=== PATIENT | male | born 1970 | race African-American/Black ===

== ENCOUNTER 2017-07-10 08:30 | Emergency (ER) | payer SELFPAY ==
[2017-07-10] MEDS ORDERED: HYDROCODONE/APAP 7.5/325 MG TAB ONE (10:24)
--- NOTE | 2017-07-10 11:47 | RAD REPORT ---
EXAM DESCRIPTION: CT - Soft Tissue Neck W/Contr - 07/10/2017 10:47 am CLINICAL HISTORY: Neck pain/sore throat. TECHNIQUE: Computed axial tomography of the neck was obtained. 50 mL of Isovue 300 was administered intravenously. Coronal and sagital reconstruction was performed. COMPARISON: None. FINDINGS: The tonsils bilaterally appear mildly enlarged. A peritonsillar abscess is not seen. The p arapharyngeal fat is clear. The remainder of the pharynx, larynx, tongue base and subglottic trachea appear unremarkable. The parotid, submandibular and thyroid glands are unremarkable. No significant lymphadenopathy is seen. Moderate to marked mucoperiosteal thickening of the sphenoid sinus is present. IMPRESSION: The tonsils appear mildly enlarged bilaterally which may indicate a tonsillitis. A perit onsillar abscess is not noted.
--- NOTE | 2017-07-10 11:47 | EDPHYS ---
Physician Documentation [facility] Name: Keith Oliver Age: 47 yrs Sex: Male : 1970 Arrival Date: 07/10/2017 Time: 08:31 Bed 18 Private MD: ED Physician Dante Baker HPI: 07/10 10:12 This 47 yrs old Black Male presents to ER via Ambulatory with complaints of Jaw Pain, kb Headache, Drainage From Eye. 10:12 The patient presents with sore throat. The patient describes throat pain as constant, kb unable to open mouth wide to yawn. Associated signs and symptoms: Pertinent positives: Sore throat jaw pain. The patient has not experienced similar symptoms in the past. The patient has not recently seen a physician. 10:13 Onset: The symptoms/episode began/occurred 5 day(s) ago. Severity of symptoms: At their kb worst the symptoms were moderate, in the emergency department the symptoms are unchanged. Modifying factors: The symptoms are alleviated by nothing, the symptoms are aggravated by swallowing, opening mouth wide, chewing, Patient's oral intake status: good Denies contact with similarly ill indivduals. Pt reports eye matting and drainage for 5 days. Sore throat, worse with swallowing for 5 days. Right sided jaw pain, worse with chewing and opening mouth wide for 5 days. Denies fever. States "It has nothing to do with my teeth.". Historical: - Allergies: 08:42 NKA; ss - PMHx: 08:42 Asthma; Hypertension; Sickle Cell; esophageal CA; "bleeding ulcer"; ss - PSHx: 08:42 "infected keloid on chest"; ss - Immunization history:: Adult Immunizations up to date. - Social history:: Smoking status: Patient uses tobacco products, denies chronic smoking, but will smoke occasionally. ROS: 10:10 Constitutional: Negative for fever, chills, and weight loss, Cardiovascular: Negative kb for chest pain, palpitations, and edema, Respiratory: Negative for shortness of breath, cough, wheezing, and pleuritic chest pain, Abdomen/GI: Negative for abdominal pain, nausea, vomiting, diarrhea, and constipation, MS/Extremity: Negative for injury and deformity, Skin: Negative for injury, rash, and discoloration, Neuro: Negative for headache, weakness, numbness, tingling, and seizure. 10:10 ENT: Positive for sore throat, jaw pain. Exam: 10:10 Constitutional: This is a well developed, well nourished patient who is awake, alert, kb and in no acute distress. Head/Face: Normocephalic, atraumatic. Neck: Trachea midline, no thyromegaly or masses palpated, and no cervical lymphadenopathy. Supple, full range of motion without nuchal rigidity, or vertebral point tenderness. No Meningismus. Chest/axilla: Normal chest wall appearance and motion. Nontender with no deformity. No lesions are appreciated. Cardiovascular: Regular rate and rhythm with a normal S1 and S2. No gallops, murmurs, or rubs. Normal PMI, no JVD. No pulse deficits. Respiratory: Lungs have equal breath sounds bilaterally, clear to auscultation and percussion. No rales, rhonchi or wheezes noted. No increased work of breathing, no retractions or nasal flaring. Abdomen/GI: Soft, non-tender, with normal bowel sounds. No distension or tympany. No guarding or rebound. No evidence of tenderness throughout. Skin: Warm, dry with normal turgor. Normal color with no rashes, no lesions, and no evidence of cellulitis. MS/ Extremity: Pulses equal, no cyanosis. Neurovascular intact. Full, normal range of motion. Neuro: Awake and alert, GCS 15, oriented to person, place, time, and situation. Cranial nerves II-XII grossly intact. Motor strength 5/5 in all extremities. Sensory grossly intact. Cerebellar exam normal. Normal gait. 10:10 ENT: Pt reports pain when he tries to open his mouth wide, with swallowing and when sticking his tongue out. Unable to fully examine posterior pharynx. Vital Signs: 08:42 BP 133 / 99; Pulse 78; Resp 16; Temp 97.4(TE); Pulse Ox 96% on R/A; Weight 99.79 kg; ss Height 6 ft. 1 in. (185.42 cm); Pain 9/10; 10:00 BP 124 / 93; Pulse 52; Resp 18; Pulse Ox 100% on R/A; em 11:46 BP 114 / 91; Pulse 87; Resp 18; Pulse Ox 100% on R/A; Pain 8/10; em 08:42 Body Mass Index 29.03 (99.79 kg, 185.42 cm) ss MDM: 09:28 Patient medically screened. kb 10:10 Data reviewed: vital signs, nurses notes. Data interpreted: Pulse oximetry: on room air kb is 96 %. Interpretation: normal. 11:34 Counseling: I had a detailed discussion with the patient and/or guardian regarding: the kb historical points, exam findings, and any diagnostic results supporting the discharge/admit diagnosis, lab results, radiology results, the need for outpatient follow up, a family practitioner, to return to the emergency department if symptoms worsen or persist or if there are any questions or concerns that arise at home. 07/10 09:36 Order name: Strep; Complete Time: 10:17 kb 07/10 09:39 Order name: Creatinine for Radiology; Complete Time: 10:18 kb 07/10 09:39 Order name: CT Soft Tissue Neck W/contr kb 07/10 10:17 Order name: Throat Culture EDMS Administered Medications: 10:09 Drug: [place] (7.5 mg-325 mg) 1 tabs Route: PO; em 11:49 Follow up: Response: No adverse reaction; Pain is unchanged, physician notified em Disposition: 15:47 Co-signature as Attending Physician, Dante Baker MD I agree with the assessment and vladimir plan of care. Disposition: 07/10/17 11:46 Discharged to Home. Impression: Conjunctivitis, Jaw pain, Acute tonsillitis. - Condition is Stable. - Discharge Instructions: Conjunctivitis (Viral and Bacterial), Tonsillitis, [id number]. - Prescriptions for Vigamox 0.5 % Ophthalmic Drops - instill 1 drop by OPHTHALMIC route every 8 hours for 7 days; 5 milliliter. Tramadol 50 mg Oral Tablet - take 1 tablet by ORAL route every 8 hours as needed; 12 tablet. Augmentin 875- 125 mg Oral Tablet - take 1 tablet by ORAL route every 12 hours for 7 days; 14 tablet. - Medication Reconciliation Form, Thank You Letter, Antibiotic Education, Prescription Opioid Use form. - Follow up: Emergency Department; When: As needed; Reason: Worsening of condition. Follow up: Private Physician; When: 2 - 3 days; Reason: Recheck today's complaints, Continuance of care, Re-evaluation by your physician. Signatures: Dispatcher [employer] EDMS Hyacinth Bell FNP-C FNP-Ckb Anderson Dante, MD MD vladimir Kramer, Travis, CHALK EXTRUDING MACHINE OPERATOR CHALK EXTRUDING MACHINE OPERATOR Laura Shrestha, LIZZIE RN ss
--- NOTE | 2017-07-10 11:47 | ER ---
Nurse's Notes [facility] Name: Keith Oliver Age: 47 yrs Sex: Male : 1970 Arrival Date: 07/10/2017 Time: 08:31 Bed 18 Private MD: Diagnosis: Conjunctivitis;Jaw pain;Acute tonsillitis Presentation: 07/10 08:40 Presenting complaint: Patient states: R sided jaw pain, eye drainage, headache and ss intermittent nose bleeds x 5 days. Transition of care: patient was not received from another setting of care. Onset of symptoms was July 06, 2017. Care prior to arrival: None. 08:40 Method Of Arrival: Ambulatory ss 08:40 Acuity: CARYL 3 ss Historical: - Allergies: 08:42 NKA; ss - PMHx: 08:42 Asthma; Hypertension; Sickle Cell; esophageal CA; "bleeding ulcer"; ss - PSHx: 08:42 "infected keloid on chest"; ss - Immunization history:: Adult Immunizations up to date. - Social history:: Smoking status: Patient uses tobacco products, denies chronic smoking, but will smoke occasionally. Screenin:50 Abuse screen: Denies threats or abuse. Nutritional screening: No deficits noted. em Tuberculosis screening: No symptoms or risk factors identified. Fall Risk None identified. Assessment: 08:46 General: Appears in no apparent distress. uncomfortable, Behavior is calm, cooperative. em General: Reports fever, unknown temp right sided jaw pain that started Thursday, also c/o intermittent nose bleeds. Pain: Complains of pain in right jaw Pain currently is 9 out of 10 on a pain scale. Pain began 4 days ago. Neuro: Level of Consciousness is awake, alert, obeys commands, Oriented to person, place, time, situation, Gait is steady, Speech is normal, Facial symmetry appears normal. Cardiovascular: Capillary refill < 3 seconds Patient's skin is warm and dry. Respiratory: Airway is patent Respiratory effort is even, unlabored, Respiratory pattern is regular, symmetrical. GI: Abdomen is flat. : No signs and/or symptoms were reported regarding the genitourinary system. EENT: Oral mucosa is moist. Throat is clear is pink. Derm: Skin is intact, Skin is pink, warm \\T\\ dry. Musculoskeletal: Range of motion: intact in all extremities. 09:00 General: The previous assessment is accurate, call light remains within reach. . ss 10:00 Reassessment: Patient appears in no apparent distress at this time. Patient and/or em family updated on plan of care and expected duration. Pain level reassessed. Patient is alert, oriented x 3, equal unlabored respirations, skin warm/dry/pink. Patient states symptoms have not improved. 11:00 Reassessment: Patient appears in no apparent distress at this time. Patient and/or em family updated on plan of care and expected duration. Pain level reassessed. Patient is alert, oriented x 3, equal unlabored respirations, skin warm/dry/pink. 11:40 Reassessment: Patient appears in no apparent distress at this time. Patient and/or em family updated on plan of care and expected duration. Pain level reassessed. Patient is alert, oriented x 3, equal unlabored respirations, skin warm/dry/pink. Patient states feeling better. Vital Signs: 08:42 BP 133 / 99; Pulse 78; Resp 16; Temp 97.4(TE); Pulse Ox 96% on R/A; Weight 99.79 kg; ss Height 6 ft. 1 in. (185.42 cm); Pain 9/10; 10:00 BP 124 / 93; Pulse 52; Resp 18; Pulse Ox 100% on R/A; em 11:46 BP 114 / 91; Pulse 87; Resp 18; Pulse Ox 100% on R/A; Pain 8/10; em 08:42 Body Mass Index 29.03 (99.79 kg, 185.42 cm) ED Course: 08:31 Patient arrived in ED. as 08:41 Triage completed. ss 08:42 Arm band placed on right wrist. ss 08:43 Travis Kramer LVN is Primary Nurse. em 08:50 Patient has correct armband on for positive identification. Bed in low position. Call em light in reach. Side rails up X2. 08:50 No provider procedures requiring assistance completed. em 09:28 Hyacinth Bell FNP-C is PHCP. kb 09:28 Dante Baker MD is Attending Physician. kb 10:30 Initial lab(s) drawn, by me, sent to lab. Inserted saline lock: 20 gauge in right em antecubital area, using aseptic technique. Blood collected. 10:40 CT completed. Patient tolerated procedure well. Patient moved to DC via wheelchair. sj Patient moved back from CT. 10:47 CT Soft Tissue Neck W/contr In Process Unspecified. EDMS 11:58 IV discontinued, intact, bleeding controlled, No redness/swelling at site. Pressure em dressing applied. Administered Medications: 10:09 Drug: [place] (7.5 mg-325 mg) 1 tabs Route: PO; em 11:49 Follow up: Response: No adverse reaction; Pain is unchanged, physician notified em Outcome: 11:46 Discharge ordered by . kasia 11:58 Discharged to home ambulatory. em 11:58 Condition: good 11:58 Discharge instructions given to patient, Instructed on discharge instructions, follow up and referral plans. medication usage, Demonstrated understanding of instructions, follow-up care, medications, Prescriptions given X 3. 11:59 Patient left the ED. em Signatures: Dispatcher [employer] EDMS Hyacinth Bell, STOCK BUYER-C STOCK BUYER-Deja Brown Edgar, RESIDENT INTERN RESIDENT INTERN Lety Hall Shelby, LIZZIE RN ss
== END 2017-07-10 11:59 | disposition home or self-care (01) ==
LOC: ER 08:30
DX: J03.90 Acute tonsillitis, unspecified (principal); H10.9 Unspecified conjunctivitis; I10 Essential (primary) hypertension; Z72.0 Tobacco use; Z85.01 Personal history of malignant neoplasm of esophagus
CPT/HCPCS: 36415; 70491; 87070; 87081; 99284; Q9967

== ENCOUNTER 2017-08-22 10:38 | Emergency (ER) | payer SELFPAY ==
[2017-08-22] MEDS ORDERED: KETOROLAC 30 MG/ML INJ ONE (11:07)
--- NOTE | 2017-08-22 11:28 | RAD REPORT ---
EXAM DESCRIPTION: RAD - Knee Left 3 View - 08/22/2017 11:11 am CLINICAL HISTORY: Trip and fall, knee pain COMPARISON: None. FINDINGS: No fracture, dislocation or periosteal reaction.No joint effusion seen. No joint space estela rowing. No soft tissue abnormality. IMPRESSION: Negative left knee. Clinical concerns for internal derangement or occult bony injury could be further assessed with MR im aging.
--- NOTE | 2017-08-22 12:03 | ER ---
Nurse's Notes [facility] Name: Keith Oliver Age: 47 yrs Sex: Male : 1970 Arrival Date: 08/22/2017 Time: 10:41 Bed 16 Private MD: Diagnosis: Sprain of unspecified site of left knee Presentation: 08/22 10:42 Presenting complaint: Patient states: I fell over a chair and my left knee has been la1 hurting since then, pt reports decreased in weight bearing. Transition of care: patient was not received from another setting of care. Onset of symptoms was August 22, 2017. Initial Sepsis Screen: Does the patient meet any 2 criteria? No. Patient's initial sepsis screen is negative. Does the patient have a suspected source of infection? No. Patient's initial sepsis screen is negative. Care prior to arrival: None. 10:42 Method Of Arrival: Ambulatory la1 10:42 Acuity: CARYL 4 la1 Historical: - Allergies: 10:43 NKA; la1 - Home Meds: 10:47 None [Active]; rb1 - PMHx: 10:43 "bleeding ulcer"; Asthma; Esophageal CA; GI Bleed; Hypertension; Sickle Cell; throat la1 and lung cancer; - PSHx: 10:47 keyloid on chest; rb1 - Immunization history:: Adult Immunizations up to date. - Social history:: Smoking status: Patient/guardian denies using tobacco. Screenin:47 Abuse screen: Denies threats or abuse. Nutritional screening: No deficits noted. rb1 Tuberculosis screening: No symptoms or risk factors identified. Fall Risk Fall in past 12 months (25 points). Secondary diagnosis (15 points) impaired mobility, No IV (0 pts). Ambulatory Aid- Crutches/Cane/Walker (15 pts). Gait- Impaired (20 pts.). Mental Status- Oriented to own ability (0 pts). Total Briggs Fall Scale indicates High Risk Score (45 or more points). Fall prevention measures have been instituted. Side Rails Up X 2 Placed Close to Nursing Station 1:1 Attendant Assigned Frequent Obs/Assessments Occuring As available patient and family educated on Fall Prevention Program and Strategies. Assessment: 10:47 General: Appears uncomfortable, Behavior is calm, cooperative. Pain: Complains of pain rb1 in left knee Pain currently is 10 out of 10 on a pain scale. Pain began 1 hour ago. Neuro: Level of Consciousness is awake, alert, obeys commands, Oriented to person, place, time, situation. Cardiovascular: Capillary refill < 3 seconds is brisk in bilateral fingers. Respiratory: Airway is patent Respiratory effort is even, unlabored, Respiratory pattern is regular, symmetrical. GI: No signs and/or symptoms were reported involving the gastrointestinal system. : No signs and/or symptoms were reported regarding the genitourinary system. Derm: Skin is dry, Skin is normal, Skin temperature is warm. Musculoskeletal: Range of motion: intact in all extremities. 11:46 Reassessment: Patient appears in no apparent distress at this time. No changes from rb1 previously documented assessment. 12:23 Reassessment: Patient appears in no apparent distress at this time. Patient and/or rb1 family updated on plan of care and expected duration. Pain level reassessed. Patient is alert, oriented x 3, equal unlabored respirations, skin warm/dry/pink. Vital Signs: 10:43 BP 136 / 97; Pulse 78; Resp 19; Temp 98.2(TE); Pulse Ox 100% on R/A; Weight 96.16 kg; la1 Height 6 ft. 1 in. (185.42 cm); 11:43 BP 131 / 91; Pulse 59; Resp 17; Pulse Ox 99% on R/A; rb1 10:43 Body Mass Index 27.97 (96.16 kg, 185.42 cm) la1 ED Course: 10:41 Patient arrived in ED. sb2 10:43 Triage completed. la1 10:43 Arm band placed on left wrist. la1 10:44 Hyacinth Bell FNP-C is PHCP. kb 10:44 Dariel Londono MD is Attending Physician. kb 10:47 Patient has correct armband on for positive identification. Bed in low position. Call rb1 light in reach. Side rails up X 1. Pulse ox on. NIBP on. 10:48 Tona Wren, LIZZIE is Primary Nurse. rb1 11:08 X-ray completed. Portable x-ray completed in exam room. Patient tolerated procedure la2 well. 11:08 Knee Left 3 View XRAY In Process Unspecified. EDMS 12:24 No provider procedures requiring assistance completed. Patient did not have IV access rb1 during this emergency room visit. Administered Medications: 11:09 Drug: TORadol 60 mg Route: IM; Site: left gluteus; rb1 11:33 Follow up: Response: No adverse reaction; Pain is decreased rb1 Outcome: 12:03 Discharge ordered by . kasia 12:24 Discharged to home via wheelchair. rb1 12:24 Condition: stable 12:24 Discharge instructions given to patient, Instructed on discharge instructions, follow up and referral plans. medication usage, Demonstrated understanding of instructions, follow-up care, medications, Prescriptions given X 1. 12:24 Patient left the ED. rb1 Signatures: Dispatcher [employer] EDMS Hyacinth Bell, LEIDA-C LEIDA-Chuck Pedraza RN RN la1 Tona Wren RN RN rb1 Dorothy Oh la2 Rebeca Puentes2
--- NOTE | 2017-08-22 12:03 | EDPHYS ---
Physician Documentation [facility] Name: Keith Oliver Age: 47 yrs Sex: Male : 1970 Arrival Date: 08/22/2017 Time: 10:41 Bed 16 Private MD: ED Physician Dariel Londono HPI: 08/22 12:01 This 47 yrs old Black Male presents to ER via Ambulatory with complaints of Knee Pain. kb 12:01 The patient presents with an injury, pain, tenderness. The complaints affect the left kb knee. Context: The problem was sustained at home, resulted from the patient falling, the patient can partially bear weight, can ambulate using a cane. Onset: The symptoms/episode began/occurred just prior to arrival. Modifying factors: The symptoms are alleviated by nothing. the symptoms are aggravated by weight bearing. Associated signs and symptoms: The patient has no apparent associated signs or symptoms. Treatment prior to arrival includes: no previous treatment. Severity of symptoms: At their worst the symptoms were mild, moderate, in the emergency department the symptoms are unchanged. The patient has not experienced similar symptoms in the past. The patient has not recently seen a physician. Pt reports he was standing on a chair and fell off. States he twisted his knee when he went down. . Historical: - Allergies: 10:43 NKA; la1 - Home Meds: 10:47 None [Active]; rb1 - PMHx: 10:43 "bleeding ulcer"; Asthma; Esophageal CA; GI Bleed; Hypertension; Sickle Cell; throat la1 and lung cancer; - PSHx: 10:47 keyloid on chest; rb1 - Immunization history:: Adult Immunizations up to date. - Social history:: Smoking status: Patient/guardian denies using tobacco. ROS: 11:59 Constitutional: Negative for fever, chills, and weight loss, Cardiovascular: Negative kb for chest pain, palpitations, and edema, Respiratory: Negative for shortness of breath, cough, wheezing, and pleuritic chest pain, Abdomen/GI: Negative for abdominal pain, nausea, vomiting, diarrhea, and constipation, Skin: Negative for injury, rash, and discoloration, Neuro: Negative for headache, weakness, numbness, tingling, and seizure. 11:59 MS/extremity: Positive for pain, tenderness. Exam: 11:59 Constitutional: This is a well developed, well nourished patient who is awake, alert, kb and in no acute distress. Head/Face: Normocephalic, atraumatic. Chest/axilla: Normal chest wall appearance and motion. Nontender with no deformity. No lesions are appreciated. Cardiovascular: Regular rate and rhythm with a normal S1 and S2. No gallops, murmurs, or rubs. Normal PMI, no JVD. No pulse deficits. Respiratory: Lungs have equal breath sounds bilaterally, clear to auscultation and percussion. No rales, rhonchi or wheezes noted. No increased work of breathing, no retractions or nasal flaring. Abdomen/GI: Soft, non-tender, with normal bowel sounds. No distension or tympany. No guarding or rebound. No evidence of tenderness throughout. Skin: Warm, dry with normal turgor. Normal color with no rashes, no lesions, and no evidence of cellulitis. Neuro: Awake and alert, GCS 15, oriented to person, place, time, and situation. Cranial nerves II-XII grossly intact. Motor strength 5/5 in all extremities. Sensory grossly intact. Cerebellar exam normal. Normal gait. 11:59 Musculoskeletal/extremity: Extremities: grossly normal except: noted in the left knee: pain, tenderness, ROM: intact in all extremities, Circulation is intact in all extremities. Sensation intact. Weight bearing: can bear weight with assistance only, uses cane. Vital Signs: 10:43 BP 136 / 97; Pulse 78; Resp 19; Temp 98.2(TE); Pulse Ox 100% on R/A; Weight 96.16 kg; la1 Height 6 ft. 1 in. (185.42 cm); 11:43 BP 131 / 91; Pulse 59; Resp 17; Pulse Ox 99% on R/A; rb1 10:43 Body Mass Index 27.97 (96.16 kg, 185.42 cm) la1 MDM: 10:44 Patient medically screened. kb 11:59 Data reviewed: vital signs, nurses notes. Data interpreted: Pulse oximetry: on room air kb is 100 %. Interpretation: normal. Counseling: I had a detailed discussion with the patient and/or guardian regarding: the historical points, exam findings, and any diagnostic results supporting the discharge/admit diagnosis, radiology results, the need for outpatient follow up, a family practitioner, to return to the emergency department if symptoms worsen or persist or if there are any questions or concerns that arise at home. 08/22 10:46 Order name: Knee Left 3 View XRAY; Complete Time: 11:31 kb 08/22 11:56 Order name: Knee Immobilizer; Complete Time: 12:07 kb 08/22 11:56 Order name: Crutches; Complete Time: 12:07 kb Administered Medications: 11:09 Drug: TORadol 60 mg Route: IM; Site: left gluteus; rb1 11:33 Follow up: Response: No adverse reaction; Pain is decreased rb1 Disposition: 18:50 Co-signature as Attending Physician, Dariel Londono MD. Disposition: 08/22/17 12:03 Discharged to Home. Impression: Sprain of unspecified site of left knee. - Condition is Stable. - Discharge Instructions: Knee Sprain. - Prescriptions for Tramadol 50 mg Oral Tablet - take 1 tablet by ORAL route every 8 hours as needed; 12 tablet. - Medication Reconciliation Form, Thank You Letter, Antibiotic Education, Prescription Opioid Use, Work release form form. - Follow up: Emergency Department; When: As needed; Reason: Worsening of condition. Follow up: Private Physician; When: 2 - 3 days; Reason: Recheck today's complaints, Continuance of care, Re-evaluation by your physician. Signatures: Dispatcher [employer] EDKS Hyacinth Bell, LEIDA-C PHYSICIAN CODER-Chuck Pedraza RN RN la1 Tona Wren RN RN rb1 Dariel Londono MD MD gs Corrections: (The following items were deleted from the chart) 12:24 12:03 08/22/2017 12:03 Discharged to Home. Impression: Sprain of unspecified site of rb1 left knee. Condition is Stable. Forms are Medication Reconciliation Form, Thank You Letter, Antibiotic Education, Prescription Opioid Use. Follow up: Emergency Department; When: As needed; Reason: Worsening of condition. Follow up: Private Physician; When: 2 - 3 days; Reason: Recheck today's complaints, Continuance of care, Re-evaluation by your physician. kb
== END 2017-08-22 12:24 | disposition home or self-care (01) ==
LOC: ER 10:38
DX: S83.92XA Sprain of unspecified site of left knee, initial encounter (principal); W07.XXXA Fall from chair, initial encounter; Y93.89 Activity, other specified; Y92.009 Unspecified place in unspecified non-institutional (private) residence as the place of occurrence of the external cause; I10 Essential (primary) hypertension
CPT/HCPCS: 96372; 99284

== ENCOUNTER 2017-08-23 14:51 | Emergency (ER) | payer SELFPAY ==
[2017-08-23] MEDS ORDERED: HYDROCODONE/APAP 7.5/325 MG TAB ONE (15:46)
[2017-08-23] MEDS ORDERED: IBUPROFEN 400 MG TAB ONE (15:47)
--- NOTE | 2017-08-23 16:37 | RAD REPORT ---
EXAM DESCRIPTION: CT - Knee Left Wo Con - 08/23/2017 4:17 pm COMPARISON: August 22, 2017 x-ray TECHNIQUE: Computed axial tomography of the left knee was obtained with coronal and sagittal reconst ruction. All CT scans are performed using dose optimization technique as appropriate and may include automated exposure control or mA/KV adjustment according to patient size. FINDINGS: Minimal compression of the lateral tibial plateau is seen. A discrete fracture line is not visualized. No dislocation is noted. A small joint effusion is present. IMPRESSION: Minimal compression of the lateral tibial plateau without visualization of a discrete fr acture line. A subtle acute fracture is suspected but not certain. Confirmation with MRI is recommend ed
--- NOTE | 2017-08-23 16:56 | ER ---
Nurse's Notes [facility] Name: Keith Oliver Age: 47 yrs Sex: Male : 1970 Arrival Date: 08/23/2017 Time: 14:55 Bed 13 Private MD: None, None Diagnosis: Nondisplaced Fracture Left Tibial Plateau Presentation: 08/23 14:57 Presenting complaint: Patient states: I fell yesterday and had left knee pain, came la1 here, negative xrays, pain is worse and cannot bear weight. Transition of care: patient was not received from another setting of care. Onset of symptoms was August 23, 2017. Initial Sepsis Screen: Does the patient meet any 2 criteria? No. Patient's initial sepsis screen is negative. Does the patient have a suspected source of infection? No. Patient's initial sepsis screen is negative. Care prior to arrival: None. 14:57 Method Of Arrival: Wheelchair la1 14:57 Acuity: CARYL 4 la1 Historical: - Allergies: 14:58 NKA; la1 - Home Meds: 15:00 tramadol 50 mg Oral tab 1 tab every 6 hours [Active]; rb1 - PMHx: 14:58 "bleeding ulcer"; Asthma; Esophageal CA; GI Bleed; Hypertension; Sickle Cell; throat la1 and lung cancer; - PSHx: 15:00 keyloid on chest; rb1 - Immunization history:: Adult Immunizations up to date. - Social history:: Smoking status: Patient/guardian denies using tobacco. Screenin:00 Abuse screen: Denies threats or abuse. Nutritional screening: No deficits noted. rb1 Tuberculosis screening: No symptoms or risk factors identified. Fall Risk Fall in past 12 months (25 points). Secondary diagnosis (15 points) impaired mobility, No IV (0 pts). Ambulatory Aid- Crutches/Cane/Walker (15 pts). Gait- Impaired (20 pts.). Mental Status- Oriented to own ability (0 pts). Total Briggs Fall Scale indicates High Risk Score (45 or more points). Fall prevention measures have been instituted. Side Rails Up X 2 Placed Close to Nursing Station 1:1 Attendant Assigned Frequent Obs/Assessments Occuring As available patient and family educated on Fall Prevention Program and Strategies. Assessment: 15:00 General: Appears uncomfortable, Behavior is calm, cooperative, Denies fever. General: rb1 Pt. was in the ED for same complaint yesterday, all tests came back negative.. Pain: Complains of pain in left leg Pain currently is 10 out of 10 on a pain scale. Pain began 1 day ago. Aggravated by weight bearing. Neuro: Level of Consciousness is awake, alert, obeys commands, Oriented to person, place, time, situation. Cardiovascular: Capillary refill < 3 seconds is brisk in bilateral fingers. Respiratory: Airway is patent Respiratory effort is even, unlabored, Respiratory pattern is regular, symmetrical. GI: No signs and/or symptoms were reported involving the gastrointestinal system. GI: No signs and/or symptoms were reported involving the gastrointestinal system. : No signs and/or symptoms were reported regarding the genitourinary system. Derm: Skin is dry, Skin is normal, Skin temperature is warm. Musculoskeletal: Range of motion: limited in left knee pt. has a knee immobilizer on the left leg. 15:48 Reassessment: Patient appears in no apparent distress at this time. No changes from rb1 previously documented assessment. 16:46 Reassessment: Patient appears in no apparent distress at this time. Patient and/or rb1 family updated on plan of care and expected duration. Pain level reassessed. Patient is alert, oriented x 3, equal unlabored respirations, skin warm/dry/pink. Vital Signs: 14:58 BP 123 / 80; Pulse 71; Resp 19; Temp 98.3; Pulse Ox 100% on R/A; Weight 96.16 kg; la1 Height 6 ft. 1 in. (185.42 cm); 15:48 BP 129 / 80; Pulse 68; Resp 17; Pulse Ox 96% on R/A; Pain 10/10; rb1 16:46 BP 128 / 99; Pulse 78; Resp 17; Pulse Ox 98% ; Pain 5/10; rb1 14:58 Body Mass Index 27.97 (96.16 kg, 185.42 cm) la1 ED Course: 14:55 Patient arrived in ED. sb2 14:55 None, None is Private Physician. sb2 14:57 Triage completed. la1 14:58 Arm band placed on left wrist. la1 15:00 Patient has correct armband on for positive identification. Bed in low position. Call rb1 light in reach. Side rails up X 1. Pulse ox on. NIBP on. 15:12 Wren, Tona, RN is Primary Nurse. rb1 15:18 Dante Calles PA is PHCP. cp 15:18 Dante Baker MD is Attending Physician. cp 16:17 Knee Left Wo Con In Process Unspecified. EDMS 16:52 Ashu Ward MD is Referral Physician. cp 17:12 No provider procedures requiring assistance completed. Patient did not have IV access rb1 during this emergency room visit. Administered Medications: 15:48 Drug: Ibuprofen 800 mg Route: PO; rb1 16:20 Follow up: Response: No adverse reaction; Pain is decreased rb1 15:48 Drug: Hydrocodone-Acetaminophen (7.5 mg-325 mg) 1 tabs Route: PO; rb1 16:20 Follow up: Response: No adverse reaction; Pain is decreased rb1 Outcome: 16:55 Discharge ordered by MD. cp 17:12 Discharged to home with crutches. rb1 17:12 Condition: stable 17:12 Instructed on discharge instructions, follow up and referral plans. medication usage, Demonstrated understanding of instructions, follow-up care, medications, Prescriptions given X 1. 17:13 Patient left the ED. rb1 Signatures: Dispatcher [employer] EDMS Chuck Vogt RN RN la1 Dante Calles PA PA cp Tona rWen, RN RN rb1 Rebeca Puentes sb2
--- NOTE | 2017-08-23 16:56 | EDPHYS ---
Physician Documentation [facility] Name: Keith Oliver Age: 47 yrs Sex: Male : 1970 Arrival Date: 08/23/2017 Time: 14:55 Bed 13 Private MD: None, None ED Physician Dante Baker HPI: 08/23 15:23 This 47 yrs old Black Male presents to ER via Wheelchair with complaints of Leg Pain. cp 15:23 The patient presents with pain, that is acute. The complaints affect the left knee. cp 15:23 Context: The problem was sustained at home, resulted from fall off chair, the patient cp can partially bear weight, uses crutches. Onset: The symptoms/episode began/occurred yesterday. Associated signs and symptoms: Pertinent negatives numbness, tingling. The patient has been recently seen at the [facility] Emergency Department, yesterday, for similar complaints X-rays were performed, reports pain worse today. 15:23 Patient reports he fell while standing on chair and believes he twisted knee as he cp fell. Does not remember landing directly on knee. Historical: - Allergies: 14:58 NKA; la1 - Home Meds: 15:00 tramadol 50 mg Oral tab 1 tab every 6 hours [Active]; rb1 - PMHx: 14:58 "bleeding ulcer"; Asthma; Esophageal CA; GI Bleed; Hypertension; Sickle Cell; throat la1 and lung cancer; - PSHx: 15:00 keyloid on chest; rb1 - Immunization history:: Adult Immunizations up to date. - Social history:: Smoking status: Patient/guardian denies using tobacco. ROS: 15:40 Constitutional: Negative for body aches, chills, fever, poor PO intake. cp 15:40 Eyes: Negative for injury, pain, redness, and discharge. cp 15:40 ENT: Negative for drainage from ear(s), ear pain, sore throat, difficulty swallowing, cp difficulty handling secretions. 15:40 Neck: Negative for pain with movement, pain at rest, stiffness, tenderness, bony tenderness. 15:40 Cardiovascular: Negative for chest pain, edema, palpitations. 15:40 Respiratory: Negative for cough, shortness of breath, wheezing. cp 15:40 Abdomen/GI: Negative for abdominal pain, nausea, vomiting, and diarrhea. 15:40 Back: Negative for pain at rest, pain with movement, radiated pain. 15:40 MS/extremity: Positive for decreased range of motion, pain, tenderness, of the left knee, Negative for deformity, paresthesias. 15:40 Skin: Negative for cellulitis, rash. 15:40 All other systems are negative. Exam: 15:45 Constitutional: The patient appears in no acute distress, alert, awake, cp non-diaphoretic, non-toxic, well developed, well nourished. 15:45 Head/Face: Normocephalic, atraumatic. cp 15:45 Eyes: Periorbital structures: appear normal, Conjunctiva: normal, no exudate, no cp injection, Lids and lashes: appear normal, bilaterally. 15:45 ENT: External ear(s): are unremarkable, Nose: is normal, Mouth: is normal. 15:45 Neck: ROM/movement: is normal, is supple, without pain, no range of motions limitations, no nuchal rigidity. 15:45 Chest/axilla: Inspection: normal, Palpation: is normal, no crepitus, no tenderness. 15:45 Cardiovascular: Rate: normal, Rhythm: regular. 15:45 Respiratory: the patient does not display signs of respiratory distress, Respirations: normal, no use of accessory muscles, no retractions, no splinting, no tachypnea. 15:45 Abdomen/GI: Exam negative for discomfort, distension, guarding, Inspection: abdomen appears normal. 15:45 Back: pain, is absent, ROM is normal. 15:45 Musculoskeletal/extremity: Joints: All joints are normal except the left knee displays painful range of motion, swelling, tenderness. 15:45 Skin: cellulitis, is not appreciated, no rash present. cp Vital Signs: 14:58 BP 123 / 80; Pulse 71; Resp 19; Temp 98.3; Pulse Ox 100% on R/A; Weight 96.16 kg; la1 Height 6 ft. 1 in. (185.42 cm); 15:48 BP 129 / 80; Pulse 68; Resp 17; Pulse Ox 96% on R/A; Pain 10/10; rb1 16:46 BP 128 / 99; Pulse 78; Resp 17; Pulse Ox 98% ; Pain 5/10; rb1 14:58 Body Mass Index 27.97 (96.16 kg, 185.42 cm) la1 MDM: 15:18 Patient medically screened. cp 15:45 Differential diagnosis: dislocation, closed fracture, contusion, tendon injury, cp effusion. 16:55 Data reviewed: vital signs, nurses notes, old medical records, radiologic studies, CT cp scan, and as a result, I will discharge patient. 16:55 Counseling: I had a detailed discussion with the patient and/or guardian regarding: the cp historical points, exam findings, and any diagnostic results supporting the discharge/admit diagnosis, radiology results, the need for outpatient follow up, a orthopedic surgeon, to return to the emergency department if symptoms worsen or persist or if there are any questions or concerns that arise at home. Response to treatment: the patient's symptoms have markedly improved after treatment. 16:55 ED course: VSS. Pain improved with oral meds. Knee michael wrapped and immobilizer cp replaced. Will discharge to home for continued monitoring. 08/23 15:55 Order name: Knee Left Wo Con; Complete Time: 16:40 EDMS 08/23 16:40 Interpretation: Report reviewed. cp 08/23 16:51 Order name: Michael wrap-joint: left knee; Complete Time: 17:09 cp 08/23 16:51 Order name: Misc. Order: replace knee immobilizer; Complete Time: 17:09 cp Administered Medications: 15:48 Drug: Ibuprofen 800 mg Route: PO; rb1 16:20 Follow up: Response: No adverse reaction; Pain is decreased rb1 15:48 Drug: Hydrocodone-Acetaminophen (7.5 mg-325 mg) 1 tabs Route: PO; rb1 16:20 Follow up: Response: No adverse reaction; Pain is decreased rb1 Disposition: 08/24 09:21 Co-signature as Attending Physician, Dante Baker MD I agree with the assessment and vladimir plan of care. Disposition: 08/23/17 16:55 Discharged to Home. Impression: Nondisplaced Fracture Left Tibial Plateau. - Condition is Stable. - Discharge Instructions: Knee Immobilizer, Nondisplaced Tibial Plateau Fracture. - Prescriptions for Tylenol- Codeine #3 300-30 mg Oral Tablet - take 2 tablets by ORAL route every 6 hours As needed; 20 tablet. - Work release form, Medication Reconciliation Form, Thank You Letter, Antibiotic Education, Prescription Opioid Use form. - Follow up: Ashu Ward MD; When: Tomorrow; Reason: knee fracture. - Problem is new. - Symptoms have improved. Signatures: Dispatcher [employer] EDMS Dante Baker MD MD cha Attema, Lee, RN RN la1 Dante Calles PA PA cp Tona Wren, RN RN rb1 Corrections: (The following items were deleted from the chart) 08/23 16:56 16:55 08/23/2017 16:55 Discharged to Home. Impression: Nondisplaced Fracture Left Tibia cp Plateau. Condition is Stable. Forms are Medication Reconciliation Form, Thank You Letter, Antibiotic Education, Prescription Opioid Use. Follow up: Ashu Ward; When: Tomorrow; Reason: knee fracture. Problem is new. Symptoms have improved. cp 17:13 16:56 08/23/2017 16:55 Discharged to Home. Impression: Nondisplaced Fracture Left rb1 Tibial Plateau. Condition is Stable. Forms are Medication Reconciliation Form, Thank You Letter, Antibiotic Education, Prescription Opioid Use. Follow up: Ashu Ward; When: Tomorrow; Reason: knee fracture. Problem is new. Symptoms have improved. cp
== END 2017-08-23 17:13 | disposition home or self-care (01) ==
LOC: ER 14:51
DX: S82.145A Nondisplaced bicondylar fracture of left tibia, initial encounter for closed fracture (principal); W07.XXXA Fall from chair, initial encounter; Y93.89 Activity, other specified; Y92.009 Unspecified place in unspecified non-institutional (private) residence as the place of occurrence of the external cause; Z85.118 Personal history of other malignant neoplasm of bronchus and lung; Z85.01 Personal history of malignant neoplasm of esophagus; I10 Essential (primary) hypertension
CPT/HCPCS: 73700; 99284

== ENCOUNTER 2019-04-28 06:42 | Emergency (ER) | payer BC, SELFPAY ==
--- OUTSIDE RECORDS SUMMARY | 2019-04-28 06:43 | XMS REPORT ---
:1970 [facility] Address [address] [place] [address] [place] [id number] Care Team Providers Name Role Phone Unavailable Unavailable Unavailable Problems This patient has no known problems. Allergies, Adverse Reactions, Alerts This patient has no known allergies or adverse reactions. Medications This patient has no known medications.
--- OUTSIDE RECORDS SUMMARY | 2019-04-28 06:44 | XMS REPORT | Continuity of Care Document ---
:1970 Author Organization [facility] Address [address] [place] [address] Allergies, Adverse Reactions, Alerts No known allergies. Medications Medication Status Dose Units Route Sig Qty Days Start End Instructions Date Date Acetamin/Codei Discontinu 1 ORAL Every 6 15 5 Februarybe Do not combine with other products that contain Tylenol ne 300/30 Mg * ed Hours , r 16, As 2018 2018 (acetaminophen). Needed 5:34pm as needed for Pain Methocarbamol Discontinu 1 ORAL Twice A 60 30 February [facility] ed Day for , r 11, Muscle 2019 2018 Spasm 5:34pm Naproxen Discontinu 1 ORAL Twice A 40 20 February [facility] ed Day for , r , Pain 2018 2019 5:34pm Problems Active Problems Medical Problem Onset Date Status Atypical chest pain Active Bronchitis Active Chest wall pain Active Cough Active Dehydration Active Depressed affect Active GERD (gastroesophageal reflux disease) Active Hypertension Active Vertigo Active Inactive/Resolved Problems Medical Problem Onset Date Status Costochondral chest pain Resolved Post-operative pain Resolved Procedures Procedure Date Performed Status X-ray of chest, single view February 14, 2019 completed Relevant Diagnostic Tests and/or Laboratory Data Laboratory Results Test Date/Time Result Interpretation Reference Result Comment Performing Range Site White Blood Count February 6.6 4.0-12.3 [facility], 2018 2:49pm [facility] [address] Red Blood Count February 3.84 3.80-5.80 [facility], 2018 2:49pm [facility] [address] Hemoglobin February 11.7 11.7-17.2 [facility], 2018 2:49pm [facility] [address] Hematocrit February 34.4 35.0-51.0 [facility], 2018 2:49pm [facility] [address] Mean Corpuscular February 89.6 83-100 [facility], [address] Volume 2018 2:49pm [place] [address] Mean Corpuscular November 30.5 26.8-33.4 [facility], [address] Hemoglobin 2018 2:49pm [place] [address] Mean Corpuscular November 34.0 30-35 [facility], [address] Hemoglobin 2018 Concent 2:49pm [facility] [address] Red Cell November 14.2 12.0-14.0 [facility], [address] [facility] Distribution 2018 Width 2:49pm [place] [address] Platelet Count February 201 175-450 [facility], [address] 2018 2:49pm [place] [address] Mean Platelet November 9.9 9.4-12.6 [facility], [address] [facility] Volume 2018 2:49pm [place] [address] Neutrophils (%) February 55.6 44.7-82.4 [facility], [address] (Auto) 2018 2:49pm [place] [address] Immature November 0.6 0.0-0.4 [facility], [address] Granulocyte % 2018 (Auto) 2:49pm [place] [address] Lymphocytes (%) February 34.9 10.0-50.0 [facility], [address] (Auto) 2018 2:49pm [place] [address] Monocytes (%) February 7.3 3.9-13.4 [facility], [address] (Auto) 2018 2:49pm [place] [address] Eosinophils (%) February 1.1 0.0-6.4 [facility], [address] (Auto) 2018 2:49pm [place] [address] Basophils (%) February 0.5 0.2-1.2 [facility], [address] (Auto) 2018 2:49pm [place] [address] Neutrophils # February 3.65 1.78-5.38 [facility], [address] (Auto) 2018 2:49pm [place] [address] Absolute Immature February 0.0 0.0-0.03 [facility], [address] Granulocyte (auto 2018 2:49pm [place] [address] Lymphocytes # November 2.3 1.32-3.57 [facility], [address] [place] [address] (Auto) 2018 2:49pm [facility] [address] Monocytes # February 0.48 0.30-0.82 [facility], [address] [place] [address] (Auto) 2018 2:49pm [place] [address] Eosinophils # February 0.07 0.04-0.54 [facility], [address] [place] [address] (Auto) 2018 2:49pm [facility] [address] Basophils # November 0.03 0.01-0.08 [facility], [address] [place] [address] (Auto) 2018 2:49pm [place] [id number] Nucleated Red November 0 0-0.2 [facility], [address] [place] [address] Blood Cells % 2018 2:49pm [place] [id number] Nucleated Red November 0 0 [facility], [address] [place] [address] Blood Cells # 2018 2:49pm [place] [id number] Prothrombin Time February 9.8 10.3-12.[address] 2018 LEVEL: 1.5 to 2:49pm 1.9 times [place] [address] normal range of PT Prothromb Time February 0.[address] [employer] 2018 therapeutic Ratio 2:49pm range for [place] [address] patients receiving warfarin (coumadin) therapy: INR is 2.0 to 3.0Recommended range for patients with mechanical prosthetic heart valves: INR is 2.5 to 3.5 Activated Partial November 25.8 22.5-37.[address] Thromboplast Time 2018 2:49pm [place] [id number] Random Glucose February 125 74-106 [facility], [address] [place] [address] 2018 2:49pm [place] [id number] Blood Urea February 14 6-20 [facility], [address] [place] [address] Nitrogen 2018 2:49pm [place] [id number] Serum Osmolality February 283 280-[address] 2018 2:49pm [place] [id number] Creatinine February 1.2 0.70-1.20 [facility], [address] [place] [address] 2018 2:49pm [place] [id number] Glomerular November > 60.00 GFR RESULTS ARE [address] Filtration Rate 2018 REPORTED IN Calc 2:49pm mL/min/1.73m2[place] [address] ormal GFR: >60mL/minModera tely decreased GFR: 30-59 mL/minSeverely decreased GFR: 15-29 mL/minKidney Failure (or Dialysis): <15 mL/minThe calculated eGFR is not valid for patients younger than 18 years or older than 75 years. BUN/Creatinine February 11.7 12-20 [facility], [facility] Ratio 2018 2:49pm [facility] [address] Sodium Level February 141 135-145 [facility], 2018 2:49pm [facility] [address] Potassium Level February 3.7 3.5-5.2 [facility], 2018 2:49pm [facility] [address] Chloride Level February 107 98-108 [facility], 2018 2:49pm [facility] [address] Carbon Dioxide February 27 21-32 [facility], Level 2018 2:49pm [facility] [address] Anion Gap February 10.7 20 [facility], 2018 2:49pm [facility] [address] Calcium Level February 8.6 8.6-10.0 [facility], 2018 2:49pm [facility] [address] Total Protein February 7.2 6.6-8.7 [facility], 2018 2:49pm [facility] [address] Albumin February 4.0 3.5-5.2 [facility], 2018 2:49pm [facility] [address] Globulin February 3.2 [facility], 2018 2:49pm [facility] [address] Albumin/Globulin February 1.3 >1.0 [facility], Ratio 2018 2:49pm [facility] [address] Total Bilirubin February < 0.3 0.0-1.2 [facility], 2018 2:49pm [facility] [address] Aspartate Amino February 16 15-40 [facility], 104 Transf (AST/SGOT) 2018 2:49pm [facility] [address] Alanine February 17 0-41 [facility], Aminotransferase 2018 (ALT/SGPT) 2:49pm [place] [id number] FQ-Ahu-[id number]-Type February 18 0-125 [facility], [address] Natriuretic 2018 Peptide 2:49pm [place] [id number] Total Alkaline February 67 40-130 [facility], [address] Phosphatase 2018 2:49pm [place] [id number] Creatine Kinase February 102 20-200 [facility], [address] 2018 2:49pm [place] [id number] Troponin I February < 0.30 0.0-0.5 Published [facility], [address] [facility] 2018 clinical 2:49pm studies have [place] [address] shown elevations of cTnI in patients with myocardial injury, as seen in unstable angina pectoris, cardiac contusions, and heart transplants. Elevations have also been seen in patients with rhabdomyolysis and polymyositis.El evated troponin levels point to myocardial injury, but are not necessarily indicative of an ischemic mechanism. The term DC should be used when there is evidence of cardiac damage, as detected by marker proteins in a clinical setting consistent with myocardial ischemia. If the clinical circumstance suggests that an ischemic mechanism is unlikely, other causes of cardiac injury should be considered.For diagnostic purposes, the results should always be assessed in conjunction with the patient's medical history, clinical examination and other findings. Creatine Kinase February 1.7 0.0-3.6 DIAGNOSTIC [facility], [address] [facility] 2018 CITERIA: 2:49pm [facility] [place] [address] [facility] RELATIVE INDEX -----SUGGESTIVE OF NON-AMI < or=5 N/AGRAY ZONE (INCONCLUSIVE) > 5 < or=4SUGGESTIVE OF AMI >5 > 4 Health Concerns No known health concerns documented Advance Directives Advance Directive Response Recorded Date/Time Advance Directives No March 11, 2015 4:40pm Directive to Physicians/Living Will No March 11, 2015 4:40pm Health Care Proxy No March 11, 2015 4:40pm Organ Donor No March 11, 2015 4:40pm Medical Power of Tie Presser No March 11, 2015 4:40pm Chief Complaint and Reason for Visit Chief Complaint Chest Pain Reason for Visit [id number] Encounters Encounter Location(s) Arrival/Admit Date Discharge/Depart Date Provider(s) Departed Kael February 14, February 14, 2019 [facility] Emergency Room [place] [address] 2:17pm 5:57pm MD Ctr Assessments No Assessments Information Available Functional Status No Functional Status information available Goals No Goals Information Available Immunizations No Immunization Information Available Mental Status No Mental Status Information Available Medical Equipment No Medical Equipment Information available Insurance Providers Guarantor Nakia Reese Address [address] [facility] [id number] Contact Info. Home Phone: Payer Policy Id Coverage Id Subscriber's Subscriber Id Effective Expiration Name Date Date Self Pay Nakia Reese Insurance Plan of Treatment Recommend not to take the Tylenol No.3 as needed for pain, also Naprosyn 375 mg twice daily, and also take some Robaxin 750 mg twice daily for muscle spasm. Recommend she follow up with your primary doctor in 2 days for recheck of her condition, are otherwise return here to the ER for further evaluation if your condition worsens. Future Tests Future scheduled test information is unavailable Pending Tests Pending diagnostic test information is unavailable Future Visits Future appointment information is unavailable Referrals to Other Providers Reason for Referral Start Provider Provider Contact Provider Address Referral Date Information PHYSICIAN, NO Future Procedures Future procedure information is unavailable Future Medications Future medication information is unavailable Patient Instructions Costochondritis, [id number] Social History Smoking Status Status Date of Observation Never smoked tobacco (finding) February 14, 2019 2:21pm Observation Status Observation Response Date of Response Hx Physical Abuse No February 14, 2019 2:21pm Assigned Sex Male Vital Signs Vital Reading Result Collection Date/Time
--- OUTSIDE RECORDS SUMMARY | 2019-04-28 06:44 | XMS REPORT | Summary of Care ---
:1970 Author Organization [facility] Address [address] [place] [address] Care Team Providers Name Role Phone Pcp, Patient Does Not Have A Primary Care Provider Chela Berkowitz photographer's model Inocencia Singleton Community Health Worker Reason for Visit Reason Comments Follow-up Assessment Encounter Details Date Type Department Care Team Description 11/12/2018 Patient Outreach [facility] Chela Berkowitz, RN Follow-up; [address] [id number] Allergies No Known Allergiesdocumented as of this encounter (statuses as of 11/12/2018) Medications Medication Sig Dispensed Refills Start Date End Date Status pantoprazole (PROTONIX) Take 1 tablet by 30 tablet 0 03/02/2016 Active 40 mg EC tablet mouth daily. metoprolol tartrate Take 1 tablet by 60 tablet 0 03/02/2016 Active (LOPRESSOR) 25 mg tablet mouth 2 (two) times daily. ibuprofen (MOTRIN IB) Take 2 tablets 30 tablet 0 09/12/2016 Active 200 mg tablet by mouth every 6 (six) hours as needed for Pain (scale 1-3) for up to 30 doses. cyclobenzaprine 5 mg Take 1 tablet by 20 tablet 0 09/12/2016 Active tablet mouth 2 (two) times daily as needed for Muscle Spasms for up to 10 doses. azithromycin 250 mg Take 1 tablet by 1 Package 0 04/07/2017 Active tablet mouth SEE-INSTRUCTIONS . Take 500 mg day 1, then 250 mg days 2 to 5. metoprolol tartrate 25 Take 1 tablet by 60 tablet 0 04/21/2017 Active mg tablet mouth 2 (two) times daily. ondansetron 4 mg Take 1 tablet by 20 tablet 0 05/13/2017 Active disintegrating tablet mouth every 4 (four) hours as needed for Nausea and Vomiting (N/V). famotidine 20 mg tablet Take 1 tablet by 20 tablet 0 05/13/2017 Active mouth 2 (two) times daily. traMADOL 50 mg tablet Take 1 tablet by 30 tablet 0 05/13/2017 Active mouth every 6 (six) hours as needed for Pain (scale 4-6). nitroglycerin 0.[address] 1 tablet 1 Bottle 0 07/31/2018 Active sublingual under the tongue tabletIndications: Chest every 5 (five) pain, unspecified type minutes as needed for Chest pain. methylPREDNISolone Take by mouth 21 Each 0 09/03/2018 Active (MEDROL, JAY,) 4 mg SEE-INSTRUCTIONS tabletsIndications: . follow package Cough directions benzonatate 100 mg Take 1 capsule 20 capsule 0 09/03/2018 Active capsuleIndications: by mouth 3 Cough (three) times daily as needed for Cough. documented as of this encounter (statuses as of 11/12/2018) Active Problems Problem Noted Date Hemoptysis 01/07/2013 documented as of this encounter (statuses as of 11/12/2018) Social History Tobacco Use Types Packs/Day Years Used Date Former Smoker Cigarettes 0.3 2 Quit: 04/29/2002 Alcohol Use Drinks/Week oz/Week Comments Not Asked Sex Assigned at Date Recorded Not on file Job Start Date Occupation Industry Not on file Not on file Not on file Travel History Travel Start Travel End No recent travel history available. documented as of this encounter Last Filed Vital Signs Not on filedocumented in this encounter Progress Notes Chela Berkowitz RN - 11/12/2018 4:40 PM CDTCHP ALLA called to f/u with the patient to assess and to discuss further interventions from [place]. The patient has not made attempts to establish care with an MD and he denies having the funds to pay co-payments. Pt was previously given resources for [facility]. The patient does not have his ID dueto financial constraints. Naima Jain LMSW was previously working with the patient. [facility] will send a referral to [facility] to continue working with the patient. JACKSON Menendez, RN, [facility] Outpatient Printing SpecialistCritical Access Hospital O: [phone] M: [phone] hela Quinteros RN - 11/12/2018 4:40 PM CDTCHP CM called to f/u with the patient to assess and to discuss further interventions from [place]. The patient has not made attempts to establish care with an MD and he denies having the funds to pay co- payments. Pt was previously given resources for [facility]. The patient does not have his ID dueto financial constraints. Naima Jain LMSW was previously working with the patient. CM will send a referral to [facility] to continue working with the patient. JACKSON Menendez, RN, [facility] Outpatient Printing SpecialistCritical Access Hospital O: [phone] M: [phone] documented in this encounter Plan of Treatment Health Maintenance Due Date Last Done Comments PNEUMOCOCCAL 0-64 YEARS COMBINED SERIES (1 of 1 - 01/24/1974 PPSV23) DTaP,Tdap,and Td Vaccines (1 - Tdap) 01/24/1987 COLONOSCOPY 01/24/2018 Zoster Recombinant Vaccine (SHINGRIX) (1 of 2) 01/24/2018 INFLUENZA VACCINE 12/05/2018 documented as of this encounter Results Not on filedocumented in this encounter Insurance Payer Benefit Plan / Subscriber ID Effective Dates Phone Address Type Group [facility] Effective for all [place], [place] dates documented as of this encounter
--- OUTSIDE RECORDS SUMMARY | 2019-04-28 06:44 | XMS REPORT | Summary of Care ---
:1970 Author Organization [address] [address] Care Team Providers Name Role Phone Pcp, Patient Does Not Have A Primary Care Provider Reason for Visit Reason Comments Forms [facility] dis-enrollment Encounter Details Date Type Department Care Team Description 12/08/2018 Patient Outreach [facility] Chela Berkowitz RN Forms ([address] dis-enrollment) [place], [place] [id number] Allergies No Known Allergiesdocumented as of this encounter (statuses as of 12/08/2018) Medications Medication Sig Dispensed Refills Start Date [...] as of this encounter (statuses as of 12/08/2018) Active Problems Problem Noted Date Hemoptysis 01/07/2013 documented as of this encounter (statuses as of 12/08/2018) Social History Tobacco Use Types Packs/Day Years [...] encounter Progress Notes Chela Berkowitz RN - 12/08/2018 12:13 PM CDTUnable to get in contact with the patient. Pt has been working with re: employment/housing/food pantries, resources, etc. CHP CM will re-enroll the patient once he is in a position to also focus on his health maintenance and getting established with a PCP. CM will notify SW. JACKSON Menendez, RN, [facility] Outpatient Model TechnicianHealthcare TranslatorNovant Health [facility] O: [phone] M: [phone] documented in this encounter Plan of Treatment Health Maintenance Due Date Last Done Comments PNEUMOCOCCAL 0-64 YEARS COMBINED SERIES (1 of - 01/24/1974 PPSV23) DTaP,Tdap,and Td Vaccines (1 - Tdap) 01/24/1987 COLONOSCOPY 01/24/2018 Zoster Recombinant Vaccine (SHINGRIX) (1 of 2) 01/24/2018 INFLUENZA VACCINE (#1) 2018 documented as of this encounter Results Not on filedocumented in this encounter Insurance Payer Benefit Plan / Subscriber ID Effective Dates Phone Address Type Group [facility] [place] [facility] Effective for all [place], [place] dates documented as of this encounter
--- OUTSIDE RECORDS SUMMARY | 2019-04-28 06:44 | XMS REPORT | Summary of Care ---
:1970 Author Organization [address] [address] Care Team Providers Name Role Phone Pcp, Patient Does Not Have A Primary Care Provider Reason for Visit Reason Comments Social Work Encounter Details Date Type Department Care Team Description 12/22/2018 Patient Outreach [facility] Coral Justin LCSW Social Work [address] [phone] Allergies No Known Allergiesdocumented as of this encounter (statuses as of 12/23/2018) Medications Medication Sig Dispensed Refills Start Date [...] as of this encounter (statuses as of 12/23/2018) Active Problems Problem Noted Date Hemoptysis 01/07/2013 documented as of this encounter (statuses as of 12/23/2018) Social History Tobacco Use Types Packs/Day Years [...] on filedocumented in this encounter Progress Notes Coral Justin LCSW - 12/22/2018 11:59 PM CDTSocial Work Note: SW Manager Respiratory left for Pt in regards to [place] previously assisting him and seeing if he has any updates. SW Manager Respiratory provided reason for call and contact information and will f/u upon return call. Haley Oquendo MSW Student Manager Respiratory [facility] Attestation: I discussed interventions with SW Manager Respiratory, and participated in the decision making. SeeIntern's note for details. Coral Justin LCSW [facility] [phone] documented in this encounter Plan of Treatment [...] ID Effective Dates Phone Address Type Group [facility] [place] [facility] [place] Effective for all [place], [place] dates documented as of this encounter
--- OUTSIDE RECORDS SUMMARY | 2019-04-28 06:44 | XMS REPORT | Summary of Care ---
:1970 Author Organization [address] [address] Care Team Providers Name Role Phone Pcp, Patient Does Not Have A Primary Care Provider Reason for Visit Reason Comments Forms [facility] dis-enrollment Encounter Details Date Type Department Care Team Description 12/08/2018 Patient Outreach [facility] Chela Berkowitz RN Forms ([address] dis-enrollment) [place], [place] [phone] Allergies No Known Allergiesdocumented as of this [...] CM will notify SW. JACKSON Menendez, RN, [facility] Outpatient Phototypesetter OperatorForming Department End FinderFirsthealth O: [phone] M: [phone] documented in this encounter Plan of Treatment [...] ID Effective Dates Phone Address Type Group [facility] [facility] Effective for all [place], [place] dates documented as of this encounter
--- OUTSIDE RECORDS SUMMARY | 2019-04-28 06:44 | XMS REPORT | Summary of Care ---
:1970 Author Organization [address] [address] Care Team Providers Name Role Phone Pcp, Patient Does Not Have A Primary Care Provider Chela Berkowitz RN Case Manager Inocencia Singleton Community Health Health Worker Reason for Visit Reason Comments Assessment Encounter Details Date Type Department Care Team Description 11/18/2018 Patient Outreach [facility] Coral Justin LCSW [facility] [address] Allergies No Known Allergiesdocumented as of this encounter (statuses as of 11/18/2018) Medications Medication Sig Dispensed Refills Start Date [...] as of this encounter (statuses as of 11/18/2018) Active Problems Problem Noted Date Hemoptysis 01/07/2013 documented as of this encounter (statuses as of 11/18/2018) Social History Tobacco Use Types Packs/Day Years [...] encounter Progress Notes Coral Justin LCSW - 11/18/2018 10:57 AM CDTSocial Work Note: FORM SETTER HELPER spoke with Pt per referral from CM, Chela Berkowitz, for assistance with obtaining ID in order to apply for resources Pt may be eligible for. Pt reports that he has a valid [place] but that he is unable to afford to go to f/u [facility] because he has no money. Additionally, Pt reports he hasn't eating in days and has been living off water and he is in the process of being evicted despite him securing assistance from [employer] to assist with rent. 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 Pt is in the process of applying for jobs and is registered with the [employer]. 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 FORM SETTER HELPER looked up food pantries near Pt's residence and in [place] where he goes to the library everyday for job searches. Pt will contact local pantry and go to the [employer] near his home in the morning to have access to food. Pt reports that he had SNAP Benefits, but didn't return a form in a timely manner and was suspended until 12/05/18 at which time he will reapply. Pt is interested in low-income housing and is on the waitlist with the [facility] authority. FORM SETTER HELPER reported that she would send Pt low-income housing information for [facility] once she researches it and Pt asked SW to also send [place] and [place]. Pt inquired about the eviction process and SW reviewed the process and determined that Pt probably still has at least a month beforethe Correctional Officer Captain comes and evicts him as he has received nothing in writing regarding vacating the premises or an official eviction notice. FORM SETTER HELPER provided Pt with contact information and asked that he contact SW if he gains employment so that we can move forward with health care f/u and either negotiating with current apartment complex or finding another place to live prior to being forced out. Pt acknowledged understanding and agreed. FORM SETTER HELPER will f/u in a couple of weeks if Pt has not contact prior. Coral Justin LCSW [facility] Community Health Program [phone] documented in this encounter Plan of Treatment [...] ID Effective Dates Phone Address Type Group [facility] PLAN Effective for all [place], [place] dates documented as of this encounter
--- OUTSIDE RECORDS SUMMARY | 2019-04-28 06:44 | XMS REPORT | Summary of Care ---
:1970 Author Organization [facility] Address [address] [place] [address] Care Team Providers Name Role Phone Pcp, Patient Does Not Have A Primary Care Provider Chela Berkowitz RN Case Manager Inocencia Singleton Community Health Worker Reason for Visit Reason Comments Housing Assistance Encounter Details Date Type Department Care Team Description 11/23/2018 Patient Outreach [facility] Coral Justin LCSW [facility] [address] [place] [phone] Allergies No Known Allergiesdocumented as of this encounter (statuses as of 11/23/2018) Medications Medication Sig Dispensed Refills Start Date [...] as of this encounter (statuses as of 11/23/2018) Active Problems Problem Noted Date Hemoptysis 01/07/2013 documented as of this encounter (statuses as of 11/23/2018) Social History Tobacco Use Types Packs/Day Years [...] encounter Progress Notes Coral Justin LCSW - 11/23/2018 10:38 AM CDTSocial Work Note: RANJANA created [facility]-Income Housing list and sent it, [facility]-income Housing list and the website information for [facility] and [facility] to Pt. RANJANA provided further information regarding lists and how to use them as well as criteria for searching in [place] and [facility]. RANJANA provided contact information and will f/u prn. Coral Justin LCSW [facility] [phone] documented in this encounter Plan of Treatment [...] ID Effective Dates Phone Address Type Group [facility] [place] [facility] PL[facility] Effective for all [place], [place] dates documented as of this encounter
--- OUTSIDE RECORDS SUMMARY | 2019-04-28 06:45 | XMS REPORT | Continuity of Care Document ---
:1970 Author Organization [facility] Address [address] [place] [address] Allergies, Adverse Reactions, Alerts No known allergies. Medications Medication Status Dose Units Route Sig Qty Days Start End Instructions Date Date Aspirin Discontinu 1 ORAL Daily Aprilr TAKE DAILY ed for - , , WITH 2019 2019 BREAKFAST 7:12pm Lisinopril Discontinu 1 ORAL Daily 30 Apriluar ed for , , Hyperte 2019 2019 nsion 7:12pm Acetamin/Codei Discontinu 1 ORAL Every 6 15 February Do not combine with other products that contain Tylenol ne 300/30 Mg * ed Hours , , As 2018 2019 (acetaminophen). Needed 5:34pm as needed for Pain Methocarbamol Discontinu 1 ORAL Twice A 60 February ed Day for , , Muscle 2018 2019 Spasm 5:34pm Naproxen Discontinu 1 ORAL Twice A 40 February ed Day for , , Pain 2018 2019 5:34pm Problems Active Problems Medical Problem Onset Date Status Atypical chest pain Active Bronchitis Active Chest wall pain Active Cough Active Dehydration Active Depressed affect Active GERD (gastroesophageal reflux disease) Active Hypertension Active Vertigo Active Inactive/Resolved Problems Medical Problem Onset Date Status Chest pain Resolved Costochondral chest pain Resolved HTN (hypertension) Resolved Poor compliance with medication Resolved Post-operative pain Resolved Procedures Procedure Date Performed Status X-ray of chest, single view April 18, 2019 completed Relevant Diagnostic Tests and/or Laboratory Data Laboratory Results Test Date/Time Result Interpretation Reference Result Comment Performing Range Site White Blood April 5.7 4.0-12.3 [facility], [address] Count 2019 3:59pm [facility] [address] Red Blood April 4.47 3.80-5.80 [facility], [address] Count 2019 3:59pm [place] [address] Hemoglobin Mickie 13.3 11.7-17.2 [facility], [address] [facility] 2019 3:59pm [place] [address] Hematocrit Mickie 39.4 35.0-51.0 [facility], [address] [facility] 2019 3:59pm [place] [address] Mean Mickie 88.1 83-100 [facility], [address] [facility] Corpuscular 2019 Volume 3:59pm [place] [address] Mean Mickie 29.8 26.8-33.4 [facility], [address] [facility] Corpuscular 2019 Hemoglobin 3:59pm [place] [address] Mean Mickie 33.8 30-35 [facility], [address] [facility] Corpuscular 2019 Hemoglobin 3:59pm [place] [address] Concent Red Cell April 13.4 12.0-14.0 [facility], [address] [facility] Distribution 2019 Width 3:59pm [place] [address] Platelet Count April 184 175-450 [facility], [address] [facility] 2019 3:59pm [place] [address] Mean Platelet April 9.9 9.4-12.6 [facility], [address] [facility] Volume 2019 3:59pm [place] [address] Neutrophils Mickie 51.4 44.7-82.4 [facility], [address] (%) (Auto) 2019 3:59pm [place] [address] Immature Mickie 0.7 0.0-0.4 [facility], [address] Granulocyte % 2019 (Auto) 3:59pm [place] [address] Lymphocytes Mickie 37.7 10.0-50.0 [facility], [address] [facility] [address] (%) (Auto) 2019 3:59pm [place] [address] Monocytes (%) Mickie 7.6 3.9-13.4 [facility], [address] (Auto) 2019 3:59pm [place] [address] Eosinophils Mickie 1.9 0.0-6.4 [facility], [address] [facility] [address] (%) (Auto) 2019 3:59pm [place] [address] Basophils (%) Mickie 0.7 0.2-1.2 [facility], [address] [facility] [address] (Auto) 2019 3:59pm [place] [address] Neutrophils # Mickie 2.92 1.78-5.38 [facility], [address] [place] [address] (Auto) 2019 3:59pm [facility] [address] Absolute Mickie 0.0 0.0-0.03 [facility], [address] [facility] Immature 2019 Granulocyte 3:59pm [facility] [address] (auto Lymphocytes # Mickie 2.1 1.32-3.57 [facility], [address] [facility] (Auto) 2019 3:59pm [place] [address] Monocytes # Mickie 0.43 0.30-0.82 [facility], [address] [facility] (Auto) 2019 3:59pm [place] [address] Eosinophils # Mickie 0.11 0.04-0.54 [facility], [address] [facility] (Auto) 2019 3:59pm [place] [address] Basophils # Mickie 0.04 0.01-0.08 [facility], [address] [place] [address] (Auto) 2019 3:59pm [facility] [address] Nucleated Red Mickie 0 0-0.2 [facility], [address] [place] [address] Blood Cells % 2019 3:59pm [facility] [address] Nucleated Red Mickie 0 0 [facility], [address] [place] [address] Blood Cells # 2019 3:59pm [facility] [address] D-Dimer April 386 <500 [facility], [address] [place] [address] 2019 4:21pm [place] [address] Prothrombin April 10.3 10.3-12.3 THERAPEUTIC [facility], [address] [place] [address] Time 2019 LEVEL: 1.5 to 4:21pm 1.9 times normal [place] [address] range of PT Prothromb Time April 0.95 Recommended [facility], [address] [place] [address] International 2019 therapeutic Ratio 4:21pm range for [place] [address] patients receiving warfarin (coumadin) therapy: INR is 2.0 to 3.0Recommended range for patients with mechanical prosthetic heart valves: INR is 2.5 to 3.5 Activated April 28.0 22.5-37.0 [facility], [address] [place] [address] Partial 2019 Thromboplast 4:21pm [place] [address] Time Urine Color April LT. [facility], [address] [place] [address] 2019 YELLOW 5:50pm [place] [address] Urine April CLEAR CLEAR [facility], [address] [place] [address] Appearance 2019 5:50pm [place] [address] Urine Glucose Mickie NEGATIVE NEGATIVE [facility], [address] (UA) 2019 5:50pm [place] [address] Urine Mickie NEGATIVE NEGATIVE [facility], [address] Bilirubin 2019 5:50pm [place] [address] Urine Ketones April TRACE NEGATIVE [facility], [address] 2019 5:50pm [place] [address] Urine Specific Mickie 1.010 1.003-1.03 [facility], [address] [place] 2019 0 5:50pm [place] [address] Urine Blood Mickie NEGATIVE NEGATIVE [facility], [address] 2019 5:50pm [place] [address] Urine pH April 6.000 5-9 [facility], [address] 2019 5:50pm [place] [address] Urine Protein April NEGATIVE NEGATIVE [facility], [address] 2019 5:50pm [place] [address] Urine Mickie 0.2 0.2-1.0 [facility], [address] Urobilinogen 2019 5:50pm [place] [address] Urine Nitrate Mickie NEGATIVE NEGATIVE [facility], [address] 2019 5:50pm [place] [address] Urine Mickie NEGATIVE NEGATIVE [facility], [address] Leukocyte 2019 Esterase 5:50pm [place] [address] Urine RBC April NONE SEEN 0-5 [facility], [address] 2019 5:50pm [place] [address] Urine WBC April NONE SEEN 0-5 [facility], [address] 2019 5:50pm [place] [address] Urine Mickie NONE SEEN 0-5 [facility], [address] Epithelial 2019 Cells 5:50pm [place] [address] Urine Bacteria Mickie None None [facility], [address] 2019 Detected Detect 5:50pm [facility] [address] Urine Culture April NO [facility], [address] Reflexed 2019 5:50pm [place] [address] Random Glucose April 84 74-106 [facility], [address] 2019 4:21pm [place] [address] Blood Urea April 14 6-20 [facility], [address] Nitrogen 2019 4:21pm [place] [address] Serum April 279 280-300 [facility], [address] Osmolality 2019 4:21pm [facility] [address] Creatinine Mickie 1.1 0.70-1.20 [facility], [address] 2019 4:21pm [place] [address] Glomerular Mickie > 60.00 GFR RESULTS ARE [facility], [address] Filtration 2019 REPORTED IN Rate Calc 4:21pm mL/min/1.73[place] [address] rmal GFR: >60mL/minModerat zev decreased GFR: 30-59 mL/minSeverely decreased GFR: 15-29 mL/minKidney Failure (or Dialysis): <15 mL/minThe calculated eGFR is not valid for patients younger than 18 years or older than 75 years. BUN/Creatinine April 12.7 - [facility], [address] Ratio 2019 4:21pm [facility] [address] Sodium Level April 140 135-145 [facility], [address] 2019 4:21pm [facility] [address] Potassium April 3.5 3.5-5.2 [facility], [address] Level 2019 4:21pm [facility] [address] Chloride Level April 104 98-108 [facility], [address] 2019 4:21pm [facility] [address] Carbon Dioxide April 21 -32 [facility], [address] Level 2019 4:21pm [facility] [address] Anion Gap April 18.5 -20 [facility], [address] 2019 4:21pm [facility] [address] Calcium Level April 9.4 8.6-10.0 [facility], [address] 2019 4:21pm [facility] [address] Total Protein Mickie 7.9 6.6-8.7 [facility], [address] 2019 4:21pm [facility] [address] Albumin Mickie 4.4 3.5-5.2 [facility], [address] 2019 4:21pm [place] [address] Globulin Mickie 3.5 [facility], [address] 2019 4:21pm [facility] [address] Albumin/Globul Mickie 1.3 >1.0 [facility], [address] in Ratio 2019 4:21pm [place] [address] Total Mickie 0.5 0.0-1.2 [facility], [address] Bilirubin 2019 4:21pm [facility] [address] Aspartate Mickie 15 15-40 [facility], [address] Amino Transf 2019 (AST/SGOT) 4:21pm [place] [address] Alanine Mickie 16 0-41 [facility], [address] Aminotransfera 2019 se (ALT/SGPT) 4:21pm [facility] [address] VS-Oca-W-Type Mickie 9 0-125 [facility], [address] Natriuretic 2019 Peptide 4:21pm [facility] [address] Total Alkaline Mickie 53 40-130 [facility], [address] Phosphatase 2019 4:21pm [facility] [address] Urine Mickie NEGATIVE NEGATIVE [facility], [address] Amphetamines 2019 Screen 5:50pm [facility] [address] Urine Mickie NEGATIVE NEGATIVE [facility], [address] Barbiturates, 2019 Quantitative 5:50pm [facility] [address] Urine Mickie NEGATIVE NEGATIVE [facility], [address] Benzodiazepine 2019 s Screen 5:50pm [facility] [address] Urine Mickie NEGATIVE NEGATIVE [facility], [address] Cannabinoids 2019 5:50pm [facility] [address] Urine Cocaine Mickie NEGATIVE NEGATIVE [facility], [address] Metabolite 2019 5:50pm [facility] [address] Urine Opiates Mickie POSITIVE NEGATIVE [facility], [address] Screen 2019 5:50pm [place] [address] Urine Mickie NEGATIVE NEGATIVE [facility], [address] Phencyclidine 2019 (PCP) Level 5:50pm [facility] [address] Methadone Mickie NEGATIVE NEGATIVE [facility], [address] Level 2019 5:50pm [facility] [address] Propoxyphene Mickie NEGATIVE NEGATIVE [facility], [address] Level 2019 5:50pm [facility] [address] Oxycodone Mickie NEGATIVE NEGATIVE [facility], [address] Level 2019 5:50pm [facility] [address] Urine Drug Mickie . DRUGS OF ABUSE [facility], [address] Screen Note 2019 CUT-OFF 5:50pm VALUESAMPHETAMIN [facility] [address] ES (AMPH) NEGATIVE (CUT OFF CONC: 1000 NG/ML)BARBITUATE S (ANDRÉS) NEGATIVE (CUT OFF CONC: 200 NG/ML)[place] (SERGIO) NEGATIVE (CUT OFF CONC: 300 NG/ML)CANNABINOI DS (THC) NEGATIVE (CUT OFF CONC: 50 NG/ML)COCAINE (STEVIE) NEGATIVE (CUT OFF CONC: 300 NG/ML)OPIATES (OPI) NEGATIVE (CUT OFF CONC: 300 NG/ML)PHENCYCLID INE (PCP) NEGATIVE (CUT OFF CONC: 25 NG/ML)METHADONE (MTD) NEGATIVE (CUT OFF CONC: 300 NG/ML)PROPOXYPHE NE (PPX) NEGATIVE (CUT OFF CONC: 300 NG/ML)OXYCODONE (OXY) NEGATIVE (CUT OFF CONC: 100 NG/ML)ANY POSITIVE RESULT IS UNCONFIRMED. CONFIRMATION AND QUANTITATION AVAILABLE UPON MD REQUEST. Creatine April 172 20-200 [facility], [address] Kinase 2019 4:21pm [facility] [address] Troponin I April < 0.30 0.0-0.[address] 2019 clinical studies 6:10pm have shown [facility] [address] elevations of cTnI in patients with myocardial injury, as seen in unstable angina pectoris, cardiac contusions, and heart transplants. Elevations have also been seen in patients with rhabdomyolysis and polymyositis.Nori vated troponin levels point to myocardial injury, but are not necessarily indicative of an ischemic mechanism. The term DE should be used when there is evidence of cardiac damage, as detected by marker proteins in a clinical setting consistent with myocardial ischemia. If the clinical circumstance suggests that an ischemic mechanism is unlikely, other causes of cardiac injury should be considered.For diagnostic purposes, the results should always be assessed in conjunction with the patient's medical history, clinical examination and other findings. Creatine April 2.9 0.0-3.6 [facility] ST Kinase MB 2019 CITERIA: 4:21pm CKMB [facility] [address] CKMB RELATIVE INDEX -SUGGESTIVE OF NON-AMI < or=5 N/AGRAY ZONE (INCONCLUSIVE) [...] March 11, 2015 4:40pm Medical Power of Director Toxicology No March 11, 2015 4:40pm Chief Complaint and Reason for Visit Chief Complaint Chest Pain Reason for Visit [id number] Encounters Encounter Location(s) Arrival/Admit Date Discharge/Depart Date Provider(s) Departed Kael April 18, 2019 April 18, 2019 MERVAT TIM MD Emergency Room [facility] 3:02pm 7:21pm Ctr Assessments No Assessments Information Available Functional Status No Functional Status information available Goals No Goals Information Available Immunizations No Immunization Information Available Mental Status No Mental Status Information Available Medical Equipment No Medical Equipment Information available Insurance Providers Guarantor Nakia Reese Address [address] [facility] [address] Contact Info. Home Phone: Payer Policy Id Coverage Id Subscriber's Subscriber Id Effective Expiration Name Date Date [facility] [id number] Nakia Reese [id number] [address] Plan of Treatment BABY ASPIRIN DAILY. TAKE LISINOPRIL 10mg DAILY FOR HTN. SEE YOUR PCP or see VIDEO MANAGER (DR BRUNER) WITHIN 2 DAYS FRO FURTHER CARDIOLOGY EVALUATION & CARE. WORK EXCUSE FOR ONE DAY Future Tests Future scheduled test information is unavailable Pending Tests Pending diagnostic test information is unavailable Future Visits Future appointment information is unavailable Referrals to Other Providers Reason for Referral Start Provider Provider Contact Provider Address Referral Date Information SANYA RATLIFF Work Phone: [address] [facility] [address] Future Procedures Future procedure information is unavailable Future Medications Future medication information is unavailable Patient Instructions Nonspecific Chest Pain, Adult, [id number] Basics of Medicine Management Hypertension, [id number] Social History Smoking Status Status Date of Observation Never smoked tobacco (finding) April 18, 2019 3:03pm Observation Status Observation Response Date of Response Hx Physical Abuse No April 18, 2019 3:03pm Assigned Sex Male Vital Signs Vital Reading Result Collection Date/Time
[2019-04-28 07:13] LABS: Absolute Lymphocytes (CBC) 1.8 K/uL (0.7-4.9); Basophils % 0.8 % (0-1.3); Hematocrit 40.3 % (39.6-49.0); Lymphocytes % 26.9 % (15.3-44.8); MPV 8.6 fL (7.6-11.3); RBC Red Blood Cell Count 4.52 M/uL (4.33-5.43)
[2019-04-28 07:17] LABS: Protime INR 1.05
[2019-04-28 07:32] LABS: ALT/SGPT 27 U/L (12-78); AST/SGOT 11 U/L (15-37); Alkaline Phosphatase 59 U/L (45-117); BUN Blood Urea Nitrogen 10 mg/dL (7-18); Bicarbonate 31 mmol/L (21-32); Bilirubin Direct 0.1 mg/dL (0-0.2); Bilirubin Total 0.5 mg/dL (0.2-1.0); Glucose Level 95 mg/dL (74-106); Magnesium 2.5 mg/dL (1.8-2.4); NT PRO-BNP 13 pg/mL (<125); Potassium 4.2 mmol/L (3.5-5.1); Protein, Total 8.3 g/dL (6.4-8.2); Sodium Level 143 mmol/L (136-145); Troponin (Emerg Dept Use Only) < 0.02 ng/mL (0.0-0.045)
[2019-04-28] MEDS ORDERED: MEPERIDINE HCL 25 MG/0.5 ML ONE (07:39)
[2019-04-28] MEDS ORDERED: ONDANSETRON 4 MG/2 ML VIAL ONE (07:39)
[2019-04-28 07:59] LABS: RBC Red Blood Cell Count 4.55 M/uL (4.33-5.43)
--- NOTE | 2019-04-28 08:23 | RAD REPORT ---
EXAM DESCRIPTION: RAD - Chest Single View - 04/28/2019 7:13 am CLINICAL HISTORY: CHEST PAIN COMPARISON: Chest Single View dated 04/25/2017; Chest Single View dated 12/01/2016None. TECHNIQUE: AP portable chest image was obtained 04/28/2019 7:13 am . FINDINGS: Lungs are clear. Heart and vasculature are normal. No measurable pleural effusion and no p neumothorax. No acute bony abnormality seen. No acute aortic findings suspected. IMPRESSION: No acute cardiopulmonary process. No significant change comparison.
--- NOTE | 2019-04-28 08:53 | RAD REPORT ---
EXAM DESCRIPTION: CT - Chest For Pe Angio - 04/28/2019 8:40 am CLINICAL HISTORY: CHEST PAIN, pain radiates to the back from Send caps he had seen as new chest is caps a 1 or at or she was for the son in L2 looks like a round Insert and the a.m. time was ordering doctor or on a daily is hilum still borderline come at school no AVN her as there a lung biopsy on to day are in the axonal lower lung mass full CT of the T8 scalp soft or figure out awaited position danny ght a skeletally needed the breast tissue out otherwise thank COMPARISON: Chest Single View dated 04/28/2019; Soft Tissue Neck W/Contr dated 07/10/2017 TECHNIQUE: Dynamically enhanced 3 mm thick images of the chest were obtained during administration o f approximately 150mL Isovue 370 IV contrast. Coronal and oblique MIP reconstruction images were gene rated and reviewed. Exam utilizes a protocol to evaluate the pulmonary arterial tree. All CT scans are performed using dose optimization technique as appropriate and may include automated exposure control or mA/KV adjustment according to patient size. FINDINGS: No pulmonary emboli are identified. The aorta as imaged shows no acute or suspicious finding. No pericardial thickening or effusion. No infiltrate or mass in the lung parenchyma. No pleural effusion or pleural thickening. No mediastinal or hilar suspicious masses. No chest wall masses or abnormal axillary lymphadenopathy. Focal skin thickening or dense soft tissues are present in the midline and right side of the chest b etween the nipples. This is presumed to be some form of scar tissue but needs correlation with physic al exam. IMPRESSION: No pulmonary emboli identified. No other acute chest finding suspected. Focal scarring or skin thickening changes are present in the midline and right side chest between the nipple regions. This needs correlation with physical exam.
--- NOTE | 2019-04-28 08:58 | ER ---
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 Transition of care: patient was not received from another setting of care. Onset of symptoms was April 28, 2019. Risk Assessment: Do you want to hurt yourself or someone else? Patient reports no desire to harm self or others. Initial Sepsis Screen: Does the patient meet any 2 criteria? No. Patient's initial sepsis screen is negative. Does the patient have a suspected source of infection? No. Patient's initial sepsis screen is negative. Care prior to arrival: None. 06:55 Method Of Arrival: Wheelchair lp1 06:55 Acuity: CARYL 3 lp1 Historical: - Allergies: 06:58 NKA; lp1 - Home Meds: 06:58 Unable to obtain [Active]; lp1 - PMHx: 06:58 "bleeding ulcer"; Asthma; Esophageal CA; GI Bleed; Hypertension; Sickle Cell; throat lp1 and lung cancer; - PSHx: 06:58 None; lp1 - Immunization history:: Adult Immunizations up to date. - Social history:: Smoking status: Patient denies any tobacco usage or history of. - Ebola Screening: : No symptoms or risks identified at this time. - Family history:: not pertinent. - Hospitalizations: : No recent hospitalization is reported. Screenin:59 Abuse screen: Denies threats or abuse. Denies injuries from another. Nutritional lp1 screening: No deficits noted. Tuberculosis screening: No symptoms or risk factors identified. 07:10 Fall Risk None identified. em Assessment: 07:05 General: Appears in no apparent distress. uncomfortable, Behavior is calm, cooperative, em Denies fever. Pain: Complains of pain in chest Pain radiates to back Pain currently is 10 out of 10 on a pain scale. Pain began 1 hour ago. Neuro: Level of Consciousness is awake, alert, obeys commands, Oriented to person, place, time, situation, Appropriate for age. Cardiovascular: Reports shortness of breath, Denies nausea, vomiting, Capillary refill < 3 seconds Patient's skin is warm and dry. Rhythm is sinus rhythm. Respiratory: Airway is patent Respiratory effort is even, unlabored, Respiratory pattern is regular, symmetrical. GI: Patient currently denies nausea, vomiting. Derm: Skin is intact, is healthy with good turgor, Skin is pink, warm \\T\\ dry. Musculoskeletal: Capillary refill < 3 seconds, Range of motion: intact in all extremities. 07:20 Reassessment: Patient appears in no apparent distress at this time. Patient and/or em family updated on plan of care and expected duration. Pain level reassessed. pt requesting pain medication, awaiting evaluation by at this time. 08:00 Reassessment: Patient appears in no apparent distress at this time. No changes from hb previously documented assessment. Patient and/or family updated on plan of care and expected duration. Pain level reassessed. 09:00 Reassessment: Patient appears in no apparent distress at this time. Patient and/or hb family updated on plan of care and expected duration. Pain level reassessed. Patient is alert, oriented x 3, equal unlabored respirations, skin warm/dry/pink. Patient denies pain at this time. Vital Signs: 06:57 BP 133 / 98; Pulse 59; Resp 18; Pulse Ox 99% on R/A; Weight 102.06 kg (R); Height 6 ft. lp1 1 in. (185.42 cm); Pain 10/10; 07:10 BP 143 / 93; Pulse 61; Resp 19; Pulse Ox 99% on R/A; em 08:27 BP 125 / 89; Pulse 54; Resp 18; Pulse Ox 97% on R/A; Pain 10/10; em 06:57 Body Mass Index 29.68 (102.06 kg, 185.42 cm) lp1 ED Course: 06:42 Patient arrived in ED. ag3 06:57 Triage completed. lp1 06:57 Arm band placed on. lp1 06:59 Nelson Abdullahi MD is Attending Physician. rn 06:59 Patient has correct armband on for positive identification. Placed in gown. Cardiac lp1 monitor on. Pulse ox on. NIBP on. 07:03 Travis Kramer, RN is Primary Nurse. em 07:05 Inserted saline lock: 20 gauge in right antecubital area, using aseptic technique. oe Blood collected. 07:05 Initial lab(s) drawn, by ED staff, sent to lab. sg 07:10 Patient maintains SpO2 saturation greater than 95% on room air. em 07:12 XRAY Chest (1 view) In Process Unspecified. EDMS 08:40 CT Chest For PE Angio In Process Unspecified. EDMS 09:21 No provider procedures requiring assistance completed. IV discontinued, intact, hb bleeding controlled, No redness/swelling at site. Pressure dressing applied. Administered Medications: 07:38 Drug: Zofran 4 mg Route: IVP; Site: right antecubital; em 08:23 Follow up: Response: No adverse reaction em 07:40 Drug: Demerol 25 mg Route: IVP; Site: right antecubital; em 08:23 Follow up: Response: No adverse reaction; Pain is unchanged, physician notified; RASS: em Alert and Calm (0) Outcome: 08:58 Discharge ordered by . rn 09:21 Discharged to home ambulatory. hb 09:21 Condition: stable 09:21 Discharge instructions given to patient, Instructed on discharge instructions, follow up and referral plans. medication usage, Demonstrated understanding of instructions, follow-up care, medications. 09:21 Patient left the ED. hb Signatures: Dispatcher [employer] Ashu Gomez, RN LIZZIE Travis Kramer, RN RN Nelson Hall MD MD rn Pena, Laura, RN RN lp1 Jillian Cooper RN RN Jose Todd Alice ag3
--- NOTE | 2019-04-28 08:58 | EDPHYS ---
Physician Documentation [facility] Name: Keith Oliver Age: 49 yrs Sex: Male : 1970 Arrival Date: 04/28/2019 Time: 06:42 Bed 4 Private MD: ED Physician Nelson Abdullahi HPI: 04/28 07:24 This 49 yrs old Black Male presents to ER via Wheelchair with complaints of Chest Pain. rn 07:24 The patient or guardian reports chest pain that is located primarily in the substernal rn area. Onset: at an unknown time. The pain does not radiate. Associated signs and symptoms: Pertinent positives: cough, shortness of breath. The chest pain is described as sharp, stabbing. Duration: The patient or guardian reports multiple episodes, that are intermittent. Modifying factors: The symptoms are alleviated by nothing. the symptoms are aggravated by cough, deep breath. Severity of pain: At its worst the pain was mild in the emergency department the pain is unchanged. The patient has experienced similar episodes in the past. Reports chest pain for "months", happens daily, has been admitted and to ERs for this multiple times, told that heart is ok, and no diagnosis made. Reports doesn't have pcp so comes to ER when gets bad. Now has pcp but appt not till next week. No fever, no abd pain/vomiting. No hemoptysis. . Historical: - Allergies: 06:58 NKA; lp1 - Home Meds: 06:58 Unable to obtain [Active]; lp1 - PMHx: 06:58 "bleeding ulcer"; Asthma; Esophageal CA; GI Bleed; Hypertension; Sickle Cell; throat lp1 and lung cancer; - PSHx: 06:58 None; lp1 - Immunization history:: Adult Immunizations up to date. - Social history:: Smoking status: Patient denies any tobacco usage or history of. - Ebola Screening: : No symptoms or risks identified at this time. - Family history:: not pertinent. - Hospitalizations: : No recent hospitalization is reported. ROS: 07:24 Constitutional: Negative for fever, chills, and weight loss, Eyes: Negative for injury, rn pain, redness, and discharge, Cardiovascular: Negative for palpitations, and edema, Respiratory: Negative for wheezing Abdomen/GI: Negative for abdominal pain, nausea, vomiting, diarrhea, and constipation, MS/Extremity: Negative for injury and deformity, Skin: Negative for injury, rash, and discoloration, Neuro: Negative for headache, weakness, numbness, tingling, and seizure. Exam: 07:29 Constitutional: This is a well developed, well nourished patient who is awake, alert, rn and in no acute distress. Head/Face: Normocephalic, atraumatic. ENT: MMM Cardiovascular: Regular rate and rhythm. No pulse deficits. Respiratory: Lungs have equal breath sounds bilaterally, clear to auscultation. No increased work of breathing, no retractions or nasal flaring. Speaking full sentences Abdomen/GI: soft, non-tender MS/ Extremity: Pulses equal, no cyanosis. Neurovascular intact. Full, normal range of motion. Equal circumference. Neuro: Awake and alert, GCS 15, oriented to person, place, time, and situation. Cranial nerves II-XII grossly intact. Motor strength 5/5 in all extremities. Sensory grossly intact. Cerebellar exam normal. 08:04 ECG was reviewed by the Attending Physician. rn Vital Signs: 06:57 BP 133 / 98; Pulse 59; Resp 18; Pulse Ox 99% on R/A; Weight 102.06 kg (R); Height 6 ft. lp1 1 in. (185.42 cm); Pain 10/10; 07:10 BP 143 / 93; Pulse 61; Resp 19; Pulse Ox 99% on R/A; em 08:27 BP 125 / 89; Pulse 54; Resp 18; Pulse Ox 97% on R/A; Pain 10/10; em 06:57 Body Mass Index 29.68 (102.06 kg, 185.42 cm) lp1 MDM: 06:59 Patient medically screened. rn 08:57 Differential diagnosis: acute pericarditis, anxiety, coronary artery disease chest wall rn pain, costochondritis, esophagitis, gastritis, gastroesophageal reflux disease (GERD), pericarditis, pleurisy, pneumothorax, pulmonary embolus, stable angina. Data reviewed: vital signs, nurses notes, lab test result(s), EKG, radiologic studies, CT scan, plain films, and as a result, I will discharge patient. Counseling: I had a detailed discussion with the patient and/or guardian regarding: the historical points, exam findings, and any diagnostic results supporting the discharge/admit diagnosis, lab results, radiology results, the need for outpatient follow up, to return to the emergency department if symptoms worsen or persist or if there are any questions or concerns that arise at home. Response to treatment: the patient's symptoms have mildly improved after treatment, and as a result, I will discharge patient. Special discussion: I discussed with the patient/guardian in detail that at this point there is no indication for admission to the hospital. It is understood, however, that if the symptoms persist or worsen the patient needs to return immediately for re-evaluation. Based on the history and exam findings, there is no indication for further emergent testing or inpatient evaluation. I discussed with the patient/guardian the need to see the logistics solution manager for further evaluation of the symptoms. ED course: Pt improved with pain meds, no acute findings in blood/ecg/ct chest. Will dc home with pcp and cardiology f/u. . 04/28 06:54 Order name: Basic Metabolic Panel; Complete Time: 07:34 04/28 06:54 Order name: CBC with Diff; Complete Time: 07:29 04/28 06:54 Order name: LFT's; Complete Time: 07:34 04/28 06:54 Order name: Magnesium; Complete Time: 07:34 04/28 06:54 Order name: NT PRO-BNP; Complete Time: 07:34 04/28 06:54 Order name: PT-INR; Complete Time: 07:29 04/28 06:54 Order name: Troponin (emerg Dept Use Only); Complete Time: 07:34 04/28 06:54 Order name: XRAY Chest (1 view); Complete Time: 08:56 04/28 06:54 Order name: EKG; Complete Time: 06:55 04/28 06:54 Order name: Cardiac monitoring; Complete Time: 06:58 04/28 07:03 Order name: Retic Count; Complete Time: 08:03 rn 04/28 08:24 Order name: CT Chest For PE Angio; Complete Time: 08:56 rn 04/28 06:54 Order name: EKG - Nurse/Tech; Complete Time: 06:58 04/28 06:54 Order name: IV Saline Lock; Complete Time: 07:10 04/28 06:54 Order name: Labs collected and sent; Complete Time: 07:10 tw4 04/28 06:54 Order name: O2 Per Protocol; Complete Time: 06:58 tw4 04/28 06:54 Order name: O2 Sat Monitoring; Complete Time: :58 tw4 EC:04 Rate is 55 beats/min. Rhythm is regular. QRS [place] is Normal. [place] interval is normal. QRS rn interval is normal. QT interval is normal. No Q waves. T waves are Normal. No ST changes noted. Clinical impression: Sinus bradycardia. Interpreted by me. Reviewed by me. Administered Medications: 07:38 Drug: Zofran 4 mg Route: IVP; Site: right antecubital; em 08:23 Follow up: Response: No adverse reaction em 07:40 Drug: Demerol 25 mg Route: IVP; Site: right antecubital; em 08:23 Follow up: Response: No adverse reaction; Pain is unchanged, physician notified; RASS: em Alert and Calm (0) Disposition: 04/28/19 08:58 Discharged to Home. Impression: Chest pain, unspecified. - Condition is Stable. - Discharge Instructions: Nonspecific Chest Pain. - Medication Reconciliation Form, Thank You Letter, Antibiotic Education, Prescription Opioid Use form. - Follow up: Private Physician; When: As needed; Reason: Recheck today's complaints, Re-evaluation by your physician. - Problem is an ongoing problem. - Symptoms have improved. Signatures: Dispatcher [employer] EDMS Travis Kramer RN RN em Nieto, Roman, MD MD rn Pena, Laura, RN RN lp1 Jillian Cooper RN RN hb Wadley, Terrence, MD MD tw4 Corrections: (The following items were deleted from the chart) 07:30 07:24 Reports chest pain for "months", happens daily, has been admitted and to ERs for rn this multiple times, told that heart is ok, and no diagnosis made. Reports doesn't have pcp so comes to ER when gets bad. Now has pcp but appt not till next week. No fever, no abd pain/vomiting. No hemoptysis. . rn 07:31 07:24 Constitutional: Negative for fever, chills, and weight loss, Eyes: Negative for rn injury, pain, redness, and discharge, Cardiovascular: Negative for chest pain, palpitations, and edema, Respiratory: Negative for shortness of breath, cough, wheezing, and pleuritic chest pain, Abdomen/GI: Negative for abdominal pain, nausea, vomiting, diarrhea, and constipation, MS/Extremity: Negative for injury and deformity, Skin: Negative for injury, rash, and discoloration, Neuro: Negative for headache, weakness, numbness, tingling, and seizure, rn 09:21 08:58 04/28/2019 08:58 Discharged to Home. Impression: Chest pain, unspecified. hb Condition is Stable. Forms are Medication Reconciliation Form, Thank You Letter, Antibiotic Education, Prescription Opioid Use. Follow up: Private Physician; When: As needed; Reason: Recheck today's complaints, Re-evaluation by your physician. Problem is an ongoing problem. Symptoms have improved. rn
[2019-04-28 09:28] VITALS: BP 125/89; O2SAT 97
--- NOTE | 2019-04-28 13:38 | EKG ---
Test Date: 2019-04-28 Test Time: 06:50:04 Plant Buyer: JACOB MEASUREMENT RESULTS: Intervals: Rate: 55 IN: 112 QRSD: 80 QT: 406 QTc: 388 Revloc: P: 51 IN: 112 QRS: 49 T: 8 INTERPRETIVE STATEMENTS: Sinus bradycardia Otherwise normal ECG Compared to ECG 04/25/2017 13:24:05 Sinus rhythm no longer present Sinus arrhythmia no longer present Short IN interval no longer present Electronically Signed On 04-28-19 13:36:57 VETERINARY PHYSIOLOGIST by Clayton Titus
== END 2019-04-28 09:21 | disposition home or self-care (01) ==
LOC: ER 06:42
DX: R07.9 Chest pain, unspecified (principal); I10 Essential (primary) hypertension; Z85.118 Personal history of other malignant neoplasm of bronchus and lung; Z85.21 Personal history of malignant neoplasm of larynx
CPT/HCPCS: 93005; 85025; 80048; 36415; 83735; 85610; 85044; 80076; 84484; 83880; 71275; 71045; 96375; 96374; 99285; Q9967; J2175; J2405

== ENCOUNTER 2019-05-01 16:41 | Emergency (ER) | payer BC ==
--- OUTSIDE RECORDS SUMMARY | 2019-05-01 16:44 | XMS REPORT ---
:1970 [facility] [address] [place] [id number] Care Team Providers Name Role Phone Unavailable Unavailable Unavailable Problems This patient has no known problems. Allergies, Adverse Reactions, Alerts This patient has no known allergies or adverse reactions. Medications This patient has no known medications.
[2019-05-01 17:20] LABS: Absolute Lymphocytes (CBC) 2.6 K/uL (0.7-4.9); Basophils % 1.5 % (0-1.3); MPV 8.7 fL (7.6-11.3); RBC Red Blood Cell Count 4.39 M/uL (4.33-5.43)
[2019-05-01] MEDS ORDERED: ASPIRIN 81 MG CHEWABLE TABLET ONE (17:24)
[2019-05-01] MEDS ORDERED: MORPHINE 4 MG/ML SYR ONE (17:25)
[2019-05-01] MEDS ORDERED: ONDANSETRON 4 MG/2 ML VIAL ONE (17:25)
[2019-05-01] MEDS ORDERED: METOPROLOL TARTRATE 5 MG/5 ML INJ IV ONE (17:25)
--- NOTE | 2019-05-01 17:35 | RAD REPORT ---
EXAM DESCRIPTION: [facility] Single View05/01/2019 5:30 pm CLINICAL HISTORY: Chest pain COMPARISON: April 28, 2019 FINDINGS: The lungs appear clear of acute infiltrate. The heart is mildly enlarged IMPRESSION: No acute abnormalities displayed
[2019-05-01 17:39] LABS: ALT/SGPT 29 U/L (12-78); AST/SGOT 16 U/L (15-37); Albumin 3.7 g/dL (3.4-5.0); Alkaline Phosphatase 62 U/L (45-117); BUN Blood Urea Nitrogen 13 mg/dL (7-18); Bicarbonate 26 mmol/L (21-32); Bilirubin Direct < 0.1 mg/dL (0-0.2); Bilirubin Total 0.3 mg/dL (0.2-1.0); Glucose Level 108 mg/dL (74-106); Magnesium 2.4 mg/dL (1.8-2.4); NT PRO-BNP 7 pg/mL (<125); Potassium 4.1 mmol/L (3.5-5.1); Protein, Total 7.7 g/dL (6.4-8.2); Sodium Level 143 mmol/L (136-145); Troponin (Emerg Dept Use Only) < 0.02 ng/mL (0.0-0.045)
--- NOTE | 2019-05-01 19:20 | ER ---
Nurse's Notes [facility] Name: Keith Oliver Age: 49 yrs Sex: Male : 1970 Arrival Date: 05/01/2019 Time: 16:43 Bed 2 Private MD: Diagnosis: Chest pain, unspecified Presentation: 05/01 17:14 Presenting complaint: Patient states: Patient reports chest pain that started suddenly ae4 accompanied by shortness of breath and nausea. Transition of care: patient was not received from another setting of care. Onset of symptoms was May 01, 2019. Risk Assessment: Do you want to hurt yourself or someone else? Patient reports no desire to harm self or others. Initial Sepsis Screen: Does the patient meet any 2 criteria? No. Patient's initial sepsis screen is negative. Does the patient have a suspected source of infection? No. Patient's initial sepsis screen is negative. Care prior to arrival: None. 17:14 Acuity: CARYL 3 ae4 17:14 Method Of Arrival: Ambulatory ae4 Historical: - Allergies: 17:14 NKA; ae4 - Home Meds: 17:14 tramadol 50 mg Oral tab 1 tab every 6 hours [Active]; ae4 - PMHx: 17:14 "bleeding ulcer"; Asthma; Esophageal CA; Hypertension; GI Bleed; Sickle Cell; throat ae4 and lung cancer; - Immunization history:: Adult Immunizations Last tetanus immunization: > 10 years ago Flu vaccine is not up to date. It has been more than one year since last vaccine. - Coronavirus screen:: The patient has NOT traveled to [place], [place], or [place] in the past 14 days. - Social history:: Smoking status: Patient/guardian denies using. - Ebola Screening: : No symptoms or risks identified at this time. Screenin:03 Abuse screen: Denies threats or abuse. Nutritional screening: No deficits noted. ea Assessment: 17:15 General: Appears uncomfortable, Behavior is cooperative, anxious. Pain: Complains of ae4 pain in anterior aspect of left upper chest and left breast Pain radiates to left arm Pain currently is 10 out of 10 on a pain scale. Pain began suddenly. Neuro: Level of Consciousness is awake, alert, obeys commands, Oriented to person, place, time, situation, Appropriate for age. Cardiovascular: Heart tones S1 S2 present Patient's skin is warm and dry. Rhythm is regular. Respiratory: Airway is patent Breath sounds are clear bilaterally. GI: Reports nausea. GI: No signs and/or symptoms were reported involving the gastrointestinal system. : No signs and/or symptoms were reported regarding the genitourinary system. Denies burning with urination. EENT: No signs and/or symptoms were reported regarding the EENT system. Derm: Skin is normal. Musculoskeletal: No signs and/or symptoms reported regarding the musculoskeletal system. 17:59 Pain: Complains of pain in left clavicle, anterior aspect of left upper chest and left ae4 breast Pain currently is 8 out of 10 on a pain scale. Neuro: Level of Consciousness is awake, alert, obeys commands, Patient appears more relaxed, reports decreased pain.. 20:01 Reassessment: Patient and/or family updated on plan of care and expected duration. Pain ea level reassessed. Patient is alert, oriented x 3, equal unlabored respirations, skin warm/dry/pink. Discharge instruction given to patient, verbalized the understanding of instruction. Pt left ED ambulatory accompanied by family. Vital Signs: 17:13 BP 134 / 99; Pulse 73; Resp 14; Temp 98.7(O); Pulse Ox 98% on R/A; ae4 17:36 BP 132 / 88; Pulse 85; Resp 16; Pulse Ox 96% on R/A; ae4 17:36 Pulse Ox 93% on R/A; ae4 17:59 BP 140 / 101; Pulse 67; Resp 15; Pulse Ox 96% on 2 lpm NC; ae4 18:02 Weight 102.06 kg (R); ae4 20:00 BP 131 / 97; Pulse 53; Resp 18; Temp 98(TE); Pulse Ox 99% ; ea 17:36 Applied 2L O2 via nasal cannula ae4 ED Course: 16:43 Patient arrived in ED. as 17:00 Vlad Babb MD is Attending Physician. kdr 17:12 Don Archuleta, LIZZIE is Primary Nurse. ae4 17:15 Triage completed. ae4 17:16 Arm band placed on right wrist. EKG completed in triage. Results shown to MD. ae4 17:16 Bed in low position. Call light in reach. Side rails up X 1. library monitor on. Pulse ae4 ox on. NIBP on. Warm blanket given. 17:16 Inserted saline lock: 20 gauge in right antecubital area, using aseptic technique. ae4 Blood collected. Patient maintains SpO2 saturation greater than 95% on room air. 17:30 XRAY Chest (1 view) In Process Unspecified. EDMS 18:47 Repeat lab(s) drawn. by me, sent to lab. jl7 20:00 No provider procedures requiring assistance completed. IV discontinued, intact, ea bleeding controlled, No redness/swelling at site. Pressure dressing applied. Administered Medications: 07:29 Drug: morphine 4 mg Route: IVP; Site: right antecubital; ae4 18:02 Follow up: Response: Pain is decreased ae4 17:26 Drug: Aspirin Chewable Tablet 324 mg Route: PO; ae4 18:02 Follow up: Response: No adverse reaction ae4 17:26 Drug: Zofran 4 mg Route: IVP; Site: right antecubital; ae4 18:02 Follow up: Response: Nausea is decreased ae4 17:32 Drug: Lopressor 5 mg Route: IVP; Site: right antecubital; ae4 18:02 Follow up: Response: Blood sugar is elevated ae4 19:48 Drug: Gary (7.5 mg-325 mg) 1 tabs Route: PO; ls4 20:00 Follow up: Response: No adverse reaction; Pain is decreased; RASS: Alert and Calm (0) ea Outcome: 19:20 Discharge ordered by . snw 20:03 Discharged to home ambulatory. ea 20:03 Condition: stable 20:03 Discharge instructions given to patient, Instructed on discharge instructions, follow up and referral plans. medication usage, Demonstrated understanding of instructions, follow-up care, medications, Prescriptions given X 1. 20:04 Patient left the ED. ea Signatures: Dispatcher [employer] EDMS Vlad Babb MD MD kdr Therrien, Shelly, BUNKER WORKER-C BUNKER WORKER-Csnw Lety Silva Jahala, RN RN jl7 Kendal Hickey RN RN ea Stewart, Lisa, RN RN ls4 Don Archuleta, LIZZIE RN ae4 Corrections: (The following items were deleted from the chart) 20:03 20:02 BP 131 / 97; Pulse 53bpm; Resp 18bpm; Pulse Ox 99%; Temp 98F Temporal; ea ea
--- NOTE | 2019-05-01 19:20 | EDPHYS ---
Physician Documentation [facility] Name: Keith Oliver Age: 49 yrs Sex: Male : 1970 Arrival Date: 05/01/2019 Time: 16:43 Bed 2 Private MD: ED Physician Vlad Babb HPI: 05/02 12:57 This 49 yrs old Black Male presents to ER via Ambulatory with complaints of Chest Pain. kdr 12:57 The patient or guardian reports chest pain that is located primarily in the substernal kdr area, anterior chest wall, left, chest diffusely. Onset: suddenly, just prior to arrival. The pain does not radiate. Associated signs and symptoms: Pertinent positives: nausea, shortness of breath, Pertinent negatives: abdominal pain, cough, diaphoresis, headache, lower extremity pain, lower extremity swelling, lightheadedness, near syncope, palpitations, recent travel, syncope. The chest pain is described as aching, stabbing, similar to prior CP for which he has been evaluated. Duration: The patient or guardian reports a single episode, that is now resolved, that is still ongoing, but improving. Modifying factors: The symptoms are alleviated by nothing. the symptoms are aggravated by nothing. Severity of pain: At its worst the pain was moderate severe just prior to arrival, in the emergency department the pain has improved moderately. The patient has experienced similar episodes in the past, multiple times, today's symptoms are similar. Historical: - Allergies: 05/01 17:14 NKA; ae4 - Home Meds: 17:14 tramadol 50 mg Oral tab 1 tab every 6 hours [Active]; ae4 - PMHx: 17:14 "bleeding ulcer"; Asthma; Esophageal CA; Hypertension; GI Bleed; Sickle Cell; throat ae4 and lung cancer; - Immunization history:: Adult Immunizations Last tetanus immunization: > 10 years ago Flu vaccine is not up to date. It has been more than one year since last vaccine. - Coronavirus screen:: The patient has NOT traveled to [place], [place], or [place] in the past 14 days. - Social history:: Smoking status: Patient/guardian denies using. - Ebola Screening: : No symptoms or risks identified at this time. ROS: 05/02 12:57 Constitutional: Negative for fever, chills, and weight loss, Eyes: Negative for injury, kdr pain, redness, and discharge, ENT: Negative for injury, pain, and discharge, Neck: Negative for injury, pain, and swelling, Respiratory: Negative for shortness of breath, cough, wheezing, and pleuritic chest pain, Abdomen/GI: Negative for abdominal pain, nausea, vomiting, diarrhea, and constipation, Back: Negative for injury and pain, : Negative for injury, bleeding, discharge, and swelling, MS/Extremity: Negative for injury and deformity, Skin: Negative for injury, rash, and discoloration, Neuro: Negative for headache, weakness, numbness, tingling, and seizure activity. Psych: Negative for depression, anxiety, suicide ideation, homicidal ideation, and hallucinations, Allergy/Immunology: Negative for hives, rash, and allergies, Endocrine: Negative for neck swelling, polydipsia, polyuria, polyphagia, and marked weight changes, Hematologic/Lymphatic: Negative for swollen nodes, abnormal bleeding, and unusual bruising. Cardiovascular: Positive for chest pain, Negative for edema, orthopnea, palpitations, paroxysmal nocturnal dyspnea. Exam: 12:57 Constitutional: This is a well developed, well nourished patient who is awake, alert, kdr and in no acute distress. Head/Face: Normocephalic, atraumatic. Eyes: Pupils equal round and reactive to light, extra-ocular motions intact. Lids and lashes normal. Conjunctiva and sclera are non-icteric and not injected. Cornea within normal limits. Periorbital areas with no swelling, redness, or edema. Neck: Trachea midline, no thyromegaly or masses palpated, and no cervical lymphadenopathy. Supple, full range of motion without nuchal rigidity, or vertebral point tenderness. No Meningismus. Chest/axilla: Normal chest wall appearance and motion. Nontender with no deformity. No lesions are appreciated. Cardiovascular: Regular rate and rhythm with a normal S1 and S2. No gallops, murmurs, or rubs. Normal PMI, no JVD. No pulse deficits. Respiratory: Lungs have equal breath sounds bilaterally, clear to auscultation and percussion. No rales, rhonchi or wheezes noted. No increased work of breathing, no retractions or nasal flaring. Abdomen/GI: Soft, non-tender, with normal bowel sounds. No distension or tympany. No guarding or rebound. No evidence of tenderness throughout. Back: No spinal tenderness. No costovertebral tenderness. Full range of motion. Skin: Warm, dry with normal turgor. Normal color with no rashes, no lesions, and no evidence of cellulitis. MS/ Extremity: Pulses equal, no cyanosis. Neurovascular intact. Full, normal range of motion. Neuro: Awake and alert, GCS 15, oriented to person, place, time, and situation. Cranial nerves II-XII grossly intact. Motor strength 5/5 in all extremities. Sensory grossly intact. Cerebellar exam normal. Normal gait. Psych: Awake, alert, with orientation to person, place and time. Behavior, mood, and affect are within normal limits. Vital Signs: 05/01 17:13 BP 134 / 99; Pulse 73; Resp 14; Temp 98.7(O); Pulse Ox 98% on R/A; ae4 17:36 BP 132 / 88; Pulse 85; Resp 16; Pulse Ox 96% on R/A; ae4 17:36 Pulse Ox 93% on R/A; ae4 17:59 BP 140 / 101; Pulse 67; Resp 15; Pulse Ox 96% on 2 lpm NC; ae4 18:02 Weight 102.06 kg (R); ae4 20:00 BP 131 / 97; Pulse 53; Resp 18; Temp 98(TE); Pulse Ox 99% ; ea 17:36 Applied 2L O2 via nasal cannula ae4 MDM: 19:20 Patient medically screened. snw 05/02 12:57 HEART Score: History: Moderately Suspicious (1), ECG: Normal (0), Age: > 45 and < 65 kdr years (1), Risk Factors: 1 or 2 risk factors (1), Troponin: < or = 1 x Normal Limit (0), Total Score = 3. Data reviewed: vital signs, nurses notes. 05/01 17: Order name: Basic Metabolic Panel; Complete Time: 18:34 [facility] 05/01 17:01 Order name: CBC with Diff; Complete Time: 18:34 [facility] 05/01 17:01 Order name: LFT's; Complete Time: 18:34 [facility] 05/01 17:01 Order name: Magnesium; Complete Time: 18:34 [facility] 05/01 17:01 Order name: NT PRO-BNP; Complete Time: 18:34 [facility] 05/01 17:01 Order name: PT-INR; Complete Time: 18:34 [facility] 05/01 17:01 Order name: Troponin (emerg Dept Use Only); Complete Time: 18:34 [facility] 05/01 17:01 Order name: XRAY Chest (1 view); Complete Time: 18:34 [facility] 05/01 18:34 Order name: Troponin (emerg Dept Use Only); Complete Time: 19:19 [facility] 05/01 17:01 Order name: EKG; Complete Time: 17:02 [facility] 05/01 17:01 Order name: Cardiac monitoring; Complete Time: 17:12 [facility] 05/01 17:01 Order name: EKG - Nurse/Tech; Complete Time: 17:13 [facility] 05/01 17:01 Order name: IV Saline Lock; Complete Time: 17:13 [facility] 05/01 17:01 Order name: Labs collected and sent; Complete Time: 17:13 [facility] 05/01 17:01 Order name: O2 Per Protocol; Complete Time: 17:13 [facility] 05/01 17:01 Order name: O2 Sat Monitoring; Complete Time: 17:13 [facility] EC/26 19:22 Rate is 72 beats/min. Rhythm is regular, Normal Sinus Rhythm with No ectopy. QRS [place] kdr is Normal. IA interval is normal. QRS interval is normal. Clinical impression: Normal ECG. Administered Medications: 07:29 Drug: morphine 4 mg Route: IVP; Site: right antecubital; ae4 18:02 Follow up: Response: Pain is decreased ae4 17:26 Drug: Aspirin Chewable Tablet 324 mg Route: PO; ae4 18:02 Follow up: Response: No adverse reaction ae4 17:26 Drug: Zofran 4 mg Route: IVP; Site: right antecubital; ae4 18:02 Follow up: Response: Nausea is decreased ae4 17:32 Drug: Lopressor 5 mg Route: IVP; Site: right antecubital; ae4 18:02 Follow up: Response: Blood sugar is elevated ae4 19:48 Drug: [place] (7.5 mg-325 mg) 1 tabs Route: PO; ls4 20:00 Follow up: Response: No adverse reaction; Pain is decreased; RASS: Alert and Calm (0) ea Disposition: 05/01/19 19:20 Discharged to Home. Impression: Chest pain, unspecified. - Condition is Stable. - Discharge Instructions: Nonspecific Chest Pain, Gastroesophageal Reflux Disease, Adult, Hypertension. - Prescriptions for Tylenol- Codeine #3 300-30 mg Oral Tablet - take 2 tablets by ORAL route every 6 hours As needed; 12 tablet. - Medication Reconciliation Form, Thank You Letter, Prescription Opioid Use form. - Follow up: Emergency Department; When: As needed; Reason: Worsening of condition. Follow up: Private Physician; When: Tomorrow; Reason: Recheck today's complaints, Continuance of care, Re-evaluation by your physician. Signatures: Dispatcher [employer] EDMS Vlad Babb MD MD kdr Therrien, Shelly, MECHANICAL DESIGN ENGINEER-C MECHANICAL DESIGN ENGINEER-Csnw Kendal Hickey RN RN Liza Frank RN RN ls4 Don Archuleta RN RN ae4 Corrections: (The following items were deleted from the chart) 20:04 19:20 05/01/2019 19:20 Discharged to Home. Impression: Chest pain, unspecified. ea Condition is Stable. Forms are Medication Reconciliation Form, Thank You Letter, Antibiotic Education, Prescription Opioid Use. Follow up: Emergency Department; When: As needed; Reason: Worsening of condition. Follow up: Private Physician; When: Tomorrow; Reason: Recheck today's complaints, Continuance of care, Re-evaluation by your physician. snw
[2019-05-01] MEDS ORDERED: HYDROCODONE/APAP 7.5/325 MG TAB ONE (19:48)
[2019-05-01 20:15] VITALS: BP 131/97; TEMP 98; O2SAT 99
--- NOTE | 2019-05-02 06:57 | EKG ---
Test Date: 2019-05-01 Test Time: 17:00:52 Extrusion Engineer: JOHAN MEASUREMENT RESULTS: Intervals: Rate: 73 IA: 104 QRSD: 84 QT: 370 QTc: 407 [place]: P: 64 IA: 104 QRS: 63 T: 61 INTERPRETIVE STATEMENTS: Sinus rhythm with short IA Otherwise normal ECG Compared to ECG 04/28/2019 06:50:04 Short IA interval now present Sinus bradycardia no longer present Electronically Signed On 05-02-19 06:56:42 [employer] by Michael Bee
== END 2019-05-01 20:04 | disposition home or self-care (01) ==
LOC: ER 16:41
DX: R07.9 Chest pain, unspecified (principal); D00.1 Carcinoma in situ of esophagus
CPT/HCPCS: 93005; 85025; 80048; 36415; 83735; 85610; 80076; 84484 ×2; 83880; 71045; 96375; 96374; 99285; J2405

== ENCOUNTER 2019-05-08 10:01 | Observation (INO) | payer BC ==
--- OUTSIDE RECORDS SUMMARY | 2019-05-08 10:03 | XMS REPORT ---
:1970 [facility] [address] [place] [id number] Care Team Providers Name Role Phone Unavailable Unavailable Unavailable Problems This patient has no known problems. Allergies, Adverse Reactions, Alerts This patient has no known allergies or adverse reactions. Medications This patient has no known medications.
[2019-05-08] MEDS ORDERED: ASPIRIN 81 MG CHEWABLE TABLET ONE (10:22)
[2019-05-08] MEDS ORDERED: ONDANSETRON 4 MG/2 ML VIAL ONE (10:23)
[2019-05-08] MEDS ORDERED: MORPHINE 4 MG/ML SYR ONE (10:23)
[2019-05-08 10:35] LABS: Protime INR 1.02
[2019-05-08 10:36] LABS: Absolute Lymphocytes (CBC) 2.3 K/uL (0.7-4.9); Basophils % 1.2 % (0-1.3); Hematocrit 41.2 % (39.6-49.0); Lymphocytes % 31.9 % (15.3-44.8); MPV 8.5 fL (7.6-11.3); RBC Red Blood Cell Count 4.61 M/uL (4.33-5.43)
[2019-05-08 10:49] LABS: ALT/SGPT 28 U/L (12-78); AST/SGOT 15 U/L (15-37); Albumin 3.6 g/dL (3.4-5.0); Alkaline Phosphatase 62 U/L (45-117); BUN Blood Urea Nitrogen 10 mg/dL (7-18); Bicarbonate 28 mmol/L (21-32); Bilirubin Direct 0.1 mg/dL (0-0.2); Bilirubin Total 0.4 mg/dL (0.2-1.0); Glucose Level 91 mg/dL (74-106); Magnesium 2.2 mg/dL (1.8-2.4); NT PRO-BNP 9 pg/mL (<125); Potassium 4.1 mmol/L (3.5-5.1); Protein, Total 7.9 g/dL (6.4-8.2); Sodium Level 141 mmol/L (136-145); Troponin (Emerg Dept Use Only) < 0.02 ng/mL (0.0-0.045)
--- NOTE | 2019-05-08 11:07 | ER ---
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 Hx of TN, not on ASA/plavix. Transition of care: patient was not received from another setting of care. Onset of symptoms was May 08, 2019. Risk Assessment: Do you want to hurt yourself or someone else? Patient reports no desire to harm self or others. Initial Sepsis Screen: Does the patient meet any 2 criteria? No. Patient's initial sepsis screen is negative. Does the patient have a suspected source of infection? No. Patient's initial sepsis screen is negative. Care prior to arrival: None. 10:12 Method Of Arrival: Ambulatory hb 10:12 Acuity: CARYL 3 hb Historical: - Allergies: 10:14 NKA; hb - PMHx: 10:14 "bleeding ulcer"; Asthma; Esophageal CA; GI Bleed; Hypertension; Sickle Cell; throat hb and lung cancer; Myocardial infarction; - Immunization history:: Adult Immunizations up to date. - Coronavirus screen:: The patient has NOT traveled to [place], [place], or [place] in the past 14 days. The patient has NOT had contact with known/suspected case of Coronavirus? Proceed with normal triage procedures. - Social history:: Smoking status: Patient denies any tobacco usage or history of. - Ebola Screening: : No symptoms or risks identified at this time. Screenin:15 Abuse screen: Denies threats or abuse. Denies injuries from another. Nutritional hb screening: No deficits noted. Tuberculosis screening: No symptoms or risk factors identified. Fall Risk None identified. Assessment: 10:15 General: Appears in no apparent distress. Behavior is calm, cooperative. Pain: hb Complains of pain in chest left shoulder, left upper back, left neck Pain currently is 10 out of 10 on a pain scale. Quality of pain is described as sharp, stabbing, Pain began 30 min ago. Neuro: Level of Consciousness is awake, alert, obeys commands, Oriented to person, place, time, situation. Cardiovascular: Heart tones S1 S2 present Capillary refill < 3 seconds Patient's skin is warm and dry. Respiratory: Airway is patent Respiratory effort is even, unlabored, Respiratory pattern is regular, symmetrical, Breath sounds are clear bilaterally. GI: No signs and/or symptoms were reported involving the gastrointestinal system. : No signs and/or symptoms were reported regarding the genitourinary system. EENT: No signs and/or symptoms were reported regarding the EENT system. Derm: Skin is intact, is healthy with good turgor, Skin is pink, warm \\T\\ dry. Musculoskeletal: No signs and/or symptoms reported regarding the musculoskeletal system. 11:20 Reassessment: Patient appears in no apparent distress at this time. Patient and/or em family updated on plan of care and expected duration. Pain level reassessed. Patient is alert, oriented x 3, equal unlabored respirations, skin warm/dry/pink. rates pain 10/10 Patient states symptoms have not improved. 11:55 Reassessment: Admission ordered, awaiting room assignment at this time. hb 12:30 Reassessment: Patient appears in no apparent distress at this time. Patient and/or hb family updated on plan of care and expected duration. Pain level reassessed. Patient is alert, oriented x 3, equal unlabored respirations, skin warm/dry/pink. 13:30 Reassessment: Patient appears in no apparent distress at this time. Patient and/or hb family updated on plan of care and expected duration. Pain level reassessed. Patient is alert, oriented x 3, equal unlabored respirations, skin warm/dry/pink. 14:30 Reassessment: Patient appears in no apparent distress at this time. Patient and/or hb family updated on plan of care and expected duration. Pain level reassessed. Patient is alert, oriented x 3, equal unlabored respirations, skin warm/dry/pink. Vital Signs: 10:14 BP 143 / 96; Pulse 76; Resp 18; Temp 97.9; Pulse Ox 97% on R/A; Weight 102.06 kg; hb Height 6 ft. 1 in. (185.42 cm); Pain 10/10; 11:00 BP 140 / 94; Pulse 91; Resp 20; Pulse Ox 100% on 2 lpm NC; Pain 10/10; em 11:56 BP 133 / 89; Pulse 61; Resp 14; Pulse Ox 100% on R/A; Pain 4/10; hb 12:30 BP 137 / 96; Pulse 59; Resp 15; Pulse Ox 98% on R/A; Pain 5/10; hb 13:30 BP 134 / 87; Pulse 59; Resp 20; Pulse Ox 97% on R/A; Pain 6/10; hb 14:30 BP 135 / 89; Pulse 60; Resp 17; Pulse Ox 99% on R/A; hb 10:14 Body Mass Index 29.68 (102.06 kg, 185.42 cm) hb ED Course: 10:03 Patient arrived in ED. mr 10:03 None, None is Private Physician. mr 10:09 Harman Gomez PA is PHCP. jmm 10:10 Dante Baker MD is Attending Physician. jmm 10:12 Jillian Cooper, LIZZIE is Primary Nurse. hb 10:13 Triage completed. hb 10:14 Arm band placed on. hb 10:15 Patient has correct armband on for positive identification. Placed in gown. Bed in low hb position. Call light in reach. Side rails up X 1. property assessment monitor on. Pulse ox on. NIBP on. 10:15 Patient maintains SpO2 saturation greater than 95% on room air. hb 10:20 Initial lab(s) drawn, by me, sent to lab. Inserted saline lock: 22 gauge in right em antecubital area, using aseptic technique. Blood collected. 11:06 Teetee Bolaños MD is Hospitalizing Provider. jmm 11:19 XRAY Chest (1 view) In Process Unspecified. EDMS Administered Medications: 10:22 Drug: Aspirin Chewable Tablet 324 mg Route: PO; hb 11:24 Follow up: Response: No adverse reaction em 10:22 Drug: morphine 4 mg Route: IVP; Site: right antecubital; hb 10:45 Follow up: Response: No adverse reaction hb 10:22 Drug: Zofran 4 mg Route: IVP; Site: right antecubital; hb 10:45 Follow up: Response: No adverse reaction hb 11:23 Drug: Nitroglycerin 0.4 mg Route: Sublingual; em 12:24 Follow up: Response: No adverse reaction; No change in condition em Outcome: 11:07 Decision to Hospitalize by Provider. jmm 14:54 Patient left the ED. hb Signatures: Dispatcher [employer] EDHarman Newell PA PA jmm Rivera, Mary mr Munoz, Edgar, RN RN Jillian Red RN RN hb
--- NOTE | 2019-05-08 11:08 | EDPHYS ---
Physician Documentation [facility] Name: Keith Oliver Age: 49 yrs Sex: Male : 1970 Arrival Date: 05/08/2019 Time: 10:03 Bed 7 Private MD: None, None ED Physician Dante Baker HPI: 05/08 10:24 This 49 yrs old Black Male presents to ER via Ambulatory with complaints of Chest Pain, jmm Shortness Of Breath. 10:24 The patient or guardian reports chest pain that is located primarily in the substernal jmm area. Onset: gradually, 0.5 hour(s) ago. The pain does not radiate. Associated signs and symptoms: Pertinent positives: shortness of breath. The chest pain is described as sharp. Duration: The patient or guardian reports a single episode, that is still ongoing. Modifying factors: The symptoms are alleviated by nothing. the symptoms are aggravated by nothing. This is a 49 year old male with ahistory of htn, CAD that presents to the ED with complaints of substernal chest pain beginning approx 30 minutes ago. Patient states the pain radiates to his left shoulder. Similar in character to previous [place] in 2007.. Historical: - Allergies: 10:14 NKA; hb - PMHx: 10:14 "bleeding ulcer"; Asthma; Esophageal CA; GI Bleed; Hypertension; Sickle Cell; throat hb and lung cancer; Myocardial infarction; - Immunization history:: Adult Immunizations up to date. - Coronavirus screen:: The patient has NOT traveled to [place], [place], or [place] in the past 14 days. The patient has NOT had contact with known/suspected case of Coronavirus? Proceed with normal triage procedures. - Social history:: Smoking status: Patient denies any tobacco usage or history of. - Ebola Screening: : No symptoms or risks identified at this time. ROS: 10:24 Constitutional: Negative for fever, chills, and weight loss. jmm 10:24 Cardiovascular: Positive for chest pain. 10:24 Respiratory: Positive for shortness of breath. 10:24 All other systems are negative. Exam: 10:24 Constitutional: This is a well developed, well nourished patient who is awake, alert, jmm and in no acute distress. Head/Face: atraumatic. Eyes: EOMI, no conjunctival erythema appreciated ENT: Moist Mucus Membranes Neck: Trachea midline, Supple Chest/axilla: Normal chest wall appearance and motion. 10:24 Abdomen/GI: Non distended, soft Back: Normal ROM Skin: General appearance color normal MS/ Extremity: Moves all extremities, no obvious deformities appreciated, no edema noted to the lower extremities Neuro: Awake and alert, normal gait Psych: Behavior is normal, Mood is normal, Patient is cooperative and pleasant 10:24 Cardiovascular: Rate: normal, Rhythm: regular. Vital Signs: 10:14 BP 143 / 96; Pulse 76; Resp 18; Temp 97.9; Pulse Ox 97% on R/A; Weight 102.06 kg; hb Height 6 ft. 1 in. (185.42 cm); Pain 10/10; 11:00 BP 140 / 94; Pulse 91; Resp 20; Pulse Ox 100% on 2 lpm NC; Pain 10/10; em 11:56 BP 133 / 89; Pulse 61; Resp 14; Pulse Ox 100% on R/A; Pain 4/10; hb 12:30 BP 137 / 96; Pulse 59; Resp 15; Pulse Ox 98% on R/A; Pain 5/10; hb 13:30 BP 134 / 87; Pulse 59; Resp 20; Pulse Ox 97% on R/A; Pain 6/10; hb 14:30 BP 135 / 89; Pulse 60; Resp 17; Pulse Ox 99% on R/A; hb 10:14 Body Mass Index 29.68 (102.06 kg, 185.42 cm) hb MDM: 10:16 Patient medically screened. vladimir 11:06 The patient was given aspirin in the Emergency Department. Data reviewed: vital signs, [facility] nurses notes, lab test result(s), EKG, radiologic studies, plain films. Counseling: I had a detailed discussion with the patient and/or guardian regarding: the historical points, exam findings, and any diagnostic results supporting the discharge/admit diagnosis, lab results, radiology results, the need for further work-up and treatment in the hospital. ED course: I discussed the patient with Dr. Bolaños whom accepted admission. . 05/08 10:16 Order name: Basic Metabolic Panel; Complete Time: 10:52 [facility] 05/08 10:16 Order name: CBC with Diff; Complete Time: 11:00 [facility] 05/08 10:16 Order name: LFT's; Complete Time: 10:52 [facility] 05/08 10:16 Order name: Magnesium; Complete Time: 10:52 [facility] 05/08 10:16 Order name: NT PRO-BNP; Complete Time: 10:52 [facility] 05/08 10:16 Order name: PT-INR; Complete Time: 11:00 [facility] 05/08 10:16 Order name: Troponin (emerg Dept Use Only); Complete Time: 10:52 [facility] 05/08 10:16 Order name: XRAY Chest (1 view); Complete Time: 11:42 [facility] 05/08 13:56 Order name: Troponin I [facility] 05/08 13:56 Order name: Troponin I [facility] 05/08 13:56 Order name: Troponin I [facility] 05/08 10:16 Order name: EKG; Complete Time: 10:16 [facility] 05/08 10:16 Order name: Cardiac monitoring; Complete Time: 10:17 [facility] 05/08 10:16 Order name: EKG - Nurse/Tech; Complete Time: 10:17 [facility] 05/08 10:16 Order name: IV Saline Lock; Complete Time: 10:17 [facility] 05/08 10:16 Order name: Labs collected and sent; Complete Time: 10:17 [facility] 05/08 10:16 Order name: O2 Per Protocol; Complete Time: 10:17 [facility] 05/08 10:16 Order name: O2 Sat Monitoring; Complete Time: 10:17 [facility] 05/08 13:56 Order name: CONS Pharmacy Consult [facility] 05/08 13:56 Order name: Heart Healthy [facility] Administered Medications: 10:22 Drug: Aspirin Chewable Tablet 324 mg Route: PO; hb 11:24 Follow up: Response: No adverse reaction em 10:22 Drug: morphine 4 mg Route: IVP; Site: right antecubital; hb 10:45 Follow up: Response: No adverse reaction hb 10:22 Drug: Zofran 4 mg Route: IVP; Site: right antecubital; hb 10:45 Follow up: Response: No adverse reaction hb 11:23 Drug: Nitroglycerin 0.4 mg Route: Sublingual; em 12:24 Follow up: Response: No adverse reaction; No change in condition em Disposition: 05/09 07:38 Co-signature as Attending Physician, Dante Baker MD I agree with the assessment and vladimir plan of care. Disposition: 05/08/19 11:07 Hospitalization ordered by Teetee Bolaños for Observation. Preliminary diagnosis is Chest pain, unspecified. - Bed requested for Telemetry/MedSurg (observation). - Status is Observation. hb - Condition is Stable. - Problem is an acute exacerbation. - Symptoms are unchanged. UTI on Admission? No Signatures: Dispatcher [employer] Kristen Pierre RN RN dw Anderson, Corey, MD MD cha Mickail, Joel, PA PA jmm Munoz, Edgar, LIZZIE SAMUEL Jillian Cooper RN RN Corrections: (The following items were deleted from the chart) 05/08 14:21 11:07 Hospitalization Ordered by Teetee Bolaños MD for Observation. Preliminary dw diagnosis is Chest pain, unspecified. Bed requested for Telemetry/MedSurg (observation). Status is Observation. Condition is Stable. Problem is an acute exacerbation. Symptoms are unchanged. UTI on Admission? No. reese 14:54 14:21 05/08/2019 11:07 Hospitalization Ordered by Teetee Bolaños MD for Observation. hb Preliminary diagnosis is Chest pain, unspecified. Bed requested for Telemetry/MedSurg (observation). Status is Observation. Condition is Stable. Problem is an acute exacerbation. Symptoms are unchanged. UTI on Admission? No. caleb
[2019-05-08] MEDS ORDERED: NITROGLYCERIN 0.4 MG/TAB SL ONE ×2 (11:24→15:00)
--- NOTE | 2019-05-08 11:34 | RAD REPORT ---
EXAM DESCRIPTION: RAD - Chest Single View - 05/08/2019 11:18 am CLINICAL HISTORY: CHEST PAIN, pain is left-side COMPARISON: Chest Single View dated 05/01/2019; Chest Single View dated 04/28/2019 TECHNIQUE: AP portable chest image was obtained 05/08/2019 11:18 am . FINDINGS: Lungs are clear. Heart and vasculature are normal. No measurable pleural effusion and no p neumothorax. No acute bony abnormality seen. No acute aortic findings suspected. IMPRESSION: No acute cardiopulmonary process. No significant interval change.
[2019-05-08] MEDS ORDERED: ONDANSETRON 4 MG/2 ML VIAL IV PRN (13:52)
[2019-05-08] MEDS ORDERED: ACETAMINOPHEN 500 MG TAB PO PRN (13:52)
[2019-05-08] MEDS ORDERED: LORAZEPAM 0.5 MG TABLET PO PRN (13:55)
[2019-05-08] MEDS ORDERED: CYCLOBENZAPRINE 10 MG TAB PO PRN (13:56)
[2019-05-08] MEDS: ENOXAPARIN 40 MG/0.4 ML SQ SCH ×2 (15:00→15:08)
[2019-05-08] MEDS: NA CHLORIDE 0.9% 1,000 ML IV SCH (15:08)
[2019-05-08] MEDS: MORPHINE 2 MG/ML SYR IV PRN ×2 (15:08→20:03)
[2019-05-08 15:58] VITALS: BMI 29.7
[2019-05-08] MEDS: NITROGLYCERIN 0.2 MG/HR (5 MG) PATCH TD SCH (16:59)
[2019-05-08 18:21] LABS: Urine Appearance CLEAR; Urine Bilirubin NEGATIVE (NEG); Urine Blood NEGATIVE (NEG); Urine Color YELLOW; Urine Glucose NEGATIVE (NEG); Urine Protein NEGATIVE (NEG); Urine pH 6.5 (5.0-7.0)
[2019-05-08 18:37] LABS: Urine Microscopic Reflex NO UMIC
[2019-05-08] MEDS: FAMOTIDINE 20 MG TAB PO SCH (20:02)
[2019-05-08] MEDS ORDERED: METOPROLOL TAR 25 MG TAB PO SCH (21:00)
--- NOTE | 2019-05-09 00:44 | HP ---
Date of Admission: 05/08/2019 Presenting Complaint: Chest pain. History Of Present Illness: Mr. Keith Oliver is a 49-year-old male with a past m edical history of hypertension, recurrent chest pain, self-reported MA in 2007, but did not have any cardiac cath or stent placement. Patient is unsure what treatment he received in [place], [place] a t that time. He presented today because of chest pain located in the left chest wall, nonradiating. Pain is persistent and not relieved by sublingual nitroglycerin or aspirin. He continued to have pa in while in the ED despite morphine. Patient denies any cough. He denies any shortness of breath. He admits to extensive family history of coronary artery disease. Past Medical History: Significant for hypertension, presumed CAD. History of esophageal cancer, his tory of sickle cell trait, history of asthma. Home Medications: Include hydrochlorothiazide, flexor, aspirin. Social History: Patient is a nonsmoker. No history of alcohol or illicit drug use. Resides in the community. Fully functional at baseline. Family History: Patient admits to both parents with history of CAD, but both still alive. Allergies: NO KNOWN DRUG ALLERGIES. Review of Systems: All systems reviewed x10 were negative, except as mentioned above. Physical Examination: Vital Signs: Blood pressure currently 135/76, pulse of 82, respiratory rate of 18, temp 97.8, weight of 102. General: Middle-aged male, average built, in moderate pain distress. Head: Atraumatic, normocephalic. Eyes: Pupils equal and reactive to light. Neck: No JVD. No carotid bruit. Respiratory: Good air entry. No crepitations. Cardiovascular: S1 and S2. Rate and rhythm regular. Markedly tender anterior chest wall. GI: Abdomen full, soft, nontender. No epigastric tenderness. Bowel sounds positive. Extremities: No calf tenderness. No pedal edema. Neuro: Patient is alert and oriented. Cranial nerves 2 through 12 grossly intact. Laboratory Data: EKG reviewed, normal sinus rhythm, showed OH interval, but no ST-segment changes. WBC 7.1, hemoglobin 13, platelet 193. INR 1.02. Potassium 4.1, creatinine 1.25, magnesium 2.2. Sod ium 141, albumin 3.6. Rapid troponin less than 0.02, proBNP of 9. Impression: 1.Atypical chest pain. 2.Hypertension, controlled. Plan: We will admit patient. We will do serial set of cardiac enzymes. We will follow repeat EKG i n a.m. If positive cardiac enzymes, we will consult Cardiology. Patient actually has history of cor onary artery disease, however, he may benefit from stress test if negative cardiac enzymes in a.m. gi tonio history of recurrent chest pain and no previous stress tests in the past. We will do Lovenox for DVT prophylaxis. We will do gentle IV fluids. We will continue to follow. Total time spent in rev iew of record, discussion with patient, and evaluation was greater than 60 minutes. Advanced directives: Patient admits to full code. EO/MODL Voice ID: [id number]
[2019-05-09] MEDS: NA CHLORIDE 0.9% 1,000 ML IV SCH (04:01)
[2019-05-09] MEDS: MORPHINE 2 MG/ML SYR IV PRN (04:13)
--- NOTE | 2019-05-09 08:26 | EKG ---
Test Date: 2019-05-08 Test Time: 10:18:04 Wood Tile Installer: WILY MEASUREMENT RESULTS: Intervals: Rate: 69 VA: 108 QRSD: 78 QT: 384 QTc: 411 [place]: P: 57 VA: 108 QRS: 54 T: 38 INTERPRETIVE STATEMENTS: Sinus rhythm with short VA Otherwise normal ECG Compared to ECG 05/01/2019 17:00:52 No significant changes Electronically Signed On 05-09-19 08:25:06 RETIREMENT PLAN COUNSELOR by Michael Bee
[2019-05-09] MEDS: FAMOTIDINE 20 MG TAB PO SCH (08:35)
[2019-05-09] MEDS: ENOXAPARIN 40 MG/0.4 ML SQ SCH ×2 (08:35→08:42)
[2019-05-09] MEDS: hydroCHLOROthiazide 25 MG TAB PO SCH ×2 (08:37→10:02)
[2019-05-09] MEDS: FOLIC ACID 1 MG TABLET PO SCH ×2 (08:37→10:01)
[2019-05-09] MEDS: ASPIRIN EC 81 MG TAB PO SCH ×2 (08:37→10:02)
[2019-05-09] MEDS: NITROGLYCERIN 0.2 MG/HR (5 MG) PATCH TD SCH (08:39)
[2019-05-09] MEDS ORDERED: METOPROLOL TAR 25 MG TAB PO SCH (09:00)
--- NOTE | 2019-05-09 09:22 | TREADMILL ---
70% H.R.: 85% H.R.: 144 90% H.R.: 100% H.R.: DX: RECURRENT CHEST PAIN Date of Study: 05/09/2019 Ht: 6 1 Wt: 225 lb 0 oz Consulting Physician: AURE MEDICATIONS: TYLENOL, ASPIRIN, FLEXERIL, LOVENOX, ATIVAN, HYDRODIURIL, LOPRESSOR, NITROGLYCERIN HISTORY: 50 YEAR OLD MALE COMPLAINS OF CHEST PAIN TIMES TWO DAYS TO LEFT CHEST. HISTORY OF HYPERTENSION. PHYSICIAL EXAMINATION: RESTING B.P.: 134/92 RESTING H.R.: 75 RESTING EKG: SINUS BRADYCARDIA, OTHERWISE NORMAL PROTOCOL: YOLANDA ROUTINE EXERCISE TIME: 6:17 MAXIMUM HEART RATE: 150 % OF PREDICTED B.P. AT PEAK STRESS: 156/101 H.R. AT 1 MINUTE POST EXERCISE: 136 IMPRESSION: STOPPED FOR TARGET HEART RATE, FATIGUE AND SHORTNESS OF BREATH. PATIENT REPORTS NO CHANGE IN CHEST PAIN. NO SUPRAVENTRICULAR TACHYCARDIA, NO VENTRICULAR TACHYCARDIA, NO ARRHYTHMIA NOTED. PATIENT TOLERATE WELL. NO ST CHANGE WITH STRESS.
--- NOTE | 2019-05-09 09:56 | P.DS ---
Admission Date: 05/08/19 Discharge Date: 05/09/19 Primary Care Provider: Dr. Damon([place]) Disposition: ROUTINE DISCHARGE Discharge Condition: GOOD Reason for Admission: Chest pain Consultations: Cardiology-Dr. Bee Procedures: T-spine x-ray: CLINICAL HISTORY: Back pain FINDINGS: Mild scoliosis. No dislocation. Minimal spondylosis No fracture is seen L-spine x-ray: FINDINGS: The alignment of the lumbar spine is satisfactory. No fracture or dislocation is seen. Sacralization L5. Minimal spondylosis CXR: FINDINGS: Lungs are clear. Heart and vasculature are normal. No measurable pleural effusion and no pneumothorax. No acute bony abnormality seen. No acute aortic findings suspected. IMPRESSION: No acute cardiopulmonary process. No significant interval change. Cardiac Exercise Stress Test: H.R. AT 1 MINUTE POST EXERCISE: 136 IMPRESSION: STOPPED FOR TARGET HEART RATE, FATIGUE AND SHORTNESS OF BREATH. PATIENT REPORTS NO CHANGE IN CHEST PAIN. NO SUPRAVENTRICULAR TACHYCARDIA, NO VENTRICULAR TACHYCARDIA, NO ARRHYTHMIA NOTED. PATIENT TOLERATE WELL. NO ST CHANGE WITH STRESS. Medical Problem List: Chest pain with normal cardiac exercise stress test Hypertension uncontrolled Chronic back pain with noted mild scoliosis, spondylosis of the T and L-spine Suspect GERD Brief History of Present Illness: 49-year-old male presented to the emergency room with chest pain. Patient reports history of CAD with prior VA in 2007. Patient did not have heart catheterization or stent at that time. Patient was evaluated the emergency room. Due to his risk factors patient was admitted for further evaluation and treatment. Blood pressure uncontrolled as the patient did not have any of his prior blood pressure medication refilled recently. He is to establish care soon. Hospital Course: Patient presented with chest pain. Patient with history of hypertension and reported VA in the past. He had no heart catheterization done. Patient also had elevated blood pressure. He has been without medication. Patient was evaluated in the hospital. Cardiac enzymes unremarkable. Cardiology was consulted. Patient had cardiac exercise stress test which showed no stress- induced ischemia. No need for further intervention required. At discharge she will continue with aspirin 81 mg daily. Patient will continue with his blood pressure medications including metoprolol 25 mg 1 pill twice daily and hydrochlorothiazide 25 mg daily. He may hold his blood pressure medication if systolic less than 120 or heart rate less than 50. Recommend follow up with cardiology in 2-4 weeks to follow up this hospitalization. Recommend to keep track of his blood pressures daily. Further adjustment can be done by his PCP. Patient plans to establish care with a PCP to further monitor his condition. Patient likely with hyperlipidemia. LDL 95. At discharge he will continue with Lipitor 10 mg daily. Recommend to recheck fasting lipid panel in 4-6 weeks to further adjust. Patient likely with underlying GERD. At discharge he may continue with Pepcid 20 mg 1 pill twice daily. Patient may benefit with GI evaluation as an outpatient. Patient with chronic back pain. Patient may continue with muscle relaxer as needed. Patient may take Tylenol as needed for pain. Recommend no heavy lifting , pushing or pulling. X-ray showed mild scoliosis and spondylosis to the T and L-spine. Further adjustment in medication can be done by his PCP. Vital Signs/Physical Exam: Temp Pulse Resp BP Pulse Ox 97.5 F 59 20 118/75 99 05/09/19 08:00 05/09/19 08:37 05/09/19 08:00 05/09/19 08:37 05/09/19 08:00 General: Alert, In no apparent distress, Oriented x3, Cooperative HEENT: Atraumatic Neck: Supple Respiratory: Clear to auscultation bilaterally, Normal air movement Cardiovascular: Normal pulses, Regular rate/rhythm Gastrointestinal: Normal bowel sounds, Soft and benign, Non-distended Musculoskeletal: No erythema, No tenderness, No warmth Integumentary: No tenderness/swelling, No erythema, No warmth, No cyanosis Neurological: Normal speech, Normal strength at 5/5 x4 extr, Normal tone, Normal affect Laboratory Data at Discharge: WBC 7.1 K/uL (4.3-10.9) 05/08/19 10:20 Hgb 13.9 g/dL (13.6-17.9) 05/08/19 10:20 Hct 41.2 % (39.6-49.0) 05/08/19 10:20 Plt Count 193 K/uL (152-406) 05/08/19 10:20 PT 12.0 SECONDS (9.5-12.5) 05/08/19 10:20 INR 1.02 05/08/19 10:20 Sodium 141 mmol/L (136-145) 05/08/19 10:20 Potassium 4.1 mmol/L (3.5-5.1) 05/08/19 10:20 BUN 10 mg/dL (7-18) 05/08/19 10:20 Creatinine 1.25 mg/dL (0.55-1.3) 05/08/19 10:20 Glucose 91 mg/dL (74-106) 05/08/19 10:20 Magnesium 2.2 mg/dL (1.8-2.4) 05/08/19 10:20 Total Bilirubin 0.4 mg/dL (0.2-1.0) 05/08/19 10:20 AST 15 U/L (15-37) 05/08/19 10:20 ALT 28 U/L (12-78) 05/08/19 10:20 Alkaline Phosphatase 62 U/L (45-117) 05/08/19 10:20 Troponin I < 0.02 ng/mL (0.0-0.045) 05/08/19 19:36 Home Medications: Aspirin [Aspirin EC 81 MG] 81 mg PO DAILY 12/26/16 Cyclobenzaprine [Flexeril*] 5 mg PO BIDP PRN 12/26/16 Folic Acid 0.4 mg PO DAILY 12/26/16 Atorvastatin Calcium [Lipitor] 10 mg PO BEDTIME #30 tab 05/09/19 Famotidine [Pepcid*] 20 mg PO BID #60 tab 05/09/19 Metoprolol Tartrate [Lopressor*] 25 mg PO BID #60 tab 05/09/19 hydroCHLOROthiazide [Hydrodiuril*] 25 mg PO DAILY #30 tab 05/09/19 New Medications: Atorvastatin Calcium [Lipitor] 10 mg PO BEDTIME #30 tab Famotidine [Pepcid*] 20 mg PO BID #60 tab hydroCHLOROthiazide [Hydrodiuril*] 25 mg PO DAILY #30 tab Metoprolol Tartrate [Lopressor*] 25 mg PO BID #60 tab Patient Discharge Instructions: 1. Recommend follow up with his PCP in 1-2 weeks to follow up this hospitalization. 2. Patient presented with chest pain. Patient with history of hypertension and reported VA in the past. He had no heart catheterization done. Patient also had elevated blood pressure. He has been without medication. Patient was evaluated in the hospital. Cardiac enzymes unremarkable. Cardiology was consulted. Patient had cardiac exercise stress test which showed no stress-induced ischemia. No need for further intervention required. At discharge she will continue with aspirin 81 mg daily. Patient will continue with his blood pressure medications including metoprolol 25 mg 1 pill twice daily and hydrochlorothiazide 25 mg daily. He may hold his blood pressure medication if systolic less than 120 or heart rate less than 50. Recommend follow up with cardiology in 2-4 weeks to follow up this hospitalization. Recommend to keep track of his blood pressures daily. Further adjustment can be done by his PCP. Patient plans to establish care with a PCP to further monitor his condition. 3. Patient likely with hyperlipidemia. LDL 95. At discharge he will continue with Lipitor 10 mg daily. Recommend to recheck fasting lipid panel in 4-6 weeks to further adjust. 4. Patient likely with underlying GERD. At discharge he may continue with Pepcid 20 mg 1 pill twice daily. Patient may benefit with GI evaluation as an outpatient. 5. Patient with chronic back pain. Patient may continue with muscle relaxer as needed. Patient may take Tylenol as needed for pain. Recommend no heavy lifting, pushing or pulling. X-ray showed mild scoliosis and spondylosis to the T and L-spine. Further adjustment in medication can be done by his PCP. Diet: AHA Activity: Ad pavel Time spent managing pt's care (in minutes): 55
--- NOTE | 2019-05-09 10:56 | RAD REPORT ---
EXAM DESCRIPTION: RAD - Lumbar Spine 3 Views - 05/09/2019 10:41 am CLINICAL HISTORY: Back pain FINDINGS: The alignment of the lumbar spine is satisfactory. No fracture or dislocation is seen. Sacralization L5. Minimal spondylosis
--- NOTE | 2019-05-09 10:57 | RAD REPORT ---
EXAM DESCRIPTION: RAD - Spine Thoracic W/Swimmers - 05/09/2019 10:41 am CLINICAL HISTORY: Back pain FINDINGS: Mild scoliosis. No dislocation. Minimal spondylosis No fracture is seen
[2019-05-09 12:25] VITALS: O2SAT 96
[2019-05-09 12:47] VITALS: BP 129/82; TEMP 97.8
--- NOTE | 2019-05-09 13:23 | CON ---
Chief Complaint: Pain in the left shoulder. History Of Present Illness: He is admitted with a diagnosis of chest pain for 3 days or longer. He has been having pain in the left shoulder whenever he moves his arm back or up. The pain is in the s h[place] and radiates to the left side of his neck. There is no numbness or tingling. He is complain ing of a headache, but he has a nitroglycerin patch on. We will remove that and see if he still has the headache. The patient gives a history of having a heart attack in 2007, but at that time, he did not receive aspirin or Plavix or beta-blockers or heart catheterization or stent or bypass surgery. He was simply told he had a heart attack and soon after that he was released from the hospital. It sounds like a history that is suspicious. Since then, there has not been a cardiac workup that we kn ow of. He has had surgery to treat keloid. No other surgeries. He does not use tobacco. Does not have diabetes or dyslipidemia. In 2017, he was said to be taking aspirin, metoprolol, and hydrochlor othiazide, but I do not think he is taking any of those now. No allergies are known. Alcohol use mi nimal. No illegal drugs. Physical Examination: General: He appears to be his stated age, alert, oriented, pleasant, not in distress, 6 feet 1 inch, 225 pounds. Lungs: Clear. Carotids: No bruit. Heart: Normal. Abdomen: Soft. Extremities: Normal. Diagnostic Data: EKG normal. Cardiac enzymes are normal. Assessment And Plan: Patient will have a stress test. If that is normal, he should be discharged an d undergo a workup for what looks like musculoskeletal problems. I would suspect most likely he has cervical spine problems giving this pain. Thank you very much for your kind referral of Mr. Oliver. I will follow him with you. KARELY/ISABELA Voice ID: [id number] Report ID: [id number]
== END 2019-05-09 12:28 | disposition home or self-care (01) ==
LOC: ER 10:01 → ERHOLD 13:54 → 2ND 14:28
PROVIDERS: ADMIT Internal Medicine; ATTEND Internal Medicine
DX: R07.9 Chest pain, unspecified (principal); I10 Essential (primary) hypertension; M54.9 Dorsalgia, unspecified; M41.9 Scoliosis, unspecified; M47.815 Spondylosis without myelopathy or radiculopathy, thoracolumbar region; I25.2 Old myocardial infarction
CPT/HCPCS: 93017; 93005; 85025; 80048; 36415; 83735; 85610; 80061; 80076; 81003; 84484 ×3; 83880; 71045; 72072; 72100; 96375; 96374; 99285; J1650; J2270 ×3; J7030 ×2; J2405; G0378 ×3

== ENCOUNTER 2019-05-14 07:57 | Emergency (ER) | payer BC ==
--- OUTSIDE RECORDS SUMMARY | 2019-05-14 07:59 | XMS REPORT ---
:1970 [facility] Address [address] [place] [id number] Care Team Providers Name Role Phone Unavailable Unavailable Unavailable Problems This patient has no known problems. Allergies, Adverse Reactions, Alerts This patient has no known allergies or adverse reactions. Medications This patient has no known medications.
[2019-05-14 08:39] LABS: Absolute Lymphocytes (CBC) 2.3 K/uL (0.7-4.9); Basophils % 0.9 % (0-1.3); Hematocrit 42.5 % (39.6-49.0); Lymphocytes % 36.6 % (15.3-44.8); MPV 8.8 fL (7.6-11.3); RBC Red Blood Cell Count 4.77 M/uL (4.33-5.43)
[2019-05-14 08:51] LABS: BUN Blood Urea Nitrogen 11 mg/dL (7-18); Bicarbonate 27 mmol/L (21-32); Glucose Level 154 mg/dL (74-106); NT PRO-BNP 6 pg/mL (<125); Potassium 3.4 mmol/L (3.5-5.1); Sodium Level 140 mmol/L (136-145); Troponin (Emerg Dept Use Only) < 0.02 ng/mL (0.0-0.045)
--- NOTE | 2019-05-14 09:08 | RAD REPORT ---
EXAM DESCRIPTION: [place] Single View05/14/2019 8:49 am CLINICAL HISTORY: Chest pain COMPARISON: May 08, 2019 FINDINGS: The lungs appear clear of acute infiltrate. The heart is normal size IMPRESSION: No acute abnormalities displayed
--- NOTE | 2019-05-14 09:09 | ER ---
Nurse's Notes [facility] Name: Keith Oliver Age: 49 yrs Sex: Male : 1970 Arrival Date: 05/14/2019 Time: 07:58 Bed 8 Private MD: Diagnosis: Chest pain, unspecified Presentation: 05/14 08:14 Presenting complaint: Patient states: left sided chest pain X 20 minutes. Transition of iw care: patient was not received from another setting of care. Onset of symptoms was May 14, 2019. Risk Assessment: Do you want to hurt yourself or someone else? Patient reports no desire to harm self or others. Initial Sepsis Screen: Does the patient meet any 2 criteria? No. Patient's initial sepsis screen is negative. Does the patient have a suspected source of infection? No. Patient's initial sepsis screen is negative. Care prior to arrival: None. 08:14 Method Of Arrival: Wheelchair iw 08:14 Acuity: CARYL 3 iw Historical: - Allergies: 08:15 NKA; iw 08:15 NKA; hb - PMHx: 08:15 "bleeding ulcer"; Asthma; Esophageal CA; GI Bleed; Hypertension; Myocardial infarction; iw Sickle Cell; throat and lung cancer; 08:15 "bleeding ulcer"; Asthma; Esophageal CA; GI Bleed; Hypertension; Myocardial infarction; hb Sickle Cell; throat and lung cancer; - PSHx: 08:15 keloid removal; iw - Immunization history:: Adult Immunizations up to date. - Coronavirus screen:: The patient has NOT traveled to [place], [place], or [place] in the past 14 days. The patient has NOT had contact with known/suspected case of Coronavirus? Proceed with normal triage procedures. - Social history:: Smoking status: Patient denies any tobacco usage or history of. - Family history:: not pertinent. - Ebola Screening: : No symptoms or risks identified at this time. - Hospitalizations: : No recent hospitalization is reported. Screenin:16 Abuse screen: Denies threats or abuse. Denies injuries from another. Nutritional hb screening: No deficits noted. Tuberculosis screening: No symptoms or risk factors identified. Fall Risk None identified. Assessment: 08:16 General: Appears in no apparent distress. Behavior is calm, cooperative. Pain: Pain hb does not radiate. Pain currently is 10 out of 10 on a pain scale. Pain began 30 min ago. Neuro: Level of Consciousness is awake, alert, obeys commands, Oriented to person, place, time, situation. Cardiovascular: Heart tones S1 S2 present Capillary refill < 3 seconds Patient's skin is warm and dry. Respiratory: Airway is patent Respiratory effort is even, unlabored, Respiratory pattern is regular, symmetrical, Breath sounds are clear bilaterally. GI: No signs and/or symptoms were reported involving the gastrointestinal system. : No signs and/or symptoms were reported regarding the genitourinary system. EENT: No signs and/or symptoms were reported regarding the EENT system. Derm: Skin is intact, is healthy with good turgor. Musculoskeletal: No signs and/or symptoms reported regarding the musculoskeletal system. 09:00 Reassessment: Patient appears in no apparent distress at this time. Patient and/or hb family updated on plan of care and expected duration. Pain level reassessed. Patient is alert, oriented x 3, equal unlabored respirations, skin warm/dry/pink. Vital Signs: 08:14 BP 119 / 93; Pulse 90; Resp 14; Temp 98.0; Pulse Ox 98% on R/A; Weight 99.79 kg; Height iw 6 ft. 1 in. (185.42 cm); Pain 10/10; 09:00 BP 126 / 86; Pulse 82; Resp 15; Pulse Ox 100% on R/A; hb 08:14 Body Mass Index 29.03 (99.79 kg, 185.42 cm) iw ED Course: 07:58 Patient arrived in ED. as 08:03 Nelson Abdullahi MD is Attending Physician. rn 08:14 Arm band placed on. hb 08:15 Triage completed. iw 08:17 Patient has correct armband on for positive identification. Placed in gown. Bed in low hb position. Call light in reach. Side rails up X 1. gambling monitor on. Pulse ox on. NIBP on. 08:18 Patient maintains SpO2 saturation greater than 95% on room air. hb 08:24 Inserted saline lock: 20 gauge in right antecubital area, using aseptic technique. hb Blood collected. 08:29 Jillian Cooper, RN is Primary Nurse. hb 08:47 XRAY Chest (1 view) In Process Unspecified. EDMS 09:23 No provider procedures requiring assistance completed. IV discontinued, intact, hb bleeding controlled, No redness/swelling at site. Pressure dressing applied. Administered Medications: No medications were administered Outcome: 09:08 Discharge ordered by . rn 09:23 Discharged to home ambulatory. hb 09:23 Condition: stable 09:23 Discharge instructions given to patient, Instructed on discharge instructions, follow up and referral plans. Demonstrated understanding of instructions, follow-up care. 09:26 Patient left the ED. hb Signatures: Dispatcher [employer] EDMS Lety Silva Irene, RN RN iw Nieto, Roman, MD MD rn Baxter, Heather, RN RN hb Corrections: (The following items were deleted from the chart) 08:16 08:14 BP 119 / 93; Pulse 90bpm; Resp 14bpm; Pulse Ox 98% RA; hb hb 08:17 08:14 BP 119 / 93; Pulse 90bpm; Resp 14bpm; Pulse Ox 98% RA; Temp 97.7F Temporal; Pain hb 5/10; hb 08:17 08:16 Pain: Pain does not radiate. Pain currently is 5 out of 10 on a pain scale. Pain hb began 30 min ago. hb
--- NOTE | 2019-05-14 09:10 | EDPHYS ---
Physician Documentation [facility] Name: Keith Oliver Age: 49 yrs Sex: Male : 1970 Arrival Date: 05/14/2019 Time: 07:58 Bed 8 Private MD: ED Physician Nelson Abdullahi HPI: 05/14 08:30 This 49 yrs old Black Male presents to ER via Wheelchair with complaints of Chest Pain. rn 08:30 The patient or guardian reports chest pain that is located primarily in the anterior rn chest wall, left. Onset: this morning. The pain radiates to the left shoulder. The chest pain is described as sharp. Duration: The patient or guardian reports multiple episodes, that are intermittent. Modifying factors: The symptoms are alleviated by nothing. the symptoms are aggravated by nothing. Severity of pain: At its worst the pain was mild in the emergency department the pain is unchanged. The patient has experienced similar episodes in the past, multiple times. The patient has not recently seen a physician. Reports chest pain, almost daily for months, just admitted this week and has normal stress test, told to f/u with PCP and cardiology as outpt. . Historical: - Allergies: 08:15 NKA; iw 08:15 NKA; hb - PMHx: 08:15 "bleeding ulcer"; Asthma; Esophageal CA; GI Bleed; Hypertension; Myocardial infarction; iw Sickle Cell; throat and lung cancer; 08:15 "bleeding ulcer"; Asthma; Esophageal CA; GI Bleed; Hypertension; Myocardial infarction; hb Sickle Cell; throat and lung cancer; - PSHx: 08:15 keloid removal; iw - Immunization history:: Adult Immunizations up to date. - Coronavirus screen:: The patient has NOT traveled to [place], [place], or [place] in the past 14 days. The patient has NOT had contact with known/suspected case of Coronavirus? Proceed with normal triage procedures. - Social history:: Smoking status: Patient denies any tobacco usage or history of. - Family history:: not pertinent. - Ebola Screening: : No symptoms or risks identified at this time. - Hospitalizations: : No recent hospitalization is reported. ROS: 08:30 Constitutional: Negative for fever, chills, and weight loss, Eyes: Negative for injury, rn pain, redness, and discharge, Cardiovascular: Negative for palpitations, and edema Respiratory: Negative for shortness of breath, cough, wheezing, and pleuritic chest pain, Abdomen/GI: Negative for abdominal pain, nausea, vomiting, diarrhea, and constipation, Back: Negative for injury and pain, MS/Extremity: Negative for injury and deformity, Skin: Negative for injury, rash, and discoloration, Neuro: Negative for headache, weakness, numbness, tingling, and seizure. Exam: 08:30 Constitutional: This is a well developed, well nourished patient who is awake, alert, rn and in no acute distress. Head/Face: Normocephalic, atraumatic. Eyes: Pupils equal round and reactive to light, extra-ocular motions intact. Lids and lashes normal. Conjunctiva and sclera are non-icteric and not injected. Cornea within normal limits. Periorbital areas with no swelling, redness, or edema. Cardiovascular: Regular rate and rhythm. No pulse deficits. Respiratory: Clear bilateral breath sounds. No increased work of breathing, no retractions or nasal flaring. Abdomen/GI: soft, non-tender Skin: Warm, dry with normal turgor. Normal color with no rashes, no lesions, and no evidence of cellulitis. MS/ Extremity: Pulses equal, no cyanosis. Neurovascular intact. Full, normal range of motion. Equal circumference. Neuro: Awake and alert, GCS 15 08:34 ECG was reviewed by the Attending Physician. rn Vital Signs: 08:14 BP 119 / 93; Pulse 90; Resp 14; Temp 98.0; Pulse Ox 98% on R/A; Weight 99.79 kg; Height iw 6 ft. 1 in. (185.42 cm); Pain 10/10; 09:00 BP 126 / 86; Pulse 82; Resp 15; Pulse Ox 100% on R/A; hb 08:14 Body Mass Index 29.03 (99.79 kg, 185.42 cm) iw MDM: 08:03 Patient medically screened. rn 09:06 Differential diagnosis: coronary artery disease chest wall pain, costochondritis, rn esophagitis, gastritis, pleurisy, pneumothorax, stable angina. Data reviewed: vital signs, nurses notes, lab test result(s), EKG, radiologic studies, plain films, and as a result, I will discharge patient. Data interpreted: pvc monitor: rate is 90 beats/min, rhythm is normal sinus rhythm, with no ectopy, Interpretation: normal rate, normal rhythm, Pulse oximetry: on room air is 98 %. Interpretation: normal. Counseling: I had a detailed discussion with the patient and/or guardian regarding: the historical points, exam findings, and any diagnostic results supporting the discharge/admit diagnosis, lab results, radiology results, the need for outpatient follow up, to return to the emergency department if symptoms worsen or persist or if there are any questions or concerns that arise at home. Special discussion: Based on the patient's history, exam, and Dx evaluation, there is no indication for emergent intervention or inpatient Tx. It is understood by the patient/guardian that if the Sx's persist or worsen they need to return immediately for re-evaluation. I discussed with the patient/guardian in detail that at this point there is no indication for admission to the hospital. It is understood, however, that if the symptoms persist or worsen the patient needs to return immediately for re-evaluation. Based on the history and exam findings, there is no indication for further emergent testing or inpatient evaluation. I discussed with the patient/guardian the need to see the primary care provider for further evaluation of the symptoms. ED course: Pt with neg trop, NSR on ecg without ischemia, no acute findings on CXR, will dc home with pcp f/u, recent neg stress test. Discharge summary leaning towards GERD as cause of chest pain, already on antacids. . 05/14 08:09 Order name: Basic Metabolic Panel; Complete Time: 09:05 rn 08 08:09 Order name: CBC with Diff; Complete Time: 08:51 rn 05/14 08:09 Order name: NT PRO-BNP; Complete Time: 09:05 rn 05/14 08:09 Order name: Troponin (emerg Dept Use Only); Complete Time: 09:05 rn 0208 08:09 Order name: XRAY Chest (1 view); Complete Time: 09: rn 02 08:09 Order name: EKG; Complete Time: : rn 05/14 08:09 Order name: Cardiac monitoring; Complete Time: : rn 08 08:09 Order name: EKG - Nurse/Tech; Complete Time: : rn 05/14 08:09 Order name: IV Saline Lock; Complete Time: : rn 05/14 08:09 Order name: Labs collected and sent; Complete Time: rn 05/14 08:09 Order name: O2 Per Protocol; Complete Time: rn 05/14 08: Order name: O2 Sat Monitoring; Complete Time: rn EC:34 Rate is 69 beats/min. Rhythm is regular. QRS [place] is Normal. WI interval is normal. QRS rn interval is normal. QT interval is normal. No Q waves. T waves are Normal. No ST changes noted. Clinical impression: Normal ECG. Interpreted by me. Reviewed by me. Administered Medications: No medications were administered Disposition: 05/14/19 09:08 Discharged to Home. Impression: Chest pain, unspecified. - Condition is Stable. - Discharge Instructions: Nonspecific Chest Pain. - Medication Reconciliation Form, Thank You Letter, Antibiotic Education, Prescription Opioid Use form. - Follow up: Private Physician; When: As needed; Reason: Recheck today's complaints, Re-evaluation by your physician. - Problem is an ongoing problem. - Symptoms have improved. Signatures: Dispatcher [employer] EDMaryana Tavares RN RN iw Nieto, Roman, MD MD rn Baxter, Heather, RN RN hb Corrections: (The following items were deleted from the chart) 09:26 09:08 05/14/2019 09:08 Discharged to Home. Impression: Chest pain, unspecified. hb Condition is Stable. Forms are Medication Reconciliation Form, Thank You Letter, Antibiotic Education, Prescription Opioid Use. Follow up: Private Physician; When: As needed; Reason: Recheck today's complaints, Re-evaluation by your physician. Problem is an ongoing problem. Symptoms have improved. rn
[2019-05-14 09:34] VITALS: TEMP 98
[2019-05-14 09:36] VITALS: BP 126/86; O2SAT 100
--- NOTE | 2019-05-15 06:26 | EKG ---
Test Date: 2019-05-14 Test Time: 08:13:11 De Ionizer Operator: ANA CRISTINA MEASUREMENT RESULTS: Intervals: Rate: 69 LA: 112 QRSD: 76 QT: 386 QTc: 413 [place]: P: 50 LA: 112 QRS: 48 T: 29 INTERPRETIVE STATEMENTS: Normal sinus rhythm Normal ECG Compared to ECG 05/08/2019 10:18:04 Short LA interval no longer present Electronically Signed On 05-15-19 06:25:51 [employer]ILER CLE[employer]ER by Michael Bee
== END 2019-05-14 09:26 | disposition home or self-care (01) ==
LOC: ER 07:57
DX: R07.9 Chest pain, unspecified (principal); I10 Essential (primary) hypertension; Z85.118 Personal history of other malignant neoplasm of bronchus and lung; Z85.21 Personal history of malignant neoplasm of larynx
CPT/HCPCS: 36415; 71045; 80048; 83880; 84484; 85025; 93005; 99285

== ENCOUNTER 2023-09-23 08:23 | Emergency (ER) | payer OTHER ==
--- OUTSIDE RECORDS SUMMARY | 2023-09-23 08:34 | XMS REPORT | Continuity of Care Document ---
Author Name Unknown Address [address] [facility] [place] [address] [facility] Address [address] [facility] [place] [address] Care Team Providers Care Homicide Squad Captain Name Role Phone Han Jeff Primary Care Physician [phone] KYRIE REY Attending Clinician Unavailable Lizzie Grossman Attending Clinician Unavailable CHERYL PETERS Attending Clinician Unavailable LUIS MERA Attending Clinician Unavailable MONE GIBSON Attending Clinician Unavailable MONE GIBSON Attending Clinician Unavailable Chela Berkowitz RN Attending Clinician [phone] Han Jeff Attending Clinician [phone] Doctor Unassigned, [place] Attending Clinician U BEATRIZ Mota Attending Clinician Unavailab HAN Schwartz Attending Clinician Unavailable Cheryl Peters MD Attending Clinician [phone] NEL BENSON Attending Clinician U KAELA Silva Attending Clinician Unavailtheo ble KAELA JAVIER Attending Clinician Unavaila ble Lab, Ang - Db Attending Clinician Unavailable Carmen Cano Attending Clinician Unavaila AFUA Kendall Attending Clinician Unavailable Ro MENDIETA, Afua Attending Clinician [phone] [facility] Attending Clinician Unavailable Marija Lu Attending Clinician [phone] MARIJA TREVINO Attending Clinician Unavailab Varun Hill RN Attending Clinician Unavaila geovanny CAMARA, BONIFACIO VILLASENOR Attending Clinician Michelle Kaela Joe MD Attending Clinician [phone] Thompson LANDON, Anabella Attending Clinician + [phone] LAINA MARQUES Attending Clinician Unavailable Carmen Arzola Attending Clinician U yumiko Triana [facility], Eliza Nur Attending Clinician [phone] Niles Lynn MD Attending Clinician [phone] NILES LYNN Attending Clinician Unavaila LUZ Mcgowan Attending Clinician Unavailabl e Unknown, Attending Attending Clinician Unavailab ERNESTINA Seo Attending Clinician Unavailable ERNESTINA OHARA Attending Clinician Unavailable Selvin Hernandez MD Attending Clinician [phone] Hernandez LANDON, [place] Pierre Attending Clinician [phone] Fredi Cristina MD Attending Clinician [phone] Jax MENDIETA, Bonifacio Villasenor Attending Clinician Eye, Tdc Retina Diabetic Attending Clinician Michelle carterilaBrian Hilario MD Attending Clinician + [phone] Heber Gonzalez MD Attending Clinician [phone] Plastics, Tdc Eye Complicated Attending Clinicia n Unavailable Branden Vazquez MD Attending Clinician [phone] Kathryn Quinones MD Attending Clinician [phone] Ophthalmology, Tdc Attending Clinician Unavailab Yocasta Strickland Attending Clinician [phone] Cardiology, Tdc Attending Clinician Unavailable Lamberto Morales MD Attending Clinician [phone] Zuniga_F Attending Clinician Unavailable Charles Duggan Attending Clinician [phone] CHARLES GERBER Attending Clinician Unavailable Betty Chanel DO Attending Clinician [phone] Margoth ANGULOW, Coral Attending Clinician KYRIE REY Admitting Clinician Unavailable TRENTON BLAKELY Admitting Clinician Unavail able Hernandez LANDON, [place] Pierre Admitting Clinician [phone] Jax MENDIETA, Bonifacio Villasenor Admitting Clinician Stacie MENDIETA, Kathryn Admitting Clinician [phone] Zunhowarda_F Admitting Clinician Unavailable JUSTIN VILLEDA Admitting Clinician Unavailabl e Payers Payer Name Policy Type Policy Number Effective Date Expirati on Date Source [employer] COMMERCIAL OUT OF NETWORK [id number] 2023 00:00:00 [facility] MALIA NAQVIDora COPAY FOCUS 9 [id number] 2023 00:00:00 Blue Cross Blue Shield of [place] 6 [id number] [facility] Individual Exchange Benefit Plan [id number] 2023 00:00:00 2023 00:00:00 [facility] MEDICAID SSI PENDING PENDING 2022 00:00:00 2022 00:00:00 [place] (HMO[place] [id number] [facility] [id number] Problems Condition Name Condition Details Condition Category Status Onset Date Resolution Date Last Treatment Date Treating Clinician Comments Source Onychauxis Onychauxis Disease Active 2022-04 00:00: 00 [facility] Type 2 diabetes mellitus without complicati on, without long-term current use of insulin Type 2 diabetes mellitus without complicati on, without long-term current use of insulin Disease Active 12-04 00:00: 00 [facility] Dyslipidem ia Dyslipidem ia Disease Active 12-04 00:00: 00 [facility] Nonobstruc tive atheroscle rosis of coronary artery Nonobstruc tive atheroscle rosis of coronary artery Disease Active 10-24 00:00: 00 [facility] Chronic kidney disease (CKD) stage G3a/A2, moderately decreased glomerular filtration rate (GFR) between 45-59 mL/min/1.7 3 square meter and albuminuri a creatinine ratio between 30-299 mg/g Chronic kidney disease (CKD) stage G3a/A2, moderately decreased glomerular filtration rate (GFR) between 45-59 mL/min/1.7 3 square meter and albuminuri a creatinine ratio between 30-299 mg/g Disease Active 10-23 00:00: 00 [facility] Hypertensi on Hypertensi on Disease Active 10-23 00:00: 00 [facility] Thyroid disease Thyroid disease Disease Active 10-23 00:00: 00 Overview: Formattin g of this note might be different from the original. Hypothyro idism [facility] Sickle cell anemia Sickle cell anemia Disease Active 10-23 00:00: 00 [facility] ID (myocardia l infarction ) ID (myocardia l infarction ) Disease Active 10-23 00:00: 00 [facility] Esophageal cancer Esophageal cancer Disease Active 10-23 00:00: 00 [facility] Screening for HIV without presence of risk factors Screening for HIV without presence of risk factors Disease Active 10-23 00:00: 00 [facility] Chronic kidney disease, unspecifie d CKD stage Chronic kidney disease, unspecifie d CKD stage Disease Active 10-23 00:00: 00 [facility] Chronic bronchitis , unspecifie d chronic bronchitis type Chronic bronchitis , unspecifie d chronic bronchitis type Disease Active 10-23 00:00: 00 [facility] Chest pain, unspecifie d type Chest pain, unspecifie d type Disease Active 09-28 00:00: 00 [facility] Obesity (BMI 30-39.9) Obesity (BMI 30-39.9) Disease Active 6-25 00:00: 00 [facility] 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 Added automatic ally from request for surgery [id number] [facility] Epistaxis Epistaxis Disease Active 04-07 00:00: 00 [facility] URI (upper respirator y infection) URI (upper respirator y infection) Disease Active 04-07 00:00: 00 [facility] Hemoptysis Hemoptysis Disease Active 2012-04 0 00:00: 00 [facility] Essential hypertensi on Essential (primary) hypertensi on Problem [facility] [id number] JYOTSNA on CPAP Problem [facility] [id number] Exposure to asbestos Problem [facility] Gastroesop hageal reflux disease GERD without esophagiti s Problem [facility] Hyperglyce guanakito due to type 2 diabetes mellitus Type 2 diabetes mellitus with hyperglyce guanakito Problem [facility] Mixed hyperlipid emia Mixed hyperlipid emia Problem [facility] Allergic rhinitis Non-season al allergic rhinitis, unspecifie d trigger Problem [facility] [id number] Hypersomni a Problem [facility] Hypothyroi dism Hypothyroi dism, unspecifie d type Problem [facility] Allergies, Adverse Reactions, Alerts Allergy Name Allergy Type Status Severity Reaction(s) Onset Date Inactive Date Treating Clinician Comments Source NO KNOWN ALLERGIE S Drug Class Active [facility] Social History Social Habit Start Date Stop Date Quantity Comments Source Exposure to SARS-CoV-2 (event) Not sure [facility] History SDOH Alcohol Std Drinks [facility] History SDOH Alcohol Binge [facility] History SDOH Social Connections Get Together [facility] History SDOH Social Connections [facility] History SDOH Social Connections Membership [facility] History SDOH Social Connections Meetings [facility] History of Tobacco Use [facility] Sex Assigned At [facility] Alcoholic beverage intake 2023-04-09 00:00:00 2023-04-09 00:00:00 Lifetime non-drinker (finding) [facility] Alcohol intake 2023-04-09 00:00:00 2023-04-09 00:00:00 Lifetime non-drinker (finding) [facility] History of Social function 2022-10-24 00:00:00 2022-10-24 00:00:00 [facility] History SDOH Alcohol Frequency 2022-09-29 00:00:00 2022-09-29 00:00:00 1 [facility] History SDOH Social Connections Phone 2022-09-29 00:00:00 2022-09-29 00:00:00 5 [facility] History SDOH Social Connections Living 2022-09-29 00:00:00 2022-09-29 00:00:00 7 [facility] History SDOH Physical Activity DPW 2022-09-29 00:00:00 2022-09-29 00:00:00 0 [facility] History SDOH Physical Activity MPS 2022-09-29 00:00:00 2022-09-29 00:00:00 0 [facility] History SDOH Financial 2022-09-29 00:00:00 2022-09-29 00:00:00 4 [facility] History SDOH Food Worry 2022-09-29 00:00:00 2022-09-29 00:00:00 1 [facility] History SDOH Food Scarcity 2022-09-29 00:00:00 2022-09-29 00:00:00 1 [facility] History SDOH Transport Med 2022-09-29 00:00:00 2022-09-29 00:00:00 2 [facility] History SDOH Transport Non-Med 2022-09-29 00:00:00 2022-09-29 00:00:00 2 [facility] History SDOH Housing Unable to Pay 2022-09-29 00:00:00 2022-09-29 00:00:00 2 [facility] History SDOH Housing Places Lived 2022-09-29 00:00:00 2022-09-29 00:00:00 2 [facility] History SDOH Housing Homeless Last Year 2022-09-29 00:00:00 2022-09-29 00:00:00 2 [facility] Cigarettes smoked current (pack per day) - Reported 2022-09-28 00:00:00 2022-09-28 00:00:00 [facility] Cigarette pack-years 2022-09-28 00:00:00 2022-09-28 00:00:00 [facility] Tobacco use and exposure 2022-09-28 00:00:00 2022-09-28 00:00:00 Smokeless tobacco non-user [facility] Education 2022-09-28 00:00:00 2022-09-28 00:00:00 12 [facility] Smoking Status Start Date Stop Date Source Never Smoker [facility] Ex-smoker 2022-09-28 00:00:00 2022-09-28 00:00:00 U [facility] Medications Ordered Medication Name Filled Medication Name Start Date Stop Date Current Medication? Ordering Clinician Indication Dosage Frequency Signature (SIG) Comments Components Source levothyroxi ne 25 mcg tablet 6 00:00: 00 Yes 25ug Take 1 tablet by mouth every morning. Must be seen for further refills [facility] QVAR REDIHALER 80 mcg/actuati on inhaler 08-31 00:00: 00 Yes 2{puff} Inhale 2 Puffs in the morning and 2 Puffs in the evening. [facility] albuterol 90 mcg/actuati on inhaler 08-10 00:00: 00 Yes INHALE 1 PUFF BY MOUTH EVERY 4 HOURS NEEDED [facility] Mounjaro 2.5 MG/0.5ML Mounjaro 2.5 MG/0.5ML -30 00:00: 00 No Mounjaro 2.5 MG/0.5ML albuterol sulfate 90 mcg/actuati on aebs 1-04 13:54: 20 Yes Inhale. [facility] atorvastati n 40 mg tablet 2022-04 00:00: 00 Yes 40mg Take 1 tablet by mouth at bedtime. [facility] glipiZIDE 5 mg tablet 2022-04 00:00: 00 Yes 5mg Take 1 tablet by mouth in the morning. [facility] hydroCHLORO thiazide 25 mg tablet 2022-04 00:00: 00 Yes 25mg Take 1 tablet by mouth in the morning. [facility] levothyroxi ne 25 mcg tablet 2022-04 00:00: 00 09-12 00:00 :00 No 25ug Take 1 tablet by mouth every morning. [facility] losartan 100 mg tablet 2022-04 00:00: 00 Yes [id number] 100mg Take 1 tablet by mouth in the morning. [facility] metoprolol tartrate 50 mg tablet 12-04 00:00: 00 01-14 00:00 :00 No [id number] 50mg Take 1 tablet by mouth in the morning and 1 tablet in the evening. [facility] peg-electro lyte soln 236-22.74-6 .74 -5.86 gram solution 8 00:00: 00 Yes [id number] Take as directed before colonoscop y [facility] metoprolol tartrate 25 mg tablet 10-24 00:00: 00 12-04 00:00 :00 No [id number] 25mg Take 1 tablet by mouth in the morning and 1 tablet in the evening. [facility] albuterol sulfate 90 mcg/actuati on aebs 10-23 08:08: 07 Yes Inhale. [facility] hydroCHLORO thiazide 25 mg tablet 10-23 00:00: 00 02-19 00:00 :00 No [id number] 25mg Take 1 tablet by mouth in the morning. [facility] atorvastati n 40 mg tablet 10-23 00:00: 00 02-19 00:00 :00 No [id number] 40mg Take 1 tablet by mouth at bedtime. [facility] glipiZIDE 5 mg tablet 10-23 00:00: 00 02-19 00:00 :00 No [id number] 5mg Take 1 tablet by mouth in the morning. [facility] levothyroxi ne 25 mcg tablet 10-23 00:00: 00 02-19 00:00 :00 No [id number] 25ug Take 1 tablet by mouth every morning. [facility] metoprolol tartrate 25 mg tablet 10-23 00:00: 00 10-24 00:00 :00 No [id number] 12.5mg Take 0.5 tablets by mouth in the morning and 0.5 tablets in the evening. [facility] heparin (porcine) injection 5,000 Units 10-01 19:00: 00 Yes 5000U 5,000 Units, Subcutaneo us, Q8H, First dose on Thu10/01/22 at 1400, Until Discontinu ed, Routine [facility] lactated ringers IV infusion 1,000 mL 10-01 16:00: 00 10-01 18:59 :00 No 1000mL at 75 mL/hr, 1,000 mL, IV Infusion, CONTINUOUS , Starting on Thu10/01/22 at 1100, Until Thu10/01/22 at 1359, Routine [facility] albuterol sulfate 90 mcg/actuati on aebs 10-01 15:11: 45 Yes Inhale. [facility] aspirin 81 mg chewable tablet 10-01 00:00: 00 11-01 04:59 :00 No [id number] 81mg Take 1 tablet by mouth in the morning for 30 days. [facility] iodixanol (VISIPAQUE 320-100 mL) injection 09-30 21:29: 23 09-30 21:43 :13 No ONCE INTRA PROCEDURE, Starting on Thu09/30/22 at 1629, Until Thu09/30/22 at 1643, Routine, CV Intraproce dure [facility] heparin 1,000 unit/mL injection 09-30 21:13: 00 09-30 21:43 :13 No ONCE INTRA PROCEDURE, Starting on Thu09/30/22 at 1613, Until Thu09/30/22 at 1643, Routine, CV Intraproce dure [facility] lidocaine 1% (PF) (XYLOCAINE) injection 09-30 21:11: 00 09-30 21:43 :13 No ONCE INTRA PROCEDURE, Starting on Thu09/30/22 at 1611, Until Thu09/30/22 at 1643, Routine, CV Intraproce dure [facility] midazolam (VERSED) injection 09-30 21:08: 05 09-30 21:43 :13 No ONCE INTRA PROCEDURE, Starting on Thu09/30/22 at 1608, Until Thu09/30/22 at 1643, Routine, CV Intraproce dure [facility] FENTanyl PF (SUBLIMAZE (PF)) injection 09-30 21:08: 00 09-30 21:43 :13 No ONCE INTRA PROCEDURE, Starting on Thu09/30/22 at 1608, Until Thu09/30/22 at 1643, Routine, CV Intraproce dure [facility] albuterol sulfate 90 mcg/actuati on aebs 09-30 17:40: 56 Yes Inhale. [facility] glipiZIDE 5 mg tablet 09-30 17:40: 56 09-30 00:00 :00 No 5mg Take 1 tablet by mouth in the morning. [facility] levothyroxi ne 25 mcg tablet 09-30 17:40: 56 09-30 00:00 :00 No 25ug Take 1 tablet by mouth every morning. [facility] metoprolol tartrate 50 mg tablet 09-30 17:40: 56 09-30 00:00 :00 No 50mg Take 1 tablet by mouth in the morning and 1 tablet in the evening. [facility] atorvastati n 10 mg tablet 09-30 17:40: 56 09-30 00:00 :00 No 10mg Take 1 tablet by mouth at bedtime. [facility] aspirin 81 mg Cap 09-30 17:40: 56 09-30 00:00 :00 No Take by mouth. [facility] nitroglycer in 0.4 mg sublingual tablet 09-30 17:40: 56 09-30 00:00 :[address] 1 tablet under the tongue every 5 (five) minutes as needed for Chest pain. [facility] hydroCHLORO thiazide 25 mg tablet 09-30 17:40: 56 09-30 00:00 :00 No 25mg Take 1 tablet by mouth in the morning. [facility] DULoxetine 30 mg capsule 09-30 17:40: 56 09-30 00:00 :00 No 30mg Take 1 capsule by mouth in the morning. [facility] morpHINE (2 mg/mL) injection 2 mg 09-30 01:04: 32 09-30 22:22 :32 No 2mg 2 mg, Slow IV Push, Q6HPRN, 2 doses, Starting on Thu09/29/22 at 2004, Until Thu09/30/22 at 1722, Routine, Chest pain [facility] nitroglycer in 0.4 mg sublingual tablet 09-30 00:00: [id number] 1 tablet under the tongue every 5 (five) minutes as needed for Chest pain. [facility] DULoxetine 30 mg capsule 09-30 00:00: 00 11-01 04:59 :00 No [id number] 30mg Take 1 capsule by mouth in the morning for 30 days. [facility] glipiZIDE 5 mg tablet 09-30 00:00: 00 10-23 00:00 :00 No [id number] 5mg Take 1 tablet by mouth in the morning for 30 days. [facility] hydroCHLORO thiazide 25 mg tablet 09-30 00:00: 00 10-23 00:00 :00 No [id number] 25mg Take 1 tablet by mouth in the morning for 30 days. [facility] levothyroxi ne 25 mcg tablet 09-30 00:00: 00 10-23 00:00 :00 No [id number] 25ug Take 1 tablet by mouth every morning for 30 days. [facility] metoprolol tartrate 25 mg tablet 09-30 00:00: 00 10-23 00:00 :00 No [id number] 12.5mg Take 0.5 tablets by mouth in the morning and 0.5 tablets in the evening. [facility] atorvastati n 40 mg tablet 09-30 00:00: 00 10-23 00:00 :00 No [id number] 40mg Take 1 tablet by mouth at bedtime for 30 days. [facility] metoprolol tartrate (LOPRESSOR) tablet 12.5 mg 09-29 15:45: 00 Yes 12.5mg 12.5 mg, Oral, BID, First dose on Thu09/29/22 at 1045, Until Discontinu ed, Routine [facility] sulfur hexafluorid e microsphr (LUMASON) injection 5 mL 09-29 14:45: 00 09-29 14:45 :00 No [id number] 5mL 5 mL, Intravenou s, ONCE, 1 dose, On Thu09/29/22 at 0945, Routine
merchandise flow team member approving Restricted medication : THOMPSON HERNANDEZ [facility] aspirin chewable tablet 81 mg 09-29 14:00: 00 Yes 81mg 81 mg, Oral, DAILY, First dose on Thu09/29/22 at 0900, Until Discontinu ed, Routine [facility] nitroglycer in (TRANSDERM- NITRO) 0.4 mg/hr patch 1 Patch 09-29 14:00: 00 Yes 1{patch } 1 Patch, Transderma l (Apply To Skin), Administer over 12 Hours, DAILY, First dose on Thu09/29/22 at 0900, Until Discontinu ed, Routine [facility] levothyroxi ne (SYNTHROID) tablet 25 mcg 09-29 11:00: 00 Yes 25ug 25 mcg, Oral, QAM-0600, First dose on Thu09/29/22 at 0600, Until Discontinu ed, Routine [facility] morpHINE (4 mg/mL) injection 2 mg 09-29 11:00: 00 09-29 10:30 :00 No 2mg 2 mg, Slow IV Push, ONCE, 1 dose, On Thu09/29/22 at 0600, Routine [facility] morpHINE (4 mg/mL) injection 2 mg 09-29 03:45: 00 09-29 03:05 :00 No 2mg 2 mg, Slow IV Push, ONCE, 1 dose, On [place] 09/28/22 at 2245, Routine [facility] atorvastati n (LIPITOR) tablet 40 mg 09-29 02:00: 00 Yes 40mg 40 mg, Oral, QHS, First dose on Thu09/28/22 at 2100, Until Discontinu ed, Routine [facility] Sliding Scale Insulin - Lispro (HumaLOG) 09-28 22:00: 00 Yes Subcutaneo us, TID MEALS+HS, First dose on Thu09/28/22 at 1700, Until Discontinu ed, Routine [facility] glucagon (GLUCAGEN DIAGNOSTIC KIT) injection 1 mg 09-28 20:25: 27 Yes 1mg 1 mg, Intramuscu lar, PRN, Starting on Thu09/28/22 at 1525, Until Discontinu ed, TENZIN, Blood Glucose < or = 70 mg/dL and patient is NPO, unable to swallow or has mental changes. [facility] dextrose 50 % in water (D50W) injection 25 mL 09-28 20:25: 27 Yes 25mL 25 mL, Slow IV Push, PRN, Starting on Thu09/28/22 at 1525, Until Discontinu ed, TENZIN, Blood Glucose < or = 70 mg/dL and patient is NPO, unable to swallow or has mental status changes. [facility] hydroCHLORO thiazide (ESIDRIX) capsule 25 mg 09-28 19:00: 00 Yes 25mg 25 mg, Oral, DAILY, First dose (after last modificati on) on Thu09/28/22 at 1400, Until Discontinu ed, Routine [facility] HEPARIN SODIUM (PORCINE) 1,000 UNIT/ML BOLUS ACS ORDER SET 09-28 19:00: 00 09-28 19:40 :00 No 4000U 4,000 Units, IV Push, ONCE, 1 dose, On [place] 09/28/22 at 1400, TENZIN [facility] heparin 25,000 Units/250 mL (Premixed Bag) in 0.45 % NS 09-28 18:54: 48 09-29 16:09 :39 No 0U/h 0-2,750 Units/hr (0-27.5 mL/hr), IV Infusion, TITRATE, Parameters in Admin. Instr., Starting on Thu09/28/22 at 1354
In itiate dosing:&nb sp; & nbsp;&nbsp ; -Patient 83 kg or under: 1,000 Units/hr (Calculate d dose at 12 units/kg/h r) &n bsp; &nbs p; -Patient over 83 k,000 units/hr&n bsp;DO NOT Exceed the MAXIMUM 1,000 units/hr for initiation of heparin drip.&nbsp ; CAU TION - If LMWH given in ER, AVOID bolus and start next dose/drip 12 hrs after ER dosage.&nb sp; M ust program rate using programmab le infusion pump.&nbsp ; Areli ck with the ordering provider first prior to any administra tion should the patient be on existing/a dditional anticoagul ant therapy. Rang e, Dosing and Testing: &nbs p;FOR [facility], [facility], AND [facility] ONLY &nbs p; - aPTT < 35: & nbsp;Bolus 5000 units, increase rate 300 units/hr&n bsp; - aPTT 35-44:&nbs p; Omkar daysi 3000 units, increase rate 200 units/hr&n bsp; - aPTT 45-54:&nbs p; In crease rate 100 units/hr&n bsp; - aPTT 55-85:&nbs p; NO CHANGE&nbs p; - aPTT 86-95:&nbs p; De crease rate 100 units/hr&n bsp; - aPTT 96-120:&nb sp; H old 30 minutes, decrease rate 150 units/hr&n bsp; - aPTT > 120: Hold 60 minutes, decrease rate 200 units/hr&n bsp; Check aPTT 6 hours after initiation , then Q6H after every change, aPTT Q12H once therapeuti c levels are reached.&n bsp; &nbs p; __ &n bsp;FOR [facility] ONLY - aPTT < 40: & nbsp;Bolus 5000 units, increase rate 300 units/hr&n bsp; - aPTT 40-49:&nbs p; Omkar daysi 3000 units, increase rate 200 units/hr&n bsp; - aPTT 50-59:&nbs p; In crease rate 100 units/hr&n bsp; - aPTT 60-85:&nbs p; NO CHANGE&nbs p; - aPTT 86-95:&nbs p; De crease rate 100 units/hr&n bsp; - aPTT 96-120:&nb sp; H old 30 minutes, decrease rate 150 units/hr&n bsp; - aPTT > 120: Hold 60 minutes, decrease rate 200 units/hr&n bsp; Check aPTT 6 hours after initiation , then Q6H after every change, aPTT Q12H once therapeuti c levels are reached.&n bsp;&n bsp; DO NOT ADJUST INITIAL BOLUS OR INITIAL INFUSION RATE.
[facility] heparin (1,000 unit/mL, 10 mL vial) for Rebolusing 09-28 18:54: 44 09-29 16:09 :39 No 3000U FOR REBOLUSING , Starting on Thu09/28/22 at 1354, Until 09/29/22 at 1109, Routine
Dosing based on aPPT testing parameters (refer to continuous heparin drip order).
[facility] aspirin tablet 325 mg 09-28 18:49: 00 09-28 19:10 :00 No 325mg 325 mg, Oral, ONCE, 1 dose, On Thu09/28/22 at 1400, Routine [facility] nitroglycer in (NITROSTAT) sublingual tablet 0.4 mg 09-28 18:14: 12 Yes .4mg 0.4 mg, Sublingual , Q5MIN PRN, Starting on Thu09/28/22 at 1314, Until Discontinu ed, Routine, Chest pain [facility] acetaminoph en (TYLENOL) tablet 650 mg 09-28 18:14: 12 Yes 650mg 650 mg, Oral, Q6HPRN, Starting on 09/28/22 at 1314, Until Discontinu ed, Routine, Pain (scale 1-3) [facility] FENTanyl PF (SUBLIMAZE (PF)) injection 25 mcg 09-28 16:15: 00 09-28 16:09 :00 No 25ug 25 mcg, Slow IV Push, ONCE, 1 dose, On Thu09/28/22 at 1115, STAT [facility] iopamidol (ISOVUE 370-500 mL) injection 100 mL 09-28 13:15: 00 09-28 13:30 :00 No [id number] 100mL 100 mL, Intravenou s, ONCE, 1 dose, On Thu09/28/22 at 0830, Routine [facility] ondansetron (ZOFRAN (PF)) injection 4 mg 09-28 12:15: 00 09-28 11:13 :00 No 4mg 4 mg, Slow IV Push, ONCE, 1 dose, On Thu09/28/22 at 0715, TENZIN [facility] morpHINE (4 mg/mL) injection 4 mg 09-28 11:15: 00 09-28 11:15 :00 No 4mg 4 mg, Slow IV Push, ONCE, 1 dose, On Thu09/28/22 at 0615, STAT [facility] prednisoLON E acetate 1 % ophthalmic suspension drops 2020-04 00:00: 00 03-21 05:59 :[id number] 1 Drop in right eye 3 (three) times daily for 7 days, THEN 1 Drop 2 (two) times daily for 7 days, THEN 1 Drop daily for 7 days.[facility] ketorolac 0.5 % ophthalmic solution 2020-04 00:00: 00 03-21 05:59 :[id number] 1 Drop in right eye 3 (three) times daily for 7 days, THEN 1 Drop 2 (two) times daily for 7 days, THEN 1 Drop daily for 7 days.[facility] moxifloxaci n (VIGAMOX) 0.5 % ophthalmic drops 2020-04 00:00: 00 02-28 00:00 :00 No [id number] 1[drp] Place 1 Drop in both eyes 4 (four) times daily.X 7 DAYS.[facility] ketorolac 0.5 % ophthalmic solution 2020-04 00:00: 00 02-28 00:00 :00 No [id number] 1[drp] Place 1 Drop in right eye 4 (four) times daily.X 1 MON.[facility] prednisoLON E acetate 1 % ophthalmic suspension drops 2020-04 00:00: 00 02-28 00:00 :00 No [id number] 1[drp] Place 1 Drop in right eye 4 (four) times daily.X 1 MON.[facility] ketorolac 0.5 % ophthalmic solution 2020-04 00:00: 00 02-28 00:00 :00 No [id number] 1[drp] Place 1 Drop in left eye 4 (four) times daily.X 1 MON.[facility] prednisoLON E acetate 1 % ophthalmic suspension drops 2020-04 00:00: 00 02-28 00:00 :00 No [id number] 1[drp] Place 1 Drop in left eye 4 (four) times daily.X 1 MON.[facility] Albuterol Sulfate HFA 108 (90 Base) MCG/ACT Albuterol Sulfate HFA 108 (90 Base) MCG/ACT No 1{puff_ as_need ed} 6xD Albuterol Sulfate HFA 108 (90 Base) MCG/ACT Atorvastati n Calcium 80 MG Atorvastati n Calcium 80 MG No 1{table t} Atorvastat in Calcium 80 MG dilTIAZem HCl ER Coated Beads 180 MG dilTIAZem HCl ER Coated Beads 180 MG No QD dilTIAZem HCl ER Coated Beads 180 MG Fluticasone Propionate HFA 110 MCG/ACT Fluticasone Propionate HFA 110 MCG/ACT No BID Fluticason e Propionate HFA 110 MCG/ACT Losartan Potassium 100 MG Losartan Potassium 100 MG No 1{table t} QD Losartan Potassium 100 MG hydroCHLORO thiazide 25 MG hydroCHLORO thiazide 25 MG No 1{table t_in_th e_morni ng} QD hydroCHLOR Othiazide 25 MG glipiZIDE 10 MG glipiZIDE 10 MG No BID glipiZIDE 10 MG Omeprazole 10 MG Omeprazole 10 MG No QD Omeprazole 10 MG Levothyroxi ne Sodium 75 MCG Levothyroxi ne Sodium 75 MCG No QD Levothyrox ine Sodium 75 MCG Immunizations Ordered Immunization Name Filled Immunization Name Date Status Comments Source Pneumococcal 20 Conjugate, PCV20 (Prevnar 20) 2022-10-23 00:00:00 Completed [facility] TDAP 2022-10-23 00:00:00 Completed [facility] Pneumococcal 20 Conjugate, PCV20 (Prevnar 20) 2022-10-23 00:00:00 Completed [facility] TDAP 2022-10-23 00:00:00 Completed [facility] Pneumococcal 20 Conjugate, PCV20 (Prevnar 20) 2022-10-23 00:00:00 Completed [facility] TDAP 2022-10-23 00:00:00 Completed [facility] Pneumococcal 20 Conjugate, PCV20 (Prevnar 20) 2022-10-23 00:00:00 Completed [facility] TDAP 2022-10-23 00:00:00 Completed [facility] DTAP 2022-10-08 00:00:00 Completed [facility] Pneumococcal 20 Conjugate, PCV20 (Prevnar 20) 2022-10-08 00:00:00 Completed [facility] DTAP 2022-10-08 00:00:00 Completed [facility] Pneumococcal 20 Conjugate, PCV20 (Prevnar 20) 2022-10-08 00:00:00 Completed [facility] DTAP 2022-10-08 00:00:00 Completed [facility] Pneumococcal 20 Conjugate, PCV20 (Prevnar 20) 2022-10-08 00:00:00 Completed [facility] DTAP 2022-10-08 00:00:00 Completed [facility] Pneumococcal 20 Conjugate, PCV20 (Prevnar 20) 2022-10-08 00:00:00 Completed [facility] DTAP 2022-10-08 00:00:00 Completed [facility] Pneumococcal 20 Conjugate, PCV20 (Prevnar 20) 2022-10-08 00:00:00 Completed [facility] DTAP 2022-10-08 00:00:00 Completed [facility] Pneumococcal 20 Conjugate, PCV20 (Prevnar 20) 2022-10-08 00:00:00 Completed [facility] DTAP 2022-10-08 00:00:00 Completed [facility] Pneumococcal 20 Conjugate, PCV20 (Prevnar 20) 2022-10-08 00:00:00 Completed [facility] DTAP 2022-10-08 00:00:00 Completed [facility] Pneumococcal 20 Conjugate, PCV20 (Prevnar 20) 2022-10-08 00:00:00 Completed [facility] DTAP 2022-10-08 00:00:00 Completed [facility] Pneumococcal 20 Conjugate, PCV20 (Prevnar 20) 2022-10-08 00:00:00 Completed [facility] DTAP 2022-10-08 00:00:00 Completed [facility] Pneumococcal 20 Conjugate, PCV20 (Prevnar 20) 2022-10-08 00:00:00 Completed [facility] DTAP 2022-10-08 00:00:00 Completed [facility] Pneumococcal 20 Conjugate, PCV20 (Prevnar 20) 2022-10-08 00:00:00 Completed [facility] DTAP 2022-10-08 00:00:00 Completed [facility] Pneumococcal 20 Conjugate, PCV20 (Prevnar 20) 2022-10-08 00:00:00 Completed [facility] SARS-COV-2 COVID-19 VACCINE - (MODERNA) 2021-07-24 00:00:00 Completed [facility] SARS-COV-2 COVID-19 VACCINE - (MODERNA) 2021-07-24 00:00:00 Completed [facility] SARS-COV-2 COVID-19 VACCINE - (MODERNA) 2021-07-24 00:00:00 Completed [facility] SARS-COV-2 COVID-19 VACCINE - (MODERNA) 2021-07-24 00:00:00 Completed [facility] SARS-COV-2 COVID-19 VACCINE - (MODERNA) 2021-07-24 00:00:00 Completed [facility] SARS-COV-2 COVID-19 VACCINE - (MODERNA) 2021-07-24 00:00:00 Completed [facility] SARS-COV-2 COVID-19 VACCINE - (MODERNA) 2021-07-24 00:00:00 Completed [facility] SARS-COV-2 COVID-19 VACCINE - (MODERNA) 2021-07-24 00:00:00 Completed [facility] SARS-COV-2 COVID-19 VACCINE - (MODERNA) 2021-07-24 00:00:00 Completed [facility] SARS-COV-2 COVID-19 VACCINE - (MODERNA) 2021-03-13 00:00:00 Completed [facility] SARS-COV-2 COVID-19 VACCINE - (MODERNA) 2021-03-13 00:00:00 Completed [facility] SARS-COV-2 COVID-19 VACCINE - (MODERNA) 2021-03-13 00:00:00 Completed [facility] SARS-COV-2 COVID-19 VACCINE - (MODERNA) 2021-03-13 00:00:00 Completed [facility] SARS-COV-2 COVID-19 VACCINE - (MODERNA) 2021-03-13 00:00:00 Completed [facility] SARS-COV-2 COVID-19 VACCINE - (MODERNA) 2021-03-13 00:00:00 Completed [facility] SARS-COV-2 COVID-19 VACCINE - (MODERNA) 2021-03-13 00:00:00 Completed [facility] SARS-COV-2 COVID-19 VACCINE - (MODERNA) 2021-03-13 00:00:00 Completed [facility] SARS-COV-2 COVID-19 VACCINE - (MODERNA) 2021-03-13 00:00:00 Completed [facility] SARS-COV-2 COVID-19 VACCINE - (MODERNA) 2020-08-28 00:00:00 Completed [facility] SARS-COV-2 COVID-19 VACCINE - (MODERNA) 2020-08-28 00:00:00 Completed [facility] SARS-COV-2 COVID-19 VACCINE - (MODERNA) 2020-08-28 00:00:00 Completed [facility] SARS-COV-2 COVID-19 VACCINE - (MODERNA) 2020-08-28 00:00:00 Completed [facility] SARS-COV-2 COVID-19 VACCINE - (MODERNA) 2020-08-28 00:00:00 Completed [facility] SARS-COV-2 COVID-19 VACCINE - (MODERNA) 2020-08-28 00:00:00 Completed [facility] SARS-COV-2 COVID-19 VACCINE - (MODERNA) 2020-08-28 00:00:00 Completed [facility] SARS-COV-2 COVID-19 VACCINE - (MODERNA) 2020-08-28 00:00:00 Completed [facility] SARS-COV-2 COVID-19 VACCINE - (MODERNA) 2020-08-28 00:00:00 Completed [facility] SARS-COV-2 COVID-19 VACCINE - (MODERNA) 2020-07-31 00:00:00 Completed [facility] SARS-COV-2 COVID-19 VACCINE - (MODERNA) 2020-07-31 00:00:00 Completed [facility] SARS-COV-2 COVID-19 VACCINE - (MODERNA) 2020-07-31 00:00:00 Completed [facility] SARS-COV-2 COVID-19 VACCINE - (MODERNA) 2020-07-31 00:00:00 Completed [facility] SARS-COV-2 COVID-19 VACCINE - (MODERNA) 2020-07-31 00:00:00 Completed [facility] SARS-COV-2 COVID-19 VACCINE - (MODERNA) 2020-07-31 00:00:00 Completed [facility] SARS-COV-2 COVID-19 VACCINE - (MODERNA) 2020-07-31 00:00:00 Completed [facility] SARS-COV-2 COVID-19 VACCINE - (MODERNA) 2020-07-31 00:00:00 Completed [facility] SARS-COV-2 COVID-19 VACCINE - (MODERNA) 2020-07-31 00:00:00 Completed [facility] DTAP Unknown Completed [facility] Pneumococcal 20 Conjugate, PCV20 (Prevnar 20) Unknown Completed [facility] SARS-COV-2 COVID-19 VACCINE - (MODERNA) Unknown [facility]pleted [facility] SARS-COV-2 COVID-19 VACCINE - (MODERNA) Unknown Completed [facility] SARS-COV-2 COVID-19 VACCINE - (MODERNA) Unknown Completed [facility] SARS-COV-2 COVID-19 VACCINE - (MODERNA) Unknown Completed [facility] Pneumococcal 20 Conjugate, PCV20 (Prevnar 20) Unknown Completed [facility] TDAP Unknown Completed [facility] DTAP Unknown Completed [facility] Pneumococcal 20 Conjugate, PCV20 (Prevnar 20) Unknown Completed [facility] SARS-COV-2 COVID-19 VACCINE - (MODERNA) Unknown Completed [facility] SARS-COV-2 COVID-19 VACCINE - (MODERNA) Unknown Completed [facility] SARS-COV-2 COVID-19 VACCINE - (MODERNA) Unknown Completed [facility] SARS-COV-2 COVID-19 VACCINE - (MODERNA) Unknown Completed [facility] Pneumococcal 20 Conjugate, PCV20 (Prevnar 20) Unknown Completed [facility] TDAP Unknown Completed [facility] DTAP Unknown Completed [facility] Pneumococcal 20 Conjugate, PCV20 (Prevnar 20) Unknown Completed [facility] SARS-COV-2 COVID-19 VACCINE - (MODERNA) Unknown Completed [facility] SARS-COV-2 COVID-19 VACCINE - (MODERNA) Unknown Completed [facility] SARS-COV-2 COVID-19 VACCINE - (MODERNA) Unknown Completed [facility] SARS-COV-2 COVID-19 VACCINE - (MODERNA) Unknown Completed [facility] Pneumococcal 20 Conjugate, PCV20 (Prevnar 20) Unknown Completed [facility] TDAP Unknown Completed [facility] DTAP Unknown Completed [facility] Pneumococcal 20 Conjugate, PCV20 (Prevnar 20) Unknown Completed [facility] SARS-COV-2 COVID-19 VACCINE - (MODERNA) Unknown Completed [facility] SARS-COV-2 COVID-19 VACCINE - (MODERNA) Unknown Completed [facility] SARS-COV-2 COVID-19 VACCINE - (MODERNA) Unknown Completed [facility] SARS-COV-2 COVID-19 VACCINE - (MODERNA) Unknown Completed [facility] Pneumococcal 20 Conjugate, PCV20 (Prevnar 20) Unknown Completed [facility] TDAP Unknown Completed [facility] DTAP Unknown Completed [facility] Pneumococcal 20 Conjugate, PCV20 (Prevnar 20) Unknown Completed [facility] SARS-COV-2 COVID-19 VACCINE - (MODERNA) Unknown Completed [facility] SARS-COV-2 COVID-19 VACCINE - (MODERNA) Unknown Completed [facility] SARS-COV-2 COVID-19 VACCINE - (MODERNA) Unknown Completed [facility] SARS-COV-2 COVID-19 VACCINE - (MODERNA) Unknown Completed [facility] Pneumococcal 20 Conjugate, PCV20 (Prevnar 20) Unknown Completed [facility] TDAP Unknown Completed [facility] DTAP Unknown Completed [facility] Pneumococcal 20 Conjugate, PCV20 (Prevnar 20) Unknown Completed [facility] SARS-COV-2 COVID-19 VACCINE - (MODERNA) Unknown Completed [facility] SARS-COV-2 COVID-19 VACCINE - (MODERNA) Unknown Completed [facility] SARS-COV-2 COVID-19 VACCINE - (MODERNA) Unknown Completed [facility] SARS-COV-2 COVID-19 VACCINE - (MODERNA) Unknown Completed [facility] Pneumococcal 20 Conjugate, PCV20 (Prevnar 20) Unknown Completed [facility] TDAP Unknown Completed [facility] DTAP Unknown Completed [facility] Pneumococcal 20 Conjugate, PCV20 (Prevnar 20) Unknown Completed [facility] SARS-COV-2 COVID-19 VACCINE - (MODERNA) Unknown Completed [facility] SARS-COV-2 COVID-19 VACCINE - (MODERNA) Unknown Completed [facility] SARS-COV-2 COVID-19 VACCINE - (MODERNA) Unknown Completed [facility] SARS-COV-2 COVID-19 VACCINE - (MODERNA) Unknown Completed [facility] Pneumococcal 20 Conjugate, PCV20 (Prevnar 20) Unknown Completed [facility] TDAP Unknown Completed [facility] Influenza Virus Vaccine Unknown Completed [facility] Zoster(Zostavax)(Sh ingles) Unknown Completed [facility] DTAP Unknown Completed [facility] Pneumococcal 20 Conjugate, PCV20 (Prevnar 20) Unknown Completed [facility] SARS-COV-2 COVID-19 VACCINE - (MODERNA) Unknown Completed [facility] SARS-COV-2 COVID-19 VACCINE - (MODERNA) Unknown Completed [facility] SARS-COV-2 COVID-19 VACCINE - (MODERNA) Unknown Completed [facility] SARS-COV-2 COVID-19 VACCINE - (MODERNA) Unknown Completed [facility] Pneumococcal 20 Conjugate, PCV20 (Prevnar 20) Unknown Completed [facility] TDAP Unknown Completed [facility] Influenza Virus Vaccine Unknown Completed [facility] Zoster(Zostavax)(Sh ingles) Unknown Completed [facility] DTAP Unknown Completed [facility] Pneumococcal 20 Conjugate, PCV20 (Prevnar 20) Unknown Completed [facility] SARS-COV-2 COVID-19 VACCINE - (MODERNA) Unknown Completed [facility] SARS-COV-2 COVID-19 VACCINE - (MODERNA) Unknown Completed [facility] SARS-COV-2 COVID-19 VACCINE - (MODERNA) Unknown Completed [facility] SARS-COV-2 COVID-19 VACCINE - (MODERNA) Unknown Completed [facility] Pneumococcal 20 Conjugate, PCV20 (Prevnar 20) Unknown Completed [facility] TDAP Unknown Completed [facility] Influenza Virus Vaccine Unknown Completed [facility] Zoster(Zostavax)(Sh ingles) Unknown Completed [facility] DTAP Unknown Completed [facility] Pneumococcal 20 Conjugate, PCV20 (Prevnar 20) Unknown Completed [facility] SARS-COV-2 COVID-19 VACCINE - (MODERNA) Unknown Completed [facility] SARS-COV-2 COVID-19 VACCINE - (MODERNA) Unknown Completed [facility] SARS-COV-2 COVID-19 VACCINE - (MODERNA) Unknown Completed [facility] SARS-COV-2 COVID-19 VACCINE - (MODERNA) Unknown Completed [facility] Pneumococcal 20 Conjugate, PCV20 (Prevnar 20) Unknown Completed [facility] TDAP Unknown Completed [facility] Influenza Virus Vaccine Unknown Completed [facility] Zoster(Zostavax)(Sh ingles) Unknown Completed [facility] DTAP Unknown Completed [facility] Pneumococcal 20 Conjugate, PCV20 (Prevnar 20) Unknown Completed [facility] SARS-COV-2 COVID-19 VACCINE - (MODERNA) Unknown Completed [facility] SARS-COV-2 COVID-19 VACCINE - (MODERNA) Unknown Completed [facility] SARS-COV-2 COVID-19 VACCINE - (MODERNA) Unknown Completed [facility] SARS-COV-2 COVID-19 VACCINE - (MODERNA) Unknown Completed [facility] Pneumococcal 20 Conjugate, PCV20 (Prevnar 20) Unknown Completed [facility] TDAP Unknown Completed [facility] Influenza Virus Vaccine Unknown Completed [facility] Zoster(Zostavax)(Sh ingles) Unknown Completed [facility] DTAP Unknown Completed [facility] Pneumococcal 20 Conjugate, PCV20 (Prevnar 20) Unknown Completed [facility] SARS-COV-2 COVID-19 VACCINE - (MODERNA) Unknown Completed [facility] SARS-COV-2 COVID-19 VACCINE - (MODERNA) Unknown Completed [facility] SARS-COV-2 COVID-19 VACCINE - (MODERNA) Unknown Completed [facility] SARS-COV-2 COVID-19 VACCINE - (MODERNA) Unknown Completed [facility] Pneumococcal 20 Conjugate, PCV20 (Prevnar 20) Unknown Completed [facility] TDAP Unknown Completed [facility] Influenza Virus Vaccine Unknown Completed [facility] Zoster(Zostavax)(Sh ingles) Unknown Completed [facility] DTAP Unknown Completed [facility] Pneumococcal 20 Conjugate, PCV20 (Prevnar 20) Unknown Completed [facility] SARS-COV-2 COVID-19 VACCINE - (MODERNA) Unknown Completed [facility] SARS-COV-2 COVID-19 VACCINE - (MODERNA) Unknown Completed [facility] SARS-COV-2 COVID-19 VACCINE - (MODERNA) Unknown Completed [facility] SARS-COV-2 COVID-19 VACCINE - (MODERNA) Unknown Completed [facility] Pneumococcal 20 Conjugate, PCV20 (Prevnar 20) Unknown Completed [facility] TDAP Unknown Completed [facility] Influenza Virus Vaccine Unknown Completed [facility] Zoster(Zostavax)(Sh ingles) Unknown Completed [facility] DTAP Unknown Completed [facility] Pneumococcal 20 Conjugate, PCV20 (Prevnar 20) Unknown Completed [facility] SARS-COV-2 COVID-19 VACCINE - (MODERNA) Unknown Completed [facility] SARS-COV-2 COVID-19 VACCINE - (MODERNA) Unknown Completed [facility] SARS-COV-2 COVID-19 VACCINE - (MODERNA) Unknown Completed [facility] SARS-COV-2 COVID-19 VACCINE - (MODERNA) Unknown Completed [facility] Pneumococcal 20 Conjugate, PCV20 (Prevnar 20) Unknown Completed [facility] TDAP Unknown Completed [facility] Influenza Virus Vaccine Unknown Completed [facility] Zoster(Zostavax)(Sh ingles) Unknown Completed [facility] DTAP Unknown Completed [facility] Pneumococcal 20 Conjugate, PCV20 (Prevnar 20) Unknown Completed [facility] SARS-COV-2 COVID-19 VACCINE - (MODERNA) Unknown Completed [facility] SARS-COV-2 COVID-19 VACCINE - (MODERNA) Unknown Completed [facility] SARS-COV-2 COVID-19 VACCINE - (MODERNA) Unknown Completed [facility] SARS-COV-2 COVID-19 VACCINE - (MODERNA) Unknown Completed [facility] Pneumococcal 20 Conjugate, PCV20 (Prevnar 20) Unknown Completed [facility] TDAP Unknown Completed [facility] Influenza Virus Vaccine Unknown Completed [facility] Zoster(Zostavax)(Sh ingles) Unknown Completed [facility] DTAP Unknown Completed [facility] Pneumococcal 20 Conjugate, PCV20 (Prevnar 20) Unknown Completed [facility] SARS-COV-2 COVID-19 VACCINE - (MODERNA) Unknown Completed [facility] SARS-COV-2 COVID-19 VACCINE - (MODERNA) Unknown Completed [facility] SARS-COV-2 COVID-19 VACCINE - (MODERNA) Unknown Completed [facility] SARS-COV-2 COVID-19 VACCINE - (MODERNA) Unknown Completed [facility] Pneumococcal 20 Conjugate, PCV20 (Prevnar 20) Unknown Completed [facility] TDAP Unknown Completed [facility] Influenza Virus Vaccine Unknown Completed [facility] Zoster(Zostavax)(Sh ingles) Unknown Completed [facility] DTAP Unknown Completed [facility] Pneumococcal 20 Conjugate, PCV20 (Prevnar 20) Unknown Completed [facility] SARS-COV-2 COVID-19 VACCINE - (MODERNA) Unknown Completed [facility] SARS-COV-2 COVID-19 VACCINE - (MODERNA) Unknown Completed [facility] SARS-COV-2 COVID-19 VACCINE - (MODERNA) Unknown Completed [facility] SARS-COV-2 COVID-19 VACCINE - (MODERNA) Unknown Completed [facility] Pneumococcal 20 Conjugate, PCV20 (Prevnar 20) Unknown Completed [facility] TDAP Unknown Completed [facility] Influenza Virus Vaccine Unknown Completed [facility] Zoster(Zostavax)(Sh ingles) Unknown Completed [facility] DTAP Unknown Completed [facility] Pneumococcal 20 Conjugate, PCV20 (Prevnar 20) Unknown Completed [facility] SARS-COV-2 COVID-19 VACCINE - (MODERNA) Unknown Completed [facility] SARS-COV-2 COVID-19 VACCINE - (MODERNA) Unknown Completed [facility] SARS-COV-2 COVID-19 VACCINE - (MODERNA) Unknown Completed [facility] SARS-COV-2 COVID-19 VACCINE - (MODERNA) Unknown Completed [facility] Pneumococcal 20 Conjugate, PCV20 (Prevnar 20) Unknown Completed [facility] TDAP Unknown Completed [facility] Influenza Virus Vaccine Unknown Completed [facility] Zoster(Zostavax)(Sh ingles) Unknown Completed [facility] DTAP Unknown Completed [facility] Pneumococcal 20 Conjugate, PCV20 (Prevnar 20) Unknown Completed [facility] SARS-COV-2 COVID-19 VACCINE - (MODERNA) Unknown Completed [facility] SARS-COV-2 COVID-19 VACCINE - (MODERNA) Unknown Completed [facility] SARS-COV-2 COVID-19 VACCINE - (MODERNA) Unknown Completed [facility] SARS-COV-2 COVID-19 VACCINE - (MODERNA) Unknown Completed [facility] Pneumococcal 20 Conjugate, PCV20 (Prevnar 20) Unknown Completed [facility] TDAP Unknown Completed [facility] Influenza Virus Vaccine Unknown Completed [facility] Zoster(Zostavax)(Sh ingles) Unknown Completed [facility] DTAP Unknown Completed [facility] Pneumococcal 20 Conjugate, PCV20 (Prevnar 20) Unknown Completed [facility] SARS-COV-2 COVID-19 VACCINE - (MODERNA) Unknown Completed [facility] SARS-COV-2 COVID-19 VACCINE - (MODERNA) Unknown [facility] [facility] SARS-COV-2 COVID-19 VACCINE - (MODERNA) Unknown Completed [facility] SARS-COV-2 COVID-19 VACCINE - (MODERNA) Unknown Completed [facility] Pneumococcal 20 Conjugate, PCV20 (Prevnar 20) Unknown Completed [facility] TDAP Unknown Completed [facility] Influenza Virus Vaccine Unknown Completed [facility] Zoster(Zostavax)(Sh ingles) Unknown Completed [facility] DTAP Unknown Completed [facility] Pneumococcal 20 Conjugate, PCV20 (Prevnar 20) Unknown Completed [facility] SARS-COV-2 COVID-19 VACCINE - (MODERNA) Unknown Completed [facility] SARS-COV-2 COVID-19 VACCINE - (MODERNA) Unknown Completed [facility] SARS-COV-2 COVID-19 VACCINE - (MODERNA) Unknown Completed [facility] SARS-COV-2 COVID-19 VACCINE - (MODERNA) Unknown Completed [facility] Pneumococcal 20 Conjugate, PCV20 (Prevnar 20) Unknown Completed [facility] TDAP Unknown Completed [facility] Influenza Virus Vaccine Unknown Completed [facility] Zoster(Zostavax)(Sh ingles) Unknown Completed [facility] DTAP Unknown Completed [facility] Pneumococcal 20 Conjugate, PCV20 (Prevnar 20) Unknown Completed [facility] SARS-COV-2 COVID-19 VACCINE - (MODERNA) Unknown Completed [facility] SARS-COV-2 COVID-19 VACCINE - (MODERNA) Unknown Completed [facility] SARS-COV-2 COVID-19 VACCINE - (MODERNA) Unknown Completed [facility] SARS-COV-2 COVID-19 VACCINE - (MODERNA) Unknown Completed [facility] Pneumococcal 20 Conjugate, PCV20 (Prevnar 20) Unknown Completed [facility] TDAP Unknown Completed [facility] Influenza Virus Vaccine Unknown Completed [facility] Zoster(Zostavax)(Sh ingles) Unknown Completed [facility] DTAP Unknown Completed [facility] Pneumococcal 20 Conjugate, PCV20 (Prevnar 20) Unknown Completed [facility] SARS-COV-2 COVID-19 VACCINE - (MODERNA) Unknown Completed [facility] SARS-COV-2 COVID-19 VACCINE - (MODERNA) Unknown Completed [facility] SARS-COV-2 COVID-19 VACCINE - (MODERNA) Unknown Completed [facility] SARS-COV-2 COVID-19 VACCINE - (MODERNA) Unknown Completed [facility] Pneumococcal 20 Conjugate, PCV20 (Prevnar 20) Unknown Completed [facility] TDAP Unknown Completed [facility] Influenza Virus Vaccine Unknown Completed [facility] Zoster(Zostavax)(Sh ingles) Unknown Completed [facility] DTAP Unknown Completed [facility] Pneumococcal 20 Conjugate, PCV20 (Prevnar 20) Unknown Completed [facility] SARS-COV-2 COVID-19 VACCINE - (MODERNA) Unknown Completed [facility] SARS-COV-2 COVID-19 VACCINE - (MODERNA) Unknown Completed [facility] SARS-COV-2 COVID-19 VACCINE - (MODERNA) Unknown Completed [facility] SARS-COV-2 COVID-19 VACCINE - (MODERNA) Unknown Completed [facility] Pneumococcal 20 Conjugate, PCV20 (Prevnar 20) Unknown Completed [facility] TDAP Unknown Completed [facility] Influenza Virus Vaccine Unknown Completed [facility] Zoster(Zostavax)(Sh ingles) Unknown Completed [facility] DTAP Unknown Completed [facility] Pneumococcal 20 Conjugate, PCV20 (Prevnar 20) Unknown Completed [facility] SARS-COV-2 COVID-19 VACCINE - (MODERNA) Unknown Completed [facility] SARS-COV-2 COVID-19 VACCINE - (MODERNA) Unknown Completed [facility] SARS-COV-2 COVID-19 VACCINE - (MODERNA) Unknown Completed [facility] SARS-COV-2 COVID-19 VACCINE - (MODERNA) [facility], PCV20 (Prevnar 20) Unknown Completed [facility] TDAP Unknown Completed [facility] Influenza Virus Vaccine Unknown Completed [facility] Zoster(Zostavax)(Sh ingles) Unknown Completed [facility] DTAP Unknown Completed [facility] Pneumococcal 20 Conjugate, PCV20 (Prevnar 20) Unknown Completed [facility] SARS-COV-2 COVID-19 VACCINE - (MODERNA) Unknown Completed [facility] SARS-COV-2 COVID-19 VACCINE - (MODERNA) Unknown Completed [facility] SARS-COV-2 COVID-19 VACCINE - (MODERNA) Unknown Completed [facility] SARS-COV-2 COVID-19 VACCINE - (MODERNA) Unknown Completed [facility] Pneumococcal 20 Conjugate, PCV20 (Prevnar 20) Unknown Completed [facility] TDAP Unknown Completed [facility] Influenza Virus Vaccine Unknown Completed [facility] Zoster(Zostavax)(Sh ingles) Unknown Completed [facility] DTAP Unknown Completed [facility] Pneumococcal 20 Conjugate, PCV20 (Prevnar 20) Unknown Completed [facility] SARS-COV-2 COVID-19 VACCINE - (MODERNA) Unknown Completed [facility] SARS-COV-2 COVID-19 VACCINE - (MODERNA) Unknown Completed [facility] SARS-COV-2 COVID-19 VACCINE - (MODERNA) Unknown Completed [facility] SARS-COV-2 COVID-19 VACCINE - (MODERNA) Unknown Completed [facility] Pneumococcal 20 Conjugate, PCV20 (Prevnar 20) Unknown Completed [facility] TDAP Unknown Completed [facility] Influenza Virus Vaccine Unknown Completed [facility] Zoster(Zostavax)(Sh ingles) Unknown Completed [facility] DTAP Unknown Completed [facility] Pneumococcal 20 Conjugate, PCV20 (Prevnar 20) Unknown Completed [facility] SARS-COV-2 COVID-19 VACCINE - (MODERNA) Unknown Completed [facility] SARS-COV-2 COVID-19 VACCINE - (MODERNA) Unknown Completed [facility] SARS-COV-2 COVID-19 VACCINE - (MODERNA) Unknown Completed [facility] SARS-COV-2 COVID-19 VACCINE - (MODERNA) Unknown Completed [facility] Pneumococcal 20 Conjugate, PCV20 (Prevnar 20) Unknown Completed [facility] TDAP Unknown Completed [facility] Influenza Virus Vaccine Unknown Completed [facility] Zoster(Zostavax)(Sh ingles) Unknown Completed [facility] DTAP Unknown Completed [facility] Pneumococcal 20 Conjugate, PCV20 (Prevnar 20) Unknown Completed [facility] SARS-COV-2 COVID-19 VACCINE - (MODERNA) Unknown Completed [facility] SARS-COV-2 COVID-19 VACCINE - (MODERNA) Unknown Completed [facility] SARS-COV-2 COVID-19 VACCINE - (MODERNA) Unknown Completed [facility] SARS-COV-2 COVID-19 VACCINE - (MODERNA) Unknown Completed [facility] Pneumococcal 20 Conjugate, PCV20 (Prevnar 20) Unknown Completed [facility] TDAP Unknown Completed [facility] Influenza Virus Vaccine Unknown Completed [facility] Zoster(Zostavax)(Sh ingles) Unknown Completed [facility] DTAP Unknown Completed [facility] Pneumococcal 20 Conjugate, PCV20 (Prevnar 20) Unknown Completed [facility] SARS-COV-2 COVID-19 VACCINE - (MODERNA) Unknown Completed [facility] SARS-COV-2 COVID-19 VACCINE - (MODERNA) Unknown Completed [facility] SARS-COV-2 COVID-19 VACCINE - (MODERNA) Unknown Completed [facility] SARS-COV-2 COVID-19 VACCINE - (MODERNA) Unknown Completed [facility] Pneumococcal 20 Conjugate, PCV20 (Prevnar 20) Unknown Completed [facility] TDAP Unknown Completed [facility] Influenza Virus Vaccine Unknown Completed [facility] Zoster(Zostavax)(Sh ingles) Unknown Completed [facility] DTAP Unknown Completed [facility] Pneumococcal 20 Conjugate, PCV20 (Prevnar 20) Unknown Completed [facility] SARS-COV-2 COVID-19 VACCINE - (MODERNA) Unknown Completed [facility] SARS-COV-2 COVID-19 VACCINE - (MODERNA) Unknown Completed [facility] SARS-COV-2 COVID-19 VACCINE - (MODERNA) Unknown Completed [facility] SARS-COV-2 COVID-19 VACCINE - (MODERNA) Unknown Completed [facility] Pneumococcal 20 Conjugate, PCV20 (Prevnar 20) Unknown Completed [facility] TDAP Unknown Completed [facility] Influenza Virus Vaccine Unknown Completed [facility] Zoster(Zostavax)(Sh ingles) Unknown Completed [facility] DTAP Unknown Completed [facility] Pneumococcal 20 Conjugate, PCV20 (Prevnar 20) Unknown Completed [facility] SARS-COV-2 COVID-19 VACCINE - (MODERNA) Unknown Completed [facility] SARS-COV-2 COVID-19 VACCINE - (MODERNA) Unknown Completed [facility] SARS-COV-2 COVID-19 VACCINE - (MODERNA) Unknown Completed [facility] SARS-COV-2 COVID-19 VACCINE - (MODERNA) Unknown Completed [facility] Pneumococcal 20 Conjugate, PCV20 (Prevnar 20) Unknown Completed [facility] TDAP Unknown Completed [facility] Influenza Virus Vaccine Unknown Completed [facility] Zoster(Zostavax)(Sh ingles) Unknown Completed [facility] DTAP Unknown Completed [facility] Pneumococcal 20 Conjugate, PCV20 (Prevnar 20) Unknown Completed [facility] SARS-COV-2 COVID-19 VACCINE - (MODERNA) Unknown Completed [facility] SARS-COV-2 COVID-19 VACCINE - (MODERNA) Unknown Completed [facility] SARS-COV-2 COVID-19 VACCINE - (MODERNA) Unknown Completed [facility] SARS-COV-2 COVID-19 VACCINE - (MODERNA) Unknown Completed [facility] Pneumococcal 20 Conjugate, PCV20 (Prevnar 20) Unknown Completed [facility] TDAP Unknown Completed [facility] Influenza Virus Vaccine Unknown Completed [facility] Zoster(Zostavax)(Sh ingles) Unknown Completed [facility] DTAP Unknown Completed [facility] Pneumococcal 20 Conjugate, PCV20 (Prevnar 20) Unknown Completed [facility] SARS-COV-2 COVID-19 VACCINE - (MODERNA) Unknown Completed [facility] SARS-COV-2 COVID-19 VACCINE - (MODERNA) Unknown Completed [facility] SARS-COV-2 COVID-19 VACCINE - (MODERNA) Unknown Completed [facility] SARS-COV-2 COVID-19 VACCINE - (MODERNA) Unknown Completed [facility] Pneumococcal 20 Conjugate, PCV20 (Prevnar 20) Unknown Completed [facility] TDAP Unknown Completed [facility] Influenza Virus Vaccine Unknown Completed [facility] Zoster(Zostavax)(Sh ingles) Unknown Completed [facility] DTAP Unknown Completed [facility] Pneumococcal 20 Conjugate, PCV20 (Prevnar 20) Unknown Completed [facility] SARS-COV-2 COVID-19 VACCINE - (MODERNA) Unknown Completed [facility] SARS-COV-2 COVID-19 VACCINE - (MODERNA) Unknown Completed [facility] SARS-COV-2 COVID-19 VACCINE - (MODERNA) Unknown Completed [facility] SARS-COV-2 COVID-19 VACCINE - (MODERNA) Unknown Completed [facility] Pneumococcal 20 Conjugate, PCV20 (Prevnar 20) Unknown Completed [facility] TDAP Unknown Completed [facility] Influenza Virus Vaccine Unknown Completed [facility] Zoster(Zostavax)(Sh ingles) Unknown Completed [facility] DTAP Unknown Completed [facility] Pneumococcal 20 Conjugate, PCV20 (Prevnar 20) Unknown Completed [facility] SARS-COV-2 COVID-19 VACCINE - (MODERNA) Unknown Completed [facility] SARS-COV-2 COVID-19 VACCINE - (MODERNA) Unknown Completed [facility] SARS-COV-2 COVID-19 VACCINE - (MODERNA) Unknown Completed [facility] SARS-COV-2 COVID-19 VACCINE - (MODERNA) Unknown Completed [facility] Pneumococcal 20 Conjugate, PCV20 (Prevnar 20) Unknown Completed [facility] TDAP Unknown Completed [facility] Influenza Virus Vaccine Unknown Completed [facility] Zoster(Zostavax)(Sh ingles) Unknown Completed [facility] DTAP Unknown Completed [facility] Pneumococcal 20 Conjugate, PCV20 (Prevnar 20) Unknown Completed [facility] SARS-COV-2 COVID-19 VACCINE - (MODERNA) Unknown Completed [facility] SARS-COV-2 COVID-19 VACCINE - (MODERNA) Unknown Completed [facility] SARS-COV-2 COVID-19 VACCINE - (MODERNA) Unknown Completed [facility] SARS-COV-2 COVID-19 VACCINE - (MODERNA) Unknown Completed [facility] Pneumococcal 20 Conjugate, PCV20 (Prevnar 20) Unknown Completed [facility] TDAP Unknown Completed [facility] Influenza Virus Vaccine Unknown Completed [facility] Zoster(Zostavax)(Sh ingles) Unknown Completed [facility] DTAP Unknown Completed [facility] Pneumococcal 20 Conjugate, PCV20 (Prevnar 20) Unknown Completed [facility] SARS-COV-2 COVID-19 VACCINE - (MODERNA) Unknown Completed [facility] SARS-COV-2 COVID-19 VACCINE - (MODERNA) Unknown Completed [facility] SARS-COV-2 COVID-19 VACCINE - (MODERNA) Unknown Completed [facility] SARS-COV-2 COVID-19 VACCINE - (MODERNA) Unknown Completed [facility] Pneumococcal 20 Conjugate, PCV20 (Prevnar 20) Unknown Completed [facility] TDAP Unknown Completed [facility] Influenza Virus Vaccine Unknown Completed [facility] Zoster(Zostavax)(Sh ingles) Unknown Completed [facility] DTAP Unknown Completed [facility] Pneumococcal 20 Conjugate, PCV20 (Prevnar 20) Unknown Completed [facility] SARS-COV-2 COVID-19 VACCINE - (MODERNA) Unknown Completed [facility] SARS-COV-2 COVID-19 VACCINE - (MODERNA) Unknown Completed [facility] SARS-COV-2 COVID-19 VACCINE - (MODERNA) Unknown Completed [facility] SARS-COV-2 COVID-19 VACCINE - (MODERNA) Unknown Completed [facility] Pneumococcal 20 Conjugate, PCV20 (Prevnar 20) Unknown Completed [facility] TDAP Unknown Completed [facility] Influenza Virus Vaccine Unknown Completed [facility] Zoster(Zostavax)(Sh ingles) Unknown Completed [facility] DTAP Unknown Completed [facility] Pneumococcal 20 Conjugate, PCV20 (Prevnar 20) Unknown Completed [facility] SARS-COV-2 COVID-19 VACCINE - (MODERNA) Unknown Completed [facility] SARS-COV-2 COVID-19 VACCINE - (MODERNA) Unknown Completed [facility] SARS-COV-2 COVID-19 VACCINE - (MODERNA) Unknown Completed [facility] SARS-COV-2 COVID-19 VACCINE - (MODERNA) Unknown Completed [facility] Pneumococcal 20 Conjugate, PCV20 (Prevnar 20) Unknown Completed [facility] TDAP Unknown Completed [facility] Influenza Virus Vaccine Unknown Completed [facility] Zoster(Zostavax)(Sh ingles) Unknown Completed [facility] DTAP Unknown Completed [facility] Pneumococcal 20 Conjugate, PCV20 (Prevnar 20) Unknown Completed [facility] SARS-COV-2 COVID-19 VACCINE - (MODERNA) Unknown Completed [facility] SARS-COV-2 COVID-19 VACCINE - (MODERNA) Unknown Completed [facility] SARS-COV-2 COVID-19 VACCINE - (MODERNA) Unknown Completed [facility] SARS-COV-2 COVID-19 VACCINE - (MODERNA) Unknown Completed [facility] Pneumococcal 20 Conjugate, PCV20 (Prevnar 20) Unknown Completed [facility] TDAP Unknown Completed [facility] Influenza Virus Vaccine Unknown Completed [facility] Zoster(Zostavax)(Sh ingles) Unknown Completed [facility] DTAP Unknown Completed [facility] Pneumococcal 20 Conjugate, PCV20 (Prevnar 20) Unknown Completed [facility] SARS-COV-2 COVID-19 VACCINE - (MODERNA) Unknown Completed [facility] SARS-COV-2 COVID-19 VACCINE - (MODERNA) Unknown Completed [facility] SARS-COV-2 COVID-19 VACCINE - (MODERNA) Unknown Completed [facility] SARS-COV-2 COVID-19 VACCINE - (MODERNA) Unknown Completed [facility] Pneumococcal 20 Conjugate, PCV20 (Prevnar 20) Unknown Completed [facility] TDAP Unknown Completed [facility] Influenza Virus Vaccine Unknown Completed [facility] Zoster(Zostavax)(Sh ingles) Unknown Completed [facility] DTAP Unknown Completed [facility] Pneumococcal 20 Conjugate, PCV20 (Prevnar 20) Unknown Completed [facility] SARS-COV-2 COVID-19 VACCINE - (MODERNA) Unknown Completed [facility] SARS-COV-2 COVID-19 VACCINE - (MODERNA) Unknown Completed [facility] SARS-COV-2 COVID-19 VACCINE - (MODERNA) Unknown Completed [facility] SARS-COV-2 COVID-19 VACCINE - (MODERNA) Unknown Completed [facility] Pneumococcal 20 Conjugate, PCV20 (Prevnar 20) Unknown Completed [facility] TDAP Unknown Completed [facility] Influenza Virus Vaccine Unknown Completed [facility] Zoster(Zostavax)(Sh ingles) Unknown Completed [facility] DTAP Unknown Completed [facility] Pneumococcal 20 Conjugate, PCV20 (Prevnar 20) Unknown Completed [facility] SARS-COV-2 COVID-19 VACCINE - (MODERNA) Unknown Completed [facility] SARS-COV-2 COVID-19 VACCINE - (MODERNA) Unknown Completed [facility] SARS-COV-2 COVID-19 VACCINE - (MODERNA) Unknown Completed [facility] SARS-COV-2 COVID-19 VACCINE - (MODERNA) Unknown Completed [facility] Pneumococcal 20 Conjugate, PCV20 (Prevnar 20) Unknown Completed [facility] TDAP Unknown Completed [facility] Influenza Virus Vaccine Unknown Completed [facility] Zoster(Zostavax)(Sh ingles) Unknown Completed [facility] DTAP Unknown Completed [facility] Pneumococcal 20 Conjugate, PCV20 (Prevnar 20) Unknown Completed [facility] SARS-COV-2 COVID-19 VACCINE - (MODERNA) Unknown Completed [facility] SARS-COV-2 COVID-19 VACCINE - (MODERNA) Unknown Completed [facility] SARS-COV-2 COVID-19 VACCINE - (MODERNA) Unknown Completed [facility] SARS-COV-2 COVID-19 VACCINE - (MODERNA) Unknown Completed [facility] Pneumococcal 20 Conjugate, PCV20 (Prevnar 20) Unknown Completed [facility] TDAP Unknown Completed [facility] Influenza Virus Vaccine Unknown Completed [facility] Zoster(Zostavax)(Sh ingles) Unknown Completed [facility] DTAP Unknown Completed [facility] Pneumococcal 20 Conjugate, PCV20 (Prevnar 20) Unknown Completed [facility] SARS-COV-2 COVID-19 VACCINE - (MODERNA) Unknown Completed [facility] SARS-COV-2 COVID-19 VACCINE - (MODERNA) Unknown Completed [facility] SARS-COV-2 COVID-19 VACCINE - (MODERNA) Unknown Completed [facility] SARS-COV-2 COVID-19 VACCINE - (MODERNA) Unknown Completed [facility] Pneumococcal 20 Conjugate, PCV20 (Prevnar 20) Unknown Completed [facility] TDAP Unknown Completed [facility] Influenza Virus Vaccine Unknown Completed [facility] Zoster(Zostavax)(Sh ingles) Unknown Completed [facility] DTAP Unknown Completed [facility] Pneumococcal 20 Conjugate, PCV20 (Prevnar 20) Unknown Completed [facility] SARS-COV-2 COVID-19 VACCINE - (MODERNA) Unknown Completed [facility] SARS-COV-2 COVID-19 VACCINE - (MODERNA) Unknown Completed [facility] SARS-COV-2 COVID-19 VACCINE - (MODERNA) Unknown Completed [facility] SARS-COV-2 COVID-19 VACCINE - (MODERNA) Unknown Completed [facility] Pneumococcal 20 Conjugate, PCV20 (Prevnar 20) Unknown Completed [facility] TDAP Unknown Completed [facility] Influenza Virus Vaccine Unknown Completed [facility] Zoster(Zostavax)(Sh ingles) Unknown Completed [facility] DTAP Unknown Completed [facility] Pneumococcal 20 Conjugate, PCV20 (Prevnar 20) Unknown Completed [facility] SARS-COV-2 COVID-19 VACCINE - (MODERNA) Unknown Completed [facility] SARS-COV-2 COVID-19 VACCINE - (MODERNA) Unknown Completed [facility] SARS-COV-2 COVID-19 VACCINE - (MODERNA) Unknown Completed [facility] SARS-COV-2 COVID-19 VACCINE - (MODERNA) Unknown Completed [facility] Pneumococcal 20 Conjugate, PCV20 (Prevnar 20) Unknown Completed [facility] TDAP Unknown Completed [facility] Influenza Virus Vaccine Unknown Completed [facility] Zoster(Zostavax)(Sh ingles) Unknown Completed [facility] DTAP Unknown Completed [facility] Pneumococcal 20 Conjugate, PCV20 (Prevnar 20) Unknown Completed [facility] SARS-COV-2 COVID-19 VACCINE - (MODERNA) Unknown Completed [facility] SARS-COV-2 COVID-19 VACCINE - (MODERNA) Unknown Completed [facility] SARS-COV-2 COVID-19 VACCINE - (MODERNA) Unknown Completed [facility] SARS-COV-2 COVID-19 VACCINE - (MODERNA) Unknown Completed [facility] Pneumococcal 20 Conjugate, PCV20 (Prevnar 20) Unknown Completed [facility] TDAP Unknown Completed [facility] Influenza Virus Vaccine Unknown Completed [facility] Zoster(Zostavax)(Sh ingles) Unknown Completed [facility] DTAP Unknown Completed [facility] Pneumococcal 20 Conjugate, PCV20 (Prevnar 20) Unknown Completed [facility] SARS-COV-2 COVID-19 VACCINE - (MODERNA) Unknown Completed [facility] SARS-COV-2 COVID-19 VACCINE - (MODERNA) Unknown Completed [facility] SARS-COV-2 COVID-19 VACCINE - (MODERNA) Unknown Completed [facility] SARS-COV-2 COVID-19 VACCINE - (MODERNA) Unknown Completed [facility] Pneumococcal 20 Conjugate, PCV20 (Prevnar 20) Unknown Completed [facility] TDAP Unknown Completed [facility] Influenza Virus Vaccine Unknown Completed [facility] Zoster(Zostavax)(Sh ingles) Unknown Completed [facility] DTAP Unknown Completed [facility] Pneumococcal 20 Conjugate, PCV20 (Prevnar 20) Unknown Completed [facility] SARS-COV-2 COVID-19 VACCINE - (MODERNA) Unknown Completed [facility] SARS-COV-2 COVID-19 VACCINE - (MODERNA) Unknown Completed [facility] SARS-COV-2 COVID-19 VACCINE - (MODERNA) Unknown Completed [facility] SARS-COV-2 COVID-19 VACCINE - (MODERNA) Unknown Completed [facility] Pneumococcal 20 Conjugate, PCV20 (Prevnar 20) Unknown Completed [facility] TDAP Unknown Completed [facility] Influenza Virus Vaccine Unknown Completed [facility] Zoster(Zostavax)(Sh ingles) Unknown Completed [facility] DTAP Unknown Completed [facility] Pneumococcal 20 Conjugate, PCV20 (Prevnar 20) Unknown Completed [facility] SARS-COV-2 COVID-19 VACCINE - (MODERNA) Unknown Completed [facility] SARS-COV-2 COVID-19 VACCINE - (MODERNA) Unknown Completed [facility] SARS-COV-2 COVID-19 VACCINE - (MODERNA) Unknown Completed [facility] SARS-COV-2 COVID-19 VACCINE - (MODERNA) Unknown Completed [facility] Pneumococcal 20 Conjugate, PCV20 (Prevnar 20) Unknown Completed [facility] TDAP Unknown Completed [facility] Influenza Virus Vaccine Unknown Completed [facility] Zoster(Zostavax)(Sh ingles) Unknown Completed [facility] TDAP Unknown Completed [facility] DTAP Unknown Completed [facility] Pneumococcal 20 Conjugate, PCV20 (Prevnar 20) Unknown Completed [facility] SARS-COV-2 COVID-19 VACCINE - (MODERNA) Unknown Completed [facility] SARS-COV-2 COVID-19 VACCINE - (MODERNA) Unknown Completed [facility] SARS-COV-2 COVID-19 VACCINE - (MODERNA) Unknown Completed [facility] SARS-COV-2 COVID-19 VACCINE - (MODERNA) [facility] Con[facility], PCV20 (Prevnar 20) Unknown Completed [facility] TDAP Unknown Completed [facility] Influenza Virus Vaccine Unknown Completed [facility] Zoster(Zostavax)(Sh ingles) Unknown Completed [facility] TDAP Unknown Completed [facility] DTAP Unknown Completed [facility] Pneumococcal 20 Conjugate, PCV20 (Prevnar 20) Unknown Completed [facility] SARS-COV-2 COVID-19 VACCINE - (MODERNA) Unknown Completed [facility] SARS-COV-2 COVID-19 VACCINE - (MODERNA) Unknown Completed [facility] SARS-COV-2 COVID-19 VACCINE - (MODERNA) Unknown Completed [facility] SARS-COV-2 COVID-19 VACCINE - (MODERNA) Unknown Completed [facility] Pneumococcal 20 Conjugate, PCV20 (Prevnar 20) Unknown Completed [facility] TDAP Unknown Completed [facility] Influenza Virus Vaccine Unknown Completed [facility] Zoster(Zostavax)(Sh ingles) Unknown Completed [facility] TDAP Unknown Completed [facility] DTAP Unknown Completed [facility] Pneumococcal 20 Conjugate, PCV20 (Prevnar 20) Unknown Completed [facility] SARS-COV-2 COVID-19 VACCINE - (MODERNA) Unknown Completed [facility] SARS-COV-2 COVID-19 VACCINE - (MODERNA) Unknown Completed [facility] SARS-COV-2 COVID-19 VACCINE - (MODERNA) Unknown Completed [facility] SARS-COV-2 COVID-19 VACCINE - (MODERNA) Unknown Completed [facility] Pneumococcal 20 Conjugate, PCV20 (Prevnar 20) Unknown Completed [facility] TDAP Unknown Completed [facility] Influenza Virus Vaccine Unknown Completed [facility] Zoster(Zostavax)(Sh ingles) Unknown Completed [facility] TDAP Unknown Completed [facility] DTAP Unknown Completed [facility] Pneumococcal 20 Conjugate, PCV20 (Prevnar 20) Unknown Completed [facility] SARS-COV-2 COVID-19 VACCINE - (MODERNA) Unknown Completed [facility] SARS-COV-2 COVID-19 VACCINE - (MODERNA) Unknown Completed [facility] SARS-COV-2 COVID-19 VACCINE - (MODERNA) Unknown Completed [facility] SARS-COV-2 COVID-19 VACCINE - (MODERNA) Unknown [facility]neumococcal 20 Conjugate, PCV20 (Prevnar 20) Unknown Completed [facility] TDAP Unknown Completed [facility] Influenza Virus Vaccine Unknown Completed [facility] Zoster(Zostavax)(Sh ingles) Unknown Completed [facility] TDAP Unknown Completed [facility] DTAP Unknown Completed [facility] Pneumococcal 20 Conjugate, PCV20 (Prevnar 20) Unknown Completed [facility] SARS-COV-2 COVID-19 VACCINE - (MODERNA) Unknown Completed [facility] SARS-COV-2 COVID-19 VACCINE - (MODERNA) Unknown Completed [facility] SARS-COV-2 COVID-19 VACCINE - (MODERNA) Unknown Completed [facility] SARS-COV-2 COVID-19 VACCINE - (MODERNA) Unknown Completed [facility] Pneumococcal 20 Conjugate, PCV20 (Prevnar 20) Unknown Completed [facility] TDAP Unknown Completed [facility] Influenza Virus Vaccine Unknown Completed [facility] Zoster(Zostavax)(Bk ingnorma) Unknown Completed [facility] TDAP Unknown Completed [facility] DTAP Unknown Completed [facility] Pneumococcal 20 Conjugate, PCV20 (Prevnar 20) Unknown Completed [facility] SARS-COV-2 COVID-19 VACCINE - (MODERNA) Unknown Completed [facility] SARS-COV-2 COVID-19 VACCINE - (MODERNA) Unknown Completed [facility] SARS-COV-2 COVID-19 VACCINE - (MODERNA) Unknown Completed [facility] SARS-COV-2 COVID-19 VACCINE - (MODERNA) Unknown Completed [facility] Pneumococcal 20 Conjugate, PCV20 (Prevnar 20) Unknown Completed [facility] TDAP Unknown Completed [facility] Influenza Virus Vaccine Unknown Completed [facility] Zoster(Zostavax)(Bk barcenas) Unknown Completed [facility] TDAP Unknown Completed [facility] Vital Signs Vital Name Observation Time Observation Value Comments S ource height 2023-08-04 09:20:00 71.5 [in_i] Comm on [facility] weight 2023-08-04 09:20:00 259.8 [lb_av] Co mmon [facility] temperature 2023-08-04 09:20:00 96.4 [degF] Com mon [facility] bmi 2023-08-04 09:20:00 35.73 kg/m2 Comm on [facility] oximetry 2023-08-04 09:20:00 95 % Commo n [facility] respiratory rate 2023-08-04 09:20:00 16 /min [facility] blood pressure systolic 2023-08-04 09:20:00 134 mm[Hg] [facility] blood pressure diastolic 2023-08-04 09:20:00 76 mm[Hg] [facility] bmi 2023-06-26 09:40:00 36.03 kg/m2 Comm on [facility] oximetry 2023-06-26 09:40:00 98 % Commo n [facility] respiratory rate 2023-06-26 09:40:00 16 /min [facility] blood pressure systolic 2023-06-26 09:40:00 136 mm[Hg] [facility] blood pressure diastolic 2023-06-26 09:40:00 78 mm[Hg] [facility] height 2023-06-26 09:40:00 71.5 [in_i] Comm on [facility] weight 2023-06-26 09:40:00 262 [lb_av] Comm on [facility] temperature 2023-06-26 09:40:00 97.3 [degF] Com mon [facility] height 2023-05-28 09:20:00 71.5 [in_i] Comm on [facility] weight 2023-05-28 09:20:00 261 [lb_av] Comm on [facility] temperature 2023-05-28 09:20:00 97.4 [degF] Com mon [facility] bmi 2023-05-28 09:20:00 35.89 kg/m2 Comm on [facility] oximetry 2023-05-28 09:20:00 96 % Commo n [facility] respiratory rate 2023-05-28 09:20:00 17 /min [facility] blood pressure systolic 2023-05-28 09:20:00 144 mm[Hg] [facility] blood pressure diastolic 2023-05-28 09:20:00 78 mm[Hg] [facility] Systolic blood pressure 2023-04-09 19:16:00 139 mm[Hg] [facility] Diastolic blood pressure 2023-04-09 19:16:00 96 mm[Hg] [facility] Heart rate 2023-04-09 19:14:00 70 /min [facility] Body temperature 2023-04-09 19:14:00 36.5 Cha [facility] Respiratory rate 2023-04-09 19:14:00 20 /min [facility] Body height 2023-04-09 19:14:00 185.4 cm Univ [facility] Body weight 2023-04-09 19:14:00 119.886 kg [facility] BMI 2023-04-09 19:14:00 34.87 kg/m2 [facility] Oxygen saturation in Arterial blood by Pulse oximetry 2023-04-09 19:14:00 97 /min room air [facility] Systolic blood pressure 2023-03-20 18:48:00 130 mm[Hg] [facility] Diastolic blood pressure 2023-03-20 18:48:00 83 mm[Hg] [facility] Heart rate 2023-03-20 18:48:00 69 /min [facility] Body temperature 2023-03-20 18:48:00 34 Cha [facility] Respiratory rate 2023-03-20 18:48:00 16 /min [facility] Body height 2023-03-20 18:48:00 185.4 cm [facility] Body weight 2023-03-20 18:48:00 122.018 kg [facility] BMI 2023-03-20 18:48:00 35.49 kg/m2 [facility] Oxygen saturation in Arterial blood by Pulse oximetry 2023-03-20 18:48:00 98 /min [facility] Systolic blood pressure 2023-03-06 19:04:00 139 mm[Hg] [facility] Diastolic blood pressure 2023-03-06 19:04:00 88 mm[Hg] [facility] Heart rate 2023-03-06 19:04:00 61 /min [facility] Body temperature 2023-03-06 19:04:00 36.56 Cha [facility] Respiratory rate 2023-03-06 19:04:00 19 /min [facility] Body height 2023-03-06 19:04:00 185.4 cm [facility] Body weight 2023-03-06 19:04:00 112.175 kg [facility] BMI 2023-03-06 19:04:00 32.63 kg/m2 [facility] Oxygen saturation in Arterial blood by Pulse oximetry 2023-03-06 19:04:00 97 /min [facility] Systolic blood pressure 2023-02-19 14:24:00 152 mm[Hg] [facility] Diastolic blood pressure 2023-02-19 14:24:00 97 mm[Hg] [facility] Heart rate 2023-02-19 14:23:00 73 /min [facility] Body temperature 2023-02-19 14:23:00 36.94 Cha [facility] Respiratory rate 2023-02-19 14:23:00 18 /min [facility] Body weight 2023-02-19 14:23:00 114.941 kg [facility] BMI 2023-02-19 14:23:00 33.43 kg/m2 [facility] Oxygen saturation in Arterial blood by Pulse oximetry 2023-02-19 14:23:00 97 /min [facility] Systolic blood pressure 2023-01-15 13:49:00 148 mm[Hg] [facility] Diastolic blood pressure 2023-01-15 13:49:00 93 mm[Hg] [facility] Heart rate 2023-01-15 13:48:00 85 /min [facility] Body temperature 2023-01-15 13:48:00 36.11 Cha [facility] Respiratory rate 2023-01-15 13:48:00 18 /min [facility] Body weight 2023-01-15 13:48:00 115.577 kg [facility] BMI 2023-01-15 13:48:00 33.62 kg/m2 [facility]terial blood by Pulse oximetry 2023-01-15 13:48:00 99 /min [facility] Systolic blood pressure 2023-01-14 14:12:00 135 mm[Hg] [facility] Diastolic blood pressure 2023-01-14 14:12:00 91 mm[Hg] [facility] Heart rate 2023-01-14 14:12:00 73 /min [facility] Oxygen saturation in Arterial blood by Pulse oximetry 2023-01-14 14:12:00 98 /min [facility] Respiratory rate 2023-01-14 14:08:00 21 /min [facility] Body height 2023-01-14 14:08:00 185.4 cm [facility] Body weight 2023-01-14 14:08:00 110.678 kg [facility] BMI 2023-01-14 14:08:00 32.19 kg/m2 [facility] Systolic blood pressure 2022-12-31 19:47:00 142 mm[Hg] [facility] Diastolic blood pressure 2022-12-31 19:47:00 93 mm[Hg] [facility] Heart rate 2022-12-31 19:47:00 81 /min [facility] Body height 2022-12-31 19:47:00 185.4 cm [facility] Body weight 2022-12-31 19:47:00 115.803 kg [facility] BMI 2022-12-31 19:47:00 33.68 kg/m2 [facility] Oxygen saturation in Arterial blood by Pulse oximetry 2022-12-31 19:47:00 95 /min [facility] Systolic blood pressure 2022-12-12 13:35:00 135 mm[Hg] [facility] Diastolic blood pressure 2022-12-12 13:35:00 86 mm[Hg] [facility] Heart rate 2022-12-12 13:35:00 76 /min [facility] Body temperature 2022-12-12 13:35:00 36.39 Cha [facility] Respiratory rate 2022-12-12 13:35:00 18 /min [facility] Body height 2022-12-12 13:35:00 185.4 cm [facility] Body weight 2022-12-12 13:35:00 115.622 kg [facility] BMI 2022-12-12 13:35:00 33.63 kg/m2 [facility] Oxygen saturation in Arterial blood by Pulse oximetry 2022-12-12 13:35:00 96 /min [facility] Systolic blood pressure 2022-12-04 13:21:00 153 mm[Hg] [facility] Diastolic blood pressure 2022-12-04 13:21:00 91 mm[Hg] [facility] Heart rate 2022-12-04 13:20:00 89 /min [facility] Body temperature 2022-12-04 13:20:00 37 Cha [facility] Respiratory rate 2022-12-04 13:20:00 18 /min [facility] Body weight 2022-12-04 13:20:00 115.667 kg [facility] BMI 2022-12-04 13:20:00 33.64 kg/m2 [facility] Oxygen saturation in Arterial blood by Pulse oximetry 2022-12-04 13:20:00 97 /min [facility] Systolic blood pressure 2022-11-06 18:30:00 147 mm[Hg] [facility] Diastolic blood pressure 2022-11-06 18:30:00 87 mm[Hg] [facility] Heart rate 2022-11-06 18:28:00 85 /min [facility] Body temperature 2022-11-06 18:28:00 37 Cha [facility] Respiratory rate 2022-11-06 18:28:00 18 /min [facility] Body height 2022-11-06 18:28:00 185.4 cm [facility] Body weight 2022-11-06 18:28:00 116.484 kg [facility] BMI 2022-11-06 18:28:00 33.88 kg/m2 [facility] Oxygen saturation in Arterial blood by Pulse oximetry 2022-11-06 18:28:00 98 /min [facility] Systolic blood pressure 2022-11-04 13:40:00 139 mm[Hg] [facility] Diastolic blood pressure 2022-11-04 13:40:00 88 mm[Hg] [facility] Heart rate 2022-11-04 13:40:00 73 /min [facility] Body temperature 2022-11-04 13:40:00 36.39 Cha [facility] Respiratory rate 2022-11-04 13:40:00 18 /min [facility] Body height 2022-11-04 13:40:00 185.4 cm [facility] Body weight 2022-11-04 13:40:00 117.618 kg [facility] BMI 2022-11-04 13:40:00 34.21 kg/m2 [facility] Oxygen saturation in Arterial blood by Pulse oximetry 2022-11-04 13:40:00 97 /min [facility] Systolic blood pressure 2022-10-30 19:49:00 121 mm[Hg] [facility] Diastolic blood pressure 2022-10-30 19:49:00 88 mm[Hg] [facility] Heart rate 2022-10-30 19:49:00 90 /min [facility] Body temperature 2022-10-30 19:48:00 37.17 Cha [facility] Respiratory rate 2022-10-30 19:48:00 22 /min [facility] Body height 2022-10-30 19:48:00 185.4 cm [facility] Body weight 2022-10-30 19:48:00 115.304 kg [facility] BMI 2022-10-30 19:48:00 33.54 kg/m2 [facility] Oxygen saturation in Arterial blood by Pulse oximetry 2022-10-30 19:48:00 98 /min [facility] Systolic blood pressure 2022-10-24 18:55:00 135 mm[Hg] [facility] Diastolic blood pressure 2022-10-24 18:55:00 93 mm[Hg] [facility] Heart rate 2022-10-24 18:55:00 91 /min [facility] Oxygen saturation in Arterial blood by Pulse oximetry 2022-10-24 18:55:00 93 /min [facility] Respiratory rate 2022-10-24 18:52:00 19 /min [facility] Body height 2022-10-24 18:52:00 185.4 cm [facility] Body weight 2022-10-24 18:52:00 113.807 kg [facility] BMI 2022-10-24 18:52:00 33.10 kg/m2 [facility] Systolic blood pressure 2022-10-23 13:10:00 159 mm[Hg] [facility] Diastolic blood pressure 2022-10-23 13:10:00 110 mm[Hg] [facility] Heart rate 2022-10-23 13:09:00 82 /min [facility] Body temperature 2022-10-23 13:09:00 37.28 Cha [facility] Respiratory rate 2022-10-23 13:09:00 18 /min [facility] Body weight 2022-10-23 13:09:00 113.354 kg [facility] BMI 2022-10-23 13:09:00 32.97 kg/m2 [facility] Oxygen saturation in Arterial blood by Pulse oximetry 2022-10-23 13:09:00 100 /min [facility] Systolic blood pressure 2022-10-01 16:03:00 127 mm[Hg] [facility] Diastolic blood pressure 2022-10-01 16:03:00 79 mm[Hg] [facility] Heart rate 2022-10-01 16:03:00 102 /min [facility] Body temperature 2022-10-01 16:03:00 36.72 Cha [facility] Respiratory rate 2022-10-01 16:03:00 16 /min [facility] Oxygen saturation in Arterial blood by Pulse oximetry 2022-10-01 16:03:00 93 /min [facility] Body weight 2022-10-01 08:32:00 109.827 kg [facility] BMI 2022-10-01 08:32:00 31.94 kg/m2 [facility] Body height 2022-09-28 17:58:00 185.4 cm [facility] Systolic blood pressure 2022-09-30 22:44:00 143 mm[Hg] [facility] Diastolic blood pressure 2022-09-30 22:44:00 90 mm[Hg] [facility] Heart rate 2022-09-30 22:44:00 95 /min [facility] Body temperature 2022-09-30 22:44:00 37.17 Cha [facility] Respiratory rate 2022-09-30 22:44:00 20 /min [facility] Oxygen saturation in Arterial blood by Pulse oximetry 2022-09-30 22:44:00 95 /min [facility] Body weight 2022-09-30 09:10:00 110.406 kg [facility] BMI 2022-09-30 09:10:00 31.94 kg/m2 [facility] Body height 2022-09-28 17:58:00 185.4 cm [facility] Systolic blood pressure 2021-02-27 16:44:00 141 mm[Hg] [facility] Diastolic blood pressure 2021-02-27 16:44:00 94 mm[Hg] [facility] Heart rate 2021-02-27 16:44:00 72 /min [facility] Body temperature 2021-02-27 16:44:00 36.61 Cha [facility] Respiratory rate 2021-02-27 16:44:00 18 /min [facility] Body height 2021-02-27 16:44:00 185.4 cm [facility] Body weight 2021-02-27 16:44:00 115.667 kg [facility] BMI 2021-02-27 16:44:00 33.64 kg/m2 [facility] Oxygen saturation in Arterial blood by Pulse oximetry 2021-02-27 16:44:00 98 /min [facility] Procedures Procedure Date / Time Performed Performing Clinician Source INSURANCE CORRESPONDENCE 2023-04-24 06:01:00 Doc tor Unassigned, [facility] REFERRAL- REQUEST/RESPONSE 2023-02-20 06:01:00 D octor Unassigned, [facility] REFERRAL- REQUEST/RESPONSE 2023-01-16 05:01:00 D octor Unassigned, [facility] REFERRAL- REQUEST/RESPONSE 2023-01-05 05:01:00 D octor Unassigned, [facility] REFERRAL- REQUEST/RESPONSE 2022-12-18 05:01:00 D octor Unassigned, [facility] REFERRAL- REQUEST/RESPONSE 2022-12-05 05:01:00 D octor Unassigned, [facility] DISCLOSURE AND CONSENT, MEDICAL AND SURGICAL PROCEDURES 2022-11-04 05:01:00 Doctor Unassigned, [facility] INSURANCE CORRESPONDENCE 2022-10-30 05:01:00 Doc tor Unassigned, [facility] ASSIGNMENT OF BENEFITS 2022-10-23 12:16:22 Docto r Unassigned, [facility] POCT GLUCOSE (AUTOMATED) 2022-10-01 16:57:00 Wilian Ohara [facility] POCT GLUCOSE (AUTOMATED) 2022-10-01 16:57:00 Wilian Ohara [facility] POCT GLUCOSE (AUTOMATED) 2022-10-01 13:30:00 Wilian Ohara [facility] POCT GLUCOSE (AUTOMATED) 2022-10-01 13:30:00 Wilian Ohara [facility] POCT GLUCOSE (AUTOMATED) 2022-10-01 01:50:00 Wilian Ohraa [facility] POCT GLUCOSE (AUTOMATED) 2022-10-01 01:50:00 Wilian Ohara [facility] ACTIVATED PARTIAL THRMPLAS MERARY 2022-10-01 01:07:00 Irene Woods [facility] ACTIVATED PARTIAL THRMPLAS MERARY 2022-10-01 01:07:00 Irene Woods [facility] POCT GLUCOSE (AUTOMATED) 2022-09-30 22:45:00 Wilian Ohara [facility] POCT GLUCOSE (AUTOMATED) 2022-09-30 22:45:00 MaydaWiliannoelle Shaun [facility] CARDIAC CATHETERIZATION 2022-09-30 21:24:40 Bk Ohara [facility] CARDIAC CATHETERIZATION 2022-09-30 21:24:40 Bk Ohara [facility] CARDIAC CATHETERIZATION 2022-09-30 21:24:40 Bk [facility] CARDIAC CATHETERIZATION 2022-09-30 21:24:40 Bk [facility] CATH PROCEDURE LOG 2022-09-30 21:18:04 Ernestina Ohara Shanta radha [facility] CATH PROCEDURE LOG 2022-09-30 21:18:04 Ernestina Ohara Shanta r [facility] POCT GLUCOSE (AUTOMATED) 2022-09-30 17:18:00 Natalie Hernandez [facility] POCT GLUCOSE (AUTOMATED) 2022-09-30 17:18:00 Natalie Hernandez [facility] EXTRA TUBE LT. BLUE 2022-09-30 13:55:00 Mayda Clairnoelle Dunn [facility] EXTRA TUBE LT. BLUE 2022-09-30 13:55:00 MaydaErnestina Shaun [facility] MAGNESIUM 2022-09-30 13:45:00 Juan Magaña [facility] BASIC METABOLIC PANEL (NA, K, CL, CO2, GLUCOSE, BUN, CREATININE, CA) 2022-09-30 13:45:00 Juan Magaña [facility] CBC WITH DIFF 2022-09-30 13:45:00 Juan Magaña [facility] MAGNESIUM 2022-09-30 13:45:00 Juan Magaña Un [facility] BASIC METABOLIC PANEL (NA, K, CL, CO2, GLUCOSE, BUN, CREATININE, CA) 2022-09-30 13:45:00 Juan Magaña [facility] CBC WITH DIFF 2022-09-30 13:45:00 Juan Magaña [facility] POCT GLUCOSE (AUTOMATED) 2022-09-30 13:10:00 Natalie Hernandez [facility] POCT GLUCOSE (AUTOMATED) 2022-09-30 13:10:00 Natalie Hernandez [facility] POCT GLUCOSE (AUTOMATED) 2022-09-30 02:15:00 Natalie Hernandez [facility] POCT GLUCOSE (AUTOMATED) 2022-09-30 02:15:00 Natalie Hernandez [facility] POCT GLUCOSE (AUTOMATED) 2022-09-29 22:28:00 Natalie Hernandez [facility] POCT GLUCOSE (AUTOMATED) 2022-09-29 22:28:00 Natalie Hernandez [facility] POCT GLUCOSE (AUTOMATED) 2022-09-29 16:31:00 Natalie Hernandez [facility] POCT GLUCOSE (AUTOMATED) 2022-09-29 16:31:00 Natalie Hernandez [facility] TRANSTHORACIC ECHO (TTE) COMPLETE W/ CONTRAST 2022-09-29 14:42:15 Irene [facility] TRANSTHORACIC ECHO (TTE) COMPLETE W/ CONTRAST 2022-09-29 14:42:15 Irene Woods [facility] POCT GLUCOSE (AUTOMATED) 2022-09-29 12:49:00 Natalie Hernandez [facility] POCT GLUCOSE (AUTOMATED) 2022-09-29 12:49:00 Natalie Hernandez [facility] MAGNESIUM 2022-09-29 08:57:00 Irene Woods [facility] BASIC METABOLIC PANEL (NA, K, CL, CO2, GLUCOSE, BUN, CREATININE, CA) 2022-09-29 08:57:00 Irene Woods [facility] ACTIVATED PARTIAL THRMPLAS MERARY 2022-09-29 08:57:00 Irene Woods [facility] MAGNESIUM 2022-09-29 08:57:00 Irene Woods [facility] BASIC METABOLIC PANEL (NA, K, CL, CO2, GLUCOSE, BUN, CREATININE, CA) 2022-09-29 08:57:00 Irene Woods [facility] ACTIVATED PARTIAL THRMPLAS MERARY 2022-09-29 08:57:00 Irene Woods [facility] HB ECG ROUTINE & RHYTHM STRIP 2022-09-29 02:56:04 Darlene [facility] HB ECG ROUTINE & RHYTHM STRIP 2022-09-29 02:56:04 Darlene [facility] TROPONIN I 2022-09-29 02:52:00 [facility] TROPONIN I 2022-09-29 02:52:00 [facility] POCT GLUCOSE (AUTOMATED) 2022-09-29 02:26:00 Natalie Hernandez [facility] POCT GLUCOSE (AUTOMATED) 2022-09-29 02:26:00 Natalie Hernandez [facility] ACTIVATED PARTIAL THRMPLAS MERARY 2022-09-29 01:36:00 Irene Woods [facility] ACTIVATED PARTIAL THRMPLAS MERARY 2022-09-29 01:36:00 Irene Woods [facility] POCT GLUCOSE (AUTOMATED) 2022-09-28 22:38:00 Natalie Hernandez [facility] POCT GLUCOSE (AUTOMATED) 2022-09-28 22:38:00 Natalie Hernandez [facility] PROTHROMBIN TIME / INR 2022-09-28 19:15:00 Irene Woods [facility] ACTIVATED PARTIAL THRMPLAS MERARY 2022-09-28 19:15:00 Irene Woods [facility] PROTHROMBIN TIME / INR 2022-09-28 19:15:00 Irene Woods [facility] ACTIVATED PARTIAL THRMPLAS MERARY 2022-09-28 19:15:00 Irene Woods [facility] HB ECG ROUTINE & RHYTHM STRIP 2022-09-28 18:49:45 Irene Woods [facility] HB ECG ROUTINE & RHYTHM STRIP 2022-09-28 18:49:45 Irene Woods [facility] TROPONIN I 2022-09-28 18:47:00 Irene Woods [facility] THYROID STIMULATING HORMONE 2022-09-28 18:47:00 Irene Woods [facility] HEPATIC FUNCTION PANEL (40273) (ALB,T.PRO,BILI T,BU/BC,ALT,AST,ALK PHOS) 2022-09-28 18:47:00 Irene Woods [facility] LIPID PANEL (94160)(TOTAL CHOLESTEROL, TRIGLYCERIDES, HDL) 2022-09-28 18:47:00 ChuckIrene [facility] TROPONIN I 2022-09-28 18:47:00 ChuckIrene [facility] THYROID STIMULATING HORMONE 2022-09-28 18:47:00 ChuckIrene [facility] HEPATIC FUNCTION PANEL (58689) (ALB,T.PRO,BILI T,BU/BC,ALT,AST,ALK PHOS) 2022-09-28 18:47:00 Irene Woods [facility] LIPID PANEL (09269)(TOTAL CHOLESTEROL, TRIGLYCERIDES, HDL) 2022-09-28 18:47:00 Irene Woods [facility] TROPONIN I 2022-09-28 14:31:00 Ozzie Khalil [facility] N-TERMINAL PRO-BNP 2022-09-28 14:31:00 Irene Woods Un [facility] TROPONIN I 2022-09-28 14:31:00 Ozzie Khalil [facility] N-TERMINAL PRO-BNP 2022-09-28 14:31:00 Chuck Irene Aguilar Un [facility] CT ANGIOGRAM CHEST 2022-09-28 13:20:45 [facility] CT ANGIOGRAM ABDOMEN/PELVIS 2022-09-28 13:20[facility] 2022-09-28 13:20:45 [facility] CT ANGIOGRAM ABDOMEN/PELVIS 2022-09-28 13:20:45 Selvin Hernandez [facility] URINE DRUG (IMMUNOASSAY) - COMPREHENSIVE DRUG SCREEN 2022-09-28 11:53:00 Selvin Hernandez [facility] URINE DRUG (IMMUNOASSAY) - COMPREHENSIVE DRUG SCREEN 2022-09-28 11:53:00 Selvin Hernandez [facility] XR CHEST 1 VW 2022-09-28 11:37:10 Selvin Hernandez [facility] XR CHEST 1 VW 2022-09-28 11:37:10 Selvin Hernandez [facility] LIPASE 2022-09-28 11:07:00 [facility] TROPONIN I 2022-09-28 11:07:00 [facility] COMP. METABOLIC PANEL (86050) 2022-09-28 11:07:00 Selvin Hernandez [facility] CBC WITH DIFF 2022-09-28 11:07:00 Selvin Hernandez [facility] GLYCOSYLATED HEMOGLOBIN (A1C) 2022-09-28 11:07:00 Irene Woods [facility] PROTHROMBIN TIME / INR 2022-09-28 11:07:00 [facility] THRMPLAS MERARY 2022-09-28 11:07:00 [facility]MIN[facility] PRO-BNP 2022-09-28 11:07:00 Selvin Hernandez [facility] LIPASE 2022-09-28 11:07:00 Selvin Hernandez [facility] TROPONIN I 2022-09-28 11:07:00 Selvin Hernandez [facility] COMP. METABOLIC PANEL (36249) 2022-09-28 11:07:00 [facility] WITH [facility]FF 2022-09-28 11:07:00 Selvin Hernandez [facility] GLYCOSYLATED HEMOGLOBIN (A1C) 2022-09-28 11:07:00 Irene Woods [facility] PROTHROMBIN TIME / INR 2022-09-28 11:07:00 Bon Hernandez kristin [facility] ACTIVATED PARTIAL THRMPLAS MERARY 2022-09-28 11:07:00 [facility] N-TERMINAL PRO-BNP 2022-09-28 11:07:00 [facility]OUTINE & RHYTHM STRIP 2022-09-28 11:01:29 [facility] & RHYTHM STRIP 2022-09-28 11:01:29 [facility] Start Date/Time End Date/Time Encounter Type Admission Type Attending [facility] Care Facility Care Department Encounter ID Source 2023-07-24 15:20:24 Outpatient [facility] [id number] [facility] 2023-07-03 14:10:00 Outpatient Lizzie Grossman [facility] [id number] [facility] 2023-06-24 11:48:01 Outpatient Lizzie Grossman [facility] [id number] [facility] 2023-06-16 07:19:29 Outpatient [facility] [id number] [facility] 2023-05-29 08:54:01 Outpatient Lizzie Grossman [facility] [id number] [facility] 2023-05-28 09:16:02 Outpatient Lizzie Grossman [facility] [id number] [facility] 2023-04-27 10:15:38 Outpatient [facility]E [facility] [id number] [facility] 2023-10-27 09:00:00 2023-10-27 09:00:00 Outpatient LUIS MERA [id number] Colleen Ignacio 2023-09-18 00:00:00 2023-09-18 00:00:00 (TEL) [facility] STLC [id number] [facility] 2023-09-03 00:00:00 2023-09-15 13:26:21 Patient Outreach Woo MireyaLexi PHAN ..114 350.1.13.10 4.2.7.2.686 [id number] [facility] 2023-09-13 00:00:00 2023-09-14 07:11:45 Thais Valenzuela [facility] 1.84.114 350.1.13.10 4.2.7.2.686 [id number] [facility] 2023-08-06 00:00:00 2023-09-12 18:06:35 Patient Secure Msg Doctor Unassigned, [facility] 1.840.114 350.1.13.10 4.2.7.2.686 [id number] [facility] 2023-09-08 00:00:00 2023-09-08 00:00:00 Outpatient BEATRIZ CHEEK [id number] Colleen radha 2023-09-07 11:00:00 2023-09-07 11:00:00 Outpatient HAN MONET [facility] [id number] [facility] 2023-08-20 08:30:00 2023-08-20 08:30:00 Outpatient HAN MONET [facility] [id number] [facility] 2023-08-04 00:00:00 2023-08-04 00:00:00 OFFICE VISIT ESTAB PT LEVEL 4 STLMLC STLMLC [id number] [facility] 2023-08-04 00:00:00 2023-08-04 00:00:00 (TEL) STLMLC STLMLC [id number] [facility] 2023-07-03 00:00:00 2023-07-03 00:00:00 (TEL) STLMLC STLMLC [id number] [facility] 2023-06-26 00:00:00 2023-06-26 00:00:00 OFFICE VISIT ESTAB PT LEVEL 4 STLMLC STLMLC [id number] [facility] 2023-06-23 00:00:00 2023-06-23 00:00:00 Telephone Cheryl Peters [facility] 1..840.114 350.1.13.10 4.2.7.2.686 [id number] [facility] 2023-06-22 00:00:00 2023-06-22 00:00:00 (TEL) STLMLC STLMLC [id number] [facility] 2023-06-15 00:00:00 2023-06-15 00:00:00 (TEL) STLMLC STLMLC [id number] [facility] 2023-06-08 00:00:00 2023-06-08 00:00:00 (TEL) STLMLC STLMLC [id number] [facility] 2023-05-28 00:00:00 2023-05-28 00:00:00 OFFICE VISIT NEW PT LEVEL 4 STLMLC STLMLC [id number] [facility] 2023-05-25 14:45:00 2023-05-25 14:45:00 Outpatient NEL DEL TORO [facility] [id number] [facility] 2023-04-24 00:00:00 2023-04-24 00:00:00 Orders Only Doctor Unassigned, [facility] 1..114 350.1.13.10 4.2.7.2.686 [id number] [facility] 2023-04-23 20:00:00 2023-04-23 20:00:00 Outpatient KAELA KWON STRAPRLiudmila [facility] [id number] [facility] 2023-04-21 00:00:00 2023-04-21 00:00:00 Telephone Han Valenzuela [facility]?GEOVANNYTheo [facility] 1.840.114 350.1.13.10 4.2.7.2.686 [id number] [facility] 2023-04-09 13:30:00 2023-04-09 14:00:00 Office Visit Mone Gibson [facility] 1..114 350.1.13.10 4.2.7.2.686 [id number] [facility] 2023-04-09 13:30:00 2023-04-09 13:30:00 Outpatient R MONE [facility] [id number] [facility] 2023-04-03 08:00:00 2023-04-03 08:15:00 Turf Keeper Visit Lab, Minoo FarmerPending sale to [facility] 1..840.114 350.1.13.10 4.2.7.2.686 [id number] [facility] 2023-04-03 08:00:00 2023-04-03 08:00:00 Outpatient Radha [facility]ELA [facility] [id number] [facility] 2023-04-02 00:00:00 2023-04-02 00:00:00 Telephone Caitie [facility] 1.840.114 350.1.13.10 4.2.7.2.686 [id number] [facility] 2023-04-01 00:00:00 2023-04-01 00:00:00 Telephone Carmen Cano PL[facility] 1..840.114 350.1.13.10 4.2.7.2.686 [id number] [facility] 2023-03-27 16:15:00 2023-03-27 16:27:40 Outpatient R AFUA STARR [facility] [id number] [facility] 2023-03-27 16:15:00 2023-03-27 16:27:40 Office Visit Afua Starr [facility] 1.840.114 350.1.13.10 4.2.7.2.686 [id number] [facility] 2023-03-24 00:00:00 2023-03-24 00:00:00 Telephone Carmen Cano 1.2840.114 350.1.13.10 4.2.7.2.686 [id number] [facility] 2023-03-20 14:00:00 2023-03-20 14:15:00 Turf Keeper Visit [facility] 1.2840.114 350.1.13.10 4.2.7.2.686 [id number] [facility] 2023-03-20 13:00:00 2023-03-20 14:00:00 Office Visit [facility] 1.20.114 350.1.13.10 4.2.7.2.686 [id number] [facility] 2023-03-20 13:00:00 2023-03-20 13:00:00 Outpatient R MARIJA TREVINO [facility] [id number] [facility] 2023-03-20 00:00:00 2023-03-20 00:00:00 Case Management Varun Rodrigues [facility] 1.840.114 350.1.13.10 4.2.7.2.686 [id number] [facility] 2023-03-16 00:00:00 2023-03-16 00:00:00 Telephone Carmen CanoStan ELLISONNIKHIL 1.2840.114 350.1.13.10 4.2.7.2.686 [id number] [facility] 2023-03-10 00:00:00 2023-03-10 00:00:00 Telephone Han [facility] 1.840.114 350.1.13.10 4.2.7.2.686 [id number] [facility] 2023-03-06 13:40:00 2023-03-06 13:40:00 Office Visit Fran Cheryl [facility] 1.2.840.114 350.1.13.10 4.2.7.2.686 [id number] [facility] 2023-03-06 13:40:00 2023-03-06 13:26:20 Outpatient R FRAN CHERYL [facility] [id number] [facility] 2023-02-23 00:00:00 2023-02-23 00:00:00 Telephone Cano, Carmen Theo BRADLEY OLSONStan PHAN 1.2.840.114 350.1.13.10 4.2.7.2.686 [id number] [facility] 2023-02-23 00:00:00 2023-02-23 00:00:00 Telephone Carmen CanoJoie OLSON PL[facility] 1.2.840.114 350.1.13.10 4.2.7.2.686 [id number] [facility] 2023-02-20 00:00:00 2023-02-20 00:00:00 Telephone Carmen Cano PLANI[facility] 1.2.840.114 350.1.13.10 4.2.7.2.686 [id number] [facility] 2023-02-20 00:00:00 2023-02-20 00:00:00 Orders Only Doctor Unassigned, [facility] 1.2.840.114 350.1.13.10 4.2.7.2.686 [id number] [facility] 2023-02-19 10:00:00 2023-02-19 10:10:39 Outpatient HAN MONET [facility] [id number] [facility] 2023-02-19 10:00:00 2023-02-19 10:10:39 Turf Keeper Visit Lab, Jose Carlos Felton [facility] 1..840.114 350.1.13.10 4.2.7.2.686 [id number] [facility] 2023-02-19 10:00:00 2023-02-19 10:00:00 Outpatient R BONIFACIO CAMARA [facility] [id number] [facility] 2023-02-19 08:30:00 2023-02-19 09:31:01 [facility] 1..840.114 350.1.13.10 4.2.7.2.686 [id number] [facility] 2023-02-19 00:00:00 2023-02-19 00:00:00 Telephone [facility] 1.840.114 350.1.13.10 4.2.7.2.686 [id number] [facility] 2023-01-28 08:45:00 2023-01-28 09:00:00 Turf Keeper Visit Lab, Jose Carlos Felton Bianca [facility] KURT?[facility] 1.840.114 350.1.13.10 4.2.7.2.686 [id number] [facility] 2023-01-28 08:45:00 2023-01-28 08:25:08 [facility] [id number] 2023-01-28 00:00:00 2023-01-28 00:00:00 Patient Secure Cheryl Peters [facility] 1..840.114 350.1.13.10 4.2.7.2.686 [id number] [facility] 2023-01-20 00:00:00 2023-01-20 00:00:00 Telephone Carmen Cano 1.2.840.114 350.1.13.10 4.2.7.2.686 [id number] [facility] 2023-01-20 00:00:00 2023-01-20 00:00:00 Telephone Carmen Cano 1.2840.114 350.1.13.10 4.2.7.2.686 [id number] [facility] 2023-01-16 00:00:00 2023-01-16 00:00:00 Orders Only Doctor Unassigned, [place] 1.0.114 350.1.13.10 4.2.7.2.686 [id number] [facility] 2023-01-15 09:30:00 2023-01-15 09:32:16 Outpatient R HAN VALENZUELA [facility] [id number] [facility] 2023-01-15 09:30:00 2023-01-15 09:32:16 Office Visit Han [facility] 1..114 350.1.13.10 4.2.7.2.686 [id number] [facility] 2023-01-14 09:40:00 2023-01-14 09:40:00 [facility] 1.840.114 350.1.13.10 4.2.7.2.686 [id number] [facility] 2023-01-14 09:40:00 2023-01-14 09:25:34 Outpatient R CHERYL PETERS [facility] [id number] [facility] 2023-01-08 00:00:00 2023-01-08 00:00:00 [facility] 1.2.840.114 350.1.13.10 4.2.7.2.686 [id number] [facility] 2023-01-05 00:00:00 2023-01-05 00:00:00 Orders Only Doctor Unassigned, [place] 1.2.840.114 350.1.13.10 4.2.7.2.686 [id number] [facility] 2022-12-31 15:30:00 2022-12-31 16:00:00 Office Visit Kaela [facility] 1..840.114 350.1.13.10 4.2.7.2.686 [id number] [facility] 2022-12-31 15:30:00 2022-12-31 15:30:00 Outpatient R KAELA JAVIER STRAHIL [facility] [id number] [facility] 2022-12-22 00:00:00 2022-12-22 00:00:00 Telephone [facility] 1.2.840.114 350.1.13.10 4.2.7.2.686 [id number] [facility] 2022-12-18 14:30:00 2022-12-18 15:14:50 Outpatient R MINOO VALENZUELATHIA [facility] [id number] [facility] 2022-12-18 15:00:00 2022-12-18 15:00:00 Outpatient R [facility] [id number] [facility] 2022-12-18 14:30:00 2022-12-18 14:45:00 Turf Keeper Visit Lab, [facility] K[facility]T?GEOVANNYTheo [facility] 1.284.114 350.1.13.10 4.2.7.2.686 [id number] [facility] 2022-12-18 00:00:00 2022-12-18 00:00:00 Orders Only Doctor Unassigned, [place] 1.2114 350.1.13.10 4.2.7.2.686 [id number] [facility] 2022-12-15 00:00:00 2022-12-15 00:00:00 Telephone Carmen Cano [facility] 1.84.114 350.1.13.10 4.2.7.2.686 [id number] [facility] 2022-12-15 00:00:00 2022-12-15 00:00:00 Patient Secure Msg Bianca [facility] 1.84.114 350.1.13.10 4.2.7.2.686 [id number] [facility] 2022-12-12 09:00:00 2022-12-12 09:08:27 Outpatient R CHERYL PETERS [facility] [id number] [facility] 2022-12-12 09:00:00 2022-12-12 09:08:27 [facility] 1.840.114 350.1.13.10 4.2.7.2.686 [id number] [facility] 2022-12-12 00:00:00 2022-12-12 00:00:00 Telephone [facility] 1.2.840.114 350.1.13.10 4.2.7.2.686 [id number] [facility] 2022-12-12 00:00:00 2022-12-12 00:00:00 Telephone [facility] 1.114 350.1.13.10 4.2.7.2.686 [id number] [facility] 2022-12-11 14:30:00 2022-12-11 14:30:00 Outpatient R HAN VALENZUELA [facility] [id number] [facility] 2022-12-05 00:00:00 2022-12-05 00:00:00 Orders Only Doctor Unassigned, [place] [facility] .114 350.1.13.10 4.2.7.2.686 [id number] [facility] 2022-12-04 08:30:00 2022-12-04 08:49:17 Outpatient R HAN VALENZUELA [facility] [id number] [facility] 2022-12-04 08:30:00 2022-12-04 08:49:17 [facility] 1.84114 350.1.13.10 4.2.7.2.686 [id number] [facility] 2022-12-04 00:00:00 2022-12-04 00:00:00 Patient Secure Msg Doctor Unassigned, [place] [facility] 1.114 350.1.13.10 4.2.7.2.686 [id number] [facility] 2022-11-27 00:00:00 2022-11-27 00:00:00 Telephone Anabella Avery [facility] 1.2.840.114 350.1.13.10 4.2.7.2.686 [id number] [facility] 2022-11-24 00:00:00 2022-11-24 00:00:00 Telephone Anabella Avery [facility] 1.840.114 350.1.13.10 4.2.7.2.686 [id number] [facility] 2022-11-19 00:00:00 2022-11-19 00:00:00 Telephone Ariane Bennett Carmen TYRONJoie WESLEY PHAN 1.0.114 350.1.13.10 4.2.7.2.686 [id number] [facility] 2022-11-06 13:30:00 2022-11-06 13:49:41 Outpatient R HAN VALENZUELA [facility] [id number] [facility] 2022-11-06 13:30:00 2022-11-06 13:49:41 [facility] 1.0.114 350.1.13.10 4.2.7.2.686 [id number] [facility] 2022-11-05 00:00:00 2022-11-05 00:00:00 Patient Outreach [facility] 1.840.114 350.1.13.10 4.2.7.2.686 [id number] [facility] 2022-11-05 00:00:00 2022-11-05 00:00:00 Patient Secure Msg Doctor Unassigned, [place] [facility] 1.840.114 350.1.13.10 4.2.7.2.686 [id number] [facility] 2022-11-04 09:00:00 2022-11-04 09:30:00 Office Visit Anabella Avery Joseph Marc [facility] 1.840.114 350.1.13.10 4.2.7.2.686 [id number] [facility] 2022-11-04 09:00:00 2022-11-04 09:00:00 Outpatient NILES KIRKPATRICK [facility] [id number] [facility] 2022-11-04 00:00:00 2022-11-04 00:00:00 Orders Only Doctor Unassigned, [place] [facility] 1.840.114 350.1.13.10 4.2.7.2.686 [id number] [facility] 2022-10-31 00:00:00 2022-10-31 00:00:00 Patient Outreach Eliza Triana [facility] 1.840.114 350.1.13.10 4.2.7.2.686 [id number] [facility] 2022-10-31 00:00:00 2022-10-31 00:00:[address] [facility] 1.840.114 350.1.13.10 4.2.7.2.686 [id number] [facility] 2022-10-30 15:00:00 2022-10-30 16:00:00 [facility] 1.840.114 350.1.13.10 4.2.7.2.686 [id number] [facility] 2022-10-30 15:00:00 2022-10-30 15:00:00 Outpatient MONE PEACOCK LOVELexi [facility] [id number] [facility] 2022-10-30 00:00:00 2022-10-30 00:00:00 [facility] 1.2840.114 350.1.13.10 4.2.7.2.686 [id number] [facility] 2022-10-30 00:00:00 2022-10-30 00:00:00 Orders Only Doctor Unassigned, [place] [facility] 1.2840.114 350.1.13.10 4.2.7.2.686 [id number] [facility] 2022-10-29 00:00:00 2022-10-29 00:00:00 [facility] 1.2840.114 350.1.13.10 4.2.7.2.686 [id number] [facility] 2022-10-28 00:00:00 2022-10-28 00:00:00 [facility] 1.2.114 350.1.13.10 4.2.7.2.686 [id number] [facility] 2022-10-28 00:00:00 2022-10-28 00:00:00 Telephone Carmen Cano [facility] 1.2840.114 350.1.13.10 4.2.7.2.686 [id number] [facility] 2022-10-27 16:00:00 2022-10-27 16:27:59 Outpatient LUZ WILHELM [facility] [id number] [facility] 2022-10-27 16:00:00 2022-10-27 16:15:00 Turf Keeper Visit Lab, Ang - Db Unknown, Attending [facility] 1.284.114 350.1.13.10 4.2.7.2.686 [id number] [facility] 2022-10-27 00:00:00 2022-10-27 00:00:00 [facility] 1.840.114 350.1.13.10 4.2.7.2.686 [id number] [facility] 2022-10-24 13:40:00 2022-10-24 14:12:30 Outpatient R FRAN [facility] [id number] [facility] 2022-10-24 13:40:00 2022-10-24 14:12:30 [facility] 1.840.114 350.1.13.10 4.2.7.2.686 [id number] [facility] 2022-10-24 00:00:00 2022-10-24 00:00:00 Telephone Mone Gibson [facility] 1.84.114 350.1.13.10 4.2.7.2.686 [id number] [facility] 2022-10-23 11:00:00 2022-10-23 11:18:58 Outpatient R BIANCAHAN [facility] [id number] [facility] 2022-10-23 11:00:00 2022-10-23 11:15:00 Turf Keeper Visit Lab, Ang - Db [facility] 1.840.114 350.1.13.10 4.2.7.2.686 [id number] [facility] 2022-10-23 08:00:00 2022-10-23 09:26:47 Office [facility] 1.2.840.114 350.1.13.10 4.2.7.2.686 [id number] [facility] 2022-10-23 00:00:00 2022-10-23 00:00:00 Orders Only Doctor Unassigned, [place] [facility] 1.2.840.114 350.1.13.10 4.2.7.2.686 [id number] [facility] 2022-09-28 05:59:00 2022-10-01 14:00:00 Outpatient X MAYDA, ERNESTINA OHARA, ERNESTINA [facility] [id number] [facility] 2022-09-28 05:59:00 2022-10-01 14:00:00 Emergency Selvin Hernandez Shreyas Ashwin Rehman, Shuja [facility] 1.2840.114 350.1.13.10 4.2.7.2.686 [id number] [facility] 2022-09-30 16:55:00 2022-09-30 18:55:00 Surgery rFedi Cristina [facility] 1.2.840.114 350.1.13.10 4.2.7.2.686 [id number] [facility] 2021-02-22 17:15:00 2021-02-28 01:30:00 Hospital Encounter Bonifacio Camara [facility] 1.2.840.114 350.1.13.10 4.2.7.2.686 [id number] [facility] 2021-02-27 10:24:03 2021-02-27 11:30:33 Office Visit Eye, c Retina Diabetic Bonifacio CamaraammBrian Pompa [facility] 1.2840.114 350.1.13.10 4.2.7.2.686 [id number] [facility] 2021-02-13 08:00:00 2021-02-22 13:50:00 Hospital Encounter Bonifacio Camara [facility] 1.2.840.114 350.1.13.10 4.2.7.2.686 [id number] [facility] 2021-02-22 07:15:00 2021-02-22 08:16:00 Surgery Heber Gonzalez [facility] 1.2.840.114 350.1.13.10 4.2.7.2.686 [id number] [facility] 2021-02-07 10:34:13 2021-02-07 15:09:44 Office Visit Plastics, [facility] Eye Complicated Branden Vazquez [facility] 1.2.840.114 350.1.13.10 4.2.7.2.686 [id number] [facility] 2021-02-06 00:00:00 2021-02-06 00:00:00 Orders Only Doctor Unassigned, [place] [facility] 1.2.840.114 350.1.13.10 4.2.7.2.686 [id number] [facility] 2021 19:50:00 2021-01-28 16:26:00 Hospital Encounter [facility] 1.2.840.114 350.1.13.10 4.2.7.2.686 [id number] [facility] 2021-01-24 09:00:00 2021 19:49:00 Hospital Encounter [facility] 1.2.840.114 350.1.13.10 4.2.7.2.686 [id number] [facility] 2021 12:45:00 2021 13:51:00 Surgery [facility] 1.2.840.114 350.1.13.10 4.2.7.2.686 [id number] [facility] 2021-01-24 00:00:00 2021-01-24 00:00:00 Orders Only Doctor Unassigned, [place] [facility] 1.2.840.114 350.1.13.10 4.2.7.2.686 [id number] [facility] 2021-01-08 06:00:00 2021-01-09 03:43:00 Hospital Encounter [facility] 1.2.840.114 350.1.13.10 4.2.7.2.686 [id number] [facility] 2021-01-08 10:28:06 2021-01-08 16:06:03 Office Visit Ophthalmolo gy, [facility] 1.2.840.114 350.1.13.10 4.2.7.2.686 [id number] [facility] 2020-08-22 11:19:36 2020-08-22 23:59:00 Hospital Encounter Yocasta Estrada [facility] 1.2.840.114 350.1.13.10 4.2.7.2.686 [id number] [facility] 2020-06-07 00:00:00 2020-06-07 00:00:00 Orders Only Doctor Unassigned, [place] [facility] 1.2.840.114 350.1.13.10 4.2.7.2.686 [id number] [facility] 2020-03-07 08:54:07 2020-03-07 16:07:40 Office Visit Cardiology, [facility] Prasanna h, Tareq [facility] 1.2.840.114 350.1.13.10 4.2.7.2.686 [id number] [facility] 2019-12-28 11:59:00 2019-12-28 11:59:00 Outpatient Zuniga_F [facility] [id number] [facility] 2019-06-07 14:00:00 2019-06-07 14:00:00 Outpatient CHERYL ISABEL [facility] [id number] [facility] 2019-05-19 03:51:00 2019-05-19 03:51:00 Outpatient Zuniga_F [facility] 213 [facility] 2019-05-10 13:07:58 2019-05-10 17:14:00 Emergency Charles Gerber [facility] 1.840.114 350.1.13.10 4.2.7.2.686 [id number] [facility] 2019-05-10 13:07:58 2019-05-10 17:14:00 Emergency X SARAH GERBERN [facility] ERT [id number] [facility] 2019-05-09 09:20:00 2019-05-09 09:20:00 Outpatient Zuniga_F [facility] 202 [facility] 2019-04-28 02:26:00 2019-04-28 02:26:00 Outpatient Zuniga_F [facility] [id number] [facility] 2019-04-26 12:58:19 2019-04-26 15:42:00 Emergency Betty Chanel [facility] 1..114 350.1.13.10 4.2.7.2.686 [id number] [facility] 2019-04-26 00:00:00 2019-04-26 00:00:00 Orders Only Doctor Unassigned, [place] [facility] 1.840.114 350.1.13.10 4.2.7.2.686 [id number] [facility] 2019-04-19 04:56:00 2019-04-19 04:56:00 Outpatient Zuniga_F [facility] [id number] [facility] 2019-04-19 04:56:00 2019-04-19 04:56:00 Outpatient Zuniga_F [facility] [id number] [facility] 2019-04-13 02:42:00 2019-04-13 02:42:00 Outpatient Zuniga_F [facility] [id number] [facility] 2018-12-22 00:00:00 2018-12-22 00:00:00 Patient Outreach Coral Justin [facility] 1.2.840.114 350.1.13.10 4.2.7.2.686 [id number] [facility] 2018-12-08 00:00:00 2018-12-08 00:00:00 Patient Outreach Chela Berkowitzjoie Olson [place] 1.2.840.114 350.1.13.10 4.2.7.2.686 [id number] [facility] 2018-11-23 00:00:00 2018-11-23 00:00:00 Patient Outreach Coral Justin [place] 1.2.840.114 350.1.13.10 4.2.7.2.686 [id number] [facility] 2018-11-18 00:00:00 2018-11-18 00:00:00 Patient Outreach Coral Justin 1.2.840.114 350.1.13.10 4.2.7.2.686 [id number] [facility] 2018-11-12 00:00:00 2018-11-12 00:00:00 Patient Outreach Chela Berkowitzjoie Olson [place] 1.2.840.114 350.1.13.10 4.2.7.2.686 [id number] [facility] Results Test Description Test Time Test Comments Results Result Co mments Source [facility] GLUCOSE (AUTOMATED)2022-10-01 16:59:21* Test Item Value Reference Range Interpretation Comme nts POCT GLU (test code = 2815256184) 198 mg/dL 70-110 H Lab Interpretation (test cod e = 14509-4) Abnormal [facility] GLUCOSE (AUTOMATED)2022-10-01 13:32:06* Test Item Value Reference Range Interpretation Comme nts POCT GLU (test code = 1377734163) 187 mg/dL 70-110 H Lab Interpretation (test cod e = 15034-9) Abnormal [facility] GLUCOSE (AUTOMATED)2022-10-01 13:32:06* Test Item Value Reference Range Interpretation Comme nts POCT GLU (test code = 3120076454) 187 mg/dL 70-110 H Lab Interpretation (test cod e = 88369-4) Abnormal [facility] GLUCOSE (AUTOMATED)2022-10-01 01:51:19* Test Item Value Reference Range Interpretation Comme nts POCT GLU (test code = 2957199622) 130 mg/dL 70-110 H Lab Interpretation (test cod e = 75270-3) Abnormal [facility] GLUCOSE (AUTOMATED)2022-10-01 01:51:19* Test Item Value Reference Range Interpretation Comme nts POCT GLU (test code = 8341232948) 130 mg/dL 70-110 H Lab Interpretation (test cod e = 90041-7) Abnormal [facility] GLUCOSE (AUTOMATED)2022-09-30 22:46:17* Test Item Value Reference Range Interpretation Comme nts POCT GLU (test code = 3831705402) 201 mg/dL 70-110 H Lab Interpretation (test cod e = 51737-4) Abnormal [facility] GLUCOSE (AUTOMATED)2022-09-30 22:46:17* Test Item Value Reference Range Interpretation Comme nts POCT GLU (test code = 1239239772) 201 mg/dL 70-110 H Lab Interpretation (test cod e = 93733-3) Abnormal [facility] GLUCOSE (AUTOMATED)2022-09-30 17:18:47* Test Item Value Reference Range Interpretation Comme nts POCT GLU (test code = 7482619691) 147 mg/dL 70-110 H Lab Interpretation (test cod e = 79731-7) Abnormal [facility] GLUCOSE (AUTOMATED)2022-09-30 17:18:47* Test Item Value Reference Range Interpretation Comme nts POCT GLU (test code = 5788688514) 147 mg/dL 70-110 H Lab Interpretation (test cod e = 76918-5) Abnormal [facility] GLUCOSE (AUTOMATED)2022-09-30 13:11:59* Test Item Value Reference Range Interpretation Comme nts POCT GLU (test code = 2395974884) 169 mg/dL 70-110 H Lab Interpretation (test cod e = 24087-8) Abnormal [facility] GLUCOSE (AUTOMATED)2022-09-30 13:11:59* Test Item Value Reference Range Interpretation Comme nts POCT GLU (test code = 0242903360) 169 mg/dL 70-110 H Lab Interpretation (test cod e = 73437-8) Abnormal [facility] GLUCOSE (AUTOMATED)2022-09-30 02:16:21* Test Item Value Reference Range Interpretation Comme nts POCT GLU (test code = 3212204219) 162 mg/dL 70-110 H Lab Interpretation (test cod e = 37306-7) Abnormal [facility] GLUCOSE (AUTOMATED)2022-09-30 02:16:21* Test Item Value Reference Range Interpretation Comme nts POCT GLU (test code = 3239532525) 162 mg/dL 70-110 H Lab Interpretation (test cod e = 34723-5) Abnormal [facility] GLUCOSE (AUTOMATED)2022-09-29 22:29:54* Test Item Value Reference Range Interpretation Comme nts POCT GLU (test code = 0393666731) 122 mg/dL 70-110 H Lab Interpretation (test cod e = 89887-5) Abnormal [facility] GLUCOSE (AUTOMATED)2022-09-29 22:29:54* Test Item Value Reference Range Interpretation Comme nts POCT GLU (test code = 4443713642) 122 mg/dL 70-110 H Lab Interpretation (test cod e = 36580-0) Abnormal [facility] GLUCOSE (AUTOMATED)2022-09-29 16:32:46* Test Item Value Reference Range Interpretation Comme nts POCT GLU (test code = 1559469214) 135 mg/dL 70-110 H Lab Interpretation (test cod e = 28264-6) [facility]29 16:32:46* Test Item Value Reference Range Interpretation Comme nts POCT GLU (test code = 5396251652) 135 mg/dL 70-110 H Lab Interpretation (test cod e = 78366-6) Abnormal [facility] GLUCOSE (AUTOMATED)2022-09-29 12:52:12* Test Item Value Reference Range Interpretation Comme nts POCT GLU (test code = 2666340843) 136 mg/dL 70-110 H Lab Interpretation (test cod e = 93376-3) Abnormal [facility] GLUCOSE (AUTOMATED)2022-09-29 12:52:12* Test Item Value Reference Range Interpretation Comme nts POCT GLU (test code = 4920402006) 136 mg/dL 70-110 H Lab Interpretation (test cod e = 86397-2) Abnormal [facility] GLUCOSE (AUTOMATED)2022-09-29 02:27:44* Test Item Value Reference Range Interpretation Comme nts POCT GLU (test code = 7768521913) 174 mg/dL 70-110 H Lab Interpretation (test cod e = 54409-8) Abnormal [facility] GLUCOSE (AUTOMATED)2022-09-29 02:27:44* Test Item Value Reference Range Interpretation Comme nts POCT GLU (test code = 8143346406) 174 mg/dL 70-110 H Lab Interpretation (test cod e = 31073-1) Abnormal [facility] GLUCOSE (AUTOMATED)2022-09-28 22:39:34* Test Item Value Reference Range Interpretation Comme nts POCT GLU (test code = 1964845004) 166 mg/dL 70-110 H Lab Interpretation (test cod e = 90227-7) Abnormal [facility] GLUCOSE (AUTOMATED)2022-09-28 22:39:34* Test Item Value Reference Range Interpretation Comme nts POCT GLU (test code = 6487430119) 166 mg/dL 70-110 H Lab Interpretation (test cod e = 32267-0) [facility] 20:04:17* Test Item Value Reference Range Interpretation Comme nts HGB A1C (test code = 4548-4) 6.7 % 4.0-5.7 H TED (test code = TED) Reference RangesNormal: <5.7%Prediabetes: 5.7 - 6.4%Diabetes: > 6.5% Lab Interpretation (test code = 32085-7) Abnormal [facility]2022-09-28 20:04:17* Test Item Value Reference Range Interpretation Comme nts HGB A1C (test code = 4548-4) 6.7 % 4.0-5.7 H TED (test code = TED) Reference RangesNormal: <5.7%Prediabetes: 5.7 - 6.4%Diabetes: > 6.5% Lab Interpretation (test code = 51503-7) Abnormal [facility] [id number] 19:57:13* Test Item Value Reference Range Interpretation Comme nts NT-proBNP (test code = 3057568212) <=125 TED (test code = TED) Biotin has been reported to cause a negative bias, interpret results relative to patient's use of biotin. Lab Interpretation (test code = 01634-9) Normal [facility] [id number] 19:57:13* Test Item Value Reference Range Interpretation Comme nts NT-proBNP (test code = 6323328779) <=125 TED (test code = TED) Biotin has been reported to cause a negative bias, interpret results relative to patient's use of biotin. Lab Interpretation (test code = 10289-9) Normal [facility] [id number] 15:07:30* Test Item Value Reference Range Interpretation Comme nts TROPONIN I (test code = 2698934801) 0.001 ng/mL <=0.034 TED (test code = TED) Reference (Normal) Range (defined by the 99th percentile reference limit): <= 0.034 ng/mL Note: Cardiac troponin begins to rise 3-4 hours after the onset of ischemia. Repeat in 4-6 hours if the sample was drawn within 3-4 hours of the onset of the symptom and found normal. Diagnosis of myocardial injury is made with acute changes in cTn concentrations with at least one serial sample above the 99th percentile upper reference limit (URL), taken together with the patient's clinical presentation. Biotin has been reported to cause a negative bias, interpret results relative to patient's use of biotin. Lab Interpretation (test code = 62119-8) Normal [facility] [id number] 15:07:30* Test Item Value Reference Range Interpretation Comme [facility] TROPONIN I (test code = 2745401274) 0.001 ng/mL <=0.034 TED (test code = TED) Reference (Normal) Range (defined by the 99th percentile reference limit): <= 0.034 ng/mL Note: Cardiac troponin begins to rise 3-4 hours after the onset of ischemia. Repeat in 4-6 hours if the sample was drawn within 3-4 hours of the onset of the symptom and found normal. Diagnosis of myocardial injury is made with acute changes in cTn concentrations with at least one serial sample above the 99th percentile upper reference limit (URL), taken together with the patient's clinical presentation. Biotin has been reported to cause a negative bias, interpret results relative to patient's use of biotin. Lab Interpretation (test code = 30100-4) Normal [facility] THRMPLAS [id number] 11:51:25* Test Item Value Reference Range Interpretation Comme nts APTT Patient (test code = 3173-2) 25 See_Comment [Automated message] The system which generated this result transmitted reference range: 23 - 38 Seconds. The reference range was not used to interpret this result as normal/abnormal. TED (test code = TED) [facility] patient population mean normal value for aPTT is 30 seconds. Lab Interpretation (test code = 37752-8) Normal [facility] TH[facility] [id number] 11:51:25* Test Item Value Reference Range Interpretation Comme nts APTT Patient (test code = 3173-2) 25 See_Comment [Automated message] The system which generated this result transmitted reference range: 23 - 38 Seconds. The reference range was not used to interpret this result as normal/abnormal. TED (test code = TED) [facility] patient population mean normal value for aPTT is 30 seconds. Lab Interpretation (test code = 36827-6) Normal [facility] HospitalPROT[facility] TIME / [id number] 11:49:24* Test Item Value Reference Range Interpretation Comme [facility] PROTRITA PATIENT (test code = 5964-2) 12.5 See_Comment [Automated [employer]] The system which generated this result transmitted reference range: 12.0 - 14.7 Seconds. The reference range was not used to interpret this result as normal/abnormal. INR (test code = 6301-6) 1.0 Normal INR <1.1; Warfarin Therapeutic range 2.0 to 3.0 or 2.5 to 3.5, depending upon the indications. Lab Interpretation (test code = 82683-3) Normal [facility] / [id number] 11:49:24* Test Item Value Reference Range Interpretation Comme [facility] PROTIME PATIENT (test code = 5964-2) 12.5 See_Comment [Automated [employer]] The system which generated this result transmitted reference range: 12.0 - 14.7 Seconds. The reference range was not used to interpret this result as normal/abnormal. INR (test code = 6301-6) 1.0 Normal INR <1.1; Warfarin Therapeutic range 2.0 to 3.0 or 2.5 to 3.5, depending upon the indications. Lab Interpretation (test code = 31693-4) Normal [facility]TR[facility] [id number] 11:47:03* Test Item Value Reference Range Interpretation Comme [facility] TROPONIN I (test code = 8266924138) 0.001 ng/mL <=0.034 TED (test code = TED) Reference (Normal) Range (defined by the 99th percentile reference limit): <= 0.034 ng/mL Note: Cardiac troponin begins to rise 3-4 hours after the onset of ischemia. Repeat in 4-6 hours if the sample was drawn within 3-4 hours of the onset of the symptom and found normal. Diagnosis of myocardial injury is made with acute changes in cTn concentrations with at least one serial sample above the 99th percentile upper reference limit (URL), taken together with the patient's clinical presentation. Biotin has been reported to cause a negative bias, interpret results relative to patient's use of biotin. Lab Interpretation (test code = 91621-7) Normal [facility] [id number] 11:47:03* Test Item Value Reference Range Interpretation Comme nts TROPONIN I (test code = 2046573970) 0.001 ng/mL <=0.034 TED (test code = TED) Reference (Normal) Range (defined by the 99th percentile reference limit): <= 0.034 ng/mL Note: Cardiac troponin begins to rise 3-4 hours after the onset of ischemia. Repeat in 4-6 hours if the sample was drawn within 3-4 hours of the onset of the symptom and found normal. Diagnosis of myocardial injury is made with acute changes in cTn concentrations with at least one serial sample above the 99th percentile upper reference limit (URL), taken together with the patient's clinical presentation. Biotin has been reported to cause a negative bias, interpret results relative to patient's use of biotin. Lab Interpretation (test code = 34420-5) Normal [facility] [id number] 11:46:13* Test Item Value Reference Range Interpretation Comme nts NT-proBNP (test code = 7465754151) <=125 TED (test code = TED) Biotin has been reported to cause a negative bias, interpret results relative to patient's use of biotin. Lab Interpretation (test code = 27931-5) Normal [facility] [id number] 11:46:13* Test Item Value Reference Range Interpretation Comme nts NT-proBNP (test code = 6713338556) <=125 TED (test code = TED) Biotin has been reported to cause a negative bias, interpret results relative to patient's use of biotin. Lab Interpretation (test code = 64285-0) Normal [facility] WITH [id number] 11:37:02* Test Item Value Reference Range Interpretation Comme nts WBC (test code = 6690-2) 9.21 See_Comment [Automated [employer]] The system which generated this result transmitted reference range: 4.20 - 10.70 10*3/?L. The reference range was not used to interpret this result as normal/abnormal. RBC (test code = 789-8) 5.13 See_Comment [Automated messa ge] The system which generated this result transmitted reference range: 4.26 - 5.52 10*6/?L. The reference range was not used to interpret this result as normal/abnormal. HGB (test code = 718-7) 14.7 g/dL 12.2-16.4 HCT (test code = 4544-3) 43.3 % 38.4-49.3 MCV (test code = 787-2) 84.4 fL 81.7-95.6 MCH (test code = 785-6) 28.7 pg 26.1-32.7 MCHC (test code = 786-4) 33.9 g/dL 31.2-35.0 RDW-SD (test code = 68896-9) 47.6 fL 38.5-51.6 RDW-CV (test code = 788-0) 15.6 % 12.1-15.4 H PLT (test code = 777-3) 245 See_Comment [Automated messa ge] The system which generated this result transmitted reference range: 150 - 328 10*3/?L. The reference range was not used to interpret this result as normal/abnormal. MPV (test code = 25325-3) 10.9 fL 9.8-13.0 NRBC/100 WBC (test code = 7854447414) 0.0 See_Comment [Automated [employer] ssage] The system which generated this result transmitted reference range: 0.0 - 10.0 /100 WBCs. The reference range was not used to interpret this result as normal/abnormal. NRBC x10^3 (test code = 2741971411) See_Comment [Automated messa ge] The system which generated this result transmitted reference range: 10*3/?L. The reference range was not used to interpret this result as normal/abnormal. GRAN MAT (NEUT) % (test code = 770-8) 66.4 % IMM GRAN % (test code = 3394731435) 0.40 % LYMPH % (test code = 736-9) 24.9 % MONO % (test code = 5905-5) 7.2 % EOS % (test code = 713-8) 0.7 % BASO % (test code = 706-2) 0.4 % GRAN MAT x10^3(ANC) (test code = 1603361363) 6.12 10*3/uL 1.99-6.95 IMM GRAN x10^3 (test code = 3459355606) 0.04 10*3/uL 0.00-0.06 LYMPH x10^3 (test code = 731-0) 2.29 10*3/uL 1.09-3.23 MONO x10^3 (test code = 742-7) 0.66 10*3/uL 0.36-1.02 EOS x10^3 (test code = 711-2) 0.06 10*3/uL 0.06-0.53 BASO x10^3 (test code = 704-7) 0.04 10*3/uL 0.01-0.09 Lab Interpretation (test code = 54792-0) Abnormal [facility] WITH NJRX1528-91-40 11:37:02* Test Item Value Reference Range Interpretation Comme nts WBC (test code = 6690-2) 9.21 See_Comment [Automated Bar[employer] ge] The system which generated this result transmitted reference range: 4.20 - 10.70 10*3/?L. The reference range was not used to interpret this result as normal/abnormal. RBC (test code = 789-8) 5.13 See_Comment [Automated BarBirda ge] The system which generated this result transmitted reference range: 4.26 - 5.52 10*6/?L. The reference range was not used to interpret this result as normal/abnormal. HGB (test code = 718-7) 14.7 g/dL 12.2-16.4 HCT (test code = 4544-3) 43.3 % 38.4-49.3 MCV (test code = 787-2) 84.4 fL 81.7-95.6 MCH (test code = 785-6) 28.7 pg 26.1-32.7 MCHC (test code = 786-4) 33.9 g/dL 31.2-35.0 RDW-SD (test code = 55136-9) 47.6 fL 38.5-51.6 RDW-CV (test code = 788-0) 15.6 % 12.1-15.4 H PLT (test code = 777-3) 245 See_Comment [Automated messa ge] The system which generated this result transmitted reference range: 150 - 328 10*3/?L. The reference range was not used to interpret this result as normal/abnormal. MPV (test code = 50661-6) 10.9 fL 9.8-13.0 NRBC/100 WBC (test code = 3516800183) 0.0 See_Comment [Automated [employer] ssage] The system which generated this result transmitted reference range: 0.0 - 10.0 /100 WBCs. The reference range was not used to interpret this result as normal/abnormal. NRBC x10^3 (test code = 6766911536) See_Comment [Automated messa ge] The system which generated this result transmitted reference range: 10*3/?L. The reference range was not used to interpret this result as normal/abnormal. GRAN MAT (NEUT) % (test code = 770-8) 66.4 % IMM GRAN % (test code = 8518743869) 0.40 % LYMPH % (test code = 736-9) 24.9 % MONO % (test code = 5905-5) 7.2 % EOS % (test code = 713-8) 0.7 % BASO % (test code = 706-2) 0.4 % GRAN MAT x10^3(ANC) (test code = 5103079164) 6.12 10*3/uL 1.99-6.95 IMM GRAN x10^3 (test code = 8724880680) 0.04 10*3/uL 0.00-0.06 LYMPH x10^3 (test code = 731-0) 2.29 10*3/uL 1.09-3.23 MONO x10^3 (test code = 742-7) 0.66 10*3/uL 0.36-1.02 EOS x10^3 (test code = 711-2) 0.06 10*3/uL 0.06-0.53 BASO x10^3 (test code = 704-7) 0.04 10*3/uL 0.01-0.09 Lab Interpretation (test code = 38208-6) Abnormal [facility]. METABOLIC PANEL ([id number])2022-09-28 11:36:01* Test Item Value Reference Range Interpretation Comme nts NA (test code = 4000109861) 142 mmol/L 135-145 K (test code = 8789992802) 4.2 mmol/L 3.5-5.0 CL (test code = 7794790825) 108 mmol/L 98-108 CO2 TOTAL (test code = 6189212863) 22 mmol/L 23-31 L AGAP (test code = 5839911109) 12 2-16 BUN (test code = 7644310868) 19 mg/dL 7-23 GLUCOSE (test code = 5919396513) 146 mg/dL 70-110 H CREATININE (test code = 7300630168) 1.36 mg/dL 0.60-1.25 H TOTAL BILI (test code = 2333735021) 0.8 mg/dL 0.1-1.1 CALCIUM (test code = 3067039211) 9.3 mg/dL 8.6-10.6 T PROTEIN (test code = 7642241543) 8.5 g/dL 6.3-8.2 H ALBUMIN (test code = 9742440473) 4.4 g/dL 3.5-5.0 ALK PHOS (test code = 1109947871) 90 U/L 34-122 ALTv (test code = 1742-6) 53 U/L 5-50 H AST(SGOT) (test code = 9536290056) 28 U/L 13-40 eGFR (test code = 3480525801) 54.6 mL/min/1.73m2 TED (test code = TED) Association of Glomerular Filtration Rate (GFR) and Staging of Kidney Disease* + --+ --+ ------+| GFR (mL/min/1.73 m2) ?| With Kidney Damage ?| ?Without Kidney Damage+ --------+ --------+ +| ?>90 ?| ?Stage one ?| ? Normal ?+ ---+ ---+ -------+| ?60-89 ?| ?Stage two ?| ? Decreased GFR ? + --+ --+ ------+| ?30-59 ?| ?Stage three ?| ? Stage three ? + --+ --+ ------+| ?15-29 ?| ?Stage four ? | ? Stage four ?+ ---+ ---+ -------+| ?<15 (or dialysis) ? ?| ?Stage five ? | ? Stage five ?+ ---+ ---+ -------+ *Each stage assumes the associated GFR level has been in effect for at least three months. ?Stages 1 to 5, with or without kidney disease, indicate chronic kidney disease. Notes: Determination of stages one and two (with eGFR >59mL/min/1.73 m2) requires estimation of kidney damage for at least three months as defined by structural or functional abnormalities of the kidney, manifested by either:Pathological abnormalities or Markers of kidney damage (including abnormalities in the composition of the blood or urine or abnormalities in imaging tests). Lab Interpretation (test code = 41308-4) Abnormal [facility]. METABOLIC PANEL ([id number])2022-09-28 11:36:01* Test Item Value Reference Range Interpretation Comme nts NA (test code = 1178541433) 142 mmol/L 135-145 K (test code = 9978826982) 4.2 mmol/L 3.5-5.0 CL (test code = 1479590013) 108 mmol/L 98-108 CO2 TOTAL (test code = 5412305748) 22 mmol/L 23-31 L AGAP (test code = 8796406377) 12 2-16 BUN (test code = 5276178636) 19 mg/dL 7-23 GLUCOSE (test code = 1918454000) 146 mg/dL 70-110 H CREATININE (test code = 4403211506) 1.36 mg/dL 0.60-1.25 H TOTAL BILI (test code = 3271975097) 0.8 mg/dL 0.1-1.1 CALCIUM (test code = 1598337652) 9.3 mg/dL 8.6-10.6 T PROTEIN (test code = 3972983637) 8.5 g/dL 6.3-8.2 H ALBUMIN (test code = 9917841741) 4.4 g/dL 3.5-5.0 ALK PHOS (test code = 0935870926) 90 U/L 34-122 ALTv (test code = 1742-6) 53 U/L 5-50 H AST(SGOT) (test code = 0767622414) 28 U/L 13-40 eGFR (test code = 8892724970) 54.6 mL/min/1.73m2 TED (test code = TED) Association of Glomerular Filtration Rate (GFR) and Staging of Kidney Disease* + --+ --+ ------+| GFR (mL/min/1.73 m2) ?| With Kidney Damage ?| ?Without Kidney Damage+ --------+ --------+ +| ?>90 ?| ?Stage one ?| ? Normal ?+ ---+ ---+ -------+| ?60-89 ?| ?Stage two ?| ? Decreased GFR ? + --+ --+ ------+| ?30-59 ?| ?Stage three ?| ? Stage three ? + --+ --+ ------+| ?15-29 ?| ?Stage four ? | ? Stage four ?+ ---+ ---+ -------+| ?<15 (or dialysis) ? ?| ?Stage five ? | ? Stage five ?+ ---+ ---+ -------+ *Each stage assumes the associated GFR level has been in effect for at least three months. ?Stages 1 to 5, with or without kidney disease, indicate chronic kidney disease. Notes: Determination of stages one and two (with eGFR >59mL/min/1.73 m2) requires estimation of kidney damage for at least three months as defined by structural or functional abnormalities of the kidney, manifested by either:Pathological abnormalities or Markers of kidney damage (including abnormalities in the composition of the blood or urine or abnormalities in imaging tests). Lab Interpretation (test code = 87018-2) [facility] Test Item Value Reference Range Interpretation Comme nts LIPASE (test code = 7928364156) 54 U/L 0-220 Lab Interpretation (test cod e = 46379-4) [facility]* Test Item Value Reference Range Interpretation Comme nts LIPASE (test code = 9344441607) 54 U/L 0-220 Lab Interpretation (test cod e = 86554-0) Normal [facility] Notes Date/Time Note Provider Source 2023-09-14 13:16:41 5266-13-49H69:16:41 Patient no longer BCIP he is currently insured with [facility] colleen robert, we are OON, patient is going to look for in network provider. 19989-7Xuasgndlo encounter RkniBP9698-23-15M22:17:46Telephone encounter NoteTXT1.2.840.065844.1.13.104.2.7.2 .896705|[id number] for patient gcip92018-9FxeaYAJRFOMHZHPEbgclarrw C-CDA narrative [id number] [id number] DQHBQWQGDMTGUXISWUHJQS2004-09-97J69: 17:461.2.840.947933.1.72.3.15|1.2.84 0.614745.1.13.104.2.7.2.727879_21197 [address] Alyssa [facility] 2023-09-14 08:52:04 8888-97-18I62:52:04 Patient is no longer on BCIP. 78010-4Sdbtafphb encounter HqupRW4124-23-44U54:53:22Telephone encounter NoteTXT1.2.840.094762.1.13.104.2.7.2 .118322|[id number] for patient emnp75294-9UjsyALBWJYYSYSPGtdkvygxp C-CDA narrative [id number] HIAXTYXTJHKYKUBDHOQDLD3564-56-10N17: 53:221.2.840.205737.1.72.3.15|1.2.84 0.146311.1.13.104.2.7.2.727879_21193 8[address] [facility] 2023-09-14 08:19:17 1008-92-58X00:19:17 Needs follow up visit, please facilitate through BCIP 96310-4Joouavola encounter PklwKI7741-48-43M78:19:42Telephone encounter NoteTXT1.2.840.287654.1.13.104.2.7.2 .859314|[id number] for patient rdoy45989-7MdmmAGDQFDVKMBRQasigcxku C-CDA narrative [address] KtwmJpqdfygonJkhiouowwSCWG8812013430 EFOJWMAXZMPBZQYVFFXKNQ9707-36-96V26: 19:421.2.840.076146.1.72.3.15|1.2.84 0.516000.1.13.104.2.7.2.727879_21192 268[address] [facility] 2023-09-14 07:07:52 3490-67-05J58:07:52 Pss please reach out to patient for follow-up appointment for medication/labs. Thank you.Last Refilled:Disp Refills Start End DAWlevothyroxine 25 mcg tablet 90 tablet 1 02/19/2023 -- --Sig: Take 1 tablet by mouth every morning.Sent to pharmacy as: levothyroxine 25 mcg tablet (SYNTHROID)Class: eRXRoute: OralOrder: [id number]/Time Signed: 02/19/2023 08:55E-Prescribing Status: Receipt confirmed by pharmacy (02/19/2023 9:12 AM DENTAL SERVICES DIRECTOR)Notes: office visit 02/19/23Hypothyroidism, unspecified typeComment: chronicPlan: THYROID STIMULATING HORMONE, FREE B6Pjmjrmr acuity: Chronic. Risk: Low if well-controlled. Progression: Due for reassessment. The patient should continue the current thyroid hormone replacement dose for now. I will adjust the dose if needed based on the patient's TFTs. To ensure optimal absorption, the patient should take his/her thyroid medication in the morning on an empty stomach with water at least 30mins-1hr prior to other medications and food. when in need of refills, request at least 7 days before you run out to prevent being out of med for long as this can affect lab value and can cause questionable efficacy of dose of medication.Recent VisitsDate Type Provider Dept104/21/22 Office Visit Han Valenzuela, ETL LEAD [facility]01/15/23 Office Visit Han Valenzuela, ETL LEAD [facility]12/04/22 Office Visit Han Valenzuela, ETL LEAD [facility]11/06/22 Office Visit Han Valenzuela, ETL LEAD [facility]10/23/22 Office Visit Han Valenzuela ETL LEAD [facility] MedShowing recent visits within past 540 days with a meds authorizing provider and meeting all other requirementsFuture AppointmentsNo visits were found meeting these conditions.Showing future appointments within next 150 days with a meds authorizing provider and meeting all other requirementsTechnician Visit on 04/03/2023omponent Date ValueWBC 04/03/2023 6.27RBC 04/03/2023 4.59HGB 04/03/2023 13.5HCT 04/03/2023 39.9MCH 04/03/2023 29.4MCV 04/03/2023 86.9MCHC 04/03/2023 33.8PLT 04/03/2023 210MPV 04/03/2023 11.2RDW-CV 04/03/2023 14.6RDW-SD 04/03/2023 46.3NRBC x10^3 04/03/2023 <0.01NRBC/100 WBC 04/03/2023 0.0NA 04/03/2023 141K 04/03/2023 3.6CL 04/03/2023 107CO2 TOTAL 04/03/2023 25AGAP 04/03/2023 9BUN 04/03/2023 16GLUCOSE 04/03/2023 184 (H)CREATININE 04/03/2023 1.22CALCIUM 04/03/2023 9.2eGFR 04/03/2023 70.0MAGNESIUM 04/03/2023 1.9PHOSPHORUS 04/03/2023 3.0T. PROT U 04/03/2023 36CREAT U 04/03/2023 109.6Protein/Creatinine Ratio* 04/03/2023 0.3APPEARANCE 04/03/2023 Hazy (A)COLOR 04/03/2023 YellowPH 04/03/2023 5.0SP GRAVITY 04/03/2023 1.011GLU U QUAL 04/03/2023 NormalBLOOD 04/03/2023 NegativeKETONES 04/03/2023 NegativePROTEIN 04/03/2023 30 mg/dL (A)UROBILIN 04/03/2023 NormalBILIRUBIN 04/03/2023 NegativeNITRITE 04/03/2023 NegativeLEUK NEHAL 04/03/2023 NegativeRBC/HPF 04/03/2023 <1WBC/HPF 04/03/2023 1BACTERIA 04/03/2023 Few (A)MUCOUS 04/03/2023 Slight (A)SQ EPITH 04/03/2023 3REN EPITH 04/03/2023 <1Technician Visit on 3Component Date ValueHIV-1 Quantitative Inter* 03/20/2023 Not DetectedHIV 1/2 Ag-Ab with Reflex 03/20/2023 Reactive (A)HIV Semi-quantitative 03/20/2023 2.76Syphilis IgG/IgM 03/20/2023 Non-reactiveHIV Supplemental Confirm* 03/20/2023 Presumptive Negative/IndeterminateHIV-1 Ab Confirmation 03/20/2023 NegativeHIV-2 Ab Confirmation 03/20/2023 NegativeHIV-1 Qualitative by NAAT 03/20/2023 Not DetectedTechnician Visit on 3Component Date ValueTSH 02/19/2023 4.47CHOL 02/19/2023 206 (H)HDL 02/19/2023 30 (L)HDLC RATIO 02/19/2023 6.9 (H)TRIG 02/19/2023 147LDL CHOL 02/19/2023 147VLDL 02/19/2023 29HGB A1C 02/19/2023 6.5 (H)VIT D 25OH 02/19/2023 32FREE T4 02/19/2023 0.99Office Visit on 3Component Date ValueWBC 02/19/2023 6.47RBC 02/19/2023 4.83HGB 02/19/2023 14.0HCT 02/19/2023 42.7MCV 02/19/2023 88.4MCH 02/19/2023 29.0MCHC 02/19/2023 32.8RDW-SD 02/19/2023 47.2RDW-CV 02/19/2023 14.8PLT 02/19/2023 224MPV 02/19/2023 11.7NRBC/100 WBC 02/19/2023 0.0NRBC x10^3 02/19/2023 <0.01GRAN MAT (NEUT) % 02/19/2023 53.3IMM GRAN % 02/19/2023 0.80LYMPH % 02/19/2023 37.2MONO % 02/19/2023 7.3EOS % 02/19/2023 0.6BASO % 02/19/2023 0.8GRAN MAT x10^3(ANC) 02/19/2023 3.45IMM GRAN x10^3 02/19/2023 0.05LYMPH x10^3 02/19/2023 2.41MONO x10^3 02/19/2023 0.47EOS x10^3 02/19/2023 0.04 (L)BASO x10^3 02/19/2023 0.05NA 02/19/2023 143K 02/19/2023 4.4CL 02/19/2023 108CO2 TOTAL 02/19/2023 23AGAP 02/19/2023 12BUN 02/19/2023 11GLUCOSE 02/19/2023 112 (H)CREATININE 02/19/2023 1.14TOTAL BILI 02/19/2023 0.7CALCIUM 02/19/2023 9.6T PROTEIN 02/19/2023 9.2 (H)ALBUMIN 02/19/2023 4.5ALK PHOS 02/19/2023 73ALTv 02/19/2023 65 (H)AST(SGOT) 02/19/2023 42 (H)eGFR 02/19/2023 76.0Technician Visit on 01/28/2023omponent Date ValueNA 01/28/2023 141K 01/28/2023 3.8CL 01/28/2023 105CO2 TOTAL 01/28/2023 28AGAP 01/28/2023 8BUN 01/28/2023 14GLUCOSE 01/28/2023 133 (H)CREATININE 01/28/2023 1.28 (H)CALCIUM 01/28/2023 9.7eGFR 01/28/2023 58.3Technician Visit on 12/18/2022ompon Date ValueHIV 1/2 Ag-Ab with Reflex 12/18/2022 Reactive (A)HIV Semi-quantitative 12/18/2022 3.41HIV Supplemental Confirm* 12/18/2022 Presumptive Negative/IndeterminateHIV-1 Ab Confirmation 12/18/2022 IndeterminateHIV-2 Ab Confirmation 12/18/2022 NegativeHIV-1 Qualitative by NAAT 12/18/2022 Not DetectedTechnician Visit on 10/27/2022omponent Date ValueNA 10/27/2022 141K 10/27/2022 4.6CL 10/27/2022 108CO2 TOTAL 10/27/2022 24AGAP 10/27/2022 9BUN 10/27/2022 10GLUCOSE 10/27/2022 116 (H)CREATININE 10/27/2022 1.32 (H)TOTAL BILI 10/27/2022 0.9CALCIUM 10/27/2022 9.6T PROTEIN 10/27/2022 8.5 (H)ALBUMIN 10/27/2022 4.5ALK PHOS 10/27/2022 78ALTv 10/27/2022 50AST(SGOT) 10/27/2022 31eGFR 10/27/2022 56.5WBC 10/27/2022 5.87RBC 10/27/2022 4.88HGB 10/27/2022 13.9HCT 10/27/2022 41.6MCH 10/27/2022 28.5MCV 10/27/2022 85.2MCHC 10/27/2022 33.4PLT 10/27/2022 134 (L)MPV 10/27/2022 11.8RDW-CV 10/27/2022 15.3RDW-SD 10/27/2022 46.8NRBC x10^3 10/27/2022 <0.01NRBC/100 WBC 10/27/2022 0.0MAGNESIUM 10/27/2022 2.0CREAT U 10/27/2022 169.8MICROALB U 10/27/2022 166 (H)MICROAL/CR 10/27/2022 98 (H)PHOSPHORUS 10/27/2022 3.4T. PROT U 10/27/2022 40CREAT U 10/27/2022 157.6Protein/Creatinine Ratio* 10/27/2022 0.3PTH-INTACT 10/27/2022 59.7PTH-CA Interpretation 3CALCIUM 10/27/2022 9.5APPEARANCE 10/27/2022 Hazy (A)COLOR 10/27/2022 YellowPH 10/27/2022 5.0SP GRAVITY 10/27/2022 1.011GLU U QUAL 10/27/2022 NormalBLOOD 10/27/2022 NegativeKETONES 10/27/2022 NegativePROTEIN 10/27/2022 30 mg/dL (A)UROBILIN 10/27/2022 NormalBILIRUBIN 10/27/2022 NegativeNITRITE 10/27/2022 NegativeLEUK NEHAL 10/27/2022 NegativeRBC/HPF 10/27/2022 0WBC/HPF 10/27/2022 0BACTERIA 10/27/2022 NegativeMUCOUS 10/27/2022 Slight (A)SQ EPITH 10/27/2022 3HYAL CAST 10/27/2022 1Technician Visit on 3Component Date ValueHCV Ab 10/23/2022 NegativeHCV Semi-Quantitative 10/23/2022 0.11HIV 1/2 Ag-Ab with Reflex 10/23/2022 Reactive (A)HIV Semi-quantitative 10/23/2022 3.42HIV Supplemental Confirm* 10/23/2022 Presumptive Negative/IndeterminateHIV-1 Ab Confirmation 10/23/2022 NegativeHIV-2 Ab Confirmation 10/23/2022 NegativeHIV-1 Qualitative by NAAT 10/23/2022 Not DetectedAdmission on 09/28/2022, Discharged on 10/01/2022omponent Date ValueWBC 09/28/2022 9.21RBC 09/28/2022 5.13HGB 09/28/2022 14.7HCT 09/28/2022 43.3MCV 09/28/2022 84.4MCH 09/28/2022 28.7MCHC 09/28/2022 33.9RDW-SD 09/28/2022 47.6RDW-CV 09/28/2022 15.6 (H)PLT 09/28/2022 245MPV 09/28/2022 10.9NRBC/100 WBC 09/28/2022 0.0NRBC x10^3 09/28/2022 <0.01GRAN MAT (NEUT) % 09/28/2022 66.4IMM GRAN % 09/28/2022 0.40LYMPH % 09/28/2022 24.9MONO % 09/28/2022 7.2EOS % 09/28/2022 0.7BASO % 09/28/2022 0.4GRAN MAT x10^3(ANC) 09/28/2022 6.12IMM GRAN x10^3 09/28/2022 0.04LYMPH x10^3 09/28/2022 2.29MONO x10^3 09/28/2022 0.66EOS x10^3 09/28/2022 0.06BASO x10^3 09/28/2022 0.04APTT Patient 09/28/2022 25PROTIME PATIENT 09/28/2022 12.5INR 09/28/2022 1.0NA 09/28/2022 142K 09/28/2022 4.2CL 09/28/2022 108CO2 TOTAL 09/28/2022 22 (L)AGAP 09/28/2022 12BUN 09/28/2022 19GLUCOSE 09/28/2022 146 (H)CREATININE 09/28/2022 1.36 (H)TOTAL BILI 09/28/2022 0.8CALCIUM 09/28/2022 9.3T PROTEIN 09/28/2022 8.5 (H)ALBUMIN 09/28/2022 4.4ALK PHOS 09/28/2022 90ALTv 09/28/2022 53 (H)AST(SGOT) 09/28/2022 28eGFR 09/28/2022 54.6LIPASE 09/28/2022 54TROPONIN I 09/28/2022 0.001NT-proBNP 09/28/2022 <11AMPHET 09/28/2022 NegativeBARB U 09/28/2022 NegativeBENZO U 09/28/2022 NegativeCocaine Metabolite 09/28/2022 NegativeMETHADONE 09/28/2022 NegativeOPIATES 09/28/2022 Presumptive Positive (A)PCP 09/28/2022 NegativeTHC 09/28/2022 NegativeTROPONIN I 09/28/2022 0.001TROPONIN I 09/28/2022 0.002CHOL 09/28/2022 193HDL 09/28/2022 30 (L)HDLC RATIO 09/28/2022 6.4 (H)TRIG 09/28/2022 103LDL CHOL 09/28/2022 142VLDL 09/28/2022 21TOTAL BILI 09/28/2022 0.8BILI UNCON 09/28/2022 0.6BILI CONJ 09/28/2022 0.0T PROTEIN 09/28/2022 8.5 (H)ALBUMIN 09/28/2022 4.2ALK PHOS 09/28/2022 75ALTv 09/28/2022 52 (H)AST(SGOT) 09/28/2022 33TSH 09/28/2022 4.53HGB A1C 09/28/2022 6.7 (H)Height 09/29/2022 73Weight 09/29/2022 245Systolic BP 09/29/2022 132Diastolic BP 09/29/2022 92Heart Rate 09/29/2022 81BSA 09/29/2022 2.35LVOT diameter 09/29/2022 2.06LVOT area 09/29/2022 3.30LA size 09/29/2022 3.0Ao root diam 09/29/2022 2.60Aortic root 09/29/2022 2.6Ao root annulus 09/29/2022 2.6MV Peak E Annamaria 09/29/2022 39.1MV Peak A Annamaria 09/29/2022 69.8E/A ratio 09/29/2022 0.56E wave decelartion time 09/29/2022 0.19LAV(MOD-sp4) 09/29/2022 64.50Tapse 09/29/2022 2.28LVOT stroke volume 09/29/2022 42.90LVOT peak annamaria 09/29/2022 83.3LVOT mn grad 09/29/2022 1.6AV LVOT peak gradient 09/29/2022 2.8LVOT peak VTI 09/29/2022 12.9LV V1 mean 09/29/2022 59.10Aortic valve mean veloci* 09/29/2022 76.6Ao peak annamaria 09/29/2022 107.5Ao VTI 09/29/2022 14.6AV area by cont VTI 09/29/2022 2.9AV area peak annamaria 09/29/2022 2.6Ao max PG 09/29/2022 4.60AV peak gradient 09/29/2022 4.6AV valve area 09/29/2022 2.90AV mean gradient 09/29/2022 2.5LA Volume Index (BP) 09/29/2022 28.2LA volume (BP) 09/29/2022 66.1LAV(MOD-sp2) 09/29/2022 46.90LVIDD 09/29/2022 4.40Left Ventricular End Aline* 09/29/2022 89.1IVS 09/29/2022 0.91Interventricular Septum * 09/29/2022 0.91LVPWD 09/29/2022 0.91PW 09/29/2022 0.91EF(Teich) 09/29/2022 59.90LVIDS 09/29/2022 3.00Left Ventricular End Sys* 09/29/2022 35.7FS 09/29/2022 32EF - 2D 09/29/2022 59.90NT-proBNP 09/28/2022 <11PROTIME PATIENT 09/28/2022 11.9INR 09/28/2022 1.0APTT Patient 09/28/2022 28POCT GLU 09/28/2022 166 (H)APTT Patient 09/28/2022 41 (H)POCT GLU 09/28/2022 174 (H)TROPONIN I 09/28/2022 0.008NA 09/29/2022 135K 09/29/2022 4.3CL 09/29/2022 102CO2 TOTAL 09/29/2022 22 (L)AGAP 09/29/2022 11BUN 09/29/2022 16GLUCOSE 09/29/2022 150 (H)CREATININE 09/29/2022 1.21CALCIUM 09/29/2022 8.9eGFR 09/29/2022 62.5MAGNESIUM 09/29/2022 2.3APTT Patient 09/29/2022 65 (H)POCT GLU 09/29/2022 136 (H)POCT GLU 09/29/2022 135 (H)POCT GLU 09/29/2022 122 (H)POCT GLU 09/29/2022 162 (H)NA 09/30/2022 134 (L)K 09/30/2022 3.5CL 09/30/2022 96 (L)CO2 TOTAL 09/30/2022 25AGAP 09/30/2022 13BUN 09/30/2022 14GLUCOSE 09/30/2022 151 (H)CREATININE 09/30/2022 1.31 (H)CALCIUM 09/30/2022 9.2eGFR 09/30/2022 57.0WBC 09/30/2022 9.52RBC 09/30/2022 4.99HGB 09/30/2022 13.9HCT 09/30/2022 40.2MCV 09/30/2022 80.6 (L)MCH 09/30/2022 27.9MCHC 09/30/2022 34.6RDW-SD 09/30/2022 43.7RDW-CV 09/30/2022 15.0PLT 09/30/2022 253MPV 09/30/2022 10.0NRBC/100 WBC 09/30/2022 0.0NRBC x10^3 09/30/2022 <0.01GRAN MAT (NEUT) % 09/30/2022 67.8IMM GRAN % 09/30/2022 0.70LYMPH % 09/30/2022 21.3MONO % 09/30/2022 9.5EOS % 09/30/2022 0.3BASO % 09/30/2022 0.4GRAN MAT x10^3(ANC) 09/30/2022 6.45IMM GRAN x10^3 09/30/2022 0.07 (H)LYMPH x10^3 09/30/2022 2.03MONO x10^3 09/30/2022 0.90EOS x10^3 09/30/2022 0.03 (L)BASO x10^3 09/30/2022 0.04MAGNESIUM 09/30/2022 2.1POCT GLU 09/30/2022 169 (H)POCT GLU 09/30/2022 147 (H)POCT GLU 09/30/2022 201 (H)APTT Patient 09/30/2022 28POCT GLU 09/30/2022 130 (H)POCT GLU 10/01/2022 187 (H)POCT GLU 10/01/2022 198 (H) 27551-2Nofkeinxn encounter GhsaJP8820-84-23O85:11:44Telephone encounter NoteTXT1.2.840.513265.1.13.104.2.7.2 .538413|[id number] for patient opub10521-8IqewDCHSGYKEWUHKonovkluh C-CDA narrative [id number] J Bunte RN[address] Bo[id number] AKTNYELDZIHEDAGPMQTZHX8417-57-55D78: 11:441.2.840.795286.1.72.3.15|1.2.84 0.653883.1.13.104.2.7.2.727879_21192 98514 Samia Madrid RN [facility] 2023-06-23 08:59:43 8978-27-78D77:59:43 Medical records request received via fax from Dr Ojeda's office and faxed to [facility] to be released. Form scanned into chart along with fax confirmation. 76975-0Hvmduxybk encounter RwrsZO1571-44-07Y25:00:45Telephone encounter NoteTXT1.2.840.889364.1.13.104.2.7.2 .289887|[id number] for patient xheb57297-2OtpsALYHIDZBJSZUkffsjamq C-CDA narrative [id number] D Garcia MA[id number] EKSSUJVUKPVSZABLQGXEOT0155-96-84H42: 00:451.2.840.574376.1.72.3.15|1.2.84 0.828080.1.13.104.2.7.2.727879_20522 14812 Delma Miller MA [facility] 2023-04-21 13:14:45 8234-61-91Z12:14:45 Referral has been placed for internal dermatology 59641-1Esfdneove encounter DnnfZM0721-49-90R73:15:59Telephone encounter NoteTXT1.2.840.239904.1.13.104.2.7.2 .649492|[id number] for patient yoha20491-9XteyEOGATNKPQJROgkbxcxuy C-CDA narrative [id number] TLTWCDGCNBIACBZNCJFGUY6761-22-37X64: 15:591.2.840.972051.1.72.3.15|1.2.84 0.069661.1.13.104.2.7.2.727879_20001 60097 [facility] 2023-04-21 10:58:37 6948-86-53B54:58:37 Nakia Oliver is a 55 [facility] engineering design supervisor is requesting a pcp referral to allow the pt to have surgery to remove the keloids on his chest and neck. 88276-1Ovntsczvr encounter RvldYB0579-07-58J15:00:25Telephone encounter NoteTXT1.2.840.523697.1.13.104.2.7.2 .613142|[id number] for patient ogdz91732-8FnqiMCZFPJJMNKPLgzthknkn C-CDA narrative [id number] Natalie Yeung[address] Op[id number] OJYFMZJTFIEYVFGTQPTEHD6527-85-04B77: 00:251.2.840.690034.1.72.3.15|1.2.84 0.954233.1.13.104.2.7.2.727879_20000 20774 Ciera Yeung [facility] 2023-04-03 08:00:00 3726-20-64J24:00:00 Images from the original note were not included.Venipuncture collection performed by clean technique on the right hand. Total of 1 attempts were made. Slight pressure and a bandage/dressing were applied to the site(s). The patient experienced no complications. The following specimens were processed according to instructions and sent to [facility] laboratories per lab order on 04/03/2023:LT BLUESST 1REDLAV 1PPTDK GREEN (LiHep)DK GREEN (SodH)GRAYDK BLUE (K2)DK BLUE (S)ACDBlood CultureNIPT/NTDPatient has been identified by and name and was provided with cup, antiseptic towelette, and clean catch instructions. 2 urine specimen(s) sent.Unpreserved 2Urine CultureAptima tubeOther urine 88345-4Kmnza XhypJG6473-58-53T85:16:46Nurse NoteTXT1.2.840.791824.1.13.104.2.7.2 .241823|[id number] for patient nzrb60620-2Mqkcr NoteLNNARRATIVEFormatted C-CDA narrative [id number] VNYHKJSNIUSRHESFVGYULT7237-44-23P92: 16:461.2.840.280756.1.72.3.15|1.2.84 0.873303.1.13.104.2.7.2.727879_19876 [id number] [facility] 2023-04-02 13:24:11 8804-71-36S71:24:11 Chart reviewed. Labs ordered for upcoming Nephrology appointment per guidelines. Placecasthart message and/or letter sent to patient as an appointment reminder. 73569-5Adibcmzue encounter AmpcYW7239-78-23M64:27:06Telephone encounter NoteTXT1.2.840.976512.1.13.104.2.7.2 .218702|[id number] for patient cyhs31573-4FsbnRJRMDUEHTQDUnznelsxy C-CDA narrative [id number] YPZIVRIRZHLQTNGUPFWRCR8434-97-85V93: 27:061.2.840.879844.1.72.3.15|1.2.84 0.265139.1.13.104.2.7.2.727879_19870 [id number] [facility] 2023-04-01 15:53:18 6656-12-40H39:53:18 [facility]27[facility] 04/01/2023 3:53 PM 05834-9Zrbvtcnnh encounter BpyuOF1201-24-10P29:54:06Telephone encounter NoteTXT1.2.840.893989.1.13.104.2.7.2 .259488|3145243164UPDaariojhc for patient eogo40463-8TxesPIRHPBIQRAEVrblyficz C-CDA narrative [id number] A [id number] WIJHJLAHHNTYWTHPHQOWYR2591-79-32A87: 54:061.2.840.306345.1.72.3.15|1.2.84 0.419080.1.13.104.2.7.2.727879_19853 [id number] Carmen Venegas [facility] 2022-12-22 12:49:24 1216-19-91K47:49:24 Patient informed lab results have not been informed as of yet. Once done so we will be in contact to discuss. He verbalized understanding. Sheila Schultz LVN 12/22/2022 12:50 PM 50741-5Ddceaxusp encounter FdfbST3160-15-20I83:50:15Telephone encounter NoteTXT1.2.840.850489.1.13.104.2.7.2 .238642|1982811243DDDchjmkuem for patient pffw26398-3OzltNA113074050Cxfikbr M Fisher [id number] ACZUZQSZCQMXZPUZSGLXXP8209-27-04X12: 50:151.2.840.194289.1.72.3.15|1.2.84 0.931568.1.13.104.2.7.2.727879_19024 [id number] Sheila Schultz [facility] 2022-12-22 10:09:11 6457-73-27C69:09:11 Patient is calling for his lab results, please call him at [phone] signed by Barbi Samayoa at 12/22/2022 10:10 AM XKO85650-5Ijwdvwfsw encounter WswaDI4324-81-27A76:10:36Telephone encounter NoteTXT1.2.840.457001.1.13.104.2.7.2 .924855|[id number] for patient gjla32450-6MmacNZ984442086Elvbfos M Vickey[id number] NKIYICSKKKMLKMQMZBXNYW8955-02-01S31: 10:361.2.840.344998.1.72.3.15|1.2.84 0.041149.1.13.104.2.7.2.727879_19022 [id number] Barbi Samayoa [facility] 2022-12-18 14:30:00 0341-10-25I17:30:00 Images from the original note were not included.Venipuncture collection performed by clean technique on the right anticubitus. Total of 2 attempts were made. Slight pressure and a bandage/dressing were applied to the site(s). The patient experienced no complications. The following specimens were processed according to instructions and sent to [facility] laboratories per lab order on today: LT BLUE SST 1 RED LAV PPT DK GREEN (LiHep) DK GREEN (SodH) GRACE DK BLUE (K2) DK BLUE (S) ACD Blood Culture NIPT/NTD Patient was stuck x2 once by myself and once by [place] 29116-1Aomrl MfekFV7591-98-35I88:09:54Nurse NoteTXT1.2.840.965583.1.13.104.2.7.2 .908163|9101107100VUNibykyjuz for patient fcpw35222-6Uyohj [id number] MLDWHHNGLKPKXZVKXAJFSR7590-07-29P14: 09:541.2.840.202205.1.72.3.15|1.2.84 0.509749.1.13.104.2.7.2.727879_18998 [id number] [facility] 2022-12-17 08:59:37 3513-65-63N48:59:37 Notified patient after speaking to [facility]. Per Crystal Almonte they will not pay for a patient to be admitted into the hospital for a colonoscopy prep. Patient verbalized understanding 65596-3Tmwfnlovy encounter LogvMN6499-41-33N01:01:28Telephone encounter NoteTXT1.2.840.224467.1.13.104.2.7.2 .668527|9975827254IZIiwtaicce for patient sbei81210-1BammHBBATQRFFZ[id number] USISYDKRHGPTRGSWBFKSYH0452-19-50T58: 01:281.2.840.896901.1.72.3.15|1.2.84 0.756634.1.13.104.2.7.2.727879_18982 [id number] [facility] 2022-12-16 13:18:32 0527-90-92D48:18:32 Not sure if you need to help schedule her appointment. 93046-9Vqnybdxlk encounter RzbhAJ7807-77-68Q76:18:59Telephone encounter NoteTXT1.2.840.164055.1.13.104.2.7.2 .413372|9244239509IIDflxotauh for patient mnss99383-5MncmGL391619645Rnccvh J Medina MAUT[id number] SSJVFCPRFHGRVOXJBMQQOQ2955-50-27I66: 18:591.2.840.517670.1.72.3.15|1.2.84 0.367115.1.13.104.2.7.2.727879_18974 [id number] Trish Gerber MA [facility] 2022-12-15 15:32:23 9209-00-49Q02:32:23 Faxed 12.12.22 cardio [facility]ment [facility]. Requested new referral for EKG and follow up cardio.Carmen Cano 12/15/2022 3:33 PM 37417-3Jhdegahbo encounter NbakCX4370-02-30R24:33:23Telephone encounter NoteTXT1.2.840.307577.1.13.104.2.7.2 .312366|7531829851WZResxrjaxs for patient iydq12321-2LkktPS459091142Leyych A [id number] MQEDZHUZWZYNKDSJNZJHTE0275-65-60L78: 33:231.2.840.250243.1.72.3.15|1.2.84 0.988324.1.13.104.2.7.2.727879_18964 [id number] Carmen Cano [facility] 2022-12-12 13:04:38 3656-23-25T59:04:38 Images from the original note were not included.Can you please put a follow up referral in for cardio. Thanks raul Last cardio dx was Visit DiagnosesChest pain, unspecified type R07.9Nonobstructive atherosclerosis of coronary artery I25.10Hypertension, unspecified type S81Gfaenpiqykmw E78.5Obesity (BMI 30-39.9) E66.9OSA (obstructive sleep apnea) G47.33 96451-1Ntpyfyrcq encounter VnseWU3288-12-89Y24:13:36Telephone encounter NoteTXT1.2.840.040335.1.13.104.2.7.2 .675805|5675559868FAOavqiqzbt for patient tybi02907-1DhziTK146895277Ddnlauv L Graham MA[address] HwdkDrfkuxtdgJjixifgjiMMVU2379170066 YVYHAGFNMYWANNGAZGDIGT9741-11-82L69: 13:361.2.840.435476.1.72.3.15|1.2.84 0.233001.1.13.104.2.7.2.727879_18947 [id number] Raul Prasad MA [facility] 2022-12-12 12:11:38 8824-12-77E94:11:38 Pt is wanting to inform LEIDA Valenzuela that DR PETERS has updated changes on your medications. Pt is wanting to know if Bianca was able to change his [place] appointment to down here. Pt is checking the status, 24989-8Vymmmemzd encounter WmjnNQ0248-41-61N14:14:29Telephone encounter NoteTXT1.2.840.077108.1.13.104.2.7.2 .828530|5910073985BSBzldijzxt for patient avdz59238-0XmyvWH78595562Iebtl J [id number] SOAAIKCVCBAJFMQOWEPJFV8112-20-01O74: 14:291.2.840.948356.1.72.3.15|1.2.84 0.582211.1.13.104.2.7.2.727879_18947 [id number] Anca Vitale [facility] 2022-11-28 13:15:42 3657-63-49W35:15:42 Thanks for letting me know. 21366-8Vjxyliynv encounter DhfgPE8874-68-45X54:15:52Telephone encounter NoteTXT1.2.840.153839.1.13.104.2.7.2 .355642|8659982178NUKgybdvieq for patient iite36557-5LjqwHVWTIEHOGR[id number] VZQHFEDQVOPFMHHZMMPEAS1872-72-66T33: 15:521.2.840.938989.1.72.3.15|1.2.84 0.946169.1.13.104.2.7.2.727879_18835 [id number] [facility] 2022-11-27 15:04:28 5468-59-71F53:04:28 Pt called back and details were covered on instructions for getting colonoscopy. Pt was advised to call the scheduling dept to discuss his transportation possible issue of his mother not being on premises while pt is in procedure, but will pick pt up. I also let pt know he could not get a room at hospital to prep for procedure. Pt voiced understanding of what he needs to do and will follow thru with arranging a place to prep and his transportation requirements by calling scheduling and asking them. 62513-6Qjvudmuen encounter HzjgAE5057-80-96G53:12:14Telephone encounter NoteTXT1.2.840.393798.1.13.104.2.7.2 .978099|5785608433HNSurjsikgr for patient rave51070-7AmtqPV635395461Mrismur L Allen RN[id number] EKUSMIBZSKGZWJNMWODAFQ3525-72-11R80: 12:141.2.840.789124.1.72.3.15|1.2.84 0.295411.1.13.104.2.7.2.727879_18826 [id number] Luz Santiago RN [facility] 2022-11-24 10:05:15 1444-00-51D86:05:15 The phone number [phone] is not in service. 08915-9Hpftuerjg encounter EwcyWY5141-83-90N29:10:33Telephone encounter NoteTXT1.2.840.344806.1.13.104.2.7.2 .094118|3051381974WLAfpksgobs for patient slll65260-7PjxiTP280468640Oogigvc L Allen RNUT[id number] YSXJUTGQONTFUIKRNDWXVQ1006-03-66G76: 10:331.2.840.638339.1.72.3.15|1.2.84 0.489778.1.13.104.2.7.2.727879_18790 53366 Luz Santiago RN [facility] 2022-11-24 08:49:01 8948-69-46U27:49:01 Nakia Oliver is a 52 year old malePt calling stating that he currently lives with his mom and niece and says they only have 1 restroom in the house. Pt states he is wanting to schedule a colonoscopy but would not be able to do it unless he has free access to a restroom which he will not have at home. Pt is wanting to know if any arrangements can be made so pt can already be in [place], possibly already at the hospital when he begins pre op preparations. Please avdise 09667-2Codjiskkp encounter SmelAO4692-69-85B99:53:07Telephone encounter NoteTXT1.2.840.921872.1.13.104.2.7.2 .914508|3557414633PVUscpkrgxf for patient [id number] R McDaniel[id number] PLXYVXEQJSGWLOINHDSCLR1152-98-62P85: 53:071.2.840.155189.1.72.3.15|1.2.84 0.577762.1.13.104.2.7.2.727879_18789 [id number] Lelo Stallings [facility] 2022-11-19 12:23:09 0391-05-65S14:23:09 Requested authorization for Nephrology follow up appointment. Carmen Bennett 11/19/2022 12:23 PM 59841-8Qihbryuup encounter RwlyYG4225-96-20M92:24:18Telephone encounter NoteTXT1.2.840.389057.1.13.104.2.7.2 .424262|3099022378EZKmnbutxks for patient slwc91634-0ZlghDR834399279Htvqsxdof Aviles Valentin[id number] ZINRGGVFDWKCRNCMBRZZHX8043-97-96W82: 24:181.2.840.755690.1.72.3.15|1.2.84 0.673255.1.13.104.2.7.2.727879_18758 [id number] Carmen Bennett [facility] 2022-10-31 09:27:59 9002-25-25Y45:27:59 Nakia Oliver is a 52 year old male Pt called requesting to speak with clinic to discuss transportation that was offered by clinic. Pt states that transportation would be provided for appointments. Please advise. 14032-8Tojuxutcm encounter ZrqnRJ6792-97-39R82:31:38Telephone encounter NoteTXT1.2.840.537453.1.13.104.2.7.2 .768387|9482136314RBGlpuagoio for patient wlsp35100-9QhpgRD61095360Xyeuyayp I [id number] IQCHKJYUDQDKGZSELVJKGG1640-06-21B99: 31:381.2.840.719785.1.72.3.15|1.2.84 0.375792.1.13.104.2.7.2.727879_18610 [id number] Manish Jain [facility] 2022-10-31 09:04:47 5070-02-55P06:04:47 Referral was placed on 10/23/22 and he seen them on 10/24/22 so he will need a new referral for the follow up visit 51485-7Baliaadmt encounter XntyAO7732-44-19L36:06:29Telephone encounter NoteTXT1.2.840.916981.1.13.104.2.7.2 .163310|4536729167GJOrikorffs for patient usep50485-3UrlhFZ312350777Jjpyvnc L Graham MA[id number] LOXYAHQYHCNRSZHMUEJCIM2825-41-03A69: 06:291.2.840.849259.1.72.3.15|1.2.84 0.325169.1.13.104.2.7.2.727879_18610 [id number] Raul Prasad MA [facility] 2022-10-30 10:31:50 7857-10-24W08:31:50 Routing to provider Mone for review. Pt has new patient appointment today. 00643-1Leytwduwa encounter NxrmPG0164-81-41O15:32:30Telephone encounter NoteTXT1.2.840.010076.1.13.104.2.7.2 .139796|1563007659ANNwlgbrats for patient rmgg31645-8UmdqJD764546527Sqehjkh R Robinson RN[id number] ICWEODNAYOGAWTFXGPVXGX1419-43-98J84: 32:301.2.840.131084.1.72.3.15|1.2.84 0.815740.1.13.104.2.7.2.727879_18600 [id number] Ara Wild RN [facility] 2022-10-30 08:16:20 7854-69-42D16:16:20 Patient called to [facility] asking is he can get some assistance paying for transportation. Can you please put a referral in social sciences research scientist. Susana Jacobson 78364-8Jbcszknew encounter ZoloCL5072-38-65U57:21:58Telephone encounter NoteTXT1.2.840.838005.1.13.104.2.7.2 .920225|3301244602FILxqxrbyua for patient kzbn072616019Iiocywn L Graham [id number] FVRYIVHQDDNIVKTJKRVGAT1706-81-09C79: 21:581.2.840.695777.1.72.3.15|1.2.84 0.621439.1.13.104.2.7.2.727879_18598 [id number] Raul Prasad MA [facility] 2022-10-29 18:05:23 3224-36-65K26:05:23 Referral placed 10/23 60821-0Qapzjuedf encounter PeicBY5575-17-84Y35:05:38Telephone encounter NoteTXT1.2.840.645795.1.13.104.2.7.2 .339727|5129342337YCJyfhkwdrc for patient vcar18312-1GsrcZCNGCFYFON[id number] LPPQYIEPVOXBPJPDIYNELS2385-63-45W90: 05:381.2.840.053737.1.72.3.15|1.2.84 0.519957.1.13.104.2.7.2.727879_18595 [id number] [facility] 2022-10-29 14:44:44 7481-19-05T53:44:44 Nakia Oliver is a 52 year old malePt calling requesting to speak with nurse in regards to recent test result [phone] (home) 49396-1Fycfrxkcd encounter PogsEC7839-27-63R49:46:44Telephone encounter NoteTXT1.2.840.849017.1.13.104.2.7.2 .453225|2898942541VCEizsswjpr for patient hjtp16071-9IgqbWB146738087Upur R [id number] AHMQEOUAGWAOEAQCZCSOSZ3879-30-15S83: 46:441.2.840.411710.1.72.3.15|1.2.84 0.254574.1.13.104.2.7.2.727879_18593 [id number] Cem Heath [facility] 2022-10-28 14:29:20 1440-42-86Q95:29:20 Images from the original note were not included.Can you please place a follow up referral for cardiology. Dx at last visit with cardio. Susana Jacobson Visit DiagnosesChest pain, unspecified type R07.9Primary hypertension A69Ahnzvsn (BMI 30-39.9) E66.9Nonobstructive atherosclerosis of coronary artery I25.10OSA (obstructive sleep apnea) G47.33Hyperlipidemia, unspecified hyperlipidemia type E78.5 16790-5Cuswzekhn encounter DnjyOW0516-77-69W73:30:59Telephone encounter NoteTXT1.2.840.872758.1.13.104.2.7.2 .686369|4523877084WAFxizwhiad for patient pjnj68126-5OilxVNDAYNIYRW[id number] UZAQNSZQXTJFNPTFJJTWMV1564-85-83U23: 30:591.2.840.486790.1.72.3.15|1.2.84 0.632651.1.13.104.2.7.2.727879_18583 [id number] [facility] 2022-10-28 12:11:55 6701-85-46E53:11:55 Faxed 10.24.22 cardio post-appointment file to [facility]. Requested new referral for pulmonary.Carmen Theo Cano 10/28/2022 12:12 PM 91158-4Wjcljfwhq encounter MwcsXD9601-81-82P94:14:43Telephone encounter NoteTXT1.2.840.140044.1.13.104.2.7.2 .086331|7314928633ZSYqpriwuhj for patient sbgp88106-0KyrnXO695884615Lxsvax A [id number] YZLQWCEXJQNDITDOINZXIK4342-99-79U76: 14:431.2.840.902160.1.72.3.15|1.2.84 0.911974.1.13.104.2.7.2.727879_18581 [id number] Carmen Cano [facility] 2022-10-28 08:53:30 3967-60-82T20:53:30 Patient spoke to [facility] and they addressed his questions on 10/27/22 61421-1Vjlucuzlr encounter VhgkUK1105-72-24M59:54:24Telephone encounter NoteTXT1.2.840.655583.1.13.104.2.7.2 .786353|7531682839NYNcznlehip for patient xxhn627494899Cmezlxk L Graham MA[id number] KBPIVDBWTEMOZPFPOOIWCO7827-39-24B63: 54:241.2.840.012692.1.72.3.15|1.2.84 0.364941.1.13.104.2.7.2.727879_18578 [id number] Raul Prasad MA [facility] 2022-10-27 16:00:00 2028-35-07L58:00:00 Images from the original note were not included.Venipuncture collection performed by clean technique on the right anticubitus. Total of 1 attempts were made. Slight pressure and a bandage/dressing were applied to the site(s). The patient experienced no complications. The following specimens were processed according to instructions and sent to [facility] laboratories per lab order on 10/27/2022 LT BLUE SST 2 RED LAV 1 PPT DK GREEN (LiHep) DK GREEN (SodH) GRACE DK BLUE (K2) DK BLUE (S) ACD Blood Culture NIPT/NTD Patient has been identified by and name and was provided with cup, antiseptic towelette, and clean catch instructions. 3 urine specimen(s) sent. Unpreserved 3 Urine Culture Aptima tube Other urine 37218-5Otyps OkniZM7049-36-92D17:38:07Nurse NoteTXT1.2.840.743168.1.13.104.2.7.2 .462938|4476520750XTClraygeat for patient [id number] UOBRZAZWPDZODXPWRXWESL1688-32-53H98: 38:071.2.840.447607.1.72.3.15|1.2.84 0.320875.1.13.104.2.7.2.727879_18573 [id number] [facility] 2022-10-27 12:00:17 0852-02-28X47:00:17 Patient states he is needing authorization for his visit with Nephrology. He states he received a call from Nephrology today. He is requesting a call back. 75257-7Mqtllkkpo encounter YwxhUB5154-29-15D11:02:53Telephone encounter NoteTXT1.2.840.132976.1.13.104.2.7.2 .497440|1241155097ZEZpkqeetwf for patient uzxn75655952Tuomg S Herdevante[id number] VCDANJJKVPBCDAERVJWKZO2431-59-02H00: 02:531.2.840.513493.1.72.3.15|1.2.84 0.477664.1.13.104.2.7.2.727879_18571 [id number] Sangeetha Krishnamurthy [facility] 2022-10-24 14:38:40 2837-90-71O85:38:40 Chart reviewed. Labs ordered for upcoming Nephrology appointment per guidelines. MyChart message and/or letter sent to patient as an appointment reminder. 58426-2Nodukxsjj encounter SrqjZN9699-28-07S95:40:13Telephone encounter NoteTXT1.2.840.948277.1.13.104.2.7.2 .010268|3963563025FTGbusrtmur for patient [id number] RUFICHNFGKOQUUSHFROFQB9643-28-37V02: 40:131.2.840.740763.1.72.3.15|1.2.84 0.455549.1.13.104.2.7.2.727879_18559 [id number] [facility] 2022-10-24 14:37:41 9931-08-79E84:37:41 Left message with call back number to return call to clinic regarding scheduling lab appointment. 33974-9Pxpksqrwo encounter UnnaVK6688-90-40P63:40:13Telephone encounter NoteTXT1.2.840.155708.1.13.104.2.7.2 .667681|7754367669URMjprllpxe for patient [id number] PAZRGNIJVWOYZWZBKCFMYG7502-86-86F72: 40:131.2.840.032998.1.72.3.15|1.2.84 0.036702.1.13.104.2.7.2.727879_18559 [id number] [facility] 2022-10-23 11:00:00 2392-85-35A85:00:00 Images from the original note were not included.Venipuncture collection performed by clean technique on the left anticubitus. Total of 3 attempts were made. Slight pressure and a bandage/dressing were applied to the site(s). The patient experienced no complications. The following specimens were processed according to instructions and sent to [facility] laboratories per lab order on 10/23/2022 LT BLUE SST 2 RED LAV PPT DK GREEN (LiHep) DK GREEN (SodH) GRACE DK BLUE (K2) DK BLUE (S) ACD Blood Culture NIPT/NTD 09913-2Rjssq WfpnOD9099-36-37O55:42:42Nurse NoteTXT1.2.840.321081.1.13.104.2.7.2 .262941|3346601383BXTzjsimdxy for patient ippq177207713Liiofi[id number] RHXKVEAOZJAMYPXKUWTEYJ5813-30-52C72: 42:421.2.840.940125.1.72.3.15|1.2.84 0.519533.1.13.104.2.7.2.727879_18546 35000 [facility]"
--- NOTE | 2023-09-23 08:54 | RAD REPORT ---
EXAM DESCRIPTION: RAD - Hip Left 2 View - 09/23/2023 8:48 am CLINICAL HISTORY: PAIN COMPARISON: No comparisons FINDINGS: No evidence of fracture, dislocation or AVN.
--- NOTE | 2023-09-23 09:01 | RAD REPORT ---
EXAM DESCRIPTION: CT - Spine Lumbar Wo Con - 09/23/2023 8:50 am CLINICAL HISTORY: Radiculopathy. PAIN COMPARISON: No comparisons TECHNIQUE: Axial noncontrast CT imaging of the lumbar spine was performed with coronal and sagittal re-formatted images. All CT scans are performed using dose optimization technique as appropriate and may include automated exposure control or mA/KV adjustment according to patient size. FINDINGS: No acute lumbar spine fracture seen. No aggressive marrow pattern or malalignment. Paraspinal tissues are normal in thickness. No paraspinal abscess or hematoma seen. There is evidence of a disc herniation seen at L4-5 resulting in narrowing of the central canal. IMPRESSION: No acute lumbar spine abnormality is seen. Disc herniation suspected at L4-5 resulting in spinal canal narrowing.
[2023-09-23] MEDS ORDERED: ONDANSETRON 4 MG/2 ML VIAL ONE (10:10)
[2023-09-23] MEDS ORDERED: KETOROLAC 30 MG/ML INJ ONE (10:11)
[2023-09-23] MEDS ORDERED: dexAMETHasone 10 MG/ML VIAL ONE (10:11)
[2023-09-23] MEDS ORDERED: MORPHINE 4 MG/ML SYR ONE (10:11)
[2023-09-23] MEDS ORDERED: DIAZEPAM 5 MG TABLET ONE (10:11)
[2023-09-23 10:15] LABS: Absolute Basophils 0.1 K/uL (0-0.5); Absolute Lymphocytes (CBC) 2.1 K/uL (0.7-4.9); Absolute Monocytes 0.4 K/uL (0.1-1.3); Absolute Neutrophil 3.3 K/uL (1.8-8.0); Basophils % 0.9 % (0-1.3); Eosinophils % 0.8 % (0-4.4); Hematocrit 38.5 % (39.6-49.0); Lymphocytes % 35.8 % (15.3-44.8); MCHC 33.9 g/dL (32.0-36.0); MCV 85.6 fL (80-100); MPV 8.9 fL (7.6-11.3); Monocytes % 6.7 % (3.3-12.3); Neutrophils % 55.8 % (41.7-73.7); Platelets 202 thou/uL (152-406); RBC Red Blood Cell Count 4.49 M/uL (4.33-5.43); Red Cell Distribution Width 15.4 % (12.1-15.2)
[2023-09-23 10:33] LABS: Albumin 3.6 g/dL (3.4-5.0); Albumin/Globulin Ratio 0.8 (1.1-1.8); Anion Gap 5.7 mEq/L (5.0-15.0); Bilirubin Total 0.7 mg/dL (0.2-1.0); Globulin 4.4 g/dL (2.3-3.5); Potassium 3.7 mEq/L (3.5-5.1)
[2023-09-23 11:56] VITALS: BP 121/79; TEMP 98.1; O2SAT 99
--- NOTE | 2023-09-23 15:05 | ER ---
Nurse's Notes [facility] Name: Keith Oliver Age: 53 yrs Sex: Male : 1970 Arrival Date: 09/23/2023 Time: 08:23 Bed 14 Private MD: Diagnosis: Low back pain;Muscle spasm of back;Intervertebral disc disorders with radiculopathy, lumbar region;Radiculopathy, lumbar region Presentation: 09/22 09:24 Chief complaint: Patient states: pain to bilateral hips/ legs and R side of back that ss began 3-4 days ago. No known injury. Coronavirus screen: Client denies travel out of the [place] in the last 14 days. Ebola Screen: Patient denies exposure to infectious person. Patient denies travel to an Ebola-affected area in the 21 days before illness onset. Initial Sepsis Screen: Does the patient meet any 2 criteria? No. Patient's initial sepsis screen is negative. Does the patient have a suspected source of infection? No. Patient's initial sepsis screen is negative. Risk Assessment: Do you want to hurt yourself or someone else? Patient reports no desire to harm self or others. Onset of symptoms was September 19, 2023. 09:24 Method Of Arrival: Ambulatory ss 09:24 Acuity: CARYL 3 ss Triage Assessment: : General: Appears in no apparent distress. uncomfortable, Behavior is calm, cooperative, bp appropriate for age. Pain: Complains of pain in back and buttocks. EENT: No deficits noted. Neuro: No deficits noted. Cardiovascular: No deficits noted. Respiratory: No deficits noted. GI: No signs and/or symptoms were reported involving the gastrointestinal system. : No signs and/or symptoms were reported regarding the genitourinary system. Derm: No deficits noted. Musculoskeletal: Circulation, motion, and sensation intact. Range of motion: intact in all extremities. Historical: - Allergies: : NKA; ss - PMHx: : Asthma; Esophageal CA; GI Bleed; Hypertension; Myocardial infarction; Sickle Cell; ss throat and lung cancer; - Immunization history:: Client reports receiving the 2nd dose of the Covid vaccine. - Infectious Disease History:: Denies. - Social history:: Smoking status: Patient denies any tobacco usage or history of. Screenin:[facility] Fall Risk Assessment (Adult) History of falling in the last 3 months, bp including since admission No falls in past 3 months (0 pts) Confusion or Disorientation No (0 pts) Intoxicated or Sedated No (0 pts) Impaired Gait No (0 pts) Mobility Assist Device Used No (0 pt) Altered Elimination No (0 pt) Score/Fall Risk Level 0 - 2 = Low Risk. Abuse screen: Denies threats or abuse. Denies injuries from another. Nutritional screening: No deficits noted. Tuberculosis screening: No symptoms or risk factors identified. Assessment: 11:14 Reassessment: Patient appears in no apparent distress at this time. Patient is alert, bp oriented x 3, equal unlabored respirations, skin warm/dry/pink. Patient states symptoms have improved. Vital Signs: 09:24 BP 150 / 97; Pulse 96; Resp 16; Temp 98.1(TE); Pulse Ox 98% on R/A; Weight 111.13 kg; ss Height 6 ft. 1 in. ; Pain 8/10; 11:14 BP 121 / 79; Pulse 75; Resp 16; Pulse Ox 99% ; bp 09:24 Body Mass Index 32.32 (111.13 kg, 185.42 cm) ss 09:24 Pain Scale: Adult ss ED Course: 08:27 Patient arrived in ED. mr 08:34 Dante Baker MD is Attending Physician. vladimir 08:48 Patient moved to radiology via wheelchair. md2 08:50 Hip Left 2 View XRAY In Process Unspecified. EDMS 08:52 CT Lumbar Spine Wo Con In Process Unspecified. EDMS 09:26 Triage completed. ss 09:26 Arm band placed on left wrist. ss 09:30 Patient has correct armband on for positive identification. bp 09:41 Branden Merrill, LIZZIE is Primary Nurse. bp 10:06 Inserted saline lock: 22 gauge in right antecubital area, using aseptic technique. bp Blood collected. 10:51 Wilner Garcias MD is Referral Physician. vladimir 11:13 No provider procedures requiring assistance completed. IV discontinued, intact, bp bleeding controlled, No redness/swelling at site. Pressure dressing applied. 11:14 Provided Education on: n/a. bp Administered Medications: 10:06 Drug: NS 0.9% IV 1000 ml IV at 1 bolus Per protocol; 1000 mL bolus Route: IV; Rate: 1 bp bolus; Site: right antecubital; 11:13 Follow up: IV Status: Completed infusion; IV Intake: 1000ml bp 10:18 Drug: Decadron - Dexamethasone IVP 10 mg IVP once Route: IVP; Site: right antecubital; bp 11:13 Follow up: Response: No adverse reaction bp 10:18 Drug: Ketorolac IVP 30 mg IVP once Route: IVP; Site: right antecubital; bp 11:13 Follow up: Response: No adverse reaction bp 10:18 Drug: Diazepam PO 10 mg PO once Route: PO; bp 11:13 Follow up: Response: No adverse reaction bp 10:18 Drug: morphine IVP or IV 4 mg IVP once over 4 mins Route: IVP; Infused Over: 4 mins; bp Site: right antecubital; 11:13 Follow up: Response: No adverse reaction bp 10:18 Drug: Ondansetron IVP 4 mg IVP once; over 2 minutes Route: IVP; Site: right antecubital;bp 11:13 Follow up: Response: No adverse reaction bp Medication: 11:14 VIS not applicable for this client. bp Intake: 11:13 IV: 1000ml; Total: 1000ml. bp Outcome: 10:52 Discharge ordered by . vladimir 11:14 Discharged to home via wheelchair, with family, bp 11:14 Condition: stable 11:14 Discharge instructions given to patient, Instructed on discharge instructions, follow up and referral plans. medication usage, Demonstrated understanding of instructions, follow-up care, medications, Prescriptions given X 3, 11:15 Patient left the ED. bp Signatures: Dispatcher [employer] EDLA Dante Baker MD MD cha Rivera, Mary, Reg Reg Laura Chapman, RN RN Branden Christie, LIZZIE RN Missy Oviedo
--- NOTE | 2023-09-23 15:05 | EDPHYS ---
Physician Documentation [facility] Name: Keith Oliver Age: 53 yrs Sex: Male : 1970 Arrival Date: 09/23/2023 Time: 08:23 Bed 14 Private MD: RASHARD Physician Dante Baker HPI: 09/22 10:44 This 53 yrs old Black Male presents to ER via Ambulatory with complaints of Hip Pain, vladimir Leg Pain, Back Pain. 10:44 The patient or guardian reports pain. that occurred at an unknown site. The complaints vladimir affect the left hip and right hip. Onset: The symptoms/episode began/occurred 5 day(s) ago. Modifying factors: The symptoms are alleviated by nothing, the symptoms are aggravated by nothing. Historical: - Allergies: 09: NKA; ss - PMHx: : Asthma; Esophageal CA; GI Bleed; Hypertension; Myocardial infarction; Sickle Cell; ss throat and lung cancer; - Immunization history:: Client reports receiving the 2nd dose of the Covid vaccine. - Infectious Disease History:: Denies. - Social history:: Smoking status: Patient denies any tobacco usage or history of. ROS: 10:46 Constitutional: Negative for fever, chills, and weight loss, Eyes: Negative for injury, vladimir pain, redness, and discharge, ENT: Negative for injury, pain, and discharge, Neck: Negative for injury, pain, and swelling, Cardiovascular: Negative for chest pain, palpitations, and edema, Respiratory: Negative for shortness of breath, cough, wheezing, and pleuritic chest pain, Abdomen/GI: Negative for abdominal pain, nausea, vomiting, diarrhea, and constipation, : Negative for injury, bleeding, discharge, and swelling, MS/Extremity: Negative for injury and deformity, Skin: Negative for injury, rash, and discoloration, Neuro: Negative for headache, weakness, numbness, tingling, and seizure, Psych: Negative for depression, anxiety, suicide ideation, homicidal ideation, and hallucinations, Allergy/Immunology: Negative for hives, rash, and allergies, Endocrine: Negative for neck swelling, polydipsia, polyuria, polyphagia, and marked weight changes, Hematologic/Lymphatic: Negative for swollen nodes, abnormal bleeding, and unusual bruising, 10:46 Back: Positive for injury or acute deformity, decreased range of motion, pain at rest, pain with movement, radiated pain, of the left low back and right low back, Exam: 10:46 Constitutional: This is a well developed, well nourished patient who is awake, alert, vladimir and in no acute distress. Head/Face: Normocephalic, atraumatic. Eyes: Pupils equal round and reactive to light, extra-ocular motions intact. Lids and lashes normal. Conjunctiva and sclera are non-icteric and not injected. Cornea within normal limits. Periorbital areas with no swelling, redness, or edema. ENT: Nares patent. No nasal discharge, no septal abnormalities noted. Tympanic membranes are normal and external auditory canals are clear. Oropharynx with no redness, swelling, or masses, exudates, or evidence of obstruction, uvula midline. Mucous membranes moist. Neck: Trachea midline, no thyromegaly or masses palpated, and no cervical lymphadenopathy. Supple, full range of motion without nuchal rigidity, or vertebral point tenderness. No Meningismus. Chest/axilla: Normal chest wall appearance and motion. Nontender with no deformity. No lesions are appreciated. Cardiovascular: Regular rate and rhythm with a normal S1 and S2. No gallops, murmurs, or rubs. Normal PMI, no JVD. No pulse deficits. Respiratory: Lungs have equal breath sounds bilaterally, clear to auscultation and percussion. No rales, rhonchi or wheezes noted. No increased work of breathing, no retractions or nasal flaring. Abdomen/GI: Soft, non-tender, with normal bowel sounds. No distension or tympany. No guarding or rebound. No evidence of tenderness throughout. Male : Normal genitalia with no discharge or lesions. Skin: Warm, dry with normal turgor. Normal color with no rashes, no lesions, and no evidence of cellulitis. MS/ Extremity: Pulses equal, no cyanosis. Neurovascular intact. Full, normal range of motion. Neuro: Awake and alert, GCS 15, oriented to person, place, time, and situation. Cranial nerves II-XII grossly intact. Motor strength 5/5 in all extremities. Sensory grossly intact. Cerebellar exam normal. Normal gait. Psych: Awake, alert, with orientation to person, place and time. Behavior, mood, and affect are within normal limits. 10:46 Back: pain, that is moderate, ROM is painful, with rotation to the right, with rotation to the left, with flexion, with extension, normal spinal alignment noted, CVA tenderness, is absent, vertebral tenderness, is not appreciated, muscle spasm, is appreciated in the left low back, left mid back, right mid back and right low back, Vital Signs: 09:24 BP 150 / 97; Pulse 96; Resp 16; Temp 98.1(TE); Pulse Ox 98% on R/A; Weight 111.13 kg; ss Height 6 ft. 1 in. ; Pain 8/10; 11:14 BP 121 / 79; Pulse 75; Resp 16; Pulse Ox 99% ; bp 09:24 Body Mass Index 32.32 (111.13 kg, 185.42 cm) ss 09:24 Pain Scale: Adult ss MDM: 08:34 Patient medically screened. vladimir 10:47 Differential diagnosis: arthritis, strain, chronic back pain, Fatigue Fracture. Data vladimir reviewed: vital signs, nurses notes, lab test result(s), EKG, radiologic studies, CT scan. Consideration of Admission/Observation Escalation of care including admission/observation considered. I considered the following discharge prescriptions or medication management in the emergency department Medications were administered in the Emergency Department. See MAR. Independent interpretation of the following test(s) in the Emergency Department CT Scan: My interpretation is CT L SPINE. Test considered but Not performed: MRI: NO SPINE MRI. Historians other than the Patient: Friend: FRIEND WELL IN FORMED. Care significantly affected by the following chronic conditions: Hypertension, Obesity, Cancer, ESO CANCER, SICKLE CELL, HI. Counseling: I had a detailed discussion with the patient and/or guardian regarding the historical points, exam findings, and any diagnostic results supporting the discharge/admit diagnosis, the presence of at least one elevated blood pressure reading (>120/80) during this emergency department visit, lab results, radiology results, the need for outpatient follow up, for definitive care, a family practitioner, a neurologist. 09/22 08:36 Order name: CBC with Diff; Complete Time: 10:38 [facility] 09/22 08:36 Order name: Comprehensive Metabolic Panel; Complete Time: 10:38 [facility] 09/22 08:36 Order name: Hip Left 2 View XRAY; Complete Time: 10:09 [facility] 09/22 08:36 Order name: CT Lumbar Spine Wo Con; Complete Time: 10:09 vladimir Administered Medications: 10:06 Drug: NS 0.9% IV 1000 ml IV at 1 bolus Per protocol; 1000 mL bolus Route: IV; Rate: 1 bp bolus; Site: right antecubital; 11:13 Follow up: IV Status: Completed infusion; IV Intake: 1000ml bp 10:18 Drug: Decadron - Dexamethasone IVP 10 mg IVP once Route: IVP; Site: right antecubital; bp 11:13 Follow up: Response: No adverse reaction bp 10:18 Drug: Ketorolac IVP 30 mg IVP once Route: IVP; Site: right antecubital; bp 11:13 Follow up: Response: No adverse reaction bp 10:18 Drug: Diazepam PO 10 mg PO once Route: PO; bp 11:13 Follow up: Response: No adverse reaction bp 10:18 Drug: morphine IVP or IV 4 mg IVP once over 4 mins Route: IVP; Infused Over: 4 mins; bp Site: right antecubital; 11:13 Follow up: Response: No adverse reaction bp 10:18 Drug: Ondansetron IVP 4 mg IVP once; over 2 minutes Route: IVP; Site: right antecubital;bp 11:13 Follow up: Response: No adverse reaction bp Disposition Summary: 09/23/23 10:52 Discharge Ordered Notes: Location: Home vladimir Problem: new vladimir Symptoms: have improved vladimir Condition: Stable vladimir Diagnosis - Low back pain vladimir - Muscle spasm of back vladimir - Intervertebral disc disorders with radiculopathy, lumbar region vladimir - Radiculopathy, lumbar region vladimir Followup: vladimir - With: Private Physician - When: 2 - 3 days - Reason: Recheck today's complaints, Continuance of care, Re-evaluation by your physician Followup: vladimir - With: Wilner Garcias MD - When: 2 - 3 days - Reason: Recheck today's complaints, Re-evaluation by your physician Discharge Instructions: - Discharge Summary Sheet vlaidmir - Acute Back Pain, Adult vladimir - Herniated Disk vladimir - Lumbosacral Radiculopathy vladimir - Musculoskeletal Pain vladimir - Degenerative Disk Disease vladimir - Muscle Cramps and Spasms, [id number] vladimir - Herniated Disk, [id number] vladimir - Radicular Pain vladimir Forms: - Medication Reconciliation Form vladimir - Antibiotic Education vladimir - Prescription Opioid Use vladimir - Patient Portal Instructions [facility] - Leadership Thank You Letter [facility] Prescriptions: - acetaminophen-codeine 300-30 mg Oral tablet - take 2 tablet ORAL route every 6 hours as needed for pain; 24 tablet; Refills: vladimir 0, Product Selection Permitted - dexamethasone 4 mg Oral tablet - take 1 tablet ORAL route once daily; 4 tablet; Refills: 0, Product Selection [facility] Permitted - Cyclobenzaprine 5 mg Oral Tablet - take 1 tablet ORAL route 3 times per day As needed; 15 tablet; Refills: 0, [facility] Product Selection Permitted Signatures: Dispatcher [employer] EDMS Dante Baker MD MD cha Blanchard, Shelby, RN RN ss Branden Merrill RN RN bp Corrections: (The following items were deleted from the chart) 08:36 08:36 Hip Left 2 View+RAD.RAD.BRZ ordered. EDMS EDMS 08:36 08:36 Spine Lumbar Wo Con+CT.RAD.BRZ ordered. EDMS EDMS
== END 2023-09-23 11:15 | disposition home or self-care (01) ==
LOC: ER 08:23
DX: M62.830 Muscle spasm of back (principal); M54.16 Radiculopathy, lumbar region
CPT/HCPCS: 85025; 36415; 80053; 72131; 73502; J1100; J2405

== ENCOUNTER 2024-08-07 21:24 | Inpatient (IN) | payer OTHER ==
--- OUTSIDE RECORDS SUMMARY | 2024-08-07 21:33 | XMS REPORT | Continuity of Care Document ---
Author Name Unknown Address [address] [place] [address] [facility] Address [address] [place] [address] Care Team Providers Care Vat Tender Name Role Phone MD SANYA RATLIFF Primary Care Physician Michelle Lizzie Jay Attending Clinician Unavailable KYRIE REY Attending Clinician Unavailable MINOO HOWARD Attending Clinician Unavailable Doctor Unassigned, Hannibal Attending Clinician U navailable MILTON LAI Attending Clinician Unavaila ble Bianca MARKETING INFORMATION COORDINATOR, Han Attending Clinician + CHERYL PETERS Attending Clinician Unavailable Lab, Ang - Db Attending Clinician Unavailable BIANCA HAN Attending Clinician Unavailable LUIS MERA Attending Clinician Unavailable Precious Merlos LVN Attending Clinician UnavailEDNA Rockwell V Attending Clinician Unavailable NAIMA RUEDA Attending Clinician Unava ilable MD NILDA Attending Clinician Unavailab JIM Plummer Attending Clinician Unavailable LAB90 Attending Clinician Unavailable KELLY CAVAZOS Attending Clinician Unav ailable PL, TECH 1 Attending Clinician Unavailable AJAY MARTEL Attending Clinician Unavailable MAILE GILL Attending Clinician Unavailable MONE GIBSON Attending Clinician Unavailable MONE GIBSON Attending Clinician Unavailable Chela Berkowitz RN Attending Clinician [phone] Bianca MARKETING INFORMATION COORDINATOR, Han Attending Clinician + Doctor Unassigned, Hannibal Attending Clinician U navailable BEATRIZ CHEEK Attending Clinician Unavailab Cheryl Butler MD Attending Clinician [phone] NEL BENSON Attending Clinician U navailable KAELA JAVIER Attending Clinician Unavaila KAELA Yusuf Attending Clinician Unavaila ble Lab, Ang - Db Attending Clinician Unavailable Carmen Cano Attending Clinician Unavaila AFUA Kendall Attending Clinician Unavailable Afua Starr MD Attending Clinician [phone] [facility] Attending Clinician Unavailable Marija Lu Attending Clinician [phone] MARIJA MARQUEZ Attending Clinician Unavailab Varun Hill RN Attending Clinician Unavaila BONIFACIO Young Attending Clinician Michelle Kaela Joe MD Attending Clinician + [phone] Anabella Dave Attending Clinician [phone] LAINA MARQUES Attending Clinician Unavailable Carmen Arzola Attending Clinician U yumiko Triana LMSW, Eliza Olguin Attending Clinician [phone] Niles Lynn MD Attending Clinician + [phone] NILES LYNN Attending Clinician Unavaila LUZ Mcgowan Attending Clinician Unavailabl e Unknown, Attending Attending Clinician Unavailab ERNESTINA Seo Attending Clinician Unavailable ERNESTINA OHARA Attending Clinician Unavailable Selvin Hernandez MD Attending Clinician [phone] Trenton Clement Attending Clinician +[phone] Fredi Cristina MD Attending Clinician [phone] Jax MENDIETA, Bonifacio Villasenor Attending Clinician Eye, Tdc Retina Diabetic Attending Clinician Michelle Brian Alatorre MD Attending Clinician [phone] Heber Gonzalez MD Attending Clinician + [phone] Plastics, Tdc Eye Complicated Attending Clinicia n Unavailable Branden Vazquez MD Attending Clinician [phone] Kathryn Cavazos MD Attending Clinician [phone] Ophthalmology, Tdc Attending Clinician Unavailab Yocasta Strickland Attending Clinician [phone] Cardiology, Tdc Attending Clinician Unavailable Lamberto Morales MD Attending Clinician [phone] Joellen Attending Clinician Unavailable Charles Duggan Attending Clinician +- [phone] CHARLES GERBER Attending Clinician Unavailable Betty Chanel DO Attending Clinician [phone] MERVAT TIM Attending Clinician Unavailable MINI RUANO Attending Clinician Unavailable Coral Justin LCSW Attending Clinician [phone] KELSEY QUINTERO Attending Clinician Unavail able JOSÉ LUIS GILLIS Attending Clinician Unavailable MARION MARIA Attending Clinician Unavaila RONDA Hansen Attending Clinician Unavail able KYRIE REY Admitting Clinician Unavailable TRENTON BLAKELY Admitting Clinician Unavail able Hernandez LANDON, Trenton Pierre Admitting Clinician [phone] Jax MENDIETA, Boniafcio Villasenor Admitting Clinician Stacie MENDIETA, Kathryn Admitting Clinician [phone] Nelson_F Admitting Clinician Unavailable JUSTIN VILLEDA Admitting Clinician Unavailabl e Payers Payer Name Policy Type Policy Number Effective Date Expirati on Date Source [employer] COMMER[employer] OUT OF NETWORK [id number] 2023 00:00:00 [facility] OON [id number] 2023 00:00:00 [facility] [place] [employer] [id number] 2024 00:00:00 [facility] MALIA NAQVI-C COPAY FOCUS 9 [id number] 2023 00:00:00 [facility] [employer] OON 4 [id number] 2024 00:00:00 Colleen Ignacio 53 [id number] 2023 00:00:00 [facility] Blue Cross Blue Shield of [place] 6 [id number] [facility] 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, without long-term current use of insulin (multi HCC) 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, without long-term current use of insulin (multi HCC) Disease Active 2023-04 0-16 00:00: 00 Colleen Seybold - Externa l Allergic conjunctiv itis of both eyes Allergic conjunctiv itis of both eyes Disease Active 2023-04 0 00:00: 00 Colleen Seybold - Externa l Pseudophak ia of both eyes Pseudophak ia of both eyes Disease Active 2023-04 0 00:00: 00 Colleen Seybold - Externa l Epiretinal membrane (ERM) of left eye Epiretinal membrane (ERM) of left eye Disease Active 2023-04 0 00:00: 00 Colleen Seybold - Externa l Well adult exam Well adult exam Disease Active 12-07 00:00: 00 Colleen Seybold - Externa l Malignant neoplasm of esophagus, unspecifie d location (multi HCC) Malignant neoplasm of esophagus, unspecifie d location (multi HCC) Disease Active 12-07 00:00: 00 Colleen Seybold - Externa l Sickle cell disease without crisis (multi HCC) Sickle cell disease without crisis (multi HCC) Disease Active 12-07 00:00: 00 Colleen Seybold - Externa l DM type 2 with diabetic mixed hyperlipid emia (multi HCC) DM type 2 with diabetic mixed hyperlipid emia (multi HCC) Disease Active 11-26 00:00: 00 Colleen Seybold - Externa l Class 1 obesity due to excess calories with serious comorbidit y and body mass index (BMI) of 33.0 to 33.9 in adult Class 1 obesity due to excess calories with serious comorbidit y and body mass index (BMI) of 33.0 to 33.9 in adult Disease Active -19 00:00: 00 Colleen Seybold - Externa l Onychauxis Onychauxis Disease Active 2022-04 00:00: 00 [facility] Type 2 diabetes mellitus without complicati on, without long-term current use of insulin Type 2 diabetes mellitus without complicati on, without long-term current use of insulin Disease Active 12-04 00:00: 00 [facility] Dyslipidem ia Dyslipidem ia Disease Active 12-04 00:00: 00 [facility] Type 2 diabetes mellitus without complicati on, without long-term current use of insulin Type 2 diabetes mellitus without complicati on, without long-term current use of insulin Disease Active 8-31 00:00: 00 [facility] Nonobstruc tive atheroscle rosis of coronary artery Nonobstruc tive atheroscle rosis of coronary artery Disease Active 10-24 00:00: 00 [facility] Chronic kidney disease (CKD) stage G3a/A2, moderately decreased glomerular filtration rate (GFR) between 45-59 mL/min/1.7 3 square meter and albuminuri a creatinine ratio between 30-299 mg/g Chronic kidney disease (CKD) stage G3a/A2, moderately decreased glomerular filtration rate (GFR) between 45-59 mL/min/1.7 3 square meter and albuminuri a creatinine ratio between 30-299 mg/g Disease Active 10-23 00:00: 00 [facility] Thyroid disease Thyroid disease Disease Active 10-23 00:00: 00 Overview: Formattin g of this note might be different from the original. Hypothyro idism [facility] Sickle cell anemia Sickle cell anemia Disease Active 10-23 00:00: 00 [facility] PA (myocardia l infarction ) PA (myocardia l infarction ) Disease Active 10-23 00:00: 00 [facility] Esophageal cancer Esophageal cancer Disease Active 10-23 00:00: 00 [facility] Screening for HIV without presence of risk factors Screening for HIV without presence of risk factors Disease Active 10-23 00:00: 00 [facility] Chronic kidney disease, unspecifie d CKD stage Chronic kidney disease, unspecifie d CKD stage Disease Active 10-23 00:00: 00 [facility] Chronic bronchitis , unspecifie d chronic bronchitis type Chronic bronchitis , unspecifie d chronic bronchitis type Disease Active 10-23 00:00: 00 [facility] Obesity (BMI 30-39.9) Obesity (BMI 30-39.9) Disease Active 6 00:00: 00 [facility] 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 Added automatic ally from request for surgery [id number] [facility] Epistaxis Epistaxis Disease Active 04-07 00:00: 00 [facility] URI (upper respirator y infection) URI (upper respirator y infection) Disease Active 04-07 00:00: 00 [facility] Hemoptysis Hemoptysis Disease Active 2012-04 0 00:00: 00 [facility] Essential hypertensi on Essential (primary) hypertensi on Problem [facility] [id number] Exposure to asbestos Problem [facility] Hyperglyce guanakito due to type 2 diabetes mellitus Type 2 diabetes mellitus with hyperglyce guanakito Problem [facility] Mixed hyperlipid emia Mixed hyperlipid emia Problem [facility] Anemia Acute anemia Problem [facility] [id number] Irregular heart beat Problem [facility] Allergic rhinitis Non-season al allergic rhinitis, unspecifie d trigger Problem [facility] [id number] Hypersomni a Problem [facility] Hypothyroi dism Hypothyroi dism, unspecifie d type Problem [facility] Acute herpes zoster neuropathy Problem [facility] Atypical chest pain Problem [facility] Chest pain [facility] Chest [facility] Costochond ral pain Problem [facility] Cough Problem [facility] Asthma ([facility]HS-HCC) Asthma ([facility]) Disease Active Colleen Seybold - Externa l CAD (coronary artery disease) CAD (coronary artery disease) Disease Active Colleen Seybold - Externa l Hypothyroi dism (acquired) Hypothyroi dism (acquired) Disease Active Colleen Seybold - Externa l JYOTSNA on CPAP JYOTSNA on CPAP Disease Active Colleen Ignacio - Externa l History of PA (myocardia l infarction ) History of PA (myocardia l infarction ) Disease Active Colleen Ignacio - Externa l Dehydratio n Problem [facility] Depressed affect Problem [facility] GERD (gastroeso phageal reflux disease) Problem [facility] Hypertensi on Problem [facility] Keloid scar [facility] Muscle ache of extremity [facility]athy [facility] Poor compliance with medication Problem [facility] Postoperat dominic pain Problem [facility] Vertigo [facility] Allergies, Adverse Reactions, Alerts Allergy Name Allergy Type Status Severity Reaction(s) Onset Date Inactive Date Treating Clinician Comments Source NO KNOWN ALLERGIE S Drug Class Active [facility] Social History Social Habit Start Date Stop Date Quantity Comments Source Exposure to SARS-CoV-2 (event) Not sure [facility] History SDOH Alcohol Std Drinks [facility] History SDOH Alcohol Binge [facility] History SDOH Social Connections Get Together [facility] History SDOH Social Connections Confucianism [facility] History SDOH Social Connections Membership [facility] History SDOH Social Connections Meetings [facility] Gender identity [facility] Sexual orientation Angela Ignacio - External History of Occupation Colleen Ignacio - External Cigarettes smoked current (pack per day) - Reported 2024-06-30 00:00:00 2024-06-30 00:00:00 [facility] Cigarette pack-years 2024-06-30 00:00:00 2024-06-30 00:00:00 [facility] Tobacco use and exposure 2024-06-30 00:00:00 2024-06-30 00:00:00 Smokeless tobacco non-user [facility] Alcoholic beverage intake 2024-03-21 00:00:00 2024-03-21 00:00:00 Lifetime non-drinker (finding) Colleen Ignacio - External History of Social function 2023-10-23 00:00:00 2023-10-23 00:00:00 Colleen Mateus - External Education 2023-10-23 00:00:00 2023-10-23 00:00:00 13 Colleen Moradavidamy - External Alcohol intake 2023-04-09 00:00:00 2023-04-09 00:00:00 Lifetime non-drinker (finding) [facility] Sex 2022-10-10 02:18:06 2022-10-10 02:18:06 Male (finding) Colleen Moradavidamy - External History SDOH Alcohol Frequency 2022-09-29 00:00:00 2022-09-29 00:00:00 1 [facility] History SDOH Social Connections Phone 2022-09-29 00:00:00 2022-09-29 00:00:00 5 [facility] History SDOH Social Connections Living 2022-09-29 00:00:00 2022-09-29 00:00:00 7 [facility] History SDOH Physical Activity DPW 2022-09-29 00:00:00 2022-09-29 00:00:00 0 [facility] History SDOH Physical Activity MPS 2022-09-29 00:00:00 2022-09-29 00:00:00 0 [facility] History SDOH Financial 2022-09-29 00:00:00 2022-09-29 00:00:00 4 [facility] History SDOH Food Worry 2022-09-29 00:00:00 2022-09-29 00:00:00 1 [facility] History SDOH Food Scarcity 2022-09-29 00:00:00 2022-09-29 00:00:00 1 [facility] History SDOH Transport Med 2022-09-29 00:00:00 2022-09-29 00:00:00 2 [facility] History SDOH Transport Non-Med 2022-09-29 00:00:00 2022-09-29 00:00:00 2 [facility] History SDOH Housing Unable to Pay 2022-09-29 00:00:00 2022-09-29 00:00:00 2 [facility] History SDOH Housing Places Lived 2022-09-29 00:00:00 2022-09-29 00:00:00 2 [facility] History SDOH Housing Homeless Last Year 2022-09-29 00:00:00 2022-09-29 00:00:00 2 [facility] History of tobacco use 2000-04-29 00:00:00 2002-04-29 00:00:00 Cigarette Smoker [facility] Sex assigned at 1970 00:00:00 1970 00:00:00 Colleen Ignacio - External Smoking Status Start Date Stop Date Source Ex-smoker 2024-06-30 00:00:00 [facility]24[facility] Colleen Ignacio - External Medications Ordered Medication Name Filled Medication Name Start Date Stop Date Current Medication? Ordering Clinician Indication Dosage Frequency Signature (SIG) Comments Components Source Ozempic (1 MG/DOSE) 4 MG/3ML Ozempic (1 MG/DOSE) 4 MG/3ML 07-28 00:00: 00 No Ozempic (1 MG/DOSE) 4 MG/3ML gabapentin 300 mg capsule 06-30 09:57: 08 06-30 00:00 :00 No 300mg Take 1 capsule by mouth in the morning and 1 capsule at noon and 1 capsule in the evening. [facility] dapaglifloz in propanediol (FARXIGA) 10 mg tablet 06-30 09:57: 08 06-30 00:00 :00 No 10mg Take 1 tablet by mouth in the morning. [facility] famotidine 20 mg tablet 06-30 09:57: 08 06-30 00:00 :00 No 20mg Take 1 tablet by mouth in the morning and 1 tablet in the evening. [facility] semaglutide (OZEMPIC) 0.25 mg or 0.5 mg (2 mg/3 mL) PnIj 06-30 09:57: 08 06-30 00:00 :00 No inject under the skin. [facility] losartan-hy drochloroth iazide 50-12.5 mg per tablet 06-30 09:56: 56 06-30 00:00 :00 No 1{tbl} Take 1 tablet by mouth in the morning. [facility] acyclovir 800 mg tablet 06-30 09:27: 18 Yes 800mg Take 1 tablet by mouth 5 (five) times daily. [facility] flash glucose sensor (FREESTYLE TORITO 2 SENSOR [facility]) 06-30 09:27: 18 Yes 1.25mg Take 1.25 mg by mouth. [facility] atorvastati n 40 mg tablet 06-30 00:00: 00 Yes [id number] 40mg Take 1 tablet by mouth at bedtime. [facility] dapaglifloz in propanediol (FARXIGA) 10 mg tablet 06-30 00:00: 00 Yes [id number] 10mg Take 1 tablet by mouth in the morning. [facility] famotidine 20 mg tablet 06-30 00:00: 00 Yes [id number] 20mg Take 1 tablet by mouth in the morning and 1 tablet in the evening. [facility] hydroCHLORO thiazide 25 mg tablet 06-30 00:00: 00 Yes [id number] 25mg Take 1 tablet by mouth in the morning. [facility] losartan 100 mg tablet 06-30 00:00: 00 Yes [id number] 100mg Take 1 tablet by mouth in the morning. [facility] gabapentin 300 mg capsule 06-30 00:00: 00 Yes [id number] 300mg Take 1 capsule by mouth in the morning and 1 capsule at noon and 1 capsule in the evening. [facility] semaglutide (OZEMPIC) 0.25 mg or 0.5 mg (2 mg/3 mL) PnIj 06-30 00:00: 00 Yes [id number] .5mg inject 0.5 mg under the skin weekly. [facility] diltiazem 180 mg 24 hr tablet 06-30 00:00: 00 Yes [id number] 180mg Take 1 tablet by mouth in the morning. [facility] levothyroxi ne (LEVOXYL) 75 mcg tablet 06-30 00:00: 00 Yes [id number] 75ug Take 1 tablet by mouth every morning. [facility] glipiZIDE XL 10 mg 24 hr tablet 06-30 00:00: 00 Yes [id number] 10mg Take 1 tablet by mouth daily with breakfast. [facility] Lidocaine Hcl (Lidocaine 3% Topical) 3 % CRE Lidocaine Hcl (Lidocaine 3% Topical) 3 % CRE 05-20 20:38: 00 Yes 2 [facility] Acyclovir (Zovirax *) 800 Mg TAB Acyclovir (Zovirax *) 800 Mg TAB 05-20 19:06: 00 Yes 1 [facility] Olopatadine HCl 0.1 % ophthalmic Solution 2023-04 10:39: 58 Yes [id number] 9102 1[drp] QD Place 1 drop into both eyes daily as needed for allergies. Colleen olguin Tirzepatide 5 MG/0.5ML subcutaneou s Solution Auto-inject or 2023-04 00:00: 00 Yes [id number] 5mg Q1W Inject 5 mg into the skin once a week. Colleen olguin Na Sulfate-K Sulfate-Mg Sulf (SUPREP BOWEL PREP KIT) 17.5-3.13-1 .6 GM/177ML oral Solution 2023-04 00:00: 00 03-07 00:00 :00 No MIX FIRST DOSE DIRECTED AND DRINK BY MOUTH AT 7 PM THE EVENING BEFORE PROCEDURE AND MIX SECOND DOSE DIRECTED AND DRINK 4 HOURS PRIOR TO PROCEDURE CHECK IN Colleen olguin Olopatadine HCl 0.1 % ophthalmic Solution 2023-04 13:58: 09 Yes [id number] 9102 1[drp] QD Place 1 drop into both eyes daily as needed for allergies. Colleen olguin Trulicity 3 MG/0.5ML subcutaneou s Solution Pen-injecto r 2023-04 00:00: 00 Yes [id number] 3mg Q1W Inject 3 mg into the skin once a week. Colleen olguin Empaglifloz in (Jardiance) 10 MG oral Tablet 2023-04 00:00: 00 Yes [id number] 10mg QD Take 1 tablet (10 mg total) by mouth daily. Colleen olguin Atorvastati n Calcium 40 MG oral Tablet 2023-04 00:00: 00 Yes [id number] 40mg QD Take 1 tablet (40 mg total) by mouth nightly. Colleen olguin Ketoconazol e 2 % apply externally Cream 2023-04 00:00: 00 Yes [id number] 1{appli cation} Q.5D Apply 1 Applicatio n topically 2 times daily. Colleen olguin Triamcinolo ne Acetonide 0.1 % apply externally Cream 2023-04 00:00: 00 Yes [id number] 1{appli cation} Q.5D Apply 1 Applicatio n topically 2 times daily. Colleen olguin Trulicity 3 MG/0.5ML subcutaneou s Solution Pen-injecto r 2023-04 00:00: 00 03-07 00:00 :00 No [id number] 3mg Q1W Inject 3 mg into the skin once a week. Colleen olguin Trulicity 1.5 MG/0.5ML subcutaneou s Solution Pen-injecto r 9-03 00:00: 00 01-19 00:00 :00 No [id number] 3 1.5mg Q1W Inject 1.5 mg into the skin once a week. Colleen olguin Atorvastati n Calcium 80 MG oral Tablet 10-22 14:55: 37 10-22 00:00 :00 No 80mg QD Take 1 tablet (80 mg total) by mouth daily. Colleen olguin Levothyroxi ne Sodium 75 MCG oral Tablet 10-22 14:55: 37 10-22 00:00 :00 No 75ug QD Take 1 tablet (75 mcg total) by mouth daily. Colleen olguin glipiZIDE 10 MG oral Tablet 10-22 14:55: 37 10-22 00:00 :00 No 10mg Take 1 tablet (10 mg total) by mouth daily (before a meal). Colleen olguin Omeprazole 10 MG oral Delayed Release Capsule 10-22 14:55: 37 10-22 00:00 :00 No 10mg QD Take 1 capsule (10 mg total) by mouth daily. Colleen olguin Losartan Potassium (COZAAR) 100 MG oral Tablet 10-22 14:55: 37 10-22 00:00 :00 No 100mg QD Take 1 tablet (100 mg total) by mouth daily. Colleen olguin hydroCHLORO thiazide 25 MG oral Tablet 10-22 14:55: 37 10-22 00:00 :00 No 25mg QD Take 1 tablet (25 mg total) by mouth daily. Colleen olguin Diltiazem HCl CR 180 MG oral Capsule 24 Hour Sustained Release 10-22 14:55: 37 10-22 00:00 :00 No 180mg QD Take 1 capsule (180 mg total) by mouth daily. Colleen olguin Beclomethas one Diprop (Qvar RediHaler) 80 MCG/ACT inhalation AEROSOL, BREATH ACTIVATED 10-22 14:55: 37 10-22 00:00 :00 No 2{inhal ation} QD Inhale 2 Inhalation s into the lungs daily. Colleen olguin Albuterol HFA 108 (90 Base) MCG/ACT IN AERS 10-22 14:55: 37 10-22 00:00 :00 No 1{puff} Q4H Inhale 1 puff into the lungs every 4 hours as needed for wheezing. Colleen olguin Levothyroxi ne Sodium (Synthroid) 25 MCG oral Tablet 10-22 14:52: 37 10-22 00:00 :00 No 25ug QD Take 1 tablet (25 mcg total) by mouth daily. Colleen olguin glipiZIDE 10 MG oral Tablet 10-22 00:00: 00 Yes [id number] 3 10mg Take 1 tablet (10 mg total) by mouth in the morning and 1 tablet (10 mg total) in the evening. Take before meals. Colleen olguin Diltiazem HCl CR 180 MG oral Capsule 24 Hour Sustained Release 10-22 00:00: 00 Yes [id number] 180mg QD Take 1 capsule (180 mg total) by mouth daily. Colleen olguin Levothyroxi ne Sodium 75 MCG oral Tablet 10-22 00:00: 00 Yes [id number] 75ug QD Take 1 tablet (75 mcg total) by mouth daily. Colleen olguin hydroCHLORO thiazide 25 MG oral Tablet 10-22 00:00: 00 Yes [id number] 25mg QD Take 1 tablet (25 mg total) by mouth daily. Colleen olguin Losartan Potassium (COZAAR) 100 MG oral Tablet 10-22 00:00: 00 Yes [id number] 100mg QD Take 1 tablet (100 mg total) by mouth daily. Colleen olguin Omeprazole 20 MG oral Delayed Release Capsule 10-22 00:00: 00 Yes [id number] 20mg QD Take 1 capsule (20 mg total) by mouth daily. Colleen olguin Beclomethas one Diprop (Qvar RediHaler) 80 MCG/ACT inhalation AEROSOL, BREATH ACTIVATED 10-22 00:00: 00 Yes [id number] 2{inhal ation} Q.5D Inhale 2 Inhalation s into the lungs 2 times daily. Colleen olguin Albuterol HFA 108 (90 Base) MCG/ACT IN AERS 10-22 00:00: 00 Yes [id number] 1{puff} Q4H Inhale 1 puff into the lungs every 4 hours as needed for wheezing or shortness of breath. [facility] Glucose Blood in vitro Strip 10-22 00:00: 00 Yes [id number] 3 Check BS twice daily. [facility] Lancets 33G does not apply Misc 10-22 00:00: 00 Yes [id number] 3 1{appli cation} Q.5D 1 Applicatio n by does not apply route 2 times daily. [facility] Blood Glucose Monitoring Suppl (Blood Glucose Monitor System) w/Device does not apply Kit 10-22 00:00: 00 Yes [id number] 3 Check BS twice daily. [facility] Atorvastati n Calcium 80 MG oral Tablet 10-22 00:00: 00 01-19 00:00 :00 No [id number] 3 80mg QD Take 1 tablet (80 mg total) by mouth nightly. [facility] Dulaglutide (Trulicity) 0.75 MG/0.5ML subcutaneou s Solution Pen-injecto r 10-22 00:00: 00 12-07 00:00 :00 No [id number] 3 .75mg Q1W Inject 0.75 mg into the skin once a week. [facility] Ozempic (0.25 or 0.5 MG/DOSE) 2 MG/3ML Ozempic (0.25 or 0.5 MG/DOSE) 2 MG/3ML 10-20 00:00: 00 No Ozempic (0.25 or 0.5 MG/DOSE) 2 MG/3ML levothyroxi ne 25 mcg tablet 09-13 00:00: 00 06-30 00:00 :00 No 25ug Take 1 tablet by mouth every morning. Must be seen for further refills [facility] albuterol sulfate 90 mcg/actuati on aebs 09-03 16:31: 01 09-03 00:00 :00 No Inhale. [facility] QVAR REDIHALER 80 mcg/actuati on inhaler 08-31 00:00: 00 Yes 2{puff} Inhale 2 Puffs in the morning and 2 Puffs in the evening. [facility] albuterol 90 mcg/actuati on inhaler 5-07 00:00: 00 Yes INHALE 1 PUFF BY MOUTH EVERY 4 HOURS NEEDED [facility] Tirzepatide (Mounjaro) 2.5 MG/0.5ML subcutaneou s Solution Auto-inject or 4-30 00:00: 00 03-07 00:00 :00 No 2.5 mg Subcutaneo us weekly for 30 days [facility] albuterol sulfate 90 mcg/actuati on aebs 1-04 13:54: 20 Yes Inhale. [facility] omeprazole 10 mg capsule 2022-04 00:00: 00 Yes [id number] 10mg Take 1 capsule by mouth in the morning. [facility] atorvastati n 40 mg tablet 2022-04 00:00: 00 06-30 00:00 :00 No 40mg Take 1 tablet by mouth at bedtime. [facility] glipiZIDE 5 mg tablet 2022-04 00:00: 00 06-30 00:00 :00 No 5mg Take 1 tablet by mouth in the morning. [facility] hydroCHLORO thiazide 25 mg tablet 2022-04 00:00: 00 06-30 00:00 :00 No 25mg Take 1 tablet by mouth in the morning. [facility] levothyroxi ne 25 mcg tablet 2022-04 00:00: 00 09-12 00:00 :00 No 25ug Take 1 tablet by mouth every morning. [facility] losartan 100 mg tablet 2022-04 0-11 00:00: 00 06-30 00:00 :00 No [id number] 100mg Take 1 tablet by mouth in the morning. [facility] diltiazem 180 mg 24 hr capsule 9-08 00:00: 00 Yes [id number] 180mg Take 1 capsule by mouth in the morning. [facility] metoprolol tartrate 50 mg tablet 12-04 00:00: 00 01-14 00:00 :00 No [id number] 50mg Take 1 tablet by mouth in the morning and 1 tablet in the evening. [facility] peg-electro lyte soln [id number] .74 -5.86 gram solution 8 00:00: 00 09-03 00:00 :00 No [id number] Take as directed before colonoscop y [facility] metoprolol tartrate 25 mg tablet 10-24 00:00: 00 12-04 00:00 :00 No [id number] 25mg Take 1 tablet by mouth in the morning and 1 tablet in the evening. [facility] omeprazole 10 mg capsule 10-23 09:11: 19 10-23 00:00 :00 No 10mg Take 1 capsule by mouth in the morning. [facility] albuterol sulfate 90 mcg/actuati on aebs 10-23 08:08: 07 Yes Inhale. [facility] hydroCHLORO thiazide 25 mg tablet 10-23 00:00: 00 02-19 00:00 :00 No [id number] 25mg Take 1 tablet by mouth in the morning. [facility] atorvastati n 40 mg tablet 10-23 00:00: 00 02-19 00:00 :00 No [id number] 40mg Take 1 tablet by mouth at bedtime. [facility] glipiZIDE 5 mg tablet 10-23 00:00: 00 02-19 00:00 :00 No [id number] 5mg Take 1 tablet by mouth in the morning. [facility] levothyroxi ne 25 mcg tablet 10-23 00:00: 00 02-19 00:00 :00 No [id number] 25ug Take 1 tablet by mouth every morning. [facility] omeprazole 10 mg capsule 10-23 00:00: 00 02-19 00:00 :00 No [id number] 10mg Take 1 capsule by mouth in the morning. [facility] metoprolol tartrate 25 mg tablet 7-20 00:00: 00 10-24 00:00 :00 No [id number] 12.5mg Take 0.5 tablets by mouth in the morning and 0.5 tablets in the evening. [facility] heparin (porcine) injection 5,000 Units 10-01 19:00: 00 Yes 5000U 5,000 Units, Subcutaneo us, Q8H, First dose on Thu10/01/22 at 1400, Until Discontinu ed, Routine [facility] lactated ringers IV infusion 1,000 mL 10-01 16:00: 00 10-01 18:59 :00 No 1000mL at 75 mL/hr, 1,000 mL, IV Infusion, CONTINUOUS , Starting on Thu10/01/22 at 1100, Until Thu10/01/22 at 1359, Routine [facility] albuterol sulfate 90 mcg/actuati on aebs 10-01 15:11: 45 Yes Inhale. [facility] omeprazole 10 mg capsule 10-01 15:11: 45 Yes 10mg Take 1 capsule by mouth in the morning. [facility] aspirin 81 mg chewable tablet 10-01 00:00: 00 11-01 04:59 :00 No [id number] 81mg Take 1 tablet by mouth in the morning for 30 days. [facility] iodixanol (VISIPAQUE 320-100 mL) injection 09-30 21:29: 23 09-30 21:43 :13 No ONCE INTRA PROCEDURE, Starting on Thu09/30/22 at 1629, Until Thu09/30/22 at 1643, Routine, CV Intraproce dure [facility] heparin 1,000 unit/mL injection 09-30 21:13: 00 09-30 21:43 :13 No ONCE INTRA PROCEDURE, Starting on Thu09/30/22 at 1613, Until Thu09/30/22 at 1643, Routine, CV Intraproce dure [facility] lidocaine 1% (PF) (XYLOCAINE) injection 09-30 21:11: 00 09-30 21:43 :13 No ONCE INTRA PROCEDURE, Starting on Thu09/30/22 at 1611, Until Thu09/30/22 at 1643, Routine, CV Intraproce dure [facility] midazolam (VERSED) injection 09-30 21:08: 05 09-30 21:43 :13 No ONCE INTRA PROCEDURE, Starting on Thu09/30/22 at 1608, Until Thu09/30/22 at 1643, Routine, CV Intraproce dure [facility] FENTanyl PF (SUBLIMAZE (PF)) injection 09-30 21:08: 00 09-30 21:43 :13 No ONCE INTRA PROCEDURE, Starting on Thu09/30/22 at 1608, Until Thu09/30/22 at 1643, Routine, CV Intraproce dure [facility] albuterol sulfate 90 mcg/actuati on aebs 09-30 17:40: 56 Yes Inhale. [facility] omeprazole 10 mg capsule 09-30 17:40: 56 Yes 10mg Take 1 capsule by mouth in the morning. [facility] glipiZIDE 5 mg tablet 09-30 17:40: 56 09-30 00:00 :00 No 5mg Take 1 tablet by mouth in the morning. [facility] levothyroxi ne 25 mcg tablet 09-30 17:40: 56 09-30 00:00 :00 No 25ug Take 1 tablet by mouth every morning. [facility] metoprolol tartrate 50 mg tablet 09-30 17:40: 56 09-30 00:00 :00 No 50mg Take 1 tablet by mouth in the morning and 1 tablet in the evening. [facility] atorvastati n 10 mg tablet 09-30 17:40: 56 09-30 00:00 :00 No 10mg Take 1 tablet by mouth at bedtime. [facility] aspirin 81 mg Cap 09-30 17:40: 56 09-30 00:00 :00 No Take by mouth. [facility] hydroCHLORO thiazide 25 mg tablet 09-30 17:40: 56 09-30 00:00 :00 No 25mg Take 1 tablet by mouth in the morning. [facility] DULoxetine 30 mg capsule 09-30 17:40: 56 09-30 00:00 :00 No 30mg Take 1 capsule by mouth in the morning. [facility] morpHINE (2 mg/mL) injection 2 mg 09-30 01:04: 32 09-30 22:22 :32 No 2mg 2 mg, Slow IV Push, Q6HPRN, 2 doses, Starting on Thu09/29/22 at 2004, Until Thu09/30/22 at 1722, Routine, Chest pain [facility] DULoxetine 30 mg capsule 09-30 00:00: 00 11-01 04:59 :00 No [id number] 30mg Take 1 capsule by mouth in the morning for 30 days. [facility] glipiZIDE 5 mg tablet 09-30 00:00: 00 10-23 00:00 :00 No [id number] 5mg Take 1 tablet by mouth in the morning for 30 days. [facility] hydroCHLORO thiazide 25 mg tablet 09-30 00:00: 00 10-23 00:00 :00 No [id number] 25mg Take 1 tablet by mouth in the morning for 30 days. [facility] levothyroxi ne 25 mcg tablet 09-30 00:00: 00 10-23 00:00 :00 No [id number] 25ug Take 1 tablet by mouth every morning for 30 days. [facility] metoprolol tartrate 25 mg tablet 09-30 00:00: 00 10-23 00:00 :00 No [id number] 12.5mg Take 0.5 tablets by mouth in the morning and 0.5 tablets in the evening. [facility] atorvastati n 40 mg tablet 09-30 00:00: 00 10-23 00:00 :00 No [id number] 40mg Take 1 tablet by mouth at bedtime for 30 days. [facility] metoprolol tartrate (LOPRESSOR) tablet 12.5 mg 09-29 15:45: 00 Yes 12.5mg 12.5 mg, Oral, BID, First dose on Thu09/29/22 at 1045, Until Discontinu ed, Routine [facility] sulfur hexafluorid e microsphr (LUMASON) injection 5 mL 09-29 14:45: 00 09-29 14:45 :00 No [id number] 5mL 5 mL, Intravenou s, ONCE, 1 dose, On Thu09/29/22 at 0945, Routine
store team member approving Restricted medication : THOMPSON HERNANDEZ [facility] aspirin chewable tablet 81 mg 09-29 14:00: 00 Yes 81mg 81 mg, Oral, DAILY, First dose on Thu09/29/22 at 0900, Until Discontinu ed, Routine [facility] nitroglycer in (TRANSDERM- NITRO) 0.4 mg/hr patch 1 Patch 09-29 14:00: 00 Yes 1{patch } 1 Patch, Transderma l (Apply To Skin), Administer over 12 Hours, DAILY, First dose on Thu09/29/22 at 0900, Until Discontinu ed, Routine [facility] levothyroxi ne (SYNTHROID) tablet 25 mcg 09-29 11:00: 00 Yes 25ug 25 mcg, Oral, QAM-0600, First dose on Thu09/29/22 at 0600, Until Discontinu ed, Routine [facility] morpHINE (4 mg/mL) injection 2 mg 09-29 11:00: 00 09-29 10:30 :00 No 2mg 2 mg, Slow IV Push, ONCE, 1 dose, On Thu09/29/22 at 0600, Routine [facility] morpHINE (4 mg/mL) injection 2 mg 09-29 03:45: 00 09-29 03:05 :00 No 2mg 2 mg, Slow IV Push, ONCE, 1 dose, On Thu09/28/22 at 2245, Routine [facility] atorvastati n (LIPITOR) tablet 40 mg 09-29 02:00: 00 Yes 40mg 40 mg, Oral, QHS, First dose on Thu09/28/22 at 2100, Until Discontinu ed, Routine [facility] Sliding Scale Insulin - Lispro (HumaLOG) 09-28 22:00: 00 Yes Subcutaneo us, TID MEALS+HS, First dose on Thu09/28/22 at 1700, Until Discontinu ed, Routine [facility] glucagon (GLUCAGEN DIAGNOSTIC KIT) injection 1 mg 09-28 20:25: 27 Yes 1mg 1 mg, Intramuscu lar, PRN, Starting on Thu09/28/22 at 1525, Until Discontinu ed, TENZIN, Blood Glucose < or = 70 mg/dL and patient is NPO, unable to swallow or has mental changes. [facility] dextrose 50 % in water (D50W) injection 25 mL 09-28 20:25: 27 Yes 25mL 25 mL, Slow IV Push, PRN, Starting on Thu09/28/22 at 1525, Until Discontinu ed, TENZIN, Blood Glucose < or = 70 mg/dL and patient is NPO, unable to swallow or has mental status changes. [facility] hydroCHLORO thiazide (ESIDRIX) capsule 25 mg 09-28 19:00: 00 Yes 25mg 25 mg, Oral, DAILY, First dose (after last modificati on) on Thu09/28/22 at 1400, Until Discontinu ed, Routine [facility] HEPARIN SODIUM (PORCINE) 1,000 UNIT/ML BOLUS ACS ORDER SET 09-28 19:00: 00 09-28 19:40 :00 No 4000U 4,000 Units, IV Push, ONCE, 1 dose, On Thu09/28/22 at 1400, TENZIN [facility] heparin 25,000 Units/250 mL (Premixed Bag) in 0.45 % NS 09-28 18:54: 48 09-29 16:09 :39 No 0U/h 0-2,750 Units/hr (0-27.5 mL/hr), IV Infusion, TITRATE, Parameters in Admin. Instr., Starting on 09/28/22 at 1354
In itiate dosing:&nb sp; & [...] Rang e, Dosing and Testing: &nbs p;[facility] &nbs p; - aPTT < [...] INITIAL BOLUS OR INITIAL INFUSION RATE.
[facility] heparin (1,000 unit/mL, 10 mL vial) for Rebolusing 09-28 18:54: 44 09-29 16:09 :39 No 3000U FOR REBOLUSING , Starting on Thu09/28/22 at 1354, Until 09/29/22 at 1109, Routine
Dosing based on aPPT testing parameters (refer to continuous heparin drip order).
[facility] aspirin tablet 325 mg 09-28 18:49: 00 09-28 19:10 :00 No 325mg 325 mg, Oral, ONCE, 1 dose, On Thu09/28/22 at 1400, Routine [facility] acetaminoph en (TYLENOL) tablet 650 mg 09-28 18:14: 12 Yes 650mg 650 mg, Oral, Q6HPRN, Starting on Thu09/28/22 at 1314, Until Discontinu ed, Routine, Pain (scale 1-3) [facility] FENTanyl PF (SUBLIMAZE (PF)) injection 25 mcg 09-28 16:15: 00 09-28 16:09 :00 No 25ug 25 mcg, Slow IV Push, ONCE, 1 dose, On Thu09/28/22 at 1115, STAT [facility] iopamidol (ISOVUE 370-500 mL) injection 100 mL 09-28 13:15: 00 09-28 13:30 :00 No [id number] 100mL 100 mL, Intravenou s, ONCE, 1 dose, On Thu09/28/22 at 0830, Routine [facility] ondansetron (ZOFRAN (PF)) injection 4 mg 09-28 12:15: 00 09-28 11:13 :00 No 4mg 4 mg, Slow IV Push, ONCE, 1 dose, On Thu09/28/22 at 0715, TENZIN [facility] morpHINE (4 mg/mL) injection 4 mg 09-28 11:15: 00 09-28 11:15 :00 No 4mg 4 mg, Slow IV Push, ONCE, 1 dose, On 6/25/23 at 0615, [facility] prednisoLON E acetate 1 % ophthalmic suspension drops 2020-04 00:00: 00 03-21 05:59 :[id number] 1 Drop in right eye 3 (three) times daily for 7 days, THEN 1 Drop 2 (two) times daily for 7 days, THEN 1 Drop daily for 7 days.[facility] ketorolac 0.5 % ophthalmic solution 2020-04 00:00: 00 03-21 05:59 :[id number] 1 Drop in right eye 3 (three) times daily for 7 days, THEN 1 Drop 2 (two) times daily for 7 days, THEN 1 Drop daily for 7 days.[facility] moxifloxaci n (VIGAMOX) 0.5 % ophthalmic drops 2020-04 00:00: 00 02-28 00:00 :00 No [id number] 9108 1[drp] Place 1 Drop in both eyes 4 (four) times daily.X 7 DAYS.[facility] ketorolac 0.5 % ophthalmic solution 2020-04 00:00: 00 02-28 00:00 :00 No [id number] 9108 1[drp] Place 1 Drop in right eye 4 (four) times daily.X 1 MON.[facility] prednisoLON E acetate 1 % ophthalmic suspension drops 2020-04 00:00: 00 02-28 00:00 :00 No [id number] 9108 1[drp] Place 1 Drop in right eye 4 (four) times daily.X 1 MON.[facility] ketorolac 0.5 % ophthalmic solution 2020-04 00:00: 00 02-28 00:00 :00 No [id number] 9108 1[drp] Place 1 Drop in left eye 4 (four) times daily.X 1 MON.[facility] prednisoLON E acetate 1 % ophthalmic suspension drops 2020-04 00:00: 00 02-28 00:00 :00 No [id number] 9108 1[drp] Place 1 Drop in left eye 4 (four) times daily.X 1 MON.[facility] Aspirin (Aspirin Enteric Coated Ad) 81 Mg TAB Aspirin (Aspirin Enteric Coated Ad) 81 Mg TAB 04-18 19:12: 00 Yes 1 [facility] Lisinopril (Lisinopril 10 Mg) 10 Mg TAB Lisinopril (Lisinopril 10 Mg) 10 Mg TAB 04-18 19:12: 00 Yes 1 [facility] Acetamin/Co deine 300/30 Mg * (Tylenol With Codeine #3 300/30 Mg *) 300/30 Mg TAB Acetamin/Co deine 300/30 Mg * (Tylenol With Codeine #3 300/30 Mg *) 300/30 Mg TAB 2018-04 17:34: 00 04-18 16:43 :00 No 1 [facility] Methocarbam ol (Robaxin 750 Mg *) 750 Mg TAB Methocarbam ol (Robaxin 750 Mg *) 750 Mg TAB 2018-04 17:34: 00 04-18 16:43 :00 No 1 [facility] Naproxen (Naproxen 375 Mg) 375 Mg TAB Naproxen (Naproxen 375 Mg) 375 Mg TAB 2018-04 17:34: 00 04-18 16:43 :00 No 1 [facility] Albuterol Sulfate HFA 108 (90 Base) MCG/ACT Albuterol Sulfate HFA 108 (90 Base) MCG/ACT No 1{puff_ as_need ed} 6xD Albuterol Sulfate HFA 108 (90 Base) MCG/ACT Atorvastati n Calcium 80 MG Atorvastati n Calcium 80 MG No 1{table t} Atorvastat in Calcium 80 MG dilTIAZem HCl ER Coated Beads 180 MG dilTIAZem HCl ER Coated Beads 180 MG No 1{capsu le} QD dilTIAZem HCl ER Coated Beads 180 MG Fluticasone Propionate HFA 110 MCG/ACT Fluticasone Propionate HFA 110 MCG/ACT No BID Fluticason e Propionate HFA 110 MCG/ACT Losartan Potassium 100 MG Losartan Potassium 100 MG No 1{table t} QD Losartan Potassium 100 MG hydroCHLORO thiazide 25 MG hydroCHLORO thiazide 25 MG No 1{table t_in_th e_morni ng} QD hydroCHLOR Othiazide 25 MG FreeStyle Lite w/Device FreeStyle Lite w/Device No FreeStyle Lite w/Device Nitroglycer in 0.4 MG Nitroglycer in 0.4 MG No TID Nitroglyce rin 0.4 MG Famotidine 20 MG Famotidine 20 MG No 1{table t_at_be dtime_a s_neede d} QD Famotidine 20 MG Farxiga 10mg Farxiga 10mg No QD Farxiga 10mg Vitamin D (Ergocalcif petros) 1.25 MG (06887 UT) Vitamin D (Ergocalcif petros) 1.25 MG (33158 UT) No 1{capsu le} Vitamin D (Ergocalci ferol) 1.25 MG (62173 UT) FreeStyle Lite Test - FreeStyle Lite Test - No FreeStyle Lite Test - glipiZIDE ER 10 MG glipiZIDE ER 10 MG No 1{table t_with_ breakfa st} QD glipiZIDE ER 10 MG Gabapentin 300 MG Gabapentin 300 MG No 1{capsu le} TID Gabapentin 300 MG Immunizations Ordered Immunization Name Filled Immunization Name Date Status Comments Source Influenza Virus Vaccine 2022-12-31 00:00:00 Completed [facility] Zoster(Zostavax)(Sh ingles) 2022-12-15 00:00:00 Completed TDAP 2022-12-15 00:00:00 Completed [facility] Pneumococcal 20 Conjugate, PCV20 (Prevnar 20) 2022-10-23 00:00:00 Completed [facility] TDAP 2022-10-23 00:00:00 Completed [facility] Pneumococcal 20 Conjugate, PCV20 (Prevnar 20) 2022-10-23 00:00:00 Completed [facility] TDAP 2022-10-23 00:00:00 Completed [facility] Pneumococcal 20 Conjugate, PCV20 (Prevnar 20) 2022-10-23 00:00:00 Completed [facility] TDAP 2022-10-23 00:00:00 Completed [facility] Pneumococcal 20 Conjugate, PCV20 (Prevnar 20) 2022-10-23 00:00:00 Completed [facility] TDAP 2022-10-23 00:00:00 Completed [facility] Pneumococcal 20 Conjugate, PCV20 (Prevnar 20) 2022-10-23 00:00:00 Completed [facility] TDAP 2022-10-23 00:00:00 Completed [facility] DTAP 2022-10-08 00:00:00 Completed [facility] Pneumococcal 20 Conjugate, PCV20 (Prevnar 20) 2022-10-08 00:00:00 Completed [facility] DTAP 2022-10-08 00:00:00 Completed [facility] Pneumococcal 20 Conjugate, PCV20 (Prevnar 20) 2022-10-08 00:00:00 Completed [facility] DTAP 2022-10-08 00:00:00 Completed [facility] Pneumococcal 20 Conjugate, PCV20 (Prevnar 20) 2022-10-08 00:00:00 Completed [facility] DTAP 2022-10-08 00:00:00 Completed [facility] Pneumococcal 20 Conjugate, PCV20 (Prevnar 20) 2022-10-08 00:00:00 Completed [facility] DTAP 2022-10-08 00:00:00 Completed [facility] Pneumococcal 20 Conjugate, PCV20 (Prevnar 20) 2022-10-08 00:00:00 Completed [facility] DTAP 2022-10-08 00:00:00 Completed [facility] Pneumococcal 20 Conjugate, PCV20 (Prevnar 20) 2022-10-08 00:00:00 Completed [facility] DTAP 2022-10-08 00:00:00 Completed [facility] Pneumococcal 20 Conjugate, PCV20 (Prevnar 20) 2022-10-08 00:00:00 Completed [facility] DTAP 2022-10-08 00:00:00 Completed [facility] Pneumococcal 20 Conjugate, PCV20 (Prevnar 20) 2022-10-08 00:00:00 Completed [facility] DTAP 2022-10-08 00:00:00 Completed [facility] Pneumococcal 20 Conjugate, PCV20 (Prevnar 20) 2022-10-08 00:00:00 Completed [facility] DTAP 2022-10-08 00:00:00 Completed [facility] Pneumococcal 20 Conjugate, PCV20 (Prevnar 20) 2022-10-08 00:00:00 Completed [facility] DTAP 2022-10-08 00:00:00 Completed Pneumococcal 20 Conjugate, PCV20 (Prevnar 20) 2022-10-08 00:00:00 Completed SARS-COV-2 COVID-19 VACCINE - (MODERNA) 2021-07-24 00:00:00 Completed [facility] SARS-COV-2 COVID-19 VACCINE - (MODERNA) 2021-07-24 00:00:00 Completed [facility] SARS-COV-2 COVID-19 VACCINE - (MODERNA) 2021-07-24 00:00:00 Completed [facility] SARS-COV-2 COVID-19 VACCINE - (MODERNA) 2021-07-24 00:00:00 Completed [facility] SARS-COV-2 COVID-19 VACCINE - (MODERNA) 2021-07-24 00:00:00 Completed [facility] SARS-COV-2 COVID-19 VACCINE - (MODERNA) 2021-07-24 00:00:00 Completed [facility] SARS-COV-2 COVID-19 VACCINE - (MODERNA) 2021-07-24 00:00:00 Completed [facility] SARS-COV-2 COVID-19 VACCINE - (MODERNA) 2021-07-24 00:00:00 Completed [facility] SARS-COV-2 COVID-19 VACCINE - (MODERNA) 2021-07-24 00:00:00 Completed [facility] SARS-COV-2 COVID-19 VACCINE - (MODERNA) 2021-03-13 00:00:00 Completed [facility] SARS-COV-2 COVID-19 VACCINE - (MODERNA) 2021-03-13 00:00:00 Completed [facility] SARS-COV-2 COVID-19 VACCINE - (MODERNA) 2021-03-13 00:00:00 Completed [facility] SARS-COV-2 COVID-19 VACCINE - (MODERNA) 2021-03-13 00:00:00 Completed [facility] SARS-COV-2 COVID-19 VACCINE - (MODERNA) 2021-03-13 00:00:00 Completed [facility] SARS-COV-2 COVID-19 VACCINE - (MODERNA) 2021-03-13 00:00:00 Completed [facility] SARS-COV-2 COVID-19 VACCINE - (MODERNA) 2021-03-13 00:00:00 Completed [facility] SARS-COV-2 COVID-19 VACCINE - (MODERNA) 2021-03-13 00:00:00 Completed [facility] SARS-COV-2 COVID-19 VACCINE - (MODERNA) 2021-03-13 00:00:00 Completed SARS-COV-2 COVID-19 VACCINE - (MODERNA) 2020-08-28 00:00:00 Completed [facility] SARS-COV-2 COVID-19 VACCINE - (MODERNA) 2020-08-28 00:00:00 Completed [facility] SARS-COV-2 COVID-19 VACCINE - (MODERNA) 2020-08-28 00:00:00 Completed [facility] SARS-COV-2 COVID-19 VACCINE - (MODERNA) 2020-08-28 00:00:00 Completed [facility] SARS-COV-2 COVID-19 VACCINE - (MODERNA) 2020-08-28 00:00:00 Completed [facility] SARS-COV-2 COVID-19 VACCINE - (MODERNA) 2020-08-28 00:00:00 Completed [facility] SARS-COV-2 COVID-19 VACCINE - (MODERNA) 2020-08-28 00:00:00 Completed [facility] SARS-COV-2 COVID-19 VACCINE - (MODERNA) 2020-08-28 00:00:00 Completed [facility] SARS-COV-2 COVID-19 VACCINE - (MODERNA) 2020-08-28 00:00:00 Completed SARS-COV-2 COVID-19 VACCINE - (MODERNA) 2020-07-31 00:00:00 Completed [facility] SARS-COV-2 COVID-19 VACCINE - (MODERNA) 2020-07-31 00:00:00 Completed [facility] SARS-COV-2 COVID-19 VACCINE - (MODERNA) 2020-07-31 00:00:00 Completed [facility] SARS-COV-2 COVID-19 VACCINE - (MODERNA) 2020-07-31 00:00:00 Completed [facility] SARS-COV-2 COVID-19 VACCINE - (MODERNA) 2020-07-31 00:00:00 Completed [facility] SARS-COV-2 COVID-19 VACCINE - (MODERNA) 2020-07-31 00:00:00 Completed [facility] SARS-COV-2 COVID-19 VACCINE - (MODERNA) 2020-07-31 00:00:00 Completed [facility] SARS-COV-2 COVID-19 VACCINE - (MODERNA) 2020-07-31 00:00:00 Completed [facility] SARS-COV-2 COVID-19 VACCINE - (MODERNA) 2020-07-31 00:00:00 Completed DTAP Unknown Completed [facility] Pneumococcal 20 Conjugate, PCV20 (Prevnar 20) Unknown Completed [facility] SARS-COV-2 COVID-19 VACCINE - (MODERNA) Unknown [facility]pleted [facility] TDAP Unknown Completed [facility] DTAP Unknown Completed [facility] Pneumococcal 20 Conjugate, PCV20 (Prevnar 20) Unknown Completed [facility] SARS-COV-2 COVID-19 VACCINE - (MODERNA) Unknown Completed [facility] TDAP Unknown Completed [facility] DTAP Unknown Completed [facility] Pneumococcal 20 Conjugate, PCV20 (Prevnar 20) Unknown Completed [facility] SARS-COV-2 COVID-19 VACCINE - (MODERNA) Unknown Completed [facility] TDAP Unknown Completed [facility] DTAP Unknown Completed [facility] Pneumococcal 20 Conjugate, PCV20 (Prevnar 20) Unknown Completed [facility] SARS-COV-2 COVID-19 VACCINE - (MODERNA) Unknown Completed [facility] TDAP Unknown Completed [facility] DTAP Unknown Completed [facility] Pneumococcal 20 Conjugate, PCV20 (Prevnar 20) Unknown Completed [facility] SARS-COV-2 COVID-19 VACCINE - (MODERNA) Unknown Completed [facility] TDAP Unknown Completed [facility] DTAP Unknown Completed [facility] Pneumococcal 20 Conjugate, PCV20 (Prevnar 20) Unknown Completed [facility] SARS-COV-2 COVID-19 VACCINE - (MODERNA) Unknown Completed [facility] TDAP Unknown Completed [facility] Influenza Virus Vaccine Unknown Completed [facility] Zoster(Zostavax)(Sh ingles) Unknown Completed [facility] DTAP Unknown Completed [facility] Pneumococcal 20 Conjugate, PCV20 (Prevnar 20) Unknown Completed [facility] SARS-COV-2 COVID-19 VACCINE - (MODERNA) Unknown Completed [facility] TDAP Unknown Completed [facility] Influenza Virus Vaccine Unknown Completed [facility] Zoster(Zostavax)(Sh ingles) Unknown Completed [facility] DTAP Unknown Completed [facility] Pneumococcal 20 Conjugate, PCV20 (Prevnar 20) Unknown Completed [facility] SARS-COV-2 COVID-19 VACCINE - (MODERNA) Unknown Completed [facility] TDAP Unknown Completed [facility] Influenza Virus Vaccine Unknown Completed [facility] Zoster(Zostavax)(Sh ingles) Unknown Completed [facility] DTAP Unknown Completed [facility] Pneumococcal 20 Conjugate, PCV20 (Prevnar 20) Unknown Completed [facility] SARS-COV-2 COVID-19 VACCINE - (MODERNA) Unknown Completed [facility] TDAP Unknown Completed [facility] Influenza Virus Vaccine Unknown Completed [facility] Zoster(Zostavax)(Sh ingles) Unknown Completed [facility] DTAP Unknown Completed [facility] Pneumococcal 20 Conjugate, PCV20 (Prevnar 20) Unknown Completed [facility] SARS-COV-2 COVID-19 VACCINE - (MODERNA) Unknown Completed [facility] TDAP Unknown Completed [facility] Influenza Virus Vaccine Unknown Completed [facility] Zoster(Zostavax)(Sh ingles) Unknown Completed [facility] DTAP Unknown Completed [facility] Pneumococcal 20 Conjugate, PCV20 (Prevnar 20) Unknown Completed [facility] SARS-COV-2 COVID-19 VACCINE - (MODERNA) Unknown Completed [facility] TDAP Unknown Completed [facility] Influenza Virus Vaccine Unknown Completed [facility] Zoster(Zostavax)(Sh ingles) Unknown Completed [facility] DTAP Unknown Completed [facility] Pneumococcal 20 Conjugate, PCV20 (Prevnar 20) Unknown Completed [facility] SARS-COV-2 COVID-19 VACCINE - (MODERNA) Unknown Completed [facility] TDAP Unknown Completed [facility] Influenza Virus Vaccine Unknown Completed [facility] Zoster(Zostavax)(Sh ingles) Unknown Completed [facility] DTAP Unknown Completed [facility] Pneumococcal 20 Conjugate, PCV20 (Prevnar 20) Unknown Completed [facility] SARS-COV-2 COVID-19 VACCINE - (MODERNA) Unknown Completed [facility] TDAP Unknown Completed [facility] Influenza Virus Vaccine Unknown Completed [facility] Zoster(Zostavax)(Sh ingles) Unknown Completed [facility] DTAP Unknown Completed [facility] Pneumococcal 20 Conjugate, PCV20 (Prevnar 20) Unknown Completed [facility] SARS-COV-2 COVID-19 VACCINE - (MODERNA) Unknown Completed [facility] TDAP Unknown Completed [facility] Influenza Virus Vaccine Unknown Completed [facility] Zoster(Zostavax)(Sh ingles) Unknown Completed [facility] DTAP Unknown Completed [facility] Pneumococcal 20 Conjugate, PCV20 (Prevnar 20) Unknown Completed [facility] SARS-COV-2 COVID-19 VACCINE - (MODERNA) Unknown Completed [facility] TDAP Unknown Completed [facility] Influenza Virus Vaccine Unknown Completed [facility] Zoster(Zostavax)(Sh ingles) Unknown Completed [facility] DTAP Unknown Completed [facility] Pneumococcal 20 Conjugate, PCV20 (Prevnar 20) Unknown Completed [facility] SARS-COV-2 COVID-19 VACCINE - (MODERNA) Unknown Completed [facility] TDAP Unknown Completed [facility] Influenza Virus Vaccine Unknown Completed [facility] Zoster(Zostavax)(Sh ingles) Unknown Completed [facility] DTAP Unknown Completed [facility] Pneumococcal 20 Conjugate, PCV20 (Prevnar 20) Unknown Completed [facility] SARS-COV-2 COVID-19 VACCINE - (MODERNA) Unknown Completed [facility] TDAP Unknown Completed [facility] Influenza Virus Vaccine Unknown Completed [facility] Zoster(Zostavax)(Sh ingles) Unknown Completed [facility] DTAP Unknown Completed [facility] Pneumococcal 20 Conjugate, PCV20 (Prevnar 20) Unknown Completed [facility] SARS-COV-2 COVID-19 VACCINE - (MODERNA) Unknown Completed [facility] TDAP Unknown Completed [facility] Influenza Virus Vaccine Unknown Completed [facility] Zoster(Zostavax)(Sh ingles) Unknown Completed [facility] DTAP Unknown Completed [facility] Pneumococcal 20 Conjugate, PCV20 (Prevnar 20) Unknown Completed [facility] SARS-COV-2 COVID-19 VACCINE - (MODERNA) Unknown Completed [facility] TDAP Unknown Completed [facility] Influenza Virus Vaccine Unknown Completed [facility] Zoster(Zostavax)(Sh ingles) Unknown Completed [facility] DTAP Unknown Completed [facility] TDAP Unknown Completed [facility] Influenza Virus Vaccine Unknown Completed [facility] Zoster(Zostavax)(Sh ingles) Unknown Completed [facility] Pneumococcal 20 Conjugate, PCV20 (Prevnar 20) Unknown Completed [facility] SARS-COV-2 COVID-19 VACCINE - (MODERNA) Unknown Completed [facility] DTAP Unknown Completed [facility] Pneumococcal 20 Conjugate, PCV20 (Prevnar 20) Unknown Completed [facility] SARS-COV-2 COVID-19 VACCINE - (MODERNA) Unknown Completed [facility] TDAP Unknown Completed [facility] Influenza Virus Vaccine Unknown Completed [facility] Zoster(Zostavax)(Sh ingles) Unknown Completed [facility] DTAP Unknown Completed [facility] Pneumococcal 20 Conjugate, PCV20 (Prevnar 20) Unknown Completed [facility] SARS-COV-2 COVID-19 VACCINE - (MODERNA) Unknown Completed [facility] TDAP Unknown Completed [facility] Influenza Virus Vaccine Unknown Completed [facility] Zoster(Zostavax)(Sh ingles) Unknown Completed [facility] DTAP Unknown Completed [facility] Pneumococcal 20 Conjugate, PCV20 (Prevnar 20) Unknown Completed [facility] SARS-COV-2 COVID-19 VACCINE - (MODERNA) Unknown Completed [facility] TDAP Unknown Completed [facility] Influenza Virus Vaccine Unknown Completed [facility] Zoster(Zostavax)(Sh ingles) Unknown Completed [facility] DTAP Unknown Completed [facility] Pneumococcal 20 Conjugate, PCV20 (Prevnar 20) Unknown Completed [facility] SARS-COV-2 COVID-19 VACCINE - (MODERNA) Unknown Completed [facility] TDAP Unknown Completed [facility] Influenza Virus Vaccine Unknown Completed [facility] Zoster(Zostavax)(Sh ingles) Unknown Completed [facility] DTAP Unknown Completed [facility] Pneumococcal 20 Conjugate, PCV20 (Prevnar 20) Unknown Completed [facility] SARS-COV-2 COVID-19 VACCINE - (MODERNA) Unknown Completed [facility] TDAP Unknown Completed [facility] Influenza Virus Vaccine Unknown Completed [facility] Zoster(Zostavax)(Sh ingles) Unknown Completed [facility] DTAP Unknown Completed [facility] TDAP Unknown Completed [facility] Influenza Virus Vaccine Unknown Completed [facility] Zoster(Zostavax)(Sh ingles) Unknown Completed [facility] Pneumococcal 20 Conjugate, PCV20 (Prevnar 20) Unknown Completed [facility] SARS-COV-2 COVID-19 VACCINE - (MODERNA) Unknown Completed [facility] DTAP Unknown Completed [facility] Pneumococcal 20 Conjugate, PCV20 (Prevnar 20) Unknown Completed [facility] SARS-COV-2 COVID-19 VACCINE - (MODERNA) Unknown Completed [facility] TDAP Unknown Completed [facility] Influenza Virus Vaccine Unknown Completed [facility] Zoster(Zostavax)(Sh ingles) Unknown Completed [facility] DTAP Unknown Completed [facility] Pneumococcal 20 Conjugate, PCV20 (Prevnar 20) Unknown Completed [facility] SARS-COV-2 COVID-19 VACCINE - (MODERNA) Unknown Completed [facility] TDAP Unknown Completed [facility] Influenza Virus Vaccine Unknown Completed [facility] Zoster(Zostavax)(Sh ingles) Unknown Completed [facility] DTAP Unknown Completed [facility] Pneumococcal 20 Conjugate, PCV20 (Prevnar 20) Unknown Completed [facility] SARS-COV-2 COVID-19 VACCINE - (MODERNA) Unknown Completed [facility] TDAP Unknown Completed [facility] Influenza Virus Vaccine Unknown Completed [facility] Zoster(Zostavax)(Sh ingles) Unknown Completed [facility] DTAP Unknown Completed [facility] Pneumococcal 20 Conjugate, PCV20 (Prevnar 20) Unknown Completed [facility] SARS-COV-2 COVID-19 VACCINE - (MODERNA) Unknown Completed [facility] TDAP Unknown Completed [facility] Influenza Virus Vaccine Unknown Completed [facility] Zoster(Zostavax)(Sh ingles) Unknown Completed [facility] DTAP Unknown Completed [facility] Pneumococcal 20 Conjugate, PCV20 (Prevnar 20) Unknown Completed [facility] SARS-COV-2 COVID-19 VACCINE - (MODERNA[facility] Unknown [facility] Influenza Virus Vaccine Unknown Completed [facility] Zoster(Zostavax)(Sh ingles) Unknown Completed [facility] DTAP Unknown Completed [facility] TDAP Unknown Completed [facility] Influenza Virus Vaccine Unknown Completed [facility] Zoster(Zostavax)(Sh ingles) Unknown Completed [facility] Pneumococcal 20 Conjugate, PCV20 (Prevnar 20) Unknown Completed [facility] SARS-COV-2 COVID-19 VACCINE - (MODERNA) Unknown Completed [facility] DTAP Unknown Completed [facility] Pneumococcal 20 Conjugate, PCV20 (Prevnar 20) Unknown Completed [facility] SARS-COV-2 COVID-19 VACCINE - (MODERNA) Unknown Completed [facility] TDAP Unknown Completed [facility] Influenza Virus Vaccine Unknown Completed [facility] Zoster(Zostavax)(Sh ingles) Unknown Completed [facility] DTAP Unknown Completed [facility] Pneumococcal 20 Conjugate, PCV20 (Prevnar 20) Unknown Completed [facility] SARS-COV-2 COVID-19 VACCINE - (MODERNA) Unknown Completed [facility] TDAP Unknown Completed [facility] Influenza Virus Vaccine Unknown Completed [facility] Zoster(Zostavax)(Sh ingles) Unknown Completed [facility] DTAP Unknown Completed [facility] Pneumococcal 20 Conjugate, PCV20 (Prevnar 20) Unknown Completed [facility] SARS-COV-2 COVID-19 VACCINE - (MODERNA) Unknown Completed [facility] TDAP Unknown Completed [facility] Influenza Virus Vaccine Unknown Completed [facility] Zoster(Zostavax)(Sh ingles) Unknown Completed [facility] DTAP Unknown Completed [facility] Pneumococcal 20 Conjugate, PCV20 (Prevnar 20) Unknown Completed [facility] SARS-COV-2 COVID-19 VACCINE - (MODERNA) Unknown Completed [facility] TDAP Unknown Completed [facility] Influenza Virus Vaccine Unknown Completed [facility] Zoster(Zostavax)( ingles) Unknown Completed [facility] DTAP Unknown Completed [facility] Pneumococcal 20 Conjugate, PCV20 (Prevnar 20) Unknown Completed [facility] SARS-COV-2 COVID-19 VACCINE - (MODERNA) Unknown Completed [facility] TDAP Unknown Completed [facility] Influenza Virus Vaccine Unknown Completed [facility] Zoster(Zostavax)( ingles) Unknown Completed [facility] DTaP Unknown Completed Colleen hong - External Influenza, Injectable, Mdck, Preservative Free, Quadrivalent Unknown Completed Colleen Ignacio - External Hep A/ Hep B Combo Unknown Completed Angela Ignacio - External Pneumococcal Vaccine, Conjugate 20 Unknown Completed Colleen Ignacio - External Tdap- (Boostrix, Adacel) Unknown Completed Colleen Ignacio - External Tdap- (Boostrix, Adacel) Unknown Completed Colleen Ignacio - External Shingles IM (Shingrix) Unknown Completed Colleen Seybold - External Shingles SQ (Zostavax) Unknown Completed [facility] Sey[facility] - External DTaP Unknown Completed Colleen hong - External Influenza, Injectable, Mdck, Preservative Free, Quadrivalent Unknown Completed Colleen Seybold - External Hep A/ Hep B Combo Unknown Com[facility] - [facility] Pneumococcal Vaccine, Conjugate 20 Unknown Completed Colleen Seybold - External Tdap- (Boostrix, Adacel) Unknown Completed [facility] - External Tdap- (Boostrix, Adacel) [facility] (Shingrix) Unknown Completed Colleen Seybold - External Shingles SQ (Zostavax) Unknown Completed Colleen Seybold - External DTaP Unknown Completed Colleen hong - External Influenza, Injectable, Mdck, Preservative Free, Quadrivalent Unknown Completed Colleen Seybold - External Hep A/ Hep B Combo Unknown Completed Angela ke[facility] - External Pneumococcal Vaccine, Conjugate 20 Unknown Completed Colleen Seybold - External Tdap- (Boostrix, Adacel) Unknown Completed [facility] - External Tdap- (Boostrix, Adacel) [facility] Sh[facility]les [facility] (Shingrix) [facility] Shingles SQ (Zostavax) Unknown Completed [facility] - External DTaP Unknown Completed Colleen hong - External Influenza, Injectable, Mdck, Preservative Free, Quadrivalent Unknown [facility] Hep B Combo Unknown Completed Angela ke[facility] - External Pneumococcal Vaccine, Conjugate 20 Unknown Completed Colleen Seybold - External Tdap- (Boostrix, Adacel) Unknown Completed [facility] - External Tdap- (Boostrix, Adacel) Unknown [facility] Shingles IM (Shingrix) Unknown Completed Colleen Seybold - External Shingles SQ (Zostavax) Unknown Completed Colleen Seybold - External AFLURIA TRIVALENT MDV Unknown Completed Colleen Sey[facility] - External DTaP Unknown Completed Colleen Morastan gely - External Influenza, Injectable, Mdck, Preservative Free, Quadrivalent Unknown Completed [facility] - External Hep A/ Hep B Combo Unknown Completed Angela ramires [facility] - External Pneumococcal Vaccine, Conjugate 20 Unknown Completed Colleen Seybold - External Tdap- (Boostrix, Adacel) Unknown Completed Colleen Seybold - External Tdap- (Boostrix, Adacel) Unknown Completed Colleen Seybold - External Shingles IM (Shingrix) Unknown Completed Colleen Seybold - External Shingles SQ (Zostavax) Unknown Completed Colleen Seybold - External AFLURIA TRIVALENT MDV Unknown Completed Colleen Seybold - External DTaP Unknown Completed Colleen hong - External Influenza, Injectable, Mdck, Preservative Free, Quadrivalent Unknown Completed Colleen Seybold - External Hep A/ Hep B Combo Unknown Completed Angela ramires [facility] - External Pneumococcal Vaccine, Conjugate 20 Unknown Completed Colleen Seybold - External Tdap- (Boostrix, Adacel) Unknown Completed Colleen Seybold - External Tdap- (Boostrix, Adacel) Unknown Completed Colleen Seybold - External Shingles IM (Shingrix) Unknown Completed Colleen Seybold - External Shingles SQ (Zostavax) Unknown Completed Colleen Seybold - External AFLURIA TRIVALENT MDV Unknown Completed Colleen Seybold - External DTaP Unknown Completed Colleen hong - External Influenza, Injectable, Mdck, Preservative Free, Quadrivalent Unknown Completed Colleen Seybold - External Hep A/ Hep B Combo Unknown Completed Angela ramires Seybold - External Pneumococcal Vaccine, Conjugate 20 Unknown Completed Colleen Seybold - External Tdap- (Boostrix, Adacel) Unknown Completed Colleen Seybold - External Tdap- (Boostrix, Adacel) Unknown Completed Colleen Seybold - External Shingles IM (Shingrix) Unknown Completed Colleen Seybold - External Shingles SQ (Zostavax) Unknown Completed Colleen Seybold - External Vital Signs Vital Name Observation Time Observation Value Comments S ource height 2024-07-28 13:20:00 71.5 [in_i] Comm on [facility] weight 2024-07-28 13:20:00 244.4 [lb_av] Co mmon [facility] temperature 2024-07-28 13:20:00 97.8 [degF] Com mon [facility] bmi 2024-07-28 13:20:00 33.61 kg/m2 Comm on [facility] oximetry 2024-07-28 13:20:00 97 % Commo n [facility] respiratory rate 2024-07-28 13:20:00 16 /min Common [facility] blood pressure systolic 2024-07-28 13:20:00 144 mm[Hg] [facility] blood pressure diastolic 2024-07-28 13:20:00 84 mm[Hg] [facility] Systolic blood pressure 2024-06-30 14:27:00 129 mm[Hg] [facility] Diastolic blood pressure 2024-06-30 14:27:00 80 mm[Hg] [facility] Heart rate 2024-06-30 14:27:00 72 /min [facility] Body height 2024-06-30 14:27:00 185.4 cm [facility] Body weight 2024-06-30 14:27:00 111.54 kg [facility] BMI 2024-06-30 14:27:00 32.44 kg/m2 [facility] Oxygen saturation in Arterial blood by Pulse oximetry 2024-06-30 14:27:00 98 /min [facility] Height 2024-05-20 18:25:00 185.311022 cm [facility] Weight 2024-05-20 18:25:00 109.160007 kg [facility] BMI (Body Mass Index) 2024-05-20 18:25:00 31.9 kg/m2 [facility] Systolic blood pressure 2024-03-07 16:34:00 124 mm[Hg] Colleen Boyd ld - External Diastolic blood pressure 2024-03-07 16:34:00 78 mm[Hg] Colleen Boyd ld - External Heart rate 2024-03-07 16:34:00 83 /min Rajinder Ignacio - External Body temperature 2024-03-07 16:34:00 36.78 Cha Colleen Seybold - External Respiratory rate 2024-03-07 16:34:00 18 /min Colleen Seybold - External Body height 2024-03-07 16:34:00 185.4 cm Cami ey Seybold - External Body weight 2024-03-07 16:34:00 115.214 kg Cami ey Seybold - External BMI 2024-03-07 16:34:00 33.51 kg/m2 Cami ey Seybold - External Oxygen saturation in Arterial blood by Pulse oximetry 2024-03-07 16:34:00 98 /min Colleen Seybo ld - External Systolic blood pressure 2024-01-20 18:35:00 127 mm[Hg] Colleen Seybo ld - External Diastolic blood pressure 2024-01-20 18:35:00 83 mm[Hg] Colleen Seybo ld - External Heart rate 2024-01-20 18:35:00 81 /min Kelse y Seybold - External Respiratory rate 2024-01-20 18:35:00 18 /min Colleen Seybold - External Body height 2024-01-20 18:35:00 185.4 cm Cami ey Seybold - External Body weight 2024-01-20 18:35:00 113.853 kg Cami ey Seybold - External BMI 2024-01-20 18:35:00 33.12 kg/m2 Cami ey Seybold - External Oxygen saturation in Arterial blood by Pulse oximetry 2024-01-20 18:35:00 100 /min Colleen Seybo ld - External Systolic blood pressure 2023-12-08 19:34:00 123 mm[Hg] Colleen Seybo ld - External Diastolic blood pressure 2023-12-08 19:34:00 87 mm[Hg] Colleen Seybo ld - External Heart rate 2023-12-08 19:34:00 102 /min Kelse y Seybold - External Body temperature 2023-12-08 19:34:00 36.56 Cha Colleen Seybold - External Respiratory rate 2023-12-08 19:34:00 16 /min Colleen Seybold - External Body height 2023-12-08 19:34:00 185.4 cm Cami ey Seybold - External Body weight 2023-12-08 19:34:00 114.306 kg Cami ey Seybold - External BMI 2023-12-08 19:34:00 33.25 kg/m2 Cami ey Seybold - External Oxygen saturation in Arterial blood by Pulse oximetry 2023-12-08 19:34:00 100 /min Colleen Moraybo ld - External Systolic blood pressure 2023-10-23 19:33:00 122 mm[Hg] Colleen Seybo ld - External Diastolic blood pressure 2023-10-23 19:33:00 85 mm[Hg] Colleen ybo ld - External Heart rate 2023-10-23 19:33:00 100 /min Rajinder pierce Seybold - External Body temperature 2023-10-23 19:33:00 36.83 Cha Colleen Seybold - External Respiratory rate 2023-10-23 19:33:00 16 /min Colleen Moraybold - External Body height 2023-10-23 19:33:00 185.4 cm Cami ey Seybold - External Body weight 2023-10-23 19:33:00 118.842 kg Cami ey Seybold - External BMI 2023-10-23 19:33:00 34.57 kg/m2 Cami ey Seybold - External Oxygen saturation in Arterial blood by Pulse oximetry 2023-10-23 19:33:00 96 /min Colleen Hammo ld - External height 2023-10-21 15:00:00 71.5 [in_i] Comm on [facility] weight 2023-10-21 15:00:00 251.0 [lb_av] Co mmon [facility] temperature 2023-10-21 15:00:00 96.5 [degF] Com mon [facility] bmi 2023-10-21 15:00:00 34.52 kg/m2 Comm on [facility] oximetry 2023-10-21 15:00:00 98 % Commo n [facility] respiratory rate 2023-10-21 15:00:00 16 /min Common [facility] blood pressure systolic 2023-10-21 15:00:00 128 mm[Hg] Common [facility] blood pressure diastolic 2023-10-21 15:00:00 82 mm[Hg] [facility] height 2023-08-04 09:20:00 71.5 [in_i] Comm on [facility] weight 2023-08-04 09:20:00 259.8 [lb_av] Co mmon [facility] temperature 2023-08-04 09:20:00 96.4 [degF] Com [facility] bmi 2023-08-04 09:20:00 35.73 kg/m2 Comm on [facility] oximetry 2023-08-04 09:20:00 95 % Commo n [facility] respiratory rate 2023-08-04 09:20:00 16 /min [facility] blood pressure systolic 2023-08-04 09:20:00 134 mm[Hg] Common [facility] blood pressure diastolic 2023-08-04 09:20:00 76 mm[Hg] Common [facility] height 2023-06-26 09:40:00 71.5 [in_i] Comm on [facility] weight 2023-06-26 09:40:00 262 [lb_av] Comm on [facility] temperature 2023-06-26 09:40:00 97.3 [degF] Com mon [facility] bmi 2023-06-26 09:40:00 36.03 kg/m2 Comm on [facility] oximetry 2023-06-26 09:40:00 98 % Commo n [facility] respiratory rate 2023-06-26 09:40:00 16 /min Common [facility] blood pressure systolic 2023-06-26 09:40:00 136 mm[Hg] Common [facility] blood pressure diastolic 2023-06-26 09:40:00 78 mm[Hg] Common [facility] height 2023-05-28 09:20:00 71.5 [in_i] Comm on [facility] weight 2023-05-28 09:20:00 261 [lb_av] Comm on [facility] temperature 2023-05-28 09:20:00 97.4 [degF] Com mon [facility] bmi 2023-05-28 09:20:00 35.89 kg/m2 Comm on [facility] oximetry 2023-05-28 09:20:00 96 % Commo n [facility] respiratory rate 2023-05-28 09:20:00 17 /min Common [facility] blood pressure systolic 2023-05-28 09:20:00 144 mm[Hg] [facility] blood pressure diastolic 2023-05-28 09:20:00 78 mm[Hg] [facility] Systolic blood pressure 2023-04-09 19:16:00 139 mm[Hg] [facility] Diastolic blood pressure 2023-04-09 19:16:00 96 mm[Hg] [facility] Heart rate 2023-04-09 19:14:00 70 /min [facility] Body temperature 2023-04-09 19:14:00 36.5 Cha [facility] Respiratory rate 2023-04-09 19:14:00 20 /min [facility] Body height 2023-04-09 19:14:00 185.4 cm [facility] Body weight 2023-04-09 19:14:00 119.886 kg [facility] BMI 2023-04-09 19:14:00 34.87 kg/m2 [facility] Oxygen saturation in Arterial blood by Pulse oximetry 2023-04-09 19:14:00 97 /min room air [facility] Systolic blood pressure 2023-03-20 18:48:00 130 mm[Hg] [facility] Diastolic blood pressure 2023-03-20 18:48:00 83 mm[Hg] [facility] Heart rate 2023-03-20 18:48:00 69 /min Unive [facility] Body temperature 2023-03-20 18:48:00 34 Cha [facility] Respiratory rate 2023-03-20 18:48:00 16 /min [facility] Body height 2023-03-20 18:48:00 185.4 cm [facility] Body weight 2023-03-20 18:48:00 122.018 kg [facility] BMI 2023-03-20 18:48:00 35.49 kg/m2 [facility] Oxygen saturation in Arterial blood by Pulse oximetry 2023-03-20 18:48:00 98 /min [facility] Systolic blood pressure 2023-03-06 19:04:00 139 mm[Hg] [facility] Diastolic blood pressure 2023-03-06 19:04:00 88 mm[Hg] [facility] Heart rate 2023-03-06 19:04:00 61 /min Unive [facility] Body temperature 2023-03-06 19:04:00 36.56 Cha [facility] Respiratory rate 2023-03-06 19:04:00 19 /min [facility] Body height 2023-03-06 19:04:00 185.4 cm [facility] Body weight 2023-03-06 19:04:00 112.175 kg [facility] BMI 2023-03-06 19:04:00 32.63 kg/m2 [facility] Oxygen saturation in Arterial blood by Pulse oximetry 2023-03-06 19:04:00 97 /min [facility] Systolic blood pressure 2023-02-19 14:24:00 152 mm[Hg] [facility] Diastolic blood pressure 2023-02-19 14:24:00 97 mm[Hg] [facility] Heart rate 2023-02-19 14:23:00 73 /min Unive [facility] Body temperature 2023-02-19 14:23:00 36.94 Cha [facility] Respiratory rate 2023-02-19 14:23:00 18 /min [facility] Body weight 2023-02-19 14:23:00 114.941 kg [facility] BMI 2023-02-19 14:23:00 33.43 kg[facility]m2 [facility] saturation in Arterial blood by Pulse oximetry 2023-02-19 14:23:00 97 /min [facility] Systolic blood pressure 2023-01-15 13:49:00 148 mm[Hg] [facility] Diastolic blood pressure 2023-01-15 13:49:00 93 mm[Hg] [facility] Heart rate 2023-01-15 13:48:00 85 /min Unive [facility] Body temperature 2023-01-15 13:48:00 36.11 Cha [facility] Respiratory rate 2023-01-15 13:48:00 18 /min [facility] Body weight 2023-01-15 13:48:00 115.577 kg [facility] BMI 2023-01-15 13:48:00 33.62 kg/m2 [facility] Oxygen saturation in Arterial blood by Pulse oximetry 2023-01-15 13:48:00 99 /min [facility] Systolic blood pressure 2023-01-14 14:12:00 135 mm[Hg] [facility] Diastolic blood pressure 2023-01-14 14:12:00 91 mm[Hg] [facility] Heart rate 2023-01-14 14:12:00 73 /min [facility] Oxygen saturation in Arterial blood by Pulse oximetry 2023-01-14 14:12:00 98 /min [facility] Respiratory rate 2023-01-14 14:08:00 21 /min [facility] Body height 2023-01-14 14:08:00 185.4 cm [facility] Body weight 2023-01-14 14:08:00 110.678 kg [facility] BMI 2023-01-14 14:08:00 32.19 kg/m2 Univ [facility] Systolic blood pressure 2022-12-31 19:47:00 142 mm[Hg] [facility] Diastolic blood pressure 2022-12-31 19:47:00 93 mm[Hg] [facility] Heart rate 2022-12-31 19:47:00 81 /min Unive [facility] Body height 2022-12-31 19:47:00 185.4 cm [facility] Body weight 2022-12-31 19:47:00 115.803 kg Univ [facility] BMI 2022-12-31 19:47:00 33.68 kg/m2 [facility] Oxygen saturation in Arterial blood by Pulse oximetry 2022-12-31 19:47:00 95 /min [facility] Systolic blood pressure 2022-12-12 13:35:00 135 mm[Hg] [facility] Diastolic blood pressure 2022-12-12 13:35:00 86 mm[Hg] [facility] Heart rate 2022-12-12 13:35:00 76 /min Unive [facility] Body temperature 2022-12-12 13:35:00 36.39 Cha [facility] Respiratory rate 2022-12-12 13:35:00 18 /min [facility] Body height 2022-12-12 13:35:00 185.4 cm [facility] Body weight 2022-12-12 13:35:00 115.622 kg [facility] BMI 2022-12-12 13:35:00 33.63 kg/m2 [facility] Oxygen saturation in Arterial blood by Pulse oximetry 2022-12-12 13:35:00 96 /min [facility] Systolic blood pressure 2022-12-04 13:21:00 153 mm[Hg] [facility] Diastolic blood pressure 2022-12-04 13:21:00 91 mm[Hg] [facility] Heart rate 2022-12-04 13:20:00 89 /min Unive [facility] Body temperature 2022-12-04 13:20:00 37 Cha [facility] Respiratory rate 2022-12-04 13:20:00 18 /min [facility] Body weight 2022-12-04 13:20:00 115.667 kg Univ [facility] BMI 2022-12-04 13:20:00 33.64 kg/m2 Univ [facility] Oxygen saturation in Arterial blood by Pulse oximetry 2022-12-04 13:20:00 97 /min [facility] Systolic blood pressure 2022-11-06 18:30:00 147 mm[Hg] [facility] Diastolic blood pressure 2022-11-06 18:30:00 87 mm[Hg] [facility] Heart rate 2022-11-06 18:28:00 85 /min Unive [facility] Body temperature 2022-11-06 18:28:00 37 Cha [facility] Respiratory rate 2022-11-06 18:28:00 18 /min [facility] Body height 2022-11-06 18:28:00 185.4 cm Univ [facility] Body weight 2022-11-06 18:28:00 116.484 kg Univ [facility] BMI 2022-11-06 18:28:00 33.88 kg/m2 Univ [facility] Oxygen saturation in Arterial blood by Pulse oximetry 2022-11-06 18:28:00 98 /min [facility] Systolic blood pressure 2022-11-04 13:40:00 139 mm[Hg] [facility] Diastolic blood pressure 2022-11-04 13:40:00 88 mm[Hg] [facility] Heart rate 2022-11-04 13:40:00 73 /min Unive [facility] Body temperature 2022-11-04 13:40:00 36.39 Cha [facility] Respiratory rate 2022-11-04 13:40:00 18 /min [facility] Body height 2022-11-04 13:40:00 185.4 cm Univ [facility] Body weight 2022-11-04 13:40:00 117.618 kg Univ [facility] BMI 2022-11-04 13:40:00 34.21 kg[facility]m2 [facility]xygen saturation in Arterial blood by Pulse oximetry 2022-11-04 13:40:00 97 /min [facility] Systolic blood pressure 2022-10-30 19:49:00 121 mm[Hg] [facility] Diastolic blood pressure 2022-10-30 19:49:00 88 mm[Hg] [facility] Heart rate 2022-10-30 19:49:00 90 /min Unive [facility] Body temperature 2022-10-30 19:48:00 37.17 Cha [facility] Respiratory rate 2022-10-30 19:48:00 22 /min [facility] Body height 2022-10-30 19:48:00 185.4 cm [facility] Body weight 2022-10-30 19:48:00 115.304 kg [facility] BMI 2022-10-30 19:48:00 33.54 kg/m2 [facility] Oxygen saturation in Arterial blood by Pulse oximetry 2022-10-30 19:48:00 98 /min [facility] Systolic blood pressure 2022-10-24 18:55:00 135 mm[Hg] [facility] Diastolic blood pressure 2022-10-24 18:55:00 93 mm[Hg] [facility] Heart rate 2022-10-24 18:55:00 91 /min [facility] Oxygen saturation in Arterial blood by Pulse oximetry 2022-10-24 18:55:00 93 /min [facility] Respiratory rate 2022-10-24 18:52:00 19 /min [facility] Body height 2022-10-24 18:52:00 185.4 cm [facility] Body weight 2022-10-24 18:52:00 113.807 kg [facility] BMI 2022-10-24 18:52:00 33.10 kg/m2 [facility] Systolic blood pressure 2022-10-23 13:10:00 159 mm[Hg] [facility] Diastolic blood pressure 2022-10-23 13:10:00 110 mm[Hg] [facility] Heart rate 2022-10-23 13:09:00 82 /min Unive [facility] Body temperature 2022-10-23 13:09:00 37.28 Cha [facility] Respiratory rate 2022-10-23 13:09:00 18 /min [facility] Body weight 2022-10-23 13:09:00 113.354 kg [facility] BMI 2022-10-23 13:09:00 32.97 kg/m2 [facility] Oxygen saturation in Arterial blood by Pulse oximetry 2022-10-23 13:09:00 100 /min [facility] Systolic blood pressure 2022-10-01 16:03:00 127 mm[Hg] [facility] Diastolic blood pressure 2022-10-01 16:03:00 79 mm[Hg] [facility] Heart rate 2022-10-01 16:03:00 102 /min Unive [facility] Body temperature 2022-10-01 16:03:00 36.72 Cha [facility] Respiratory rate 2022-10-01 16:03:00 16 /min [facility] Oxygen saturation in Arterial blood by Pulse oximetry 2022-10-01 16:03:00 93 /min [facility] Body weight 2022-10-01 08:32:00 109.827 kg [facility] BMI 2022-10-01 08:32:00 31.94 kg/m2 [facility] Body height 2022-09-28 17:58:00 185.4 cm [facility] Systolic blood pressure 2022-09-30 22:44:00 143 mm[Hg] [facility] Diastolic blood pressure 2022-09-30 22:44:00 90 mm[Hg] [facility] Heart rate 2022-09-30 22:44:00 95 /min Unive [facility] Body temperature 2022-09-30 22:44:00 37.17 Cha [facility] Respiratory rate 2022-09-30 22:44:00 20 /min [facility] Oxygen saturation in Arterial blood by Pulse oximetry 2022-09-30 22:44:00 95 /min [facility] Body weight 2022-09-30 09:10:00 110.406 kg [facility] BMI 2022-09-30 09:10:00 31.94 kg/m2 [facility] Body height 2022-09-28 17:58:00 185.4 cm [facility] Systolic blood pressure 2021-02-27 16:44:00 141 mm[Hg] [facility] Diastolic blood pressure 2021-02-27 16:44:00 94 mm[Hg] [facility] Heart rate 2021-02-27 16:44:00 72 /min [facility] Body temperature 2021-02-27 16:44:00 36.61 Cha [facility] Respiratory rate 2021-02-27 16:44:00 18 /min [facility] Body height 2021-02-27 16:44:00 185.4 cm [facility] Body weight 2021-02-27 16:44:00 115.667 kg [facility] BMI 2021-02-27 16:44:00 33.64 kg/m2 [facility] Oxygen saturation in Arterial blood by Pulse oximetry 2021-02-27 16:44:00 98 /min [facility] Procedures Procedure Date / Time Performed Performing Clinician Source INSURANCE CORRESPONDENCE 2023-04-24 06:01:00 Doc tor Unassigned, [place] [facility] REFERRAL- REQUEST/RESPONSE 2023-02-20 06:01:00 D octor Unassigned, [place] [facility] REFERRAL- REQUEST/RESPONSE 2023-01-16 05:01:00 D octor Unassigned, [place] [facility] REFERRAL- REQUEST/RESPONSE 2023-01-05 05:01:00 D octor Unassigned, [place] [facility] REFERRAL- REQUEST/RESPONSE 2022-12-18 05:01:00 D octor Unassigned, [place] [facility] REFERRAL- REQUEST/RESPONSE 2022-12-05 05:01:00 D octor Unassigned, [place] [facility] DISCLOSURE AND CONSENT, MEDICAL AND SURGICAL PROCEDURES 2022-11-04 05:01:00 Doctor Unassigned, [place] [facility] INSURANCE CORRESPONDENCE 2022-10-30 05:01:00 Doc tor Unassigned, [place] [facility] ASSIGNMENT OF BENEFITS 2022-10-23 12:16:22 Docto r Unassigned, [place] [facility] POCT GLUCOSE (AUTOMATED) 2022-10-01 16:57:00 Wilian Ohara shruthinoelle Dunn [facility] POCT GLUCOSE (AUTOMATED) 2022-10-01 16:57:00 Wilian Ohara [facility] POCT GLUCOSE (AUTOMATED) 2022-10-01 13:30:00 Wilian Ohara [facility] POCT GLUCOSE (AUTOMATED) 2022-10-01 13:30:00 Wilian Ohara [facility] POCT GLUCOSE (AUTOMATED) 2022-10-01 01:50:00 Wilian Ohara [facility] POCT GLUCOSE (AUTOMATED) 2022-10-01 01:50:00 Wilian Oahra [facility] ACTIVATED PARTIAL THRMPLAS MERARY 2022-10-01 01:07:00 Irene Woods [facility] ACTIVATED PARTIAL THRMPLAS MERARY 2022-10-01 01:07:00 Irene Woods [facility] POCT GLUCOSE (AUTOMATED) 2022-09-30 22:45:00 Wilian hOara [facility] POCT GLUCOSE (AUTOMATED) 2022-09-30 22:45:00 Wilian Ohara [facility] CARDIAC CATHETERIZATION 2022-09-30 21:24:40 Bk Ohara [facility] CARDIAC CATHETERIZATION 2022-09-30 21:24:40 Bk Ohara [facility] CARDIAC CATHETERIZATION 2022-09-30 21:24:40 Bk Ohara [facility] CARDIAC CATHETERIZATION 2022-09-30 21:24:40 Bk Ohara [facility] CATH PROCEDURE LOG 2022-09-30 21:18:04 Ernestina Ohara [facility] CATH PROCEDURE LOG 2022-09-30 21:18:04 Ernestina Ohara [facility] POCT GLUCOSE (AUTOMATED) 2022-09-30 17:18:00 Natalie Hernandez [facility] POCT GLUCOSE (AUTOMATED) 2022-09-30 17:18:00 Natalie Hernandez [facility] EXTRA TUBE LT. BLUE 2022-09-30 13:55:00 Ernestina Ohara [facility] EXTRA TUBE LT. BLUE 2022-09-30 13:55:00 HenryErnestina [facility] MAGNESIUM 2022-09-30 13:45:00 Juan Magaña Un [facility] BASIC METABOLIC PANEL (NA, K, CL, CO2, GLUCOSE, BUN, CREATININE, CA) 2022-09-30 13:45:00 Juan Magaña [facility] CBC WITH DIFF 2022-09-30 13:45:00 [facility]22-[facility]-30 13:45:00 [facility] MET[facility]OLIC PANEL (NA, K, CL, CO2, GLUCOSE, BUN, CREATININE, CA) 2022-09-30 13:45:00 Juan Magaña [facility] CBC WITH DIFF 2022-09-30 13:45:00 Juan Magaña U [facility] POCT GLUCOSE (AUTOMATED) 2022-09-30 13:10[facility] 2022-09-30 13:10:00 Natalie Hernandez [facility] POCT GLUCOSE (AUTOMATED) 2022-09-30 02:15:00 Natalie Hernandez [facility] POCT GLUCOSE (AUTOMATED) 2022-09-30 02:15:00 Natalie Hernandez [facility] POCT GLUCOSE (AUTOMATED) 2022-09-29 22:28:00 Natalie Hernandez [facility] POCT GLUCOSE (AUTOMATED) 2022-09-29 22:28:00 Natalie Hernandez [facility] POCT GLUCOSE (AUTOMATED) 2022-09-29 16:31:00 Natalie Hernandez [facility] POCT GLUCOSE (AUTOMATED) 2022-09-29 16:31:00 Nataile Hernandez [facility] TRANSTHORACIC ECHO (TTE) COMPLETE W/ CONTRAST 2022-09-29 14:42:15 ChuckIrene Jeff [facility] TRANSTHORACIC ECHO (TTE) COMPLETE W/ CONTRAST 2022-09-29 14:42:15 ChuckIrene Jeff [facility] POCT GLUCOSE (AUTOMATED) 2022-09-29 12:49:00 Natalie Hernandez [facility] POCT GLUCOSE (AUTOMATED) 2022-09-29 12:49:00 Natalie Hernandez [facility] MAGNESIUM 2022-09-29 08:57:00 ChuckIrene [facility] BASIC METABOLIC PANEL (NA, K, CL, CO2, GLUCOSE, BUN, CREATININE, CA) 2022-09-29 08:57:00 ChuckIrene [facility] ACTIVATED PARTIAL THRMPLAS MERARY 2022-09-29 08:57:00 Chuck Irene Jeff [facility] MAGNESIUM 2022-09-29 08:57:00 ChuckIrene [facility] BASIC METABOLIC PANEL (NA, K, CL, CO2, GLUCOSE, BUN, CREATININE, CA) 2022-09-29 08:57:00 ChuckIrene [facility] ACTIVATED PARTIAL THRMPLAS MERARY 2022-09-29 08:57:00 Chuck Irene Aguilar [facility] HB ECG ROUTINE & RHYTHM STRIP 2022-09-29 02:56:04 Darlene [facility] HB ECG ROUTINE & RHYTHM STRIP 2022-09-29 02:56:04 Darlene [facility] TROPONIN I 2022-09-29 02:52:00 Betzaida Colon [facility] TROPONIN I 2022-09-29 02:52:00 Betzaida Colon [facility] POCT GLUCOSE (AUTOMATED) 2022-09-29 02:26:00 Natalie Hernandez [facility] POCT GLUCOSE (AUTOMATED) 2022-09-29 02:26:00 Natalie Hernandez [facility] ACTIVATED PARTIAL THRMPLAS MERARY 2022-09-29 01:36:00 Irene Woods [facility] ACTIVATED PARTIAL THRMPLAS MERARY 2022-09-29 01:36:00 ChuckIrene Jeff [facility] POCT GLUCOSE (AUTOMATED) 2022-09-28 22:38:00 Natalie Hernandez [facility] POCT GLUCOSE (AUTOMATED) 2022-09-28 22:38:00 Natalie Hernandez [facility] PROTHROMBIN TIME / INR 2022-09-28 19:15:00 Chuck Irene Virginia salter [facility] ACTIVATED PARTIAL THRMPLAS MERARY 2022-09-28 19:15:00 ChuckIrene Jeff [facility] PROTHROMBIN TIME / INR 2022-09-28 19:15:00 Chuck Irene Virginia salter [facility] ACTIVATED PARTIAL THRMPLAS MERARY 2022-09-28 19:15:00 Chuck Irene Jeff [facility] HB ECG ROUTINE & RHYTHM STRIP 2022-09-28 18:49:45 Chuck Irene [facility] HB ECG ROUTINE & RHYTHM STRIP 2022-09-28 18:49:45 Chuck Irene Jeff [facility] TROPONIN I 2022-09-28 18:47:00 Chuck Irene Aguilar [facility] THYROID STIMULATING HORMONE 2022-09-28 18:47:00 Chuck Irene [facility] HEPATIC FUNCTION PANEL (94984) (ALB,T.PRO,BILI T,BU/BC,ALT,AST,ALK PHOS) 2022-09-28 18:47:00 Chuck Irene Jeff [facility] LIPID PANEL (04093)(TOTAL CHOLESTEROL, TRIGLYCERIDES, HDL) 2022-09-28 18:47:00 Chuck Irene Jeff [facility] TROPONIN I 2022-09-28 18:47:00 Chuck Irene Aguilar [facility] THYROID STIMULATING HORMONE 2022-09-28 18:47:00 Chuck [facility] HEPATIC FUNCTION PANEL (28081) (ALB,T.PRO,BILI T,BU/BC,ALT,AST,ALK PHOS) 2022-09-28 18:47:00 Chuck Irene [facility] LIPID PANEL (00822)(TOTAL CHOLESTEROL, TRIGLYCERIDES, HDL) 2022-09-28 18:47:00 Chuck Irene [facility] TROPONIN I 2022-09-28 14:31:00 Ozzie Khalil [facility] N-TERMINAL PRO-BNP 2022-09-28 14:31:00 Irene Woods Won Un [facility] TROPONIN I 2022-09-28 14:31:00 Ozzie Khalil [facility] N-TERMINAL PRO-BNP 2022-09-28 14:31:00 [facility] 2022-09-28 13:20:45 Selvin Hernandez [facility] CT ANGIOGRAM ABDOMEN/PELVIS 2022-09-28 13:20:45 Selvin Hernandez [facility] CT ANGIOGRAM CHEST 2022-09-28 13:20[facility]EN/PELVIS 2022-09-28 13:20:45 [facility] URINE DRUG (IMMUNOASSAY) - COMPREHENSIVE DRUG SCREEN 2022-09-28 11:53:00 [facility] (IMMUNOASSAY) - COMPREHENSIVE DRUG SCREEN 2022-09-28 11:53:00 Selvin Hernandez [facility] XR CHEST 1 VW 2022-09-28 11:37:10 Selvin Hernandez [facility] XR CHEST 1 VW 2022-09-28 11:37:10 Selvin Hernandez [facility] LIPASE 2022-09-28 11:07:00 Selvin Hernandez [facility] TROPONIN I 2022-09-28 11:07:00 Selvin Hernandez [facility] COMP. METABOLIC PANEL (80097) 2022-09-28 11:07:00 Selvin Hernandez [facility] CBC WITH DIFF 2022-09-28 11:07:00 Selvin Hernandez [facility] GLYCOSYLATED HEMOGLOBIN (A1C) 2022-09-28 11:07:00 Irene Woods [facility] PROTHROMBIN TIME / INR 2022-09-28 11:07:00 Bon Hernandez [facility] ACTIVATED PARTIAL THRMPLAS MERARY 2022-09-28 11:07:00 Selvin Hernandez [facility] N-TERMINAL PRO-BNP 2022-09-28 11:07:00 Selvin Hernandez [facility] LIPASE 2022-09-28 11:07:00 Selvin Hernandez [facility] TROPONIN I 2022-09-28 11:07:00 Selvin Hernandez [facility] COMP. METABOLIC PANEL (74918) 2022-09-28 11:07:00 Selvin Hernandez [facility] CBC WITH DIFF 2022-09-28 11:07:00 Selvin Hernandez [facility] GLYCOSYLATED HEMOGLOBIN (A1C) 2022-09-28 11:07:00 Irene Woods [facility] PROTHROMBIN TIME / INR 2022-09-28 11:07:00 Bon Hernandez [facility] ACTIVATED PARTIAL THRMPLAS MERARY 2022-09-28 11:07:00 Selvin Hernandez [facility] N-TERMINAL PRO-BNP 2022-09-28 11:07:00 Selvin Hernandez [facility] HB ECG ROUTINE & RHYTHM STRIP 2022-09-28 11:01:29 Selvin Hernandez [facility] HB ECG ROUTINE & RHYTHM STRIP 2022-09-28 11:01:29 Selvin Hernandez [facility] Encounters Start Date/Time End Date/Time Encounter Type Admission Type Attending [facility] Care Facility Care Department Encounter ID Source 2024-07-07 08:22:01 [facility] [id number] [facility] 2024-07-06 12:15:00 Outpatient Gross[facility]rayi [facility] [id number] [facility] 2023-10-19 09:40:00 Outpatient Ngoc Lizzie [facility] [id number] [facility] 2023-10-15 16:13:00 Outpatient Ngoc Lizzie ST[facility] ST[facility] [id number] [facility] 2023-10-07 16:24:00 [facility] [id number] [facility] 2023-07-24 15:20:24 Outpatient [facility]E [facility] [id number] [facility] 2023-07-03 14:10:00 Outpatient Lizzie Grossman [facility] [id number] [facility] 2023-06-24 11:48:01 Outpatient Lizzie Grossman [place] [facility] [id number] [facility] 2023-06-16 07:19:29 Outpatient KYRIE [facility] [id number] [facility] 2023-05-29 08:54:01 Outpatient Lizzie Grossman [facility] [id number] [facility] 2023-05-28 09:16:02 Outpatient Lizzie Grossman [facility] [id number] [facility] 2023-04-27 10:15:38 Outpatient KYRIE [facility]ING [facility] [id number] [facility] 2024-07-04 00:00:00 2024-08-06 18:18:52 Patient Secure Msg Doctor Unassigned, Hannibal Doctor Unassigned, Hannibal [facility] 1.2.840.114 350.1.13.10 4.2.7.2.686 [id number] [facility] 2024-08-01 00:00:00 2024-08-01 00:00:00 (TEL) STLMLC STLMLC [id number] [facility] 2024-07-29 09:30:00 2024-07-29 09:30:00 Outpatient MILTON ABREU [facility] [id number] [facility] 2024-07-28 00:00:00 2024-07-28 00:00:00 OFFICE VISIT ESTAB PT LEVEL 4 STLMLC STLMLC [id number] [facility] 2024-07-18 00:00:00 2024-07-19 11:21:00 [facility] 1.2840.114 350.1.13.10 4.2.7.2.686 [id number] [facility] 2024-07-12 00:00:00 2024-07-14 14:53:07 Telephone Minoo [facility]aAmerican [facility] Systems[facility]AL[facility]IC[facility] 1.20.114 350.1.13.10 4.2.7.2.686 [id number] [facility] 2024-07-11 00:00:00 2024-07-11 10:49:24 Telephone Minoo [facility]uelaAmerican Healthcare SystemsGONZALO HICKS?[facility] 1.840.114 350.1.13.10 4.2.7.2.686 [id number] [facility] 2024-07-08 13:20:00 2024-07-08 13:20:00 Outpatient CHERYL ISABEL [facility] [id number] [facility] 2024-07-06 00:00:00 2024-07-07 08:34:22 [facility] 1.284.114 350.1.13.10 4.2.7.2.686 [id number] [facility] 2024-07-06 00:00:00 2024-07-06 00:00:00 (TEL) STLMLC STLMLC [id number] [facility] 2024-07-04 00:00:00 2024-07-05 12:59:09 Telephone Bianca [facility] 1.284.114 350.1.13.10 4.2.7.2.686 [id number] [facility] 2024-06-30 10:30:00 2024-06-30 10:45:00 Solutions Consultant Visit Lab, Jose Carlos Bermudezdemond Hankarlie Ochoa, Jose Carlos Felton [facility] 1.2.840.114 350.1.13.10 4.2.7.2.686 [id number] [facility] 2024-06-30 09:30:00 2024-06-30 10:08:27 Outpatient R HAN VALENZUELA [facility] [id number] [facility] 2024-06-30 09:30:00 2024-06-30 10:08:27 Office Visit Han Valenzuela [facility] 1.2.840.114 350.1.13.10 4.2.7.2.686 [id number] [facility] 2024-06-06 08:45:00 2024-06-06 08:45:00 Outpatient LUIS MERA [id number] Colleen Ignacio 2023-09-04 00:00:00 2024-05-21 07:39:12 Orders Only [facility] 1.2.840.114 350.1.13.10 4.2.7.2.686 [id number] [facility] 2024-05-20 18:19:00 2024-05-20 21:25:00 Emergency ER EDNA CHAPARRO [facility] [id number] [facility] 2024-05-20 18:19:00 2024-05-20 21:25:00 Departed Emergency Room [facility] [id number] 72 [facility] 2024-05-18 13:00:00 2024-05-18 13:00:00 Outpatient NAIMA DICKENS [facility] [id number] [facility] 2024-05-18 00:00:00 2024-05-18 00:00:00 Outpatient R [facility] [id number] [facility] 2024-05-03 14:15:00 2024-05-03 14:15:00 Outpatient LUIS MERA [id number] [facility] 2024-04-13 00:00:00 2024-04-13 00:00:00 Outpatient MD COLLEEN PAIZ [id number] [facility] 2024-04-12 13:15:00 2024-04-12 13:15:00 Outpatient NAIMA DICKENS [facility] [id number] [facility] 2024-03-22 00:00:00 2024-03-22 00:00:00 Outpatient [facility]IS MER[facility] [id number] [facility] 2024-03-21 16:30:00 2024-03-21 16:30:00 Outpatient JIM ESPARZA [id number] [facility] 2024-03-18 00:00:00 2024-03-18 00:00:00 Outpatient JIM ESPARZA [id number] [facility] 2024-03-08 00:00:00 2024-03-08 00:00:00 Outpatient COLLEEN SCHAFFER [id number] [facility] 2024-03-07 13:20:00 2024-03-07 13:20:00 Outpatient R CHERYL PETERS [facility] [id number] [facility] 2024-03-07 11:00:00 2024-03-07 11:00:00 Outpatient LUIS MERA [id number] [facility] 2024-02-29 09:50:00 2024-02-29 09:50:00 Outpatient LAB90 COLLE[facility] SCHAFFER [id number] [facility] 2024-02-28 00:00:00 2024-02-28 00:00:00 Outpatient LUIS MERA [facility] [id number] [facility] 2024-02-08 14:35:00 2024-02-08 14:35:00 Outpatient LAB90 COLLE[facility] SCHAFFER [id number] [facility] Morayb[facility] 2024-02-08 00:00:00 2024-02-08 00:00:00 Outpatient KELLY CAVAZOS [facility] [id number] [facility] 2024-02-02 00:00:00 2024-02-02 00:00:00 Outpatient [facility] SCH[facility]FFER [id number] [facility] 2024-01-21 14:30:00 2024-01-21 14:30:00 Outpatient COLLEEN SCHAFFER [id number] [facility] 2024-01-20 14:15:00 2024-01-20 14:15:00 Outpatient LUIS MERA [facility] [id number] [facility] 2024-01-14 00:00:00 2024-01-14 00:00:00 Outpatient COLLEEN SCHAFFER [id number] [facility] 2024-01-13 00:00:00 2024-01-13 00:00:00 Outpatient JIM ESPARZA [id number] [facility] 2024-01-08 00:00:00 2024-01-08 00:00:00 Outpatient LUIS MERA [facility] [id number] [facility] 2024-01-07 00:00:00 2024-01-07 00:00:00 Outpatient MD COLLEEN PAIZ [id number] [facility] 2024-01-06 08:00:00 2024-01-06 08:00:00 Outpatient JIM ESPARZA [id number] [facility] 2024-01-06 00:00:00 2024-01-06 00:00:00 Outpatient MD COLLEEN PAIZ [id number] [facility] 2023-12-18 14:30:00 2023-12-18 14:30:00 Outpatient RIKKI STEPHENS [id number] [facility] 2023-12-17 14:40:00 2023-12-17 14:40:00 Outpatient AJAY MARTEL [facility] [id number] [facility] 2023-12-17 14:35:00 2023-12-17 14:35:00 Outpatient COLLEEN SCHAFFER [id number] [facility] 2023-12-17 14:30:00 2023-12-17 14:30:00 Outpatient KAT RIKKI SCHAFFER [id number] [facility] 2023-12-16 00:00:00 2023-12-16 00:00:00 Outpatient LUIS MERA [id number] [facility] 2023-12-16 00:00:00 2023-12-16 00:00:00 Outpatient COLLEEN SCHAFFER [id number] [facility] 2023-12-16 00:00:00 2023-12-16 00:00:00 Outpatient [facility] [id number] [facility] 2023-12-14 15:20:00 2023-12-14 15:20:00 Outpatient LAB90 COLLEEN SCHAFFER [id number] [facility] 2023-12-14 11:10:00 2023-12-14 11:10:00 Outpatient LAB90 COLLEEN SCHAFFER [id number] [facility] 2023-12-14 00:00:00 2023-12-14 00:00:00 Outpatient MAILE GILL [id number] [facility] 2023-12-14 00:00:00 2023-12-14 00:00:00 Outpatient CAVAZOSKELLY PRINCE [id number] [facility] 2023-12-14 00:00:00 2023-12-14 00:00:00 Outpatient MAILE GILL [id number] [facility] 2023-12-09 00:00:00 2023-12-09 00:00:00 Outpatient LUIS MERA [id number] [facility] 2023-12-08 15:45:00 2023-12-08 15:45:00 Outpatient LAB90 COLLEEN ANDREWSEY [id number] [facility]ay[facility] 2023-12-08 14:45:00 2023-12-08 14:45:00 Outpatient LUIS MERA COLLEEN [id number] [facility] Ignacio 2023-12-08 00:00:00 2023-12-08 00:00:00 Outpatient COLLEEN COLLEEN [id number] [facility] Morayb[facility] 2023-11-27 00:00:00 2023-11-27 00:00:00 Outpatient LUIS MERA COLLE[facility] [id number] [facility] 2023-11-26 13:50:00 2023-11-26 13:50:00 Outpatient LAB90 COLLEEN COLLEEN [id number] [facility] Mora[facility] 2023-11-19 00:00:00 2023-11-19 00:00:00 Outpatient LUIS MERA [facility] [id number] [facility] 2023-[facility]-16 00:00:00 2023-11-16 00:00:00 Outpatient COLLEEN COLLEEN [id number] [facility] 2023-11-16 00:00:00 2023-11-16 00:00:00 Outpatient COLLEEN SCHAFFER [id number] [facility] 2023-10-27 09:00:00 2023-10-27 09:00:00 Outpatient LUIS MERA COLLE[facility] [id number] [facility] 2023-10-23 14:30:00 2023-10-23 14:30:00 Outpatient LUIS MERA COLLEEN [id number] [facility] 2023-10-23 00:00:00 2023-10-23 00:00:00 Outpatient COLLEEN SCHAFFER [id number] [facility] 2023-10-21 00:00:00 2023-10-21 00:00:00 OFFICE VISIT ESTAB PT LEVEL 4 [facility] [id number] [facility] 2023-10-16 15:30:00 2023-10-16 15:30:00 Outpatient LUIS MERA COLLEEN COLLEEN [id number] [facility] 2023-10-16 00:00:00 2023-10-16 00:00:00 (TEL) [facility] [id number] [facility] 2023-10-15 11:00:00 2023-10-15 11:00:00 Outpatient MONE PEACOCK LOVETTE [facility] [id number] [facility] 2023-10-14 00:00:00 2023-10-14 00:00:00 (TEL) STLMLC STLMLC [id number] [facility] 2023-10-06 00:00:00 2023-10-06 00:00:00 (TEL) STLMLC STLMLC [id number] [facility] 2023-09-18 00:00:00 2023-09-18 00:00:00 (TEL) STLC STLC [id number] [facility] 2023-09-03 00:00:00 2023-09-15 13:26:21 Patient Outreach Chela Berkowitz [place] 1.840.114 350.1.13.10 4.2.7.2.686 [id number] [facility] 2023-09-13 00:00:00 2023-09-14 07:11:45 Han Martinez [facility] 1.840.114 350.1.13.10 4.2.7.2.686 [id number] [facility] 2023-08-06 00:00:00 2023-09-12 18:06:35 Patient Secure Msg Doctor Unassigned, Hannibal [facility] 1.840.114 350.1.13.10 4.2.7.2.686 [id number] [facility] 2023-09-08 00:00:00 2023-09-08 00:00:00 Outpatient BEATRIZ CHEEK [id number] [facility] 2023-09-07 11:00:00 2023-09-07 11:00:00 Outpatient HAN MONET [facility] [id number] [facility] 2023-08-20 08:30:00 2023-08-20 08:30:00 Outpatient MINOO MONETTHIA [facility] [id number] [facility] 2023-08-04 00:00:00 2023-08-04 00:00:00 OFFICE VISIT ESTAB PT LEVEL 4 STLMLC STLMLC [id number] [facility] 2023-08-04 00:00:00 2023-08-04 00:00:00 (TEL) STLMLC STLMLC [id number] [facility] 2023-07-03 00:00:00 2023-07-03 00:00:00 (TEL) STLMLC STLMLC [id number] [facility] 2023-06-26 00:00:00 2023-06-26 00:00:00 OFFICE VISIT ESTAB PT LEVEL 4 STLMLC STLMLC [id number] [facility] 2023-06-23 00:00:00 2023-06-23 00:00:00 Telephone Cheryl Peters [facility] 1.2.840.114 350.1.13.10 4.2.7.2.686 [id number] [facility] 2023-06-22 00:00:00 2023-06-22 00:00:00 (TEL) STLMLC STLMLC [id number] [facility] 2023-06-15 00:00:00 2023-06-15 00:00:00 (TEL) STLMLC STLMLC [id number] [facility] 2023-06-08 00:00:00 2023-06-08 00:00:00 (TEL) STLMLC STLMLC [id number] [facility] 2023-05-28 00:00:00 2023-05-28 00:00:00 OFFICE VISIT NEW PT LEVEL 4 STLMLC STLC [id number] [facility] 2023-05-25 14:45:00 2023-05-25 14:45:00 Outpatient R FELICITY MOROCHONEL [facility] [id number] [facility] 2023-04-24 00:00:00 2023-04-24 00:00:00 Orders Only Doctor Unassigned, Hannibal [facility] 1.2840.114 350.1.13.10 4.2.7.2.686 [id number] [facility] 2023-04-23 20:00:00 2023-04-23 20:00:00 Outpatient KAELA KWON STRAMILiudmila [facility] [id number] [facility] 2023-04-21 00:00:00 2023-04-21 00:00:00 Telephone Han Valenzuela [facility] 1.2.840.114 350.1.13.10 4.2.7.2.686 [id number] [facility] 2023-04-09 13:30:00 2023-04-09 14:00:00 Office Visit Mone Gibson [facility] 1.840.114 350.1.13.10 4.2.7.2.686 [id number] [facility] 2023-04-09 13:30:00 2023-04-09 13:30:00 Outpatient R MONE GIBSON LOVETTE [facility] [id number] [facility] 2023-04-03 08:00:00 2023-04-03 08:51:52 Outpatient R HAN VALENZUELA [facility] [id number] [facility] 2023-04-03 08:00:00 2023-04-03 08:15:00 Solutions Consultant Visit Lab, Jose Carlos Valenzuela Han [facility] 1..114 350.1.13.10 4.2.7.2.686 [id number] [facility] 2023-04-02 00:00:00 2023-04-02 00:00:00 Telephone Mone Gibson [facility] 1.0.114 350.1.13.10 4.2.7.2.686 [id number] [facility] 2023-04-01 00:00:00 2023-04-01 00:00:00 Telephone Carmen Cano 1..114 350.1.13.10 4.2.7.2.686 [id number] [facility] 2023-03-27 16:15:00 2023-03-27 16:27:40 Outpatient R AFUA STARR [facility] [id number] [facility] 2023-03-27 16:15:00 2023-03-27 16:27:40 Office Visit Afua Starr [facility] 1..114 350.1.13.10 4.2.7.2.686 [id number] [facility] 2023-03-24 00:00:00 2023-03-24 00:00:00 Telephone Carmen Cano 1.0.114 350.1.13.10 4.2.7.2.686 [id number] [facility] 2023-03-20 14:00:00 2023-03-20 14:15:00 Solutions Consultant Visit [facility] Marija Marquez [facility] 1..114 350.1.13.10 4.2.7.2.686 [id number] [facility] 2023-03-20 14:00:00 2023-03-20 14:00:00 Outpatient R MARIJA MARQUEZ [facility]RI[facility] [id number] [facility] 2023-03-20 13:00:00 2023-03-20 14:00:00 [facility] 1.2840.114 350.1.13.10 4.2.7.2.686 [id number] [facility] 2023-03-20 00:00:00 2023-03-20 00:00:00 Case Management Varun Rodrigues [facility] 1.2.840.114 350.1.13.10 4.2.7.2.686 [id number] [facility] 2023-03-16 00:00:00 2023-03-16 00:00:00 Telephone Carmen Cano 1.2.840.114 350.1.13.10 4.2.7.2.686 [id number] [id number] [facility] 2023-03-10 00:00:00 2023-03-10 00:00:00 Telephone Han Valenzuela [facility] 1.2840.114 350.1.13.10 4.2.7.2.686 [id number] [facility] 2023-03-06 13:40:00 2023-03-06 13:40:00 [facility] 1.2840.114 350.1.13.10 4.2.7.2.686 [id number] [facility] 2023-03-06 13:40:00 2023-03-06 13:26:20 Outpatient R CHERYL PETERS [facility] [id number] [facility] 2023-02-23 00:00:00 2023-02-23 00:00:00 Telephone Carmen Cano 1.2.840.114 350.1.13.10 4.2.7.2.686 [id number] 086 [id number] [facility] 2023-02-23 00:00:00 2023-02-23 00:00:00 Telephone Carmen Cano 1.2840.114 350.1.13.10 4.2.7.2.686 [id number] 086 [id number] [facility] 2023-02-20 00:00:00 2023-02-20 00:00:00 Telephone Carmen Cano 1.2840.114 350.1.13.10 4.2.7.2.686 [id number] 086 [id number] [facility] 2023-02-20 00:00:00 2023-02-20 00:00:00 Orders Only Doctor Unassigned, Hannibal [facility] 1..114 350.1.13.10 4.2.7.2.686 [id number] [id number] [facility] 2023-02-19 10:00:00 2023-02-19 10:10:39 Outpatient HAN MONET [facility] [id number] [facility] 2023-02-19 10:00:00 2023-02-19 10:10:39 Solutions Consultant Visit Lab, Jose Carlos - Han Gómez [facility] 1..114 350.1.13.10 4.2.7.2.686 [id number] [facility] 2023-02-19 10:00:00 2023-02-19 10:00:00 Outpatient BONIFACIO LEON [facility] [id number] [facility] 2023-02-19 08:30:00 2023-02-19 09:31:01 [facility] OFF[facility] BUILD[facility] 1.2.840.114 350.1.13.10 4.2.7.2.686 [id number] 044 [id number] [facility] 2023-02-19 00:00:00 2023-02-19 00:00:00 [facility] OFF[facility] BUILD[facility] 1.2.840.114 350.1.13.10 4.2.7.2.686 [id number] [id number] [facility] 2023-01-28 08:45:00 2023-01-28 09:00:00 Solutions Consultant Visit Lab, Jose Carlos Felton Bianca [facility] OFFICE BUILDING 1..840.114 350.1.13.10 4.2.7.2.686 [id number] [facility] 2023-01-28 08:45:00 2023-01-28 08:25:08 [facility] [id number] [facility] 2023-01-28 00:00:00 2023-01-28 00:00:00 Patient Secure Lea Barkercintia [facility] PROFESSIO NAL BUILDING 1.2.840.114 350.1.13.10 4.2.7.2.686 [id number] [id number] [facility] 2023-01-20 00:00:00 2023-01-20 00:00:00 Telephone Carmen Cano 1.2.840.114 350.1.13.10 4.2.7.2.686 [id number] 086 [id number] [facility] 2023-01-20 00:00:00 2023-01-20 00:00:00 Telephone Carmen Cano 1.2840.114 350.1.13.10 4.2.7.2.686 [id number] 086 [id number] [facility] 2023-01-16 00:00:00 2023-01-16 00:00:00 Orders Only Doctor Unassigned, Hannibal [facility] 1.2840.114 350.1.13.10 4.2.7.2.686 [id number] [id number] [facility] 2023-01-15 09:30:00 2023-01-15 09:32:16 Outpatient R HAN VALENZUELA [facility] [id number] [facility] 2023-01-15 09:30:00 2023-01-15 09:32:16 Office [facility] BU[facility] 1.84.114 350.1.13.10 4.2.7.2.686 [id number] 044 [id number] [facility] 2023-01-14 09:40:00 2023-01-14 09:40:00 [facility] 1.84.114 350.1.13.10 4.2.7.2.686 [id number] [facility] 2023-01-14 09:40:00 2023-01-14 09:25:34 [facility] [id number] 2023-01-08 00:00:00 2023-01-08 00:00:00 Telephone [facility] 1.84.114 350.1.13.10 4.2.7.2.686 [id number] [facility] 2023-01-05 00:00:00 2023-01-05 00:00:00 Orders Only Doctor Unassigned, Hannibal [facility] 1.840.114 350.1.13.10 4.2.7.2.686 [id number] [facility] 2022-12-31 15:30:00 2022-12-31 16:00:00 [facility] 1.840.114 350.1.13.10 4.2.7.2.686 [id number] 085 [id number] [facility] 2022-12-31 15:30:00 2022-12-31 15:30:00 Outpatient R KAELA JAVIER STRAMILiudmila [facility] [id number] [facility] 2022-12-22 00:00:00 2022-12-22 00:00:00 Telephone [facility] OFF[facility] BUILDING 1.840.114 350.1.13.10 4.2.7.2.686 [id number] 044 [id number] [facility] 2022-12-18 14:30:00 2022-12-18 15:14:50 Outpatient R HAN VALENZUELA [facility] [id number] [facility] 2022-12-18 15:00:00 2022-12-18 15:00:00 Outpatient R [facility] [id number] [facility] 2022-12-18 14:30:00 2022-12-18 14:45:00 Solutions Consultant Visit Lab, Ang - Db Bianca [facility] BUILDING 1..840.114 350.1.13.10 4.2.7.2.686 [id number] [facility] 2022-12-18 00:00:00 2022-12-18 00:00:00 Orders Only Doctor Unassigned, Hannibal [facility] 1.2840.114 350.1.13.10 4.2.7.2.686 [id number] [id number] [facility] 2022-12-15 00:00:00 2022-12-15 00:00:00 Telephone Carmen Cano [facility] 1.2.840.114 350.1.13.10 4.2.7.2.686 [id number] 086 [id number] [facility] 2022-12-15 00:00:00 2022-12-15 00:00:00 Patient Secure Msg Bianca [facility] BU[facility] 1.2840.114 350.1.13.10 4.2.7.2.686 [id number] 044 [id number] [facility] 2022-12-12 09:00:00 2022-12-12 09:08:27 Outpatient [facility] [id number] [facility] 2022-12-12 09:00:00 2022-12-12 09:08:27 [facility] 1.2840.114 350.1.13.10 4.2.7.2.686 [id number] 059 [id number] [facility] 2022-12-12 00:00:00 2022-12-12 00:00:00 Telephone Bianca [facility] KURT?[facility] BUILD[facility] 1.2840.114 350.1.13.10 4.2.7.2.686 [id number] 044 [id number] [facility] 2022-12-12 00:00:00 2022-12-12 00:00:00 Telephone Bianca [facility] 1.2840.114 350.1.13.10 4.2.7.2.686 [id number] [id number] [facility] 2022-12-11 14:30:00 2022-12-11 14:30:00 Outpatient R MINOO VALENZUELATHIA [facility] [id number] [facility] 2022-12-05 00:00:00 2022-12-05 00:00:00 Orders Only Doctor Unassigned, Hannibal [facility] 1.0.114 350.1.13.10 4.2.7.2.686 [id number] [facility] 2022-12-04 08:30:00 2022-12-04 08:49:17 Outpatient R LARAMINOO TEJADATHIA [facility] [id number] [facility] 2022-12-04 08:30:00 2022-12-04 08:49:17 [facility] BUILD[facility] 1..114 350.1.13.10 4.2.7.2.686 [id number] 044 [id number] [facility] 2022-12-04 00:00:00 2022-12-04 00:00:00 Patient Secure Msg Doctor Unassigned, Hannibal [facility] [employer] 1..114 350.1.13.10 4.2.7.2.686 [id number] 020 [id number] [facility] 2022-11-27 00:00:00 2022-11-27 00:00:00 Telephone [facility] 1..114 350.1.13.10 4.2.7.2.686 [id number] 071 [id number] [facility] 2022-11-24 00:00:00 2022-11-24 00:00:00 Telephone [facility] 1..114 350.1.13.10 4.2.7.2.686 [id number] 071 [id number] [facility] 2022-11-19 00:00:00 2022-11-19 00:00:00 Telephone Carmen Arzola 1.840.114 350.1.13.10 4.2.7.2.686 [id number] [id number] [facility] 2022-11-06 13:30:00 2022-11-06 13:49:41 Outpatient R MINOO VALENZUELATHIA [facility] [id number] [facility] 2022-11-06 13:30:00 2022-11-06 13:49:41 Office Visit [facility] BU[facility] 1.84.114 350.1.13.10 4.2.7.2.686 [id number] 044 [id number] [facility] 2022-11-05 00:00:00 2022-11-05 00:00:00 Patient Outreach Kong Eliza L [facility] BUILD[facility] 1.84.114 350.1.13.10 4.2.7.2.686 [id number] 044 [id number] [facility] 2022-11-05 00:00:00 2022-11-05 00:00:00 Patient Secure Msg Doctor Unassigned, Hannibal [facility] SCIENCES BLDG 1.84.114 350.1.13.10 4.2.7.2.686 [id number] [facility] 2022-11-04 09:00:00 2022-11-04 09:30:00 Office Visit Anabella [facility] 1.114 350.1.13.10 4.2.7.2.686 [id number] [id number] [facility] 2022-11-04 09:00:00 2022-11-04 09:00:00 Outpatient NILES KIRKPATRICK [facility] [id number] [facility] 2022-11-04 00:00:00 2022-11-04 00:00:00 Orders Only Doctor Unassigned, Hannibal [facility] 1.20.114 350.1.13.10 4.2.7.2.686 [id number] [facility] 2022-10-31 00:00:00 2022-10-31 00:00:00 Patient Outreach Eliza Triana Liudmila [facility] 1.84114 350.1.13.10 4.2.7.2.686 [id number] 044 [id number] [facility] 2022-10-31 00:00:00 2022-10-31 00:00:00 Telephone Caitie [facility] 1.114 350.1.13.10 4.2.7.2.686 [id number] [facility] 2022-10-30 15:00:00 2022-10-30 16:00:00 Office Visit Caitie [facility] 1..114 350.1.13.10 4.2.7.2.686 [id number] [facility] 2022-10-30 15:00:00 2022-10-30 15:00:00 Outpatient R MONE [facility] [place] [id number] [facility] 2022-10-30 00:00:00 2022-10-30 00:00:00 Telephone Han Valenzuela [facility] 1.284114 350.1.13.10 4.2.7.2.686 [id number] 044 [id number] [facility] 2022-10-30 00:00:00 2022-10-30 00:00:00 Orders Only Doctor Unassigned, Hannibal [facility] 1.2.840.114 350.1.13.10 4.2.7.2.686 [id number] [facility] 2022-10-29 00:00:00 2022-10-29 00:00:00 Telephone Lanado Mone [facility] 1.2840.114 350.1.13.10 4.2.7.2.686 [id number] [facility] 2022-10-28 00:00:00 2022-10-28 00:00:00 Telephone [facility] 1..114 350.1.13.10 4.2.7.2.686 [id number] [facility] 2022-10-28 00:00:00 2022-10-28 00:00:00 Telephone Carmen Cano [facility] 1..114 350.1.13.10 4.2.7.2.686 [id number] [facility] 2022-10-27 16:00:00 2022-10-27 16:27:59 Outpatient LUZ WILHELM [facility] [id number] [facility] 2022-10-27 16:00:00 2022-10-27 16:15:00 Solutions Consultant Visit Lab, Ang - Db Unknown, Attending [facility] BUILD[facility] 1.114 350.1.13.10 4.2.7.2.686 [id number] [facility] 2022-10-27 00:00:00 2022-10-27 00:00:00 Telephone [facility] 1..114 350.1.13.10 4.2.7.2.686 [id number] 044 [id number] [facility] 2022-10-24 13:40:00 2022-10-24 14:12:30 Outpatient R CHERYL PETERS [facility] [id number] [facility] 2022-10-24 13:40:00 2022-10-24 14:12:30 Office Visit Lea Peterssherif [facility] NAL BUILDING 1.840.114 350.1.13.10 4.2.7.2.686 [id number] 059 [id number] [facility] 2022-10-24 00:00:00 2022-10-24 00:00:[address] [facility] 1.114 350.1.13.10 4.2.7.2.686 [id number] [facility] 2022-10-23 11:00:00 2022-10-23 11:18:58 Outpatient [facility] [id number] [facility] 2022-10-23 11:00:00 2022-10-23 11:15:00 Solutions Consultant Visit Lab, Jose Carlos - Jose Francisco Bermudezdemond [facility] OFFICE BUILDING 1.84.114 350.1.13.10 4.2.7.2.686 [id number] [facility] 2022-10-23 08:00:00 2022-10-23 09:26:47 Office Visit Larademond [facility] OFFICE BUILDING 1.84.114 350.1.13.10 4.2.7.2.686 [id number] 044 [id number] [facility] 2022-10-23 00:00:00 2022-10-23 00:00:00 Orders Only Doctor Unassigned, Hannibal [facility] 1.20.114 350.1.13.10 4.2.7.2.686 [id number] [facility] 2022-09-28 05:59:00 2022-10-01 14:00:00 Outpatient X ERNESTINA OHARA, ERNESTINA [facility] [id number] [facility] 2022-09-28 05:59:00 2022-10-01 14:00:00 Emergency Selvin Hernandez, Ernestina Vincent [facility] 1.2.840.114 350.1.13.10 4.2.7.2.686 [id number] [facility] 2022-09-30 16:55:00 2022-09-30 18:55:00 Surgery Fredi Cristina [facility] 1.2.840.114 350.1.13.10 4.2.7.2.686 [id number] [facility] 2021-02-22 17:15:00 2021-02-28 01:30:00 Hospital Encounter [facility] 1.2.840.114 350.1.13.10 4.2.7.2.686 [id number] [facility] 2021-02-27 10:24:03 2021-02-27 11:30:33 Office Visit Eye, [facility] Retina Diabetic [facility] Brian Maldonado [facility] 1.2.840.114 350.1.13.10 4.2.7.2.686 [id number] [facility] 2021-02-13 08:00:00 2021-02-22 13:50:00 Hospital Encounter [facility] 1.2.840.114 350.1.13.10 4.2.7.2.686 [id number] 005 [id number] [facility] 2021-02-22 07:15:00 2021-02-22 08:16:00 Surgery Heber Gonzalez [facility] 1.2.840.114 350.1.13.10 4.2.7.2.686 [id number] [facility] 2021-02-07 10:34:13 2021-02-07 15:09:44 Office Visit Plastics, c Eye Complicated Branden Vazquez [facility] 1.2.840.114 350.1.13.10 4.2.7.2.686 [id number] [facility] 2021-02-06 00:00:00 2021-02-06 00:00:00 Orders Only Doctor Unassigned, Hannibal [facility] 1.2.840.114 350.1.13.10 4.2.7.2.686 [id number] [id number] [facility] 2021 19:50:00 2021-01-28 16:26:00 Hospital Encounter [facility] 1.2.840.114 350.1.13.10 4.2.7.2.686 [id number] [facility] 2021-01-24 09:00:00 2021 19:49:00 Hospital Encounter [facility] 1.2.840.114 350.1.13.10 4.2.7.2.686 [id number] 005 [id number] [facility] 2021 12:45:00 2021 13:51:00 Surgery [facility] 1.2.840.114 350.1.13.10 4.2.7.2.686 [id number] [facility] 2021-01-24 00:00:00 2021-01-24 00:00:00 Orders Only Doctor Unassigned, Hannibal [facility] 1.2.840.114 350.1.13.10 4.2.7.2.686 [id number] [facility] 2021-01-08 06:00:00 2021-01-09 03:43:00 Hospital Encounter [facility] 1.2.840.114 350.1.13.10 4.2.7.2.686 [id number] [facility] 2021-01-08 10:28:06 2021-01-08 16:06:03 Office Visit Ophthalmolo gy, [facility] 1.2.840.114 350.1.13.10 4.2.7.2.686 [id number] [facility] 2020-08-22 11:19:36 2020-08-22 23:59:00 Hospital Encounter Yocasta Estrada [facility] 1.2.840.114 350.1.13.10 4.2.7.2.686 [id number] [facility] 2020-06-07 00:00:00 2020-06-07 00:00:00 Orders Only Doctor Unassigned, Hannibal [facility] 1.2.840.114 350.1.13.10 4.2.7.2.686 [id number] [facility] 2020-03-07 08:54:07 2020-03-07 16:07:40 Office Visit Cardiology, [facility] Abu-Sharchilo h, Tareq [facility] 1.2.840.114 350.1.13.10 4.2.7.2.686 [id number] [facility] 2019-12-28 11:59:00 2019-12-28 11:59:00 Outpatient Joellen HENSLEY [facility] [id number] [facility] 2019-06-07 14:00:00 2019-06-07 14:00:00 Outpatient CHERYL ISABEL [facility] [id number] [facility] 2019-05-19 03:51:00 2019-05-19 03:51:00 Outpatient Zuniga_F MMG [facility] [id number] [facility] 2019-05-10 13:07:58 2019-05-10 17:14:00 Emergency Charles Gerber [facility] 1.2.840.114 350.1.13.10 4.2.7.2.686 [id number] [facility] 2019-05-10 13:07:58 2019-05-10 17:14:00 Emergency X CHARLES GERBER [facility] ERT [id number] [facility] 2019-05-09 09:20:00 2019-05-09 09:20:00 Outpatient Zuniga[facility]F [facility] 2019-04-28 02:26:00 2019-04-28 02:26:00 Outpatient Zuniga_F [facility] 2019-04-26 12:58:19 2019-04-26 15:42:00 Emergency Betty Chanel [facility] 1.2840.114 350.1.13.10 4.2.7.2.686 [id number] [facility] 2019-04-26 00:00:00 2019-04-26 00:00:00 Orders Only Doctor Unassigned, Hannibal [facility] 1.2.840.114 350.1.13.10 4.2.7.2.686 [id number] [facility] 2019-04-19 04:56:00 2019-04-19 04:56:00 [facility] 2019-04-19 04:56:00 2019-04-19 04:56:00 Outpatient Zuniga[facility]F [facility] 2019-04-18 15:02:00 2019-04-18 19:21:00 Emergency ER OWO, TOKS [facility] [id number] [facility] 2019-04-13 02:42:00 2019-04-13 02:42:00 Outpatient Joellen [facility] [id number] [facility] 2019-02-14 14:17:00 2019-02-14 17:57:00 Emergency ER MINI RUANO [facility] [id number] [facility] 2018-12-22 00:00:00 2018-12-22 00:00:00 Patient Outreach Coral Justin Jackson 1.2.840.114 350.1.13.10 4.2.7.2.686 [id number] [facility] 2018-12-08 00:00:00 2018-12-08 00:00:00 Patient Outreach Chela Berkowitzjoie Melostan Brunson 1.2.840.114 350.1.13.10 4.2.7.2.686 [id number] [facility] 2018-11-23 00:00:00 2018-11-23 00:00:00 Patient Outreach Coral Justin 1.2.840.114 350.1.13.10 4.2.7.2.686 [id number] [facility] 2018-11-18 00:00:00 2018-11-18 00:00:00 Patient Outreach Coral Justin 1.2.840.114 350.1.13.10 4.2.7.2.686 [id number] [facility] 2018-11-12 00:00:00 2018-11-12 00:00:00 Patient Outreach Chela Berkowitzjoie Wesley Brunson 1.2.840.114 350.1.13.10 4.2.7.2.686 [id number] [facility] 2016-12-30 07:21:00 2016-12-30 08:17:00 Emergency ER KELSEY QUINTERO [facility] [id number] [facility] 2015-03-11 16:37:00 2015-03-11 20:00:00 Emergency ER JOSÉ LUIS GILLIS [facility] [id number] [facility] 2015-02-25 15:48:00 2015-02-25 19:00:00 Emergency ER MERVAT TIM [facility] [id number] [facility] 2015-01-19 16:17:00 2015-01-20 00:10:00 Emergency ER MARION MARIA [facility] [id number] [facility] 2014-12-23 15:01:00 2014-12-23 17:00:00 Emergency ER JOSÉ LUIS GILLIS [facility] [id number] [facility] 2003-09-18 11:26:00 2003-09-18 11:26:00 Outpatient RONDA LEIGH [facility] [id number] [facility] 2000-05-08 09:32:00 2000-05-08 09:32:00 Outpatient RONDA LEIGH [facility] [id number] [facility] Results Test Description Test Time Test Comments Results Result Co mments Source [facility] GLUCOSE (AUTOMATED)2022-10-01 16:59:21* Test Item Value Reference Range Interpretation Comme nts POCT GLU (test code = 9354174788) 198 mg/dL 70-110 H Lab Interpretation (test cod e = 22300-7) Abnormal [facility] GLUCOSE (AUTOMATED)2022-10-01 13:32:06* Test Item Value Reference Range Interpretation Comme nts POCT GLU (test code = 7373768960) 187 mg/dL 70-110 H Lab Interpretation (test cod e = 47248-2) Abnormal [facility] GLUCOSE (AUTOMATED)2022-10-01 13:32:06* Test Item Value Reference Range Interpretation Comme nts POCT GLU (test code = 4058711705) 187 mg/dL 70-110 H Lab Interpretation (test cod e = 36865-7) Abnormal [facility] GLUCOSE (AUTOMATED)2022-10-01 01:51:19* Test Item Value Reference Range Interpretation Comme nts POCT GLU (test code = 6472792754) 130 mg/dL 70-110 H Lab Interpretation (test cod e = 39416-4) Abnormal [facility] GLUCOSE (AUTOMATED)2022-10-01 01:51:19* Test Item Value Reference Range Interpretation Comme nts POCT GLU (test code = 8591586352) 130 mg/dL 70-110 H Lab Interpretation (test cod e = 75469-2) Abnormal [facility] GLUCOSE (AUTOMATED)2022-09-30 22:46:17* Test Item Value Reference Range Interpretation Comme nts POCT GLU (test code = 0198092891) 201 mg/dL 70-110 H Lab Interpretation (test cod e = 04770-9) Abnormal [facility] GLUCOSE (AUTOMATED)2022-09-30 22:46:17* Test Item Value Reference Range Interpretation Comme nts POCT GLU (test code = 0996556474) 201 mg/dL 70-110 H Lab Interpretation (test cod e = 67766-8) Abnormal [facility] GLUCOSE (AUTOMATED)2022-09-30 17:18:47* Test Item Value Reference Range Interpretation Comme nts POCT GLU (test code = [id number]) 147 mg/dL 70-110 H Lab Interpretation (test cod e = 27880-5) Abnormal [facility] GLUCOSE (AUTOMATED)2022-09-30 17:18:47* Test Item Value Reference Range Interpretation Comme nts POCT GLU (test code = [id number]) 147 mg/dL 70-110 H Lab Interpretation (test cod e = 43627-6) Abnormal [facility] GLUCOSE (AUTOMATED)2022-09-30 13:11:59* Test Item Value Reference Range Interpretation Comme nts POCT GLU (test code = [id number]) 169 mg/dL 70-110 H Lab Interpretation (test cod e = 10502-7) Abnormal [facility] GLUCOSE (AUTOMATED)2022-09-30 13:11:59* Test Item Value Reference Range Interpretation Comme nts POCT GLU (test code = [id number]) 169 mg/dL 70-110 H Lab Interpretation (test cod e = 40002-5) Abnormal [facility] GLUCOSE (AUTOMATED)2022-09-30 02:16:21* Test Item Value Reference Range Interpretation Comme nts POCT GLU (test code = [id number]) 162 mg/dL 70-110 H Lab Interpretation (test cod e = 08916-5) Abnormal [facility] GLUCOSE (AUTOMATED)2022-09-30 02:16:21* Test Item Value Reference Range Interpretation Comme nts POCT GLU (test code = [id number]) 162 mg/dL 70-110 H Lab Interpretation (test cod e = 66673-0) Abnormal [facility] GLUCOSE (AUTOMATED)2022-09-29 22:29:54* Test Item Value Reference Range Interpretation Comme nts POCT GLU (test code = 7544539291) 122 mg/dL 70-110 H Lab Interpretation (test cod e = 84301-8) Abnormal [facility] GLUCOSE (AUTOMATED)2022-09-29 22:29:54* Test Item Value Reference Range Interpretation Comme nts POCT GLU (test code = 3690313507) 122 mg/dL 70-110 H Lab Interpretation (test cod e = 56081-4) Abnormal [facility] GLUCOSE (AUTOMATED)2022-09-29 16:32:46* Test Item Value Reference Range Interpretation Comme nts POCT GLU (test code = 4088223604) 135 mg/dL 70-110 H Lab Interpretation (test cod e = 05279-2) Abnormal [facility] GLUCOSE (AUTOMATED)2022-09-29 16:32:46* Test Item Value Reference Range Interpretation Comme nts POCT GLU (test code = [id number]) 135 mg/dL 70-110 H Lab Interpretation (test cod e = 12291-0) Abnormal [facility] GLUCOSE (AUTOMATED)2022-09-29 12:52:12* Test Item Value Reference Range Interpretation Comme nts POCT GLU (test code = [id number]) 136 mg/dL 70-110 H Lab Interpretation (test cod e = 05444-3) Abnormal [facility] GLUCOSE (AUTOMATED)2022-09-29 12:52:12* Test Item Value Reference Range Interpretation Comme nts POCT GLU (test code = 9309778455) 136 mg/dL 70-110 H Lab Interpretation (test cod e = 66186-8) Abnormal [facility] GLUCOSE (AUTOMATED)2022-09-29 02:27:44* Test Item Value Reference Range Interpretation Comme nts POCT GLU (test code = 5196802567) 174 mg/dL 70-110 H Lab Interpretation (test cod e = 89978-1) Abnormal [facility] GLUCOSE (AUTOMATED)2022-09-29 02:27:44* Test Item Value Reference Range Interpretation Comme nts POCT GLU (test code = 2961186296) 174 mg/dL 70-110 H Lab Interpretation (test cod e = 20999-6) Abnormal [facility] GLUCOSE (AUTOMATED)2022-09-28 22:39:34* Test Item Value Reference Range Interpretation Comme nts POCT GLU (test code = 7905238499) 166 mg/dL 70-110 H Lab Interpretation (test cod e = 34952-6) Abnormal [facility] GLUCOSE (AUTOMATED)2022-09-28 22:39:34* Test Item Value Reference Range Interpretation Comme nts POCT GLU (test code = 4596685463) 166 mg/dL 70-110 H Lab Interpretation (test cod e = 14729-1) [facility]22-[facility]-28 20:04:17* Test Item Value Reference Range Interpretation Comme nts HGB A1C (test code = 4548-4) 6.7 % 4.0-5.7 H TED (test code = TED) Reference RangesNormal: <5.7%Prediabetes: 5.7 - 6.4%Diabetes: > 6.5% Lab Interpretation (test code = 54697-8) [facility]normal [facility] (A1C)2022-09-28 20:04:17* Test Item Value Reference Range Interpretation Comme nts HGB A1C (test code = 4548-4) 6.7 % 4.0-5.7 H TED (test code = TED) Reference RangesNormal: <5.7%Prediabetes: 5.7 - 6.4%Diabetes: > 6.5% Lab Interpretation (test code = 94166-3) [facility] [id number] 19:57:13* Test Item Value Reference Range Interpretation Comme nts NT-proBNP (test code = 0249822723) <=125 TED (test code = TED) Biotin has been reported to cause a negative bias, interpret results relative to patient's use of biotin. Lab Interpretation (test code = 99653-8) Normal [facility] [id number] 19:57:13* Test Item Value Reference Range Interpretation Comme nts NT-proBNP (test code = 9763260840) <=125 TED (test code = TED) Biotin has been reported to cause a negative bias, interpret results relative to patient's use of biotin. Lab Interpretation (test code = 93535-3) Normal [facility] [id number] 15:07:30* Test Item Value Reference Range Interpretation Comme nts TROPONIN I (test code = 5283640159) 0.001 ng/mL <=0.034 TED (test code = [...] of biotin. Lab Interpretation (test code = 84727-9) Normal [facility] [id number] 15:07:30* Test Item Value Reference Range Interpretation Comme nts TROPONIN I (test code = 6272987876) 0.001 ng/mL <=0.034 TED (test code = [...] of biotin. Lab Interpretation (test code = 43835-1) Normal [facility] THRMPLAS [id number] 11:51:25* Test Item Value Reference Range Interpretation Comme [facility] APTT Patient (test code = 3173-2) 25 See_Comment [Automated message] The system which generated this result transmitted reference range: 23 - 38 Seconds. The reference range was not used to interpret this result as normal/abnormal. TED (test code = TED) The [facility] patient population mean normal value for aPTT is 30 seconds. Lab Interpretation (test code = 61710-9) Normal [facility] TH[facility] [id number] 11:51:25* Test Item Value Reference Range Interpretation Comme [facility] APTT Patient (test code = 3173-2) 25 See_Comment [Automated message] The system which generated this result transmitted reference range: 23 - 38 Seconds. The reference range was not used to interpret this result as normal/abnormal. TED (test code = TED) The [facility] patient population mean normal value for aPTT is 30 seconds. Lab Interpretation (test code = 41020-0) Normal [facility] / [id number] 11:49:24* Test Item Value Reference Range Interpretation Comme [facility] PROTIME PATIENT (test code = 5964-2) 12.5 See_Comment [Automated [employer]] The system which generated this result transmitted reference range: 12.0 - 14.7 Seconds. The reference range was not used to interpret this result as normal/abnormal. INR (test code = 6301-6) 1.0 Normal INR <1.1; Warfarin Therapeutic range 2.0 to 3.0 or 2.5 to 3.5, depending upon the indications. Lab Interpretation (test code = 97752-3) Normal [facility] / [id number] 11:49:24* Test Item Value Reference Range Interpretation Comme nts PROTIME PATIENT (test code = 5964-2) 12.5 See_Comment [Automated [employer]] The system which generated this result transmitted reference range: 12.0 - 14.7 Seconds. The reference range was not used to interpret this result as normal/abnormal. INR (test code = 6301-6) 1.0 Normal INR <1.1; Warfarin Therapeutic range 2.0 to 3.0 or 2.5 to 3.5, depending upon the indications. Lab Interpretation (test code = 50433-3) Normal [facility] [id number] 11:47:03* Test Item Value Reference Range Interpretation Comme nts TROPONIN I (test code = 5391612003) 0.001 ng/mL <=0.034 TED (test code = [...] of biotin. Lab Interpretation (test code = 36623-9) Normal [facility] [id number] 11:47:03* Test Item Value Reference Range Interpretation Comme [facility] TROPONIN I (test code = 4515135477) 0.001 ng/mL <=0.034 TED (test code = [...] of biotin. Lab Interpretation (test code = 58440-7) Normal [facility] [id number] 11:46:13* Test Item Value Reference Range Interpretation Comme nts NT-proBNP (test code = 6244679531) <=125 TED (test code = TED) Biotin has been reported to cause a negative bias, interpret results relative to patient's use of biotin. Lab Interpretation (test code = 74847-6) Normal [facility] [id number] 11:46:13* Test Item Value Reference Range Interpretation Comme nts NT-proBNP (test code = 4097166583) <=125 TED (test code = TED) Biotin has been reported to cause a negative bias, interpret results relative to patient's use of biotin. Lab Interpretation (test code = 58519-0) Normal [facility] WITH [id number] 11:37:02* Test Item Value Reference Range Interpretation Comme nts WBC (test code = 6690-2) 9.21 See_Comment [Automated [employer]] The system which generated this result transmitted reference range: 4.20 - 10.70 10*3/?L. The reference range was not used to interpret this result as normal/abnormal. RBC (test code = 789-8) 5.13 See_Comment [Automated [employer]] The system which generated this result [...] 33.9 g/dL 31.2-35.0 RDW-SD (test code = 78504-1) 47.6 fL 38.5-51.6 RDW-CV (test code = 788-0) 15.6 % 12.1-15.4 H PLT (test code = 777-3) 245 See_Comment [Automated messa ge] The system which generated this result transmitted reference range: 150 - 328 10*3/?L. The reference range was not used to interpret this result as normal/abnormal. MPV (test code = 56467-9) 10.9 fL 9.8-13.0 NRBC/100 WBC (test code = 9406007114) 0.0 See_Comment [Automated [email or web address]] The system which generated this result transmitted reference range: 0.0 - 10.0 /100 WBCs. The reference range was not used to interpret this result as normal/abnormal. NRBC x10^3 (test code = 7865974488) See_Comment [Automated [employer]] The system which generated this result transmitted reference range: 10*3/?L. The reference range was not used to interpret this result as normal/abnormal. GRAN MAT (NEUT) % (test code = 770-8) 66.4 % IMM GRAN % (test code = 5941252085) 0.40 % LYMPH % (test code = 736-9) 24.9 % MONO % (test code = 5905-5) 7.2 % EOS % (test code = 713-8) 0.7 % BASO % (test code = 706-2) 0.4 % GRAN MAT x10^3(ANC) (test code = 8119369704) 6.12 10*3/uL 1.99-6.95 IMM GRAN x10^3 (test code = 8241450145) 0.04 10*3/uL 0.00-0.06 LYMPH x10^3 (test code = 731-0) 2.29 10*3/uL 1.09-3.23 MONO x10^3 (test code = 742-7) 0.66 10*3/uL 0.36-1.02 EOS x10^3 (test code = 711-2) 0.06 10*3/uL 0.06-0.53 BASO x10^3 (test code = 704-7) 0.04 10*3/uL 0.01-0.09 Lab Interpretation (test code = 29539-3) Abnormal [facility] WITH [id number] 11:37:02* Test Item Value Reference Range Interpretation Comme nts WBC (test code = 6690-2) 9.21 See_Comment [Automated messa ge] The system which [...] 33.9 g/dL 31.2-35.0 RDW-SD (test code = 60036-7) 47.6 fL 38.5-51.6 RDW-CV (test code = 788-0) 15.6 % 12.1-15.4 H PLT (test code = 777-3) 245 See_Comment [Automated messa ge] The system which generated this result transmitted reference range: 150 - 328 10*3/?L. The reference range was not used to interpret this result as normal/abnormal. MPV (test code = 30340-9) 10.9 fL 9.8-13.0 NRBC/100 WBC (test code = 7635685970) 0.0 See_Comment [Automated [email or web address]] The system which generated this result transmitted reference range: 0.0 - 10.0 /100 WBCs. The reference range was not used to interpret this result as normal/abnormal. NRBC x10^3 (test code = 5788883658) See_Comment [Automated messa ge] The system which generated this result transmitted reference range: 10*3/?L. The reference range was not used to interpret this result as normal/abnormal. GRAN MAT (NEUT) % (test code = 770-8) 66.4 % IMM GRAN % (test code = 6673625280) 0.40 % LYMPH % (test code = 736-9) 24.9 % MONO % (test code = 5905-5) 7.2 % EOS % (test code = 713-8) 0.7 % BASO % (test code = 706-2) 0.4 % GRAN MAT x10^3(ANC) (test code = 1256658251) 6.12 10*3/uL 1.99-6.95 IMM GRAN x10^3 (test code = 2402793959) 0.04 10*3/uL 0.00-0.06 LYMPH x10^3 (test code = 731-0) 2.29 10*3/uL 1.09-3.23 MONO x10^3 (test code = 742-7) 0.66 10*3/uL 0.36-1.02 EOS x10^3 (test code = 711-2) 0.06 10*3/uL 0.06-0.53 BASO x10^3 (test code = 704-7) 0.04 10*3/uL 0.01-0.09 Lab Interpretation (test code = 64971-0) [facility] (23211)[facility]-28 11:36:01* Test Item Value Reference Range Interpretation Comme nts NA (test code = 9274409457) 142 mmol/L 135-145 K (test code = 1784652997) 4.2 mmol/L 3.5-5.0 CL (test code = 3386785673) 108 mmol/L 98-108 CO2 TOTAL (test code = 0931341807) 22 mmol/L 23-31 L AGAP (test code = 0077317613) 12 2-16 BUN (test code = 2932442210) 19 mg/dL 7-23 GLUCOSE (test code = 2141193060) 146 mg/dL 70-110 H CREATININE (test code = 7492882868) 1.36 mg/dL 0.60-1.25 H TOTAL BILI (test code = 1940598909) 0.8 mg/dL 0.1-1.1 CALCIUM (test code = 5547188126) 9.3 mg/dL 8.6-10.6 T PROTEIN (test code = 8138739545) 8.5 g/dL 6.3-8.2 H ALBUMIN (test code = 4227147668) 4.4 g/dL 3.5-5.0 ALK PHOS (test code = 7156892834) 90 U/L 34-122 ALTv (test code = 1742-6) 53 U/L 5-50 H AST(SGOT) (test code = 8594651134) 28 U/L 13-40 eGFR (test code = 4248061625) 54.6 mL/min/1.73m2 TED (test code = TED) [...] imaging tests). Lab Interpretation (test code = 72788-2) Abnormal [facility]. METABOLIC PANEL (48248)2022-09-28 11:36:01* Test Item Value Reference Range Interpretation Comme nts NA (test code = 7031906252) 142 mmol/L 135-145 K (test code = 5026267618) 4.2 mmol/L 3.5-5.0 CL (test code = 9460839180) 108 mmol/L 98-108 CO2 TOTAL (test code = 8610157823) 22 mmol/L 23-31 L AGAP (test code = 0440693137) 12 2-16 BUN (test code = 1203541078) 19 mg/dL 7-23 GLUCOSE (test code = 4412413407) 146 mg/dL 70-110 H CREATININE (test code = 0914191012) 1.36 mg/dL 0.60-1.25 H TOTAL BILI (test code = 7158554523) 0.8 mg/dL 0.1-1.1 CALCIUM (test code = 5992501839) 9.3 mg/dL 8.6-10.6 T PROTEIN (test code = 0321522243) 8.5 g/dL 6.3-8.2 H ALBUMIN (test code = 4044367248) 4.4 g/dL 3.5-5.0 ALK PHOS (test code = 7285097010) 90 U/L 34-122 ALTv (test code = 1742-6) 53 U/L 5-50 H AST(SGOT) (test code = 3026502971) 28 U/L 13-40 eGFR (test code = 0587009568) 54.6 mL/min/1.73m2 TED (test code = TED) [...] imaging tests). Lab Interpretation (test code = 31454-4) [facility] 11:35:01* Test Item Value Reference Range Interpretation Comme nts LIPASE (test code = 2375639853) 54 U/L 0-220 Lab Interpretation (test cod e = 31301-4) [facility]23-[facility] 11:35:01* Test Item Value Reference Range Interpretation Comme nts LIPASE (test code = 2079474446) 54 U/L 0-220 Lab Interpretation (test cod e = 39113-5) Normal [facility] Notes <thead> Date/Time Note Provider Source 2024-07-18 10:40:28 [facility] [facility] medical [facility] form placed in provider box Jana Yeboah [facility] [employer] [facility] 2024-07-14 14:51:51 Form has been signed and [facility] [employer] 2024-07-12 16:25:28 [employer] following up on some forms they sent over. They first sent them on 06/29 and sent them again this morning. They are for a shower head and back rail for the patient. Please advise. Joaquín Live [facility] 2024-07-11 10:47:40 The following is what is on patients chart: losartan 100 mg tablet 90 tablet 1 06/30/2024 -- No Sig: Take 1 tablet by mouth in the morning. Sent to pharmacy as: losartan 100 mg tablet (COZAAR) Class: eRX Route: Oral Order: [id number] Date/Time Signed: 06/30/2024 09:57 E-Prescribing Status: Receipt confirmed by pharmacy (06/30/2024 9:57 AM CDT) There is not a Losartan 50mg on patients active list. Trish Gerber MA [facility] 2024-07-11 09:43:31 Nakia Reese is a 54 year old male states his pharmacy has orders for losartan 100 mg tablet (COZAAR) and losartan 50 mg tablet (COZAAR). He is requesting clinic contact pharmacy and have losartan 50 mg tablet (COZAAR) removed from his medications. Please advise [facility] [address] [place] [id number] Carol Mena [facility] 2024-07-06 13:31:11 Please review, complete, and sign if appropriate. Precious Merlos LVN [facility] 2024-07-06 11:57:10 Nakia Reese is a 54 year old male Pt is requesting a referral to see checkout supervisor Dr. Cullen Sandoval at [facility]. He also requesting a referral for a colonoscopy. Please dvise. Carolyn Graham [facility] 2024-07-04 11:54:46 Please review, complete, and sign if appropriate. Precious Merlos LVN [facility] 2024-07-04 11:11:14 Nakia Reese is a 54 year old male Patient is requesting a referral to: Dept: Gastroenterology Reason for referral: colonoscopy Duration of problem: NA Internal / External referral: NA Name of provider / location patient requesting: Pt is asking for Han Valenzuela for a recommendation for a provider. Phone number: NA Fax number: NA Appt already scheduled?: NO If yes, date of appt.: NA- needs referral first Please advise the pt with any updates. Antwon Castrejon [facility] 2024-06-30 10:30:00 Images from the original note were not included. Venipuncture collection performed by clean technique on the right anticubitus. Total of 1 attempts were made. Slight pressure and a bandage/dressing were applied to the site(s). The patient experienced no complications. The following specimens were processed according to instructions and sent to [facility] laboratories per lab order on 06/30/2024 : LT BLUE SST 1 RED LAV 2 PPT DK GREEN (LiHep) DK GREEN (SodH) GRACE DK BLUE (K2) DK BLUE (S) ACD Blood Culture NIPT/NTD Patient has been identified by and name and was provided with cup, antiseptic towelette, and clean catch instructions. 1 urine specimen(s) sent. Unpreserved 1 Urine Culture Aptima tube Other urine [facility] Kbd1023-49-28 21:52:53 Thank you for choosing us for your medical care and it was a pleasure taking care of you. Your provider s name is nurse practitioner Luz Hurley DNP, MARKETING INFORMATION COORDINATOR-. Follow up with your primary care provider in the next week if no improvement. Please return to the emergency department if your symptoms worsen and or any other emergency concerns. Future Tests Future scheduled test information is unavailable Pending Tests Pending diagnostic test information is unavailable Future Visits Future appointment information is unavailable Referrals to Other Providers <thead> Reason for Referral Referral Start Date Provider Provider Contact Information Provider Address NO PHYSICIAN SANYA Venegas MD [facility] [address] [facility] [address] SANYA Venegas MD [facility] [address] [facility] [address] NO PHYSICIAN NO PHYSICIAN NO PHYSICIAN NO PHYSICIAN NO PHYSICIAN Future Procedures Future procedure information is unavailable Future Medications Future medication information is unavailable Patient Instructions <tbody> Costochondritis, Easy-to-[place] d Nonspecific Chest Pain, Adul t, Tutx-ob-Hdys Basics of Medicine Managemen t Hypertension, Adult, Easy-to -Read Neuropathic Pain Vertigo, Rlkc-je-Jfjo Hypertension, Adult, Easy-to -Read Hypokalemia Nonspecific Chest Pain, Adul t, Cafk-xk-Ddba Hypertension, Adult, Easy-to -Read Nonspecific Chest Pain, Adul t Pain Relief Before and After Surgery [facility] [id number] 10:40:00 Chief Complaint Patient presents with Follow-up 6 week follow up for DM Genet Hanson LVN [facility] Gxzjvc7803-56-11 13:16:41 Patient no longer BCIP he is currently insured with [facility] colleen robert, we are OON, patient is going to look for in network provider. T [facility]lyssa [facility] MemorialAyqekc6619-01-36 08:52:04 Patient is no longer on BCIP. [facility]2024-06-10 08:19:17 Needs follow up visit, please facilitate through BCIP [facility]2024-06-10 07:07:52 Pss please reach out to patient for follow-up appointment for medication/labs. Thank you. Last Refilled: Disp Refills Start End ABIODUN levothyroxine 25 mcg tablet 90 tablet 1 02/19/2023 -- -- Sig: Take 1 tablet by mouth every morning. Sent to pharmacy as: levothyroxine 25 mcg tablet (SYNTHROID) Class: eRX Route: Oral Order: [id number] Date/Time Signed: 02/19/2023 08:55 E-Prescribing Status: Receipt confirmed by pharmacy (02/19/2023 9:12 AM REGISTERED PHARMACY TECHNICIAN) Notes: office visit 02/19/23 Hypothyroidism, unspecified type Comment: chronic Plan: THYROID STIMULATING HORMONE, FREE T4 Problem acuity: Chronic. Risk: Low if well-controlled. Progression: [...] can cause questionable efficacy of dose of medication. Recent Visits Date Type Provider Dept 02/19/23 Office Visit Han Valenzuela FNP [facility] 01/15/23 Office Visit Han Valenzuela FNP [facility] 12/04/22 Office Visit Han Valenzuela FNP [facility] 11/06/22 Office Visit Han Valenzuela FNP [facility] 10/23/22 Office Visit Anene, Han, MARKETING INFORMATION COORDINATOR [facility] Showing recent visits within past 540 days with a meds authorizing provider and meeting all other requirements Future Appointments No visits were found meeting these conditions. Showing future appointments within next 150 days with a meds authorizing provider and meeting all other requirements Solutions Consultant Visit on 04/03/2023 Component Date Value WBC 04/03/2023 6.27 RBC 04/03/2023 4.59 HGB 04/03/2023 13.5 HCT 04/03/2023 39.9 MCH 04/03/2023 29.4 MCV 04/03/2023 86.9 MCHC 04/03/2023 33.8 PLT 04/03/2023 210 MPV 04/03/2023 11.2 RDW-CV 04/03/2023 14.6 RDW-SD 04/03/2023 46.3 NRBC [id number]/03/2023 <0.01 NRBC/100 WBC 04/03/2023 0.0 NA 04/03/2023 141 K 04/03/2023 3.6 CL 04/03/2023 107 CO2 TOTAL 04/03/2023 25 AGAP 04/03/2023 9 BUN 04/03/2023 16 GLUCOSE 04/03/2023 184 (H) CREATININE 04/03/2023 1.22 CALCIUM 04/03/2023 9.2 eGFR 04/03/2023 70.0 MAGNESIUM 04/03/2023 1.9 PHOSPHORUS 04/03/2023 3.0 T. PROT U 04/03/2023 36 CREAT U 04/03/2023 109.6 Protein/Creatinine Ratio* 04/03/2023 0.3 APPEARANCE 04/03/2023 Hazy (A) COLOR 04/03/2023 Yellow PH 04/03/2023 5.0 SP GRAVITY 04/03/2023 1.011 GLU U QUAL 04/03/2023 Normal BLOOD 04/03/2023 Negative KETONES 04/03/2023 Negative PROTEIN 04/03/2023 30 mg/dL (A) UROBILIN 04/03/2023 Normal BILIRUBIN 04/03/2023 Negative NITRITE 04/03/2023 Negative LEUK NEHAL 04/03/2023 Negative RBC/HPF 04/03/2023 <1 WBC/HPF 04/03/2023 1 BACTERIA 04/03/2023 Few (A) MUCOUS 04/03/2023 Slight (A) SQ EPITH 04/03/2023 3 BLANCA EPITH 04/03/2023 <1 Solutions Consultant Visit on 03/20/2023 Component Date Value HIV-1 Quantitative Inter* 03/20/2023 Not Detected HIV 1/2 Ag-Ab with Reflex 03/20/2023 Reactive (A) HIV Semi-quantitative 03/20/2023 2.76 Syphilis IgG/IgM 03/20/2023 Non-reactive HIV Supplemental Confirm* 03/20/2023 Presumptive Negative/Indeterminate HIV-1 Ab Confirmation 03/20/2023 Negative HIV-2 Ab Confirmation 03/20/2023 Negative HIV-1 Qualitative by NAAT 03/20/2023 Not Detected Solutions Consultant Visit on 02/19/2023 Component Date Value TSH 02/19/2023 4.47 CHOL 02/19/2023 206 (H) HDL 02/19/2023 30 (L) HDLC RATIO 02/19/2023 6.9 (H) TRIG 02/19/2023 147 LDL CHOL 02/19/2023 147 VLDL 02/19/2023 29 HGB A1C 02/19/2023 6.5 (H) VIT D 25OH 02/19/2023 32 FREE T4 02/19/2023 0.99 Office Visit on 02/19/2023 Component Date Value WBC 02/19/2023 6.47 RBC 02/19/2023 4.83 HGB 02/19/2023 14.0 HCT 02/19/2023 42.7 MCV 02/19/2023 88.4 MCH 02/19/2023 29.0 MCHC 02/19/2023 32.8 RDW-SD 02/19/2023 47.2 RDW-CV 02/19/2023 14.8 PLT 02/19/2023 224 MPV 02/19/2023 11.7 NRBC/100 WBC 02/19/2023 0.0 NRBC [id number]/19/2023 <0.01 GRAN MAT (NEUT) % 02/19/2023 53.3 IMM GRAN % 02/19/2023 0.80 LYMPH % 02/19/2023 37.2 MONO % 02/19/2023 7.3 EOS % 02/19/2023 0.6 BASO % 02/19/2023 0.8 GRAN MAT x103(ANC) 02/19/2023 3.45 IMM GRAN [id number]/19/2023 0.05 LYMPH 2.41 MONO [id number] 0.47 EOS 0.04 (L) BASO 0.05 NA 02/19/2023 143 K 02/19/2023 4.4 CL 02/19/2023 108 CO2 TOTAL 02/19/2023 23 AGAP 02/19/2023 12 BUN 02/19/2023 11 GLUCOSE 02/19/2023 112 (H) CREATININE 02/19/2023 1.14 TOTAL BILI 02/19/2023 0.7 CALCIUM 02/19/2023 9.6 T PROTEIN 02/19/2023 9.2 (H) ALBUMIN 02/19/2023 4.5 ALK PHOS 02/19/2023 73 ALTv 02/19/2023 65 (H) AST(SGOT) 02/19/2023 42 (H) eGFR 02/19/2023 76.0 Solutions Consultant Visit on 01/28/2023 Component Date Value NA 01/28/2023 141 K 01/28/2023 3.8 CL 01/28/2023 105 CO2 TOTAL 01/28/2023 28 AGAP 01/28/2023 8 BUN 01/28/2023 14 GLUCOSE 01/28/2023 133 (H) CREATININE 01/28/2023 1.28 (H) CALCIUM 01/28/2023 9.7 eGFR 01/28/2023 58.3 Solutions Consultant Visit on 12/18/2022 Component Date Value HIV 1/2 Ag-Ab with Reflex 12/18/2022 Reactive (A) HIV Semi-quantitative 12/18/2022 3.41 HIV Supplemental Confirm* 12/18/2022 Presumptive Negative/Indeterminate HIV-1 Ab Confirmation 12/18/2022 Indeterminate HIV-2 Ab Confirmation 12/18/2022 Negative HIV-1 Qualitative by NAAT 12/18/2022 Not Detected Solutions Consultant Visit on 10/27/2022 Component Date Value NA 10/27/2022 141 K 10/27/2022 4.6 CL 10/27/2022 108 CO2 TOTAL 10/27/2022 24 AGAP 10/27/2022 9 BUN 10/27/2022 10 GLUCOSE 10/27/2022 116 (H) CREATININE 10/27/2022 1.32 (H) TOTAL BILI 10/27/2022 0.9 CALCIUM 10/27/2022 9.6 T PROTEIN 10/27/2022 8.5 (H) ALBUMIN 10/27/2022 4.5 ALK PHOS 10/27/2022 78 ALTv 10/27/2022 50 AST(SGOT) 10/27/2022 31 eGFR 10/27/2022 56.5 WBC 10/27/2022 5.87 RBC 10/27/2022 4.88 HGB 10/27/2022 13.9 HCT 10/27/2022 41.6 MCH 10/27/2022 28.5 MCV 10/27/2022 85.2 MCHC 10/27/2022 33.4 PLT 10/27/2022 134 (L) MPV 10/27/2022 11.8 RDW-CV 10/27/2022 15.3 RDW-SD 10/27/2022 46.8 NRBC [id number]/27/2022 <0.01 NRBC/100 WBC 10/27/2022 0.0 MAGNESIUM 10/27/2022 2.0 CREAT U 10/27/2022 169.8 MICROALB U 10/27/2022 166 (H) MICROAL/CR 10/27/2022 98 (H) PHOSPHORUS 10/27/2022 3.4 T. PROT U 10/27/2022 40 CREAT U 10/27/2022 157.6 Protein/Creatinine Ratio* 10/27/2022 0.3 PTH-INTACT 10/27/2022 59.7 PTH-CA Interpretation 10/27/2022 CALCIUM 10/27/2022 9.5 APPEARANCE 10/27/2022 Hazy (A) COLOR 10/27/2022 Yellow PH 10/27/2022 5.0 SP GRAVITY 10/27/2022 1.011 GLU U QUAL 10/27/2022 Normal BLOOD 10/27/2022 Negative KETONES 10/27/2022 Negative PROTEIN 10/27/2022 30 mg/dL (A) UROBILIN 10/27/2022 Normal BILIRUBIN 10/27/2022 Negative NITRITE 10/27/2022 Negative LEUK NEHAL 10/27/2022 Negative RBC/HPF 10/27/2022 0 WBC/HPF 10/27/2022 0 BACTERIA 10/27/2022 Negative MUCOUS 10/27/2022 Slight (A) SQ EPITH 10/27/2022 3 HYAL CAST 10/27/2022 1 Solutions Consultant Visit on 10/23/2022 Component Date Value HCV Ab 10/23/2022 Negative HCV Semi-Quantitative 10/23/2022 0.11 HIV 1/2 Ag-Ab with Reflex 10/23/2022 Reactive (A) HIV Semi-quantitative 10/23/2022 3.42 HIV Supplemental Confirm* 10/23/2022 Presumptive Negative/Indeterminate HIV-1 Ab Confirmation 10/23/2022 Negative HIV-2 Ab Confirmation 10/23/2022 Negative HIV-1 Qualitative by NAAT 10/23/2022 Not Detected Admission on 09/28/2022, Discharged on 10/01/2022 Component Date Value WBC 09/28/2022 9.21 RBC 09/28/2022 5.13 HGB 09/28/2022 14.7 HCT 09/28/2022 43.3 MCV 09/28/2022 84.4 MCH 09/28/2022 28.7 MCHC 09/28/2022 33.9 RDW-SD 09/28/2022 47.6 RDW-CV 09/28/2022 15.6 (H) PLT 09/28/2022 245 MPV 09/28/2022 10.9 NRBC/100 WBC 09/28/2022 0.0 NRBC [id number]/28/2022 <0.01 GRAN MAT (NEUT) % 09/28/2022 66.4 IMM GRAN % 09/28/2022 0.40 LYMPH % 09/28/2022 24.9 MONO % 09/28/2022 7.2 EOS % 09/28/2022 0.7 BASO % 09/28/2022 0.4 GRAN MAT x103(ANC) 09/28/2022 6.12 IMM GRAN [id number]/28/2022 0.04 LYMPH [id number]/28/2022 2.29 MONO h8198709/28/2022 0.66 EOS [id number]/28/2022 0.06 BASO h2711809/28/2022 0.04 APTT Patient 09/28/2022 25 PROTIME PATIENT 09/28/2022 12.5 INR 09/28/2022 1.0 NA 09/28/2022 142 K 09/28/2022 4.2 CL 09/28/2022 108 CO2 TOTAL 09/28/2022 22 (L) AGAP 09/28/2022 12 BUN 09/28/2022 19 GLUCOSE 09/28/2022 146 (H) CREATININE 09/28/2022 1.36 (H) TOTAL BILI 09/28/2022 0.8 CALCIUM 09/28/2022 9.3 T PROTEIN 09/28/2022 8.5 (H) ALBUMIN 09/28/2022 4.4 ALK PHOS 09/28/2022 90 ALTv 09/28/2022 53 (H) AST(SGOT) 09/28/2022 28 eGFR 09/28/2022 54.6 LIPASE 09/28/2022 54 TROPONIN I 09/28/2022 0.001 NT-proBNP 09/28/2022 <11 AMPHET 09/28/2022 Negative ANDRÉS U 09/28/2022 Negative BENZO U 09/28/2022 Negative Cocaine Metabolite 09/28/2022 Negative METHADONE 09/28/2022 Negative OPIATES 09/28/2022 Presumptive Positive (A) PCP 09/28/2022 Negative THC 09/28/2022 Negative TROPONIN I 09/28/2022 0.001 TROPONIN I 09/28/2022 0.002 CHOL 09/28/2022 193 HDL 09/28/2022 30 (L) HDLC RATIO 09/28/2022 6.4 (H) TRIG 09/28/2022 103 LDL CHOL 09/28/2022 142 VLDL 09/28/2022 21 TOTAL BILI 09/28/2022 0.8 BILI UNCON 09/28/2022 0.6 BILI CONJ 09/28/2022 0.0 T PROTEIN 09/28/2022 8.5 (H) ALBUMIN 09/28/2022 4.2 ALK PHOS 09/28/2022 75 ALTv 09/28/2022 52 (H) AST(SGOT) 09/28/2022 33 TSH 09/28/2022 4.53 HGB A1C 09/28/2022 6.7 (H) Height 09/29/2022 73 Weight 09/29/2022 245 Systolic BP 09/29/2022 132 Diastolic BP 09/29/2022 92 Heart Rate 09/29/2022 81 BSA 09/29/2022 2.35 LVOT diameter 09/29/2022 2.06 LVOT area 09/29/2022 3.30 LA size 09/29/2022 3.0 Ao root diam 09/29/2022 2.60 Aortic root 09/29/2022 2.6 Ao root annulus 09/29/2022 2.6 MV Peak E Annamaria 09/29/2022 39.1 MV Peak A Annamaria 09/29/2022 69.8 E/A ratio 09/29/2022 0.56 E wave decelartion time 09/29/2022 0.19 LAV(MOD-sp4) 09/29/2022 64.50 Tapse 09/29/2022 2.28 LVOT stroke volume 09/29/2022 42.90 LVOT peak annamaria 09/29/2022 83.3 LVOT mn grad 09/29/2022 1.6 AV LVOT peak gradient 09/29/2022 2.8 LVOT peak VTI 09/29/2022 12.9 LV V1 mean 09/29/2022 59.10 Aortic valve mean veloci* 09/29/2022 76.6 Ao peak annamaria 09/29/2022 107.5 Ao VTI 09/29/2022 14.6 AV area by cont VTI 09/29/2022 2.9 AV area peak annamaria 09/29/2022 2.6 Ao max PG 09/29/2022 4.60 AV peak gradient 09/29/2022 4.6 AV valve area 09/29/2022 2.90 AV mean gradient 09/29/2022 2.5 LA Volume Index (BP) 09/29/2022 28.2 LA volume (BP) 09/29/2022 66.1 LAV(MOD-sp2) 09/29/2022 46.90 LVIDD 09/29/2022 4.40 Left Ventricular End Aline* 09/29/2022 89.1 IVS 09/29/2022 0.91 Interventricular Septum * 09/29/2022 0.91 LVPWD 09/29/2022 0.91 PW 09/29/2022 0.91 EF(Teich) 09/29/2022 59.90 LVIDS 09/29/2022 3.00 Left Ventricular End Sys* 09/29/2022 35.7 FS 09/29/2022 32 EF - 2D 09/29/2022 59.90 NT-proBNP 09/28/2022 <11 PROTIME PATIENT 09/28/2022 11.9 INR 09/28/2022 1.0 APTT Patient 09/28/2022 28 POCT GLU 09/28/2022 166 (H) APTT Patient 09/28/2022 41 (H) POCT GLU 09/28/2022 174 (H) TROPONIN I 09/28/2022 0.008 NA 09/29/2022 135 K 09/29/2022 4.3 CL 09/29/2022 102 CO2 TOTAL 09/29/2022 22 (L) AGAP 09/29/2022 11 BUN 09/29/2022 16 GLUCOSE 09/29/2022 150 (H) CREATININE 09/29/2022 1.21 CALCIUM 09/29/2022 8.9 eGFR 09/29/2022 62.5 MAGNESIUM 09/29/2022 2.3 APTT Patient 09/29/2022 65 (H) POCT GLU 09/29/2022 136 (H) POCT GLU 09/29/2022 135 (H) POCT GLU 09/29/2022 122 (H) POCT GLU 09/29/2022 162 (H) NA 09/30/2022 134 (L) K 09/30/2022 3.5 CL 09/30/2022 96 (L) CO2 TOTAL 09/30/2022 25 AGAP 09/30/2022 13 BUN 09/30/2022 14 GLUCOSE 09/30/2022 151 (H) CREATININE 09/30/2022 1.31 (H) CALCIUM 09/30/2022 9.2 eGFR 09/30/2022 57.0 WBC 09/30/2022 9.52 RBC 09/30/2022 4.99 HGB 09/30/2022 13.9 HCT 09/30/2022 40.2 MCV 09/30/2022 80.6 (L) MCH 09/30/2022 27.9 MCHC 09/30/2022 34.6 RDW-SD 09/30/2022 43.7 RDW-CV 09/30/2022 15.0 PLT 09/30/2022 253 MPV 09/30/2022 10.0 NRBC/100 WBC 09/30/2022 0.0 NRBC p1930909/30/2022 <0.01 GRAN MAT (NEUT) % 09/30/2022 67.8 IMM GRAN % 09/30/2022 0.70 LYMPH % 09/30/2022 21.3 MONO % 09/30/2022 9.5 EOS % 09/30/2022 0.3 BASO % 09/30/2022 0.4 GRAN MAT x103(ANC) 09/30/2022 6.45 IMM GRAN [id number]/30/2022 0.07 (H) LYMPH g3027009/30/2022 2.03 MONO c3722409/30/2022 0.90 EOS s4651909/30/2022 0.03 (L) BASO c6908809/30/2022 0.04 MAGNESIUM 09/30/2022 2.1 POCT GLU 09/30/2022 169 (H) POCT GLU 09/30/2022 147 (H) POCT GLU 09/30/2022 201 (H) APTT Patient 09/30/2022 28 POCT GLU 09/30/2022 130 (H) POCT GLU 10/01/2022 187 (H) POCT GLU 10/01/2022 198 (H) Samia Madrid RNKettering Health Greene MemorialZbecuy7948-39-36 08:59:43 Medical records request received via fax from Dr Ojeda's office and faxed to [facility] records to be released. Form scanned into chart along with fax confirmation. Delma Miller MAKatherine [place] [id number] 13:14:45 Referral has been placed for internal dermatology [place] [id number] 10:58:37 Nakia Reese is a 53 year old male Pt calling [facility], his [facility] budget and policy analyst is requesting a pcp referral to allow the pt to have surgery to remove the keloids on his chest and neck. [facility] Ciera YeungKettering Health Greene MemorialMfteak1285-26-17 08:00:00 Images from the original note were not included. Venipuncture collection performed by clean technique on the right hand. Total of 1 attempts were made. Slight pressure and a bandage/dressing were applied to the site(s). The patient experienced no complications. The following specimens were processed according to instructions and sent to [facility] laboratories per lab order on 04/03/2023 : LT BLUE SST 1 RED LAV 1 PPT DK GREEN (LiHep) DK GREEN (SodH) GRACE DK BLUE (K2) DK BLUE (S) ACD Blood Culture NIPT/NTD Patient has been identified by and name and was provided with cup, antiseptic towelette, and clean catch instructions. 2 urine specimen(s) sent. Unpreserved 2 Urine Culture Aptima tube Other urine [place] [id number] 13:24:11 Chart reviewed. Labs ordered for upcoming Nephrology appointment per guidelines. MyChart message and/or letter sent to patient as an appointment reminder. [place] [id number] 15:53:18 Faxed 03.27.23 derm post-appointment file to [facility]. Carmen Cano 04/01/2023 3:53 PM STERED PHARMACY TECHNICIAN Carmen Venegas [facility]2023-09-18 12:49:24 Patient informed lab results have not been informed as of yet. Once done so we will be in contact to discuss. He verbalized understanding. Sheila Schultz LVN 12/22/2022 12:50 PM Sheila Beverly Antoine [facility]2023-09-18 10:09:11 Patient is calling for his lab results, please call him at [phone] [facility] 14:30:00 Images from the original note were not included. Venipuncture collection performed by clean technique on the right anticubitus. Total of 2 attempts were made. Slight pressure and a bandage/dressing were applied to the site(s). The patient experienced no complications. The following specimens were processed according to instructions and sent to [facility] laboratories per lab order on today: LT BLUE SST 1 RED LAV PPT DK GREEN (LiHep) DK GREEN (SodH) GRACE DK BLUE (K2) DK BLUE (S) ACD Blood Culture NIPT/NTD Patient was stuck x2 once by myself and once by [place] [facility] MemorialYcnayh5178-92-78 08:59:37 Notified patient after speaking to [facility]. Per Crystal Almonte they will not pay for a patient to be admitted into the hospital for a colonoscopy prep. Patient verbalized understanding [place] [id number] 13:18:32 Not sure if you need to help schedule her appointment. Trish Gerber MAK[place] [id number] 15:32:23 Faxed 12.12.22 cardio post-appointment file to [facility]. Requested new referral for EKG and follow up cardio. Carmen Theo Jerome 12/15/2022 3:33 PM Carmen Theo RomarioTracy [place] 712453-09-08 13:04:38 Images from the original note were not included. Can you please put a follow up referral in for cardio. Thanks raul Duran cardio dx was Visit Diagnoses Chest pain, unspecified type R07.9 Nonobstructive atherosclerosis of coronary artery I25.10 Hypertension, unspecified type I10 Dyslipidemia E78.5 Obesity (BMI 30-39.9) E66.9 JYOTSNA (obstructive sleep apnea) G47.33 Raul Prasad MA[place] [id number] 12:11:38 Pt is wanting to inform LEIDA Valenzuela that DR PETERS has updated changes on your medications. Pt is wanting to know if Bianca was able to change his [facility] appointment to [facility]. Pt is checking the status, Anca VitaleKettering Health Greene MemorialKzqnwl4570-13-19 13:15:42 Thanks for letting me know. [facility] MemorialTvrplg6601-29-11 15:04:28 Pt called back and details were covered [...] requirements by calling scheduling and asking them. Luz Santiago [facility] CityPujwzr4135-05-49 10:05:15 The phone number [phone] is not in service. Luz Santiago [facility] CityGcpotg2723-23-67 08:49:01 Nakia Reese is a 52 year old male Pt calling stating that he currently lives with his mom and niece and says they only have 1 restroom in the house. Pt states he is wanting to schedule a colonoscopy but would not be able to do it unless he has free access to a restroom which he will not have at home. Pt is wanting to know if any arr angements can be made so pt can already be in [facility], possibly already at the hospital when he begins pre op preparations. Please avdise Lelo GonzalezOhioHealth Grove City Methodist HospitalBlxvfb5303-11-26 12:23:09 Requested authorization for Nephrology follow up appointment. Carmen Bennett 11/19/2022 12:23 PM Carmen MandujanoOhioHealth Grove City Methodist HospitalFxhbte3461-09-45 09:27:59 Nakia Reese is a 52 year old male Pt called requesting to speak with clinic to discuss transportation that was offered by clinic. Pt states that transportation would be provided for appointments. Please advise. Manish ColoradoAdena Fayette Medical CenterNtjceq3378-67-87 09:04:47 Referral was placed on 10/23/22 and he seen them on 10/24/22 so he will need a new referral for the follow up visit Raul Prasad [facility] HospitalYlkeoy2885-82-39 10:31:50 Routing to provider Mone for review. Pt has new patient appointment today. Ara Wild RNKettering Health Greene MemorialEmucss6103-24-54 08:16:20 Patient called to [facility] asking is he can get some assistance paying for transportation. Can you please put a referral in clinical social worker. Susana Jacobson Raul Prasad [facility] HospitalFlagzy8283-70-11 18:05:23 Referral placed 10/23 [facility] MemorialJachgq8315-13-58 14:44:44 Nakia Reese is a 52 year old male Pt calling requesting to speak with nurse in regards to recent test result [phone] (home) Cem BurgessAtrium Health HuntersvilleNovmsy4392-15-27 14:29:20 Images from the original note were not included. Can you please place a follow up referral for cardiology. Dx at last visit with cardio. Susana Raul Visit Diagnoses Chest pain, unspecified type R07.9 Primary hypertension I10 Obesity (BMI 30-39.9) E66.9 Nonobstructive atherosclerosis of coronary artery I25.10 JYOTSNA (obstructive sleep apnea) G47.33 Hyperlipidemia, unspecified hyperlipidemia type E78.5 [place] [id number] 12:11:55 Faxed 10.24.22 cardio post-appointment file to [facility]. Requested new referral for pulmonary. Carmen Cano 10/28/2022 12:12 PM Carmen ChristiansenCourtney Ville 692733-07-25 08:53:30 Patient spoke to [facility] and they addressed his questions on 10/27/22 Raul Prasad [facility] HospitalJugwci8693-21-78 16:00:00 Images from the original note were not included. Venipuncture collection performed by clean technique on the right anticubitus. Total of 1 attempts were made. Slight pressure and a bandage/dressing were applied to the site(s). The patient experienced no complications. The following specimens were processed according to instructions and sent to [facility] laboratories per lab order on 10/27/2022 LT BLUE SST 2 RED LAV 1 PPT DK GREEN (LiHep) DK GREEN (SodH) GRACE DK BLUE (K2) DK BLUE (S) ACD Blood Culture NIPT/NTD Patient has been identified by and name and was provided with cup, antiseptic towelette, and clean catch instructions. 3 urine specimen(s) sent. Unpreserved 3 Urine Culture Aptima tube Other urine T [facility] MemorialHwvczi2512-65-04 12:00:17 Patient states he is needing authorization for his visit with Nephrology. He states he received a call from Nephrology today. He is requesting a call back. Sangeetha SimmonsdevanteKettering Health Greene MemorialLsulcv4109-63-01 14:38:40 Chart reviewed. Labs ordered for upcoming Nephrology appointment per guidelines. [email or web address] message and/or letter sent to patient as an appointment reminder. T [place] [id number] 14:37:41 Left message with call back number to return call to clinic regarding scheduling lab appointment. [facility]2023-07-20 11:00:00 Images from the original note were not included. Venipuncture collection performed by clean technique on the left anticubitus. Total of 3 attempts were made. Slight pressure and a bandage/dressing were applied to the site(s). The patient experienced no complications. The following specimens were processed according to instructions and sent to [facility] laboratories per lab order on 10/23/2022 LT BLUE SST 2 RED LAV PPT DK GREEN (LiHep) DK GREEN (SodH) GRACE DK BLUE (K2) DK BLUE (S) ACD Blood Culture NIPT/NTD T [facility]am [facility]"
[2024-08-07] MEDS ORDERED: ASPIRIN 81 MG CHEWABLE TABLET ONE (21:52)
[2024-08-07] MEDS ORDERED: ONDANSETRON 4 MG/2 ML VIAL ONE (21:52)
[2024-08-07] MEDS ORDERED: MORPHINE 4 MG/ML SYR ONE (21:53)
[2024-08-07 22:05] LABS: Absolute Basophils 0.1 K/uL (0-0.5); Absolute Eosinophils 0.1 K/uL (0-0.5); Absolute Lymphocytes (CBC) 2.5 K/uL (0.7-4.9); Absolute Monocytes 0.4 K/uL (0.1-1.3); Absolute Neutrophil 3.6 K/uL (1.8-8.0); Basophils % 1.5 % (0-1.3); Eosinophils % 1.1 % (0-4.4); Hematocrit 37.9 % (39.6-49.0); Lymphocytes % 36.7 % (15.3-44.8); MCH 29.4 pg (27.0-35.0); MCHC 34.2 g/dL (32.0-36.0); Monocytes % 6.6 % (3.3-12.3); Neutrophils % 54.1 % (41.7-73.7); Nucleated Red Blood Cells % 0.2 % (0-0); Platelets 264 thou/uL (152-406); RBC Red Blood Cell Count 4.41 M/uL (4.33-5.43); Red Cell Distribution Width 15.2 % (12.1-15.2)
[2024-08-07 22:12] LABS: PT Prothrombin Time 11.8 SECONDS (10-13.0); Protime INR 1.04
[2024-08-07 22:21] LABS: ALT/SGPT 53 U/L (16-61); AST/SGOT 20 U/L (15-37); Albumin 3.2 g/dL (3.4-5.0); Albumin/Globulin Ratio 0.7 (1.1-1.8); Alkaline Phosphatase 79 U/L (45-117); Anion Gap 8.3 mEq/L (5.0-15.0); BUN Blood Urea Nitrogen 9 mg/dL (7-18); Bicarbonate 27 mEq/L (21-32); Bilirubin Total 0.4 mg/dL (0.2-1.0); Globulin 4.6 g/dL (2.3-3.5); Glomerular Filtration Rate 57 ml/min (=/>90); Glucose Level 203 mg/dL (74-106); NT PRO-BNP 32 pg/mL (<125); Potassium 3.3 mEq/L (3.5-5.1); Protein, Total 7.8 g/dL (6.4-8.2); Sodium Level 139 mEq/L (136-145); Troponin High Sensitivity 3.2 pg/mL (<58.9)
[2024-08-07 22:23] LABS: Bilirubin Direct < 0.2 mg/dL (0-0.2); Bilirubin Indirect, Calculated 0.2 mg/dL (0.2-0.8)
[2024-08-07] MEDS ORDERED: NITROGLYCERIN 0.4 MG/TAB SL ONE (23:00)
[2024-08-07] MEDS ORDERED: POTASSIUM 25 MEQ EFFERV TAB ONE (23:48)
[2024-08-08] MEDS ORDERED: FENTANYL CITR 100 MCG/2 ML ONE ×2 (00:28→10:46)
[2024-08-08] MEDS ORDERED: NA CHLORIDE 0.9% 1,000 ML ONE (00:38)
--- NOTE | 2024-08-08 01:06 | EDPHYS ---
Physician Documentation [facility] Name: Keith Oliver Age: 54 yrs Sex: Male : 1970 Arrival Date: 08/07/2024 Time: 21:24 Bed 20 Private MD: ED Physician Joaquín Dasilva HPI: 08/07 21:45 This 54 yrs old Black Male presents to ER via Wheelchair with complaints of Chest Pain. cp 21:45 The patient or guardian reports chest pain that is located primarily in the left side cp of chest. Onset: 2 week(s) ago. Duration: The patient or guardian reports a single episode, that is still ongoing, and worsening. 21:45 The chest pain is described as sharp. cp 21:45 The pain does not radiate. Severity of pain: in the emergency department the pain is cp actually worse moderately. Historical: - Allergies: 21:42 NKA; cm10 - Home Meds: 21:42 atorvastatin 40 mg oral tablet 1 tab every day at bedtime [Active]; glipizide 10 mg cm10 Oral Tablet, Extended Release 24 hr 1 tab daily [Active]; Farxiga 10 mg oral tablet 1 tab daily [Active]; famotidine 20 mg Oral tablet 2 times per day [Active]; diltiazem HCl 180 mg Oral Capsule, ER 24 hr 1 cap daily [Active]; Vitamin D2 1,250 mcg (50,000 unit) oral capsule 1 cap every week [Active]; losartan 100 mg oral tablet 1 tab daily [Active]; hydrochlorothiazide 25 mg Oral tablet 1 tab daily [Active]; levothyroxine 75 mcg tablet 1 tab daily [Active]; 21:46 gabapentin 300 mg oral capsule 1 cap 3 times per day [Active]; nitroglycerin 0.4 mg SL cm10 Tablet, Sublingual [Active]; - PMHx: 21:42 Asthma; Esophageal CA; GI Bleed; Hypertension; Myocardial infarction; Sickle Cell; cm10 throat and lung cancer; Diabetes mellitus; Hypercholesterolemia; Hypothyroidism; - Immunization history:: Adult Immunizations up to date. - Infectious Disease History:: Denies. - Social history:: Smoking status: unknown. ROS: 21:50 Cardiovascular: Positive for chest pain, cp 21:50 Eyes: Negative for injury, pain, redness, and discharge, cp 21:50 Constitutional: Negative for body aches, chills, fever, poor PO intake, 21:50 ENT: Negative for drainage from ear(s), ear pain, sore throat, difficulty swallowing, difficulty handling secretions, 21:50 Respiratory: Positive for shortness of breath, at rest. Negative for cough, wheezing, 21:50 Abdomen/GI: Negative for abdominal pain, vomiting, diarrhea, constipation, 21:50 Neck: Negative for pain with movement, pain at rest, stiffness, cp 21:50 Neuro: Negative for altered mental status, syncope, weakness, 21:50 All other systems are negative, Exam: 21:48 ECG was reviewed by the Attending Physician. cp 21:55 Constitutional: The patient appears in no acute distress, alert, awake, cp non-diaphoretic, non-toxic, well developed, well nourished, uncomfortable, 21:55 Head/Face: Normocephalic, atraumatic. cp 21:55 Eyes: Periorbital structures: appear normal, Conjunctiva: normal, no exudate, no injection, Sclera: no appreciated abnormality, Lids and lashes: appear normal, bilaterally, 21:55 ENT: External ear(s): are unremarkable, Nose: is normal, Mouth: Lips: moist, Oral mucosa: moist, Posterior pharynx: Airway: no evidence of obstruction, patent, 21:55 Neck: ROM/movement: Meningeal signs: are not present, nuchal rigidity, is not appreciated, 21:55 Chest/axilla: Inspection: normal, 21:55 Cardiovascular: Rate: normal, Rhythm: regular, Edema: is not appreciated, JVD: is not appreciated, 21:55 Respiratory: the patient does not display signs of respiratory distress, Respirations: normal, no use of accessory muscles, no retractions, labored breathing, is not present, intercostal retractions, are absent, Breath sounds: are clear throughout, no decreased breath sounds, no stridor, no wheezing, 21:55 Abdomen/GI: Inspection: abdomen appears normal, Palpation: abdomen is soft and non-tender, in all quadrants, 21:55 Neuro: Orientation: to person, place \T\ time. Mentation: is normal, Vital Signs: 21:40 BP 161 / 90; Pulse 65; Resp 14; Temp 98.2(O); Pulse Ox 99% on R/A; Weight 109.77 kg; cm10 Height 6 ft. 1 in. ; Pain 10/10; 21:45 BP 146 / 92; Pulse 63; Resp 18; Pulse Ox 96% ; al5 22:00 BP 130 / 91; Pulse 67; Resp 16; Pulse Ox 96% ; al5 22:30 BP 131 / 88; Pulse 56; Resp 14; Pulse Ox 95% ; al5 23:00 BP 128 / 88; Pulse 57; Resp 15; Pulse Ox 95% ; al5 23:30 BP 117 / 84; Pulse 52; Resp 16; Pulse Ox 95% ; al5 05 00:00 BP 121 / 87; Pulse 54; Resp 13; Pulse Ox 100% ; al5 00:30 BP 130 / 91; Pulse 56; Resp 18; Pulse Ox 97% ; al5 01:00 BP 132 / 88; Pulse 53; Resp 15; Pulse Ox 97% ; al5 01:30 BP 137 / 93; Pulse 54; Resp 16; Pulse Ox 100% ; al5 02:00 BP 134 / 88; Pulse 52; Resp 16; Pulse Ox 97% ; al5 08/07 21:40 Body Mass Index 31.93 (109.77 kg, 185.42 cm) cm10 08/07 21:40 Pain Scale: Adult cm10 MDM: 01:05 Medical Screening Exam initiated cp 01:05 The patient was given aspirin in the Emergency Department. cp 01:05 Data reviewed: vital signs, nurses notes, lab test result(s), EKG, radiologic studies, cp CT scan, plain films. Management of patient was discussed with the following: Hospitalist: DR Curtis will admit after discussion. I considered the following discharge prescriptions or medication management in the emergency department Medications were administered in the Emergency Department. See MAR. Independent interpretation of the following test(s) in the Emergency Department EKG: See my EKG interpretation above. Care significantly affected by the following chronic conditions: Diabetes, Hypertension, cardiac disease with reported HX of CT times 2. Counseling: I had a detailed discussion with the patient and/or guardian regarding the historical points, exam findings, and any diagnostic results supporting the discharge/admit diagnosis, the presence of at least one elevated blood pressure reading (>120/80) during this emergency department visit, lab results, radiology results. Response to treatment: the patient's symptoms have mildly improved after treatment, and as a result, I will admit patient. 08/07 21:40 Order name: Basic Metabolic Panel; Complete Time: 22:27 cp 05/ 22:28 Interpretation: Normal except: K 3.3; GLUC 203; CRE 1.44; GFR 57. cp / 21:40 Order name: CBC with Diff; Complete Time: 22:27 cp / 22:28 Interpretation: Normal except: HGB 13.0; HCT 37.9; BASO% 1.5. cp 08/07 21:40 Order name: LFT's; Complete Time: 22:27 cp 08/07 22:28 Interpretation: Normal except: ALB 3.2; GLOB 4.6; A/G 0.7. cp 08/07 21:40 Order name: Magnesium; Complete Time: 22:27 cp 08/07 21:40 Order name: NT PRO-BNP; Complete Time: 22:27 cp 08/07 21:40 Order name: PT-INR; Complete Time: 22:27 cp 08/07 21:40 Order name: Troponin HS; Complete Time: 22:27 cp 08/07 22:28 Interpretation: Reviewed. cp 0505 00:35 Order name: Troponin High Sensitivity cp 05/05 01:14 Order name: CBC with Automated Diff EDMS 05 01:14 Order name: CBC with Automated Diff EDMS 05/05 01:14 Order name: Comprehensive Metabolic Panel EDMS 05/05 01:14 Order name: Comprehensive Metabolic Panel EDMS 05/05 01:14 Order name: Troponin High Sensitivity EDMS 05/05 01:14 Order name: Troponin High Sensitivity EDMS 05/05 01:14 Order name: Troponin High Sensitivity EDMS 05/05 01:14 Order name: Troponin High Sensitivity EDMS 05/05 01:14 Order name: Troponin High Sensitivity EDMS 05/05 01:14 Order name: Troponin High Sensitivity EDMS 05/05 01:14 Order name: Troponin High Sensitivity EDMS 05/04 21:40 Order name: XRAY Chest (1 view) cp / 23:07 Order name: CT Chest For PE Angio cp 08/07 21:40 Order name: Cardiac monitoring; Complete Time: 21:44 cp 08/07 21:40 Order name: EKG - Nurse/Tech; Complete Time: 21:44 cp 08/07 21:40 Order name: IV Saline Lock; Complete Time: 21:59 cp 08/07 21:40 Order name: Labs collected and sent; Complete Time: 21:59 cp 08/07 21:40 Order name: O2 Per Protocol; Complete Time: 21:43 cp 08/07 21:40 Order name: O2 Sat Monitoring; Complete Time: 21:43 cp EC/04 21:48 Rate is 62 beats/min. Rhythm is regular. RI interval is normal. QRS interval is normal. cp QT interval is normal. T waves are Inverted in lead aVR. Interpreted by me. Reviewed by me. Administered Medications: 21:59 Drug: morphine IVP or IV 4 mg IVP once over 4 mins Route: IVP; Infused Over: 4 mins; al5 Site: right antecubital; 22:30 Follow up: Response: No adverse reaction; Pain is decreased al5 22:00 Drug: Aspirin PO Chewable Tablet 324 mg PO once; 81 mg tablets x 4 Route: PO; al5 08/08 02:48 Follow up: Response: No adverse reaction al5 08/07 22:00 Drug: Ondansetron IVP 4 mg IVP once; over 2 minutes Route: IVP; Site: right antecubital;al5 22:30 Follow up: Response: No adverse reaction; Pain is decreased al5 23:03 Drug: Nitroglycerin Sublingual 0.4 mg Sublingual once Route: Sublingual; al5 08/08 00:20 Follow up: Response: No adverse reaction; Pain is unchanged, physician notified al5 08/07 23:55 Drug: Potassium PO Effervescent Tablet 50 mEq PO once; dissolve in 4 ounces of water or al5 juice Route: PO; 08/08 00:20 Follow up: Response: No adverse reaction al5 00:35 CANCELLED (Physician Discretion): hydromorphone1 mg IVP once cp 00:37 Drug: fentaNYL (PF) IVP 50 mcg IVP once Route: IVP; Site: right antecubital; al5 02:27 Follow up: Response: No adverse reaction; Pain is decreased al5 00:41 Drug: NS 0.9% IV 1000 ml IV at 1 bolus Per protocol; to be given as a bolus over 60 al5 minutes Route: IV; Rate: 1 bolus; Site: right antecubital; 02:27 Follow up: Response: No adverse reaction; IV Status: Completed infusion; IV Intake: al5 1000ml Disposition: 03:33 Co-signature as Attending Physician, Joaquín Dasilva MD I reviewed the patient's care rt provided by the Advanced Practice Provider and agree with the diagnosis and treatment plan. Disposition Summary: 08/08/24 01:05 Hospitalization Ordered Notes: Hospitalization Status: Observation cp Provider: Gregor Curtis cp Location: Telemetry/MedSurg (observation) cp Condition: Stable cp Problem: new cp Symptoms: have improved cp Bed/Room Type: Standard cp Room Assignment: 405(08/08/24 01:27) cg Diagnosis - Chest pain, unspecified cp Forms: - Medication Reconciliation Form cp - SBAR form cp - Leadership Thank You Letter cp Signatures: Dispatcher [employer] EDMS Dante Calles PA PA cp Garcia, Cindy, RN RN cg Joaquín Dasliva MD MD rt Alivia Silva RN RN cm10 Anita Ospina RN RN al5 Corrections: (The following items were deleted from the chart) 08/07 21:40 21:40 BASIC METABOLIC PANEL+C.LAB.BRZ ordered. EDMS EDMS 21:40 21:40 CBC+H.LAB.BRZ ordered. EDMS EDMS 21:40 21:40 HEPATIC FUNCTION+C.LAB.BRZ ordered. EDMS EDMS 21:40 21:40 MAGNESIUM+C.LAB.BRZ ordered. EDMS EDMS 21:40 21:40 PROBNP+C.LAB.BRZ ordered. EDMS EDMS 21:40 21:40 PROTIME (+INR)+COAG.LAB.BRZ ordered. EDMS EDMS 21:40 21:40 Troponin High Sensitivity+C.LAB.BRZ ordered. EDMS EDMS 21:40 21:40 Chest Single View+RAD.RAD.BRZ ordered. EDMS EDMS 08/08 00:35 00:21 HYDROmorphone IVP 1 mg IVP once ordered. cp cp 01:27 01:05 cp cg
--- NOTE | 2024-08-08 01:06 | ER ---
Nurse's Notes [facility] Name: Keith Oliver Age: 54 yrs Sex: Male : 1970 Arrival Date: 08/07/2024 Time: 21:24 Bed 20 Private MD: Diagnosis: Chest pain, unspecified Presentation: 08/07 21:40 Chief complaint: Patient states: Left sided chest pain that has been continuous for 2 cm10 weeks. Pt states that the pain got worse today. Pt describes the pain as sharp and the pain does not radiate. Pt also reports shortness of breath. Coronavirus screen: Client denies travel out of the [place] in the last 14 days. Ebola Screen: Patient denies travel to an Ebola-affected area in the 21 days before illness onset. Initial Sepsis Screen: Does the patient meet any 2 criteria? No. Patient's initial sepsis screen is negative. Does the patient have a suspected source of infection? No. Patient's initial sepsis screen is negative. Risk Assessment: Do you want to hurt yourself or someone else? Patient reports no desire to harm self or others. Onset of symptoms was August 07, 2024. 21:40 Method Of Arrival: Wheelchair cm10 21:40 Acuity: CARYL 2 cm10 Triage Assessment: 21:47 General: Appears uncomfortable, Behavior is calm, cooperative. Pain: Complains of pain cm10 in chest Pain does not radiate. Pain currently is 10 out of 10 on a pain scale. Quality of pain is described as sharp, Pain began 2 weeks ago Is continuous. Neuro: No deficits noted. Level of Consciousness is awake, alert, obeys commands, Oriented to person, place, time, situation, Appropriate for age. Cardiovascular: Reports chest pain, Chest pain is described as Pain is 10 out of 10 on a pain scale. quality is sharp, is located in left began 2 weeks ago episodes are continuous. Respiratory: No deficits noted. Reports shortness of breath Airway is patent Respiratory effort is even, unlabored, Respiratory pattern is regular, symmetrical. Historical: - Allergies: 21:42 NKA; cm10 - Home Meds: 21:42 atorvastatin 40 mg oral tablet 1 tab every day at bedtime [Active]; glipizide 10 mg cm10 Oral Tablet, Extended Release 24 hr 1 tab daily [Active]; Farxiga 10 mg oral tablet 1 tab daily [Active]; famotidine 20 mg Oral tablet 2 times per day [Active]; diltiazem HCl 180 mg Oral Capsule, ER 24 hr 1 cap daily [Active]; Vitamin D2 1,250 mcg (50,000 unit) oral capsule 1 cap every week [Active]; losartan 100 mg oral tablet 1 tab daily [Active]; hydrochlorothiazide 25 mg Oral tablet 1 tab daily [Active]; levothyroxine 75 mcg tablet 1 tab daily [Active]; 21:46 gabapentin 300 mg oral capsule 1 cap 3 times per day [Active]; nitroglycerin 0.4 mg SL cm10 Tablet, Sublingual [Active]; - PMHx: 21:42 Asthma; Esophageal CA; GI Bleed; Hypertension; Myocardial infarction; Sickle Cell; cm10 throat and lung cancer; Diabetes mellitus; Hypercholesterolemia; Hypothyroidism; - Immunization history:: Adult Immunizations up to date. - Infectious Disease History:: Denies. - Social history:: Smoking status: unknown. Screenin:00 [facility] ED Fall Risk Assessment (Adult) History of falling in the last 3 months, al5 including since admission No falls in past 3 months (0 pts) Confusion or Disorientation No (0 pts) Intoxicated or Sedated No (0 pts) Impaired Gait No (0 pts) Mobility Assist Device Used No (0 pt) Altered Elimination No (0 pt) Score/Fall Risk Level 0 - 2 = Low Risk Oriented to surroundings, Maintained a safe environment, Hourly rounding (assess needs \T\ fall precautionary measures) done. Abuse screen: Denies threats or abuse. Denies injuries from another. Nutritional screening: No deficits noted. Tuberculosis screening: No symptoms or risk factors identified. Assessment: 22:01 General: Appears in no apparent distress. comfortable, Behavior is calm, cooperative. al5 Pain: Complains of pain in chest. Neuro: Level of Consciousness is awake, alert, obeys commands, Oriented to person, place, time, situation. Cardiovascular: Capillary refill < 3 seconds Patient's skin is warm and dry. Rhythm is sinus rhythm. Respiratory: Airway is patent Respiratory effort is even, unlabored, Respiratory pattern is regular, symmetrical. GI: No signs and/or symptoms were reported involving the gastrointestinal system. : No signs and/or symptoms were reported regarding the genitourinary system. EENT: No signs and/or symptoms were reported regarding the EENT system. Derm: Skin is intact, is healthy with good turgor, Skin is pink, warm \T\ dry. normal. Musculoskeletal: No signs and/or symptoms reported regarding the musculoskeletal system. 22:54 Reassessment: Patient appears in no apparent distress at this time. No changes from al5 previously documented assessment. Patient and/or family updated on plan of care and expected duration. Pain level reassessed. Patient is alert, oriented x 3, equal unlabored respirations, skin warm/dry/pink. 08/08 00:00 Reassessment: Patient appears in no apparent distress at this time. No changes from al5 previously documented assessment. Patient and/or family updated on plan of care and expected duration. Pain level reassessed. Patient is alert, oriented x 3, equal unlabored respirations, skin warm/dry/pink. 02:25 Reassessment: Patient appears in no apparent distress at this time. No changes from al5 previously documented assessment. Patient and/or family updated on plan of care and expected duration. Pain level reassessed. Patient is alert, oriented x 3, equal unlabored respirations, skin warm/dry/pink. Vital Signs: 08/07 21:40 BP 161 / 90; Pulse 65; Resp 14; Temp 98.2(O); Pulse Ox 99% on R/A; Weight 109.77 kg; cm10 Height 6 ft. 1 in. ; Pain 1010; 21:45 BP 146 / 92; Pulse 63; Resp 18; Pulse Ox 96% ; al5 22:00 BP 130 / 91; Pulse 67; Resp 16; Pulse Ox 96% ; al5 22:30 BP 131 / 88; Pulse 56; Resp 14; Pulse Ox 95% ; al5 23:00 BP 128 / 88; Pulse 57; Resp 15; Pulse Ox 95% ; al5 23:30 BP 117 / 84; Pulse 52; Resp 16; Pulse Ox 95% ; al5 08/08 00:00 BP 121 / 87; Pulse 54; Resp 13; Pulse Ox 100% ; al5 00:30 BP 130 / 91; Pulse 56; Resp 18; Pulse Ox 97% ; al5 01:00 BP 132 / 88; Pulse 53; Resp 15; Pulse Ox 97% ; al5 01:30 BP 137 / 93; Pulse 54; Resp 16; Pulse Ox 100% ; al5 02:00 BP 134 / 88; Pulse 52; Resp 16; Pulse Ox 97% ; al5 08/07 21:40 Body Mass Index 31.93 (109.77 kg, 185.42 cm) cm10 08/07 21:40 Pain Scale: Adult cm10 ED Course: 08/07 21:25 Patient arrived in ED. [id number] 21:30 Dante Calles PA is PHCP. cp 21:30 Joaquín Dasilva MD is Attending Physician. cp 21:41 Triage completed. cm10 21:41 Arm band placed on right wrist. Patient placed in an exam room, on a stretcher, on cm10 fur nailer, on pulse oximetry. 21:43 Anita Ospina, LIZZIE is Primary Nurse. al5 21:55 EKG done, by ED staff, reviewed by Dante SCOTT. mm11 22:00 Patient has correct armband on for positive identification. Bed in low position. Call al5 light in reach. Side rails up X 1. Provided Education on: plan of care. Client placed on continuous cardiac and pulse oximetry monitoring. NIBP monitoring applied. lockstitch sleeve maker on. Pulse ox on. Warm blanket given. 22:01 No provider procedures requiring assistance completed. Inserted saline lock: 20 gauge al5 in right antecubital area, using aseptic technique. Blood collected. Flushed with 10 mL NS. Patient maintains SpO2 saturation greater than 95% on room air. 22:50 XRAY Chest (1 view) In Process Unspecified. EDMS 08/08 00:03 CT Chest For PE Angio In Process Unspecified. EDMS 01:04 Gregor Curtis MD is Hospitalizing Provider. cp 02:22 Patient admitted, IV remains in place. al5 Administered Medications: 08/07 21:59 Drug: morphine IVP or IV 4 mg IVP once over 4 mins Route: IVP; Infused Over: 4 mins; al5 Site: right antecubital; 22:30 Follow up: Response: No adverse reaction; Pain is decreased al5 22:00 Drug: Aspirin PO Chewable Tablet 324 mg PO once; 81 mg tablets x 4 Route: PO; al5 08/08 02:48 Follow up: Response: No adverse reaction al5 08/07 22:00 Drug: Ondansetron IVP 4 mg IVP once; over 2 minutes Route: IVP; Site: right antecubital;al5 22:30 Follow up: Response: No adverse reaction; Pain is decreased al5 23:03 Drug: Nitroglycerin Sublingual 0.4 mg Sublingual once Route: Sublingual; al5 08/08 00:20 Follow up: Response: No adverse reaction; Pain is unchanged, physician notified al5 08/07 23:55 Drug: Potassium PO Effervescent Tablet 50 mEq PO once; dissolve in 4 ounces of water or al5 juice Route: PO; 08/08 00:20 Follow up: Response: No adverse reaction al5 00:35 CANCELLED (Physician Discretion): hydromorphone1 mg IVP once cp 00:37 Drug: fentaNYL (PF) IVP 50 mcg IVP once Route: IVP; Site: right antecubital; al5 02:27 Follow up: Response: No adverse reaction; Pain is decreased al5 00:41 Drug: NS 0.9% IV 1000 ml IV at 1 bolus Per protocol; to be given as a bolus over 60 al5 minutes Route: IV; Rate: 1 bolus; Site: right antecubital; 02:27 Follow up: Response: No adverse reaction; IV Status: Completed infusion; IV Intake: al5 1000ml Medication: 08/07 22:01 VIS not applicable for this client. al5 Intake: 08/08 02:27 IV: 1000ml; Total: 1000ml. al5 Outcome: 01:05 Decision to Hospitalize by Provider. cp 02:22 Admitted to Med/surg accompanied by tech, via wheelchair, room 405, Other chart sent up al5 to [facility] on 4th floor 02:22 Condition: stable 02:22 Instructed on the need for admit, 02:47 Patient left the ED. al5 Signatures: Dispatcher [employer] EDMS Dante Calles PA PA cp Jeffries, Jennifer [id number] Alivia Silva RN RN cm10 Anita Ospina RN RN al5 lita mayes mm11
[2024-08-08] MEDS ORDERED: ONDANSETRON 4 MG/2 ML VIAL IV PRN (01:08)
[2024-08-08] MEDS ORDERED: ACETAMINOPHEN 325 MG TABLET PO PRN (01:08)
--- NOTE | 2024-08-08 01:08 | P.HP ---
Certification for Inpatient Patient admitted to: Observation With expected LOS: <2 Midnights Practitioner: I am a practitioner with admitting privileges, knowledge of patient current condition, hospital course, and medical plan of care. Services: Services provided to patient in accordance with Admission requirements found in Title 42 Section 412.3 of the Code of Federal Regulations Patient History Date of Service: 08/08/24 Reason for admission: Chest Pain History of Present Illness: 54-year-old male with past medical history of asthma, hypertension, hyperlipidemia, hypothyroidism, diabetes, history of sickle cell disease, history of esophageal cancer, throat and lung cancer history of CAD status post stents who was brought to ER with chest pain. Located in the left side of the chest started 2 weeks ago and has been progressively getting worse. Denies any diaphoresis. No cough. Denies any fever or chills. No nausea vomiting or diarrhea. Patient was assessed in the ER and is admitted for further management of chest pain to rule out ACS. Allergies No Known Allergies Allergy (Verified 05/08/19 15:32) Home medications list reviewed: Yes Home Medications: Famotidine [Pepcid*] 20 mg PO BID #60 tab 05/09/19 hydroCHLOROthiazide [Hydrodiuril*] 25 mg PO DAILY #30 tab 05/09/19 Atorvastatin Calcium [Lipitor] 40 mg PO BEDTIME 08/08/24 Dapagliflozin Propanediol [Farxiga] 10 mg PO DAILY 08/08/24 Ergocalciferol (Vitamin D2) [Vitamin D2] 1,250 mcg PO DAILY 08/08/24 Glipizide [Glucotrol Xl] 10 mg PO DAILY 08/08/24 Levothyroxine [Synthroid*] 0.75 mg PO DAILY 08/08/24 Losartan Potassium [Cozaar] 100 mg PO DAILY 08/08/24 dilTIAZem HCL [Diltiazem 24Hr ER] 180 mg PO DAILY 08/08/24 - Past Medical/Surgical History Diabetic: No Past Medical History: Reviewed- Non-Contributory -: htn -: sickle cell anemia -: esophageal ca -: bleeding disorder Past Surgical History: Reviewed- Non-Contributory - Family History Family History: Reviewed- Non-Contributory - Family History Father -: Heart disease Mother -: Heart disease, Diabetes - Social History Smoking Status: Former smoker Alcohol use: No CD- Drugs: No Caffeine use: No Review of Systems 10-point ROS is otherwise unremarkable Physical Examination - Vital Signs Temperature: 98.2 F Blood Pressure: 162/90 Pulse: 68 Respirations: 18 Pulse Ox (%): 94 - Physical Exam General: Alert, In no apparent distress, Oriented x3, Obese HEENT: Atraumatic, Normocephalic Neck: Supple Respiratory: Clear to auscultation bilaterally, Normal air movement Cardiovascular: Regular rate/rhythm, Normal S1 S2 Capillary refill: <2 Seconds Gastrointestinal: Soft and benign, W/out hepatosplenomegaly Musculoskeletal: No clubbing, No swelling Integumentary: No rashes Neurological: Normal speech, Normal strength at 5/5 x4 extr, Cranial nerves 3-12 intact, Normal reflexes 2+ Lymphatics: No axilla or inguinal lymphadenopathy - Studies Laboratory Data (last 24 hrs) 08/07/24 08/07/24 08/07/24 21:49 21:49 21:49 WBC 6.70 Hgb 13.0 L Hct 37.9 L Plt Count 264 PT 11.8 INR 1.04 Sodium 139 Potassium 3.3 L BUN 9 Creatinine 1.44 H Glucose 203 H Magnesium 2.0 Total Bilirubin 0.4 AST 20 ALT 53 Alkaline Phosphatase 79 Assessment and Plan - Plan Chest pain rule out ACS History of CAD status post PCI Will trend cardiac enzymes Will monitor telemetry Started on aspirin and statin EKG did not show any acute changes suggestive of ischemia Patient denies any chest pain Will get an echocardiogram Cardiology consult Hypertension Antihypertensives titrated Continue home medications and titrate as needed Hyperlipidemia Continue statin CKD stage II Monitor renal parameters Electrolytes monitor and replace accordingly Diabetes Insulin sliding scale Accu-Chek before every meal and at bedtime GI/DVT prophylaxis Advanced directive full code Discharge Plan: Home Plan to discharge in: 48 Hours - Advance Directives Does patient have a Living Will: No Does patient have a Durable POA for Healthcare: No - Code Status/Comfort Care Code Status: Full Code Time Spent Managing Pts Care (In Minutes): 48
--- NOTE | 2024-08-08 01:08 | RAD REPORT ---
CTA THORAX - PULMONARY ARTERIES HISTORY: Suspected pulmonary embolus. COMPARISON: CT chest angiogram 04/28/2019 TECHNIQUE: Intravenous low osmolar contrast. Coronal and sagittal reformations including 3D maxim um intensity projections. This exam was performed according to our departmental dose-optimization program, which includes autom ated exposure control, adjustment of the mA and/or kV according to patient size and/or use of iterative reconstruction technique. FINDINGS: PULMONARY ARTERIAL SYSTEM: Contrast bolus is adequate. No CT evidence for pulmonary embolism. CARDIAC: Normal. AORTA/VASCULAR: No aneurysm. Mild thoracic aortic atherosclerosis. LYMPH NODES/MEDIASTINUM: No thoracic adenopathy. CENTRAL AIRWAYS: Central airways are patent. LUNGS: No pulmonary infiltrates or masses. PLEURA: Normal. ESOPHAGUS: Collapsed and not well assessed by CT, without obvious abnormality. THYROID: Negative, where seen. CHEST WALL: Bilateral gynecomastia. UPPER ABDOMEN: No acute findings. Hepatomegaly with hepatic steatosis. THORACIC SKELETAL: No acute finding. ADDITIONAL CHEST FINDINGS: None. IMPRESSION: 1. No evidence of acute pulmonary embolus. 2. No acute thoracic findings. 3. Hepatomegaly with hepatic steatosis. Electronically signed by: Ramonita Peanloza MD 08/08/2024 12:54 AM CDT TYG Due to temporary technical issues with the PACS/PathJump reporting system, reports are being leah d by the in-house radiologist without review as a courtesy to ensure prompt reporting the interpreting radiologist is fully responsible for the content of the report. Transcribed Date/Time: 08/08/2024 1:08 AM
[2024-08-08] MEDS ORDERED: CYCLOBENZAPRINE 10 MG TAB PO PRN (01:12)
[2024-08-08] MEDS ORDERED: D10W 125 ML IV PRN (01:14)
[2024-08-08] MEDS ORDERED: GLUCAGON 1 MG/VIAL IM PRN (01:14)
[2024-08-08 01:50] VITALS: BMI 31.9
[2024-08-08] MEDS ORDERED: MORPHINE 2 MG/ML SYR IV PRN (03:22)
[2024-08-08] MEDS ORDERED: HYDROCODONE/APAP 5/325 MG TAB PO PRN (03:22)
[2024-08-08] MEDS: MORPHINE 2 MG/ML SYR IV PRN (03:51)
[2024-08-08 05:02] LABS: Anion Gap 7.9 mEq/L (5.0-15.0); Potassium 3.9 mEq/L (3.5-5.1)
[2024-08-08] MEDS: POTASSIUM CL SA 10 MEQ TAB PO ONE (05:31)
--- NOTE | 2024-08-08 05:48 | RAD REPORT ---
EXAM DESCRIPTION: Chest Single View CLINICAL HISTORY: 54 years Male CHEST PAIN COMPARISON: None. FINDINGS: The cardiomediastinal silhouette appears unremarkable. No consolidating infiltrates or pleural effusions. No pneumothorax. IMPRESSION: No acute abnormality is identified. Electronically signed by: Dejuan Porter MD 08/07/2024 11:19 PM CDT RP Due to temporary technical issues with the PACS/[employer] reporting system, reports are being leah d by the in-house radiologist without review as a courtesy to ensure prompt reporting the interpreting radiologist is fully responsible for the content of the report. Transcribed Date/Time: 08/08/2024 5:47 AM
[2024-08-08] MEDS: INSULIN REGULAR (HUMAN) 100 UNIT/ML SQ SCH (07:30)
[2024-08-08] MEDS ORDERED: FAMOTIDINE 20 MG TAB PO SCH (09:00)
[2024-08-08] MEDS ORDERED: HOME MED 1 EA UNK (Folic Acid [Folic Acid] 0.4 MG Tablet) PO SCH (09:00)
[2024-08-08] MEDS: ENOXAPARIN 40 MG/0.4 ML SQ SCH (09:00)
[2024-08-08] MEDS: hydroCHLOROthiazide 25 MG TAB PO SCH (09:16)
[2024-08-08] MEDS: METOPROLOL TAR 25 MG TAB PO SCH (09:17)
[2024-08-08] MEDS: ASPIRIN EC 81 MG TAB PO SCH (09:17)
--- NOTE | 2024-08-08 09:43 | P.CNS ---
Date of Consult: 08/08/24 Chief Complaint: Chest Pain History of Present Illness: Patient with PMH of HTN, HLD, DM, history of cancer in remission, presented with left side chest pain that has been going on for weeks, on/off, no radiation, can happen at rest, no palpitations, no syncope. Allergies No Known Allergies Allergy (Verified 05/08/19 15:32) Home medications list reviewed: Yes Home Medications: Famotidine [Pepcid*] 20 mg PO BID #60 tab 05/09/19 hydroCHLOROthiazide [Hydrodiuril*] 25 mg PO DAILY #30 tab 05/09/19 Atorvastatin Calcium [Lipitor] 40 mg PO BEDTIME 08/08/24 Dapagliflozin Propanediol [Farxiga] 10 mg PO DAILY 08/08/24 Ergocalciferol (Vitamin D2) [Vitamin D2] 1,250 mcg PO DAILY 08/08/24 Glipizide [Glucotrol Xl] 10 mg PO DAILY 08/08/24 Levothyroxine [Synthroid*] 0.75 mg PO DAILY 08/08/24 Losartan Potassium [Cozaar] 100 mg PO DAILY 08/08/24 dilTIAZem HCL [Diltiazem 24Hr ER] 180 mg PO DAILY 08/08/24 - Past Medical/Surgical History Diabetic: No -: htn -: sickle cell anemia -: esophageal ca -: bleeding disorder -: AL -: HLD -: Hypothyroidism -: GI bleed - Family History Father Medical History: Heart disease Mother Medical History: Heart disease, Diabetes - Social History Smoking Status: Unknown if ever smoked Alcohol use: No CD- Drugs: No Caffeine use: No Place of Residence: Home Review of Systems 10-point ROS is otherwise unremarkable Physical Examination Temp Pulse Resp BP Pulse Ox 97.4 F 60 14 143/85 H 98 08/08/24 08:00 08/08/24 09:17 08/08/24 08:00 08/08/24 09:17 08/08/24 08:00 General: Alert, In no apparent distress HEENT: Atraumatic, PERRLA, Mucous membr. moist/pink, EOMI, Sclerae nonicteric Neck: Supple, 2+ carotid pulse no bruit, No LAD, Without JVD or thyroid abnormality Respiratory: Clear to auscultation bilaterally, Normal air movement Cardiovascular: Regular rate/rhythm, Normal S1 S2 Gastrointestinal: Normal bowel sounds, No tenderness Musculoskeletal: No tenderness Integumentary: No rashes Neurological: Normal gait, Normal speech, Normal tone, Normal affect Lymphatics: No axilla or inguinal lymphadenopathy Laboratory Data (last 24 hrs) 08/07/24 08/07/24 08/07/24 21:49 21:49 21:49 WBC 6.70 Hgb 13.0 L Hct 37.9 L Plt Count 264 PT 11.8 INR 1.04 Sodium 139 Potassium 3.3 L BUN 9 Creatinine 1.44 H Glucose 203 H Magnesium 2.0 Total Bilirubin 0.4 AST 20 ALT 53 Alkaline Phosphatase 79 - Problems (1) Chest pain Current Visit: Yes Status: Acute Plan: patient with multiple risk factors presented with unstable angina NPO for coronary angiogram ASA 81 mg daily Lipitor 40 mg daily (2) HTN (hypertension) Current Visit: Yes Status: Acute Plan: continue metoprolol and HCTZ (3) HLD (hyperlipidemia) Current Visit: Yes Status: Acute Plan: increase lipitor to 40 mg daily lipid panel in 8 weeks.
[2024-08-08] MEDS ORDERED: NA CHLORIDE 0.9% 500 ML ONE (09:51)
[2024-08-08] MEDS ORDERED: HEPA 1000U/500MLS 2,000 UNIT/1,000 ML BAG IV ONE (10:46)
[2024-08-08] MEDS ORDERED: HEPARIN 10,000 UNIT/10 ML VIAL IV ONE (10:46)
[2024-08-08] MEDS ORDERED: CLOPIDOGREL 75 MG TABLET ONE (10:46)
[2024-08-08] MEDS ORDERED: ATROPINE SULF 1 MG/10 ML SYR IV ONE (10:46)
[2024-08-08] MEDS ORDERED: MIDAZOLAM HCL 2 MG/2 ML INJ ONE (10:46)
[2024-08-08] MEDS ORDERED: LIDOCAINE 1% 20 ML MDV ONE (10:46)
[2024-08-08] MEDS ORDERED: NALOXONE 0.4 MG/ML VIAL ONE (10:47)
[2024-08-08] MEDS ORDERED: FLUMAZENIL 0.1 MG/ML (5 mL VIAL) IV ONE (10:47)
[2024-08-08] MEDS ORDERED: ASPIRIN 325 MG TAB ONE (10:47)
[2024-08-08] MEDS ORDERED: TICAGRELOR 90 MG TABLET PO ONE (10:47)
[2024-08-08] MEDS ORDERED: HEPARIN 5000 UNIT/ML 1 ML VIAL ONE (10:47)
[2024-08-08] MEDS ORDERED: REGADENOSON 0.4 MG/5 ML SYR IV ONE (11:38)
[2024-08-08] MEDS: NA CHLORIDE 0.9% 1,000 ML IV SCH (12:00)
--- NOTE | 2024-08-08 12:05 | EKG ---
Test Date: 2024-08-07 Test Time: 21:43:31 Singer And Unloader: VERONICA MEASUREMENT RESULTS: Intervals: Rate: 62 [place]: 106 QRSD: 78 QT: 424 QTc: 430 [place]: P: 54 [place]: 106 QRS: 69 T: 26 INTERPRETIVE STATEMENTS: Sinus rhythm with short [place] Otherwise normal ECG Compared to ECG 05/14/2019 08:13:11 Short [place] interval now present Electronically Signed On 08-08-24 12:04:19 CDT by Bennie Magdaleno
[2024-08-08 15:15] VITALS: O2SAT 99
[2024-08-08 16:07] VITALS: BP 140/93; TEMP 97.7
[2024-08-08] MEDS ORDERED: TRAMADOL HCL 50 MG TAB PO ONE (16:39)
[2024-08-08] MEDS: TRAMADOL HCL 50 MG TAB PO ONE (16:50)
[2024-08-08] MEDS ORDERED: ATORVASTATIN 10 MG TAB PO SCH (21:00)
--- NOTE | 2024-08-08 23:17 | OP ---
Date of Procedure: 08/08/2024 Surgeon: Bennie Magdaleno Procedures Performed: 1. Left heart catheterization. 2. Selective angiogram. 3. FFR of the RCA. Indication For Procedure: Unstable angina. Complications: None. Estimated Blood Loss: Less than 50 cc. Access: Right radial, closed by TR band. Sedation Time: 30 minutes with 1 of Versed and 50 of fentanyl. Description Of Procedure: After risks, benefits, and alternatives were explained to the patient, the patient agreed to proceed with procedure and signed informed consent. The patient was brought back to the logging rafter laborer, prepped and draped in sterile fashion. Time-out was performed. Sedation was admini stered. Next, right radial access was obtained using ultrasound-guided micropuncture technique. Tig er 4 catheter was advanced over a J-wire to the LV cavity. LVEDP was obtained. Pullback did not diana w any gradient. Same catheter was used for selective angiogram of the left and right coronary system s. After that, catheter was exchanged with a JR4 guide. Heparin was administered. ACT was therapeu tic. The FFR comic wire was passed across the lesion. Lexiscan was injected. Baseline FFR was 0.97 , peak is 0.91, wire was pulled back. No drift. Final angiogram shows ERICA-3 flow. Catheter was re moved over a J-wire. Sheath was removed. TR band was applied and hemostasis achieved. The patient was moved back to recovery in stable condition. Findings: 1. Moderate ostial to proximal RCA disease, FFR was done and it was negative. 2. Mild mid LAD disease. Plan: To continue medical management for CAD. MADELYN/ISABELA Voice ID: [id number] Report ID: [id number]
--- NOTE | 2024-08-09 08:26 | ECHO ---
HEIGHT: 6 ft 1 in WEIGHT: 242 lb 0 oz DATE OF STUDY: 08/08/[address]: Leeroy Curtis DO 2-DIMENSIONAL: YES M.MODE: YES DOPPLER: YES COLOR FLOW: YES TDS: PORTABLE: YES DEFINITY: BUBBLE STUDY: DIAGNOSIS: CHEST PAIN CARDIAC HISTORY: CATHERIZATION: YES SURGERY: NO PROSTHETIC VALVE: NO PACEMAKER: NO MEASUREMENTS (cm) DIASTOLIC (NORMALS) SYSTOLIC (NORMALS) IVSd 1.1 (0.6-1.2) LA Diam 3.4 (1.9-4.0) LVEF 55-60% LVIDd 4.3 (3.5-5.7) LVIDs 3.4 (2.0-3.5) %FS 22% LVPWd 1.2 (0.6-1.2) Ao Diam 2.4 (2.0-3.7) 2 DIMENSIONAL ASSESSMENT: RIGHT ATRIUM: NORMAL LEFT ATRIUM: NORMAL RIGHT VENTRICLE: NORMAL LEFT VENTRICLE: NORMAL TRICUSPID VALVE: TRACE TRICUSPID REGURGITATION MITRAL VALVE: TRACE MITRAL REGURGITATION PULMONIC VALVE: NORMAL AORTIC VALVE: TRACE AORTIC REGURGITATION PERICARDIAL EFFUSION: NONE AORTIC ROOT: NORMAL LEFT VENTRICULAR WALL MOTION: NORMAL DOPPLER/COLOR FLOW: NORMAL COMMENTS: 1. NORMAL LEFT VENTRICULAR SYSTOLIC FUNCTION, EJECTION FRACTION 55-60%, NORMAL DIASTOLIC FUNCTION TECHNOLOGIST: DIAN CUEVAS
== END 2024-08-08 18:22 | disposition home or self-care (01) | DRG 287 ==
LOC: ER 21:24 → ERHOLD 08-08 01:08 → 4TH 08-08 02:36
PROVIDERS: ADMIT Family Medicine; ATTEND Hospitalist
PROC: 4A023N7 Measurement of Cardiac Sampling and Pressure, Left Heart, Percutaneous Approach (ICD-10-PCS; principal; 2024-08-08)
PROC: B2111ZZ Fluoroscopy of Multiple Coronary Arteries using Low Osmolar Contrast (ICD-10-PCS; 2024-08-08)
DX: I25.110 Atherosclerotic heart disease of native coronary artery with unstable angina pectoris (principal); E78.00 Pure hypercholesterolemia, unspecified; E03.9 Hypothyroidism, unspecified; E66.9 Obesity, unspecified; I12.9 Hypertensive chronic kidney disease with stage 1 through stage 4 chronic kidney disease, or unspecified chronic kidney disease; N18.2 Chronic kidney disease, stage 2 (mild); E11.22 Type 2 diabetes mellitus with diabetic chronic kidney disease; I25.2 Old myocardial infarction; Z95.5 Presence of coronary angioplasty implant and graft; Z68.31 Body mass index [BMI] 31.0-31.9, adult; Z79.84 Long term (current) use of oral hypoglycemic drugs; Z79.890 Hormone replacement therapy; Z79.899 Other long term (current) drug therapy; Z85.118 Personal history of other malignant neoplasm of bronchus and lung
CPT/HCPCS: 36415; 71045; 71275; 76937; 80048; 80076; 82947; 83735; 83880; 84484; 85025; 85347; 85610; 93005; 93306; 93458; 93571; 94760; 96361; 96374; 96375; 99152; 99153; 99285; C1769; C1893; J0461; J1644; J2003; J2250; J2270; J2310; J2405; J2785; J3010; J7030; J7040; Q9966; Q9967

== ENCOUNTER 2024-08-17 07:10 | Day surgery (SDC) | payer MEDICAID, OTHER ==
[2024-08-17] MEDS: NA CHLORIDE 0.9% 1,000 ML ONE (08:00)
[2024-08-17] MEDS ORDERED: LIDOCAINE 1% MPF 5 ML VIAL ONE (09:16)
[2024-08-17] MEDS ORDERED: propofoL 200 MG/20 ML VIAL IV ONE (09:16)
[2024-08-17 12:38] VITALS: O2SAT 100
[2024-08-17 12:41] VITALS: BP 153/88; TEMP 97.5
== END 2024-08-17 11:00 | disposition home or self-care (01) ==
LOC: OR 07:10
PROVIDERS: ATTEND Internal Medicine Gastroenterology
PROC: 0DBM8ZX Excision of Descending Colon, Via Natural or Artificial Opening Endoscopic, Diagnostic (ICD-10-PCS; principal; 2024-08-17 09:00)
PROC: 0DB68ZX Excision of Stomach, Via Natural or Artificial Opening Endoscopic, Diagnostic (ICD-10-PCS; 2024-08-17 09:00)
DX: Z12.11 Encounter for screening for malignant neoplasm of colon (principal); K30 Functional dyspepsia; R14.0 Abdominal distension (gaseous); R14.2 Eructation; K21.9 Gastro-esophageal reflux disease without esophagitis; K64.8 Other hemorrhoids; K29.80 Duodenitis without bleeding; K21.00 Gastro-esophageal reflux disease with esophagitis, without bleeding; K25.3 Acute gastric ulcer without hemorrhage or perforation; D12.4 Benign neoplasm of descending colon; K29.50 Unspecified chronic gastritis without bleeding
CPT/HCPCS: 88312; 82947; 88305; 45380; 43239; J2704; J2003; J7030